=== PATIENT | female | born 1990 | race Caucasian/White ===

== ENCOUNTER 2018-07-02 11:31 | Emergency (ER) | payer BC, SELFPAY ==
[2018-07-02 11:33] VITALS: BP 150/99; PULSE 116; RESP 18; TEMP 36.6; O2SAT 98; BMI 44.7
--- NOTE | 2018-07-02 11:37 | EKG12_ITS ---
Test Reason : CP Blood Pressure : / mmHG Vent. Rate : 112 BPM Atrial Rate : 112 BPM P-R Int : 144 ms QRS Dur : 092 ms QT Int : 326 ms P-R-T Axes : 057 063 043 degrees QTc Int : 444 ms Sinus tachycardia Otherwise normal ECG Confirmed by JACKSON WEISS, ELEAZAR ([id number]), desk editor SHANIA SCHAEFER ([id number] on 07/04/2018 2:37:48 PM Referred By: SHARLENE Confirmed By:ELEAZAR PAZ MD
--- NOTE | 2018-07-02 11:37 | RAD_ITS ---
STUDY: X-RAY CHEST REASON FOR EXAM: Female, 27 years old. Chest pain and abdominal pain. TECHNIQUE: PA and lateral views of the chest. COMPARISON: None. FINDINGS: The lungs are clear and expanded. Scattered calcified granulomas. There is no demonstrated pleural abnormality. Normal size heart. Normal mediastinum and keith. Normal visualized pulmonary arteries. Normal visualized aortic arch and descending thoracic aorta. Normal visualized thoracic spine. Normal visualized ribs, clavicles, and shoulders. There is no demonstrated abnormality of the visualized soft tissue structures of the upper abdomen. RAD/Chest PA and Lateral IMPRESSION: Normal x-ray examination of the chest. Electronically Signed: Alexey Enriquez MD at 12:13 EST Tel [phone], Service support ,
--- NOTE | 2018-07-02 13:02 | ED.RN ---
NO OLD EKG
--- NOTE | 2018-07-02 13:10 | US_ITS ---
STUDY: ABDOMINAL ULTRASOUND - RIGHT UPPER QUADRANT REASON FOR VISIT: Female, 27 years old. Abdominal pain. The patient has a history of [place]. TECHNIQUE: Ultrasound evaluation of the right upper quadrant was performed with real-time and static willingham-scale imaging. TECHNICAL QUALITY: Adequate. COMPARISON: Comparison is made with prior CT scan of the abdomen dated February 08, 2017. FINDINGS: Liver: The liver measures 13.9 cm. There is increased echogenicity consistent with fatty infiltration. The bile ducts are within normal limits. There is hepatic color flow. The direction of portal flow is hepatopetal. There is a 2.7 cm x 2.7 cm x 2.2 cm hypoechoic to isoechoic nodule in the left lobe of the liver. A similar appearing nodules also seen in the right lobe measuring 3.2 cm x 3 cm x 3.[address] scan of the abdomen and pelvis, these were thought to be hemangiomas. Gallbladder: Normal distended gallbladder. The gallbladder wall measures 2.0 mm. There is a negative sonographic Mendoza's sign. There is no pericholecystic fluid. There are no gallstones. Common Bile Duct (C.B.D.): The common bile duct was not visualized due to bowel gas. Pancreas: There is nonvisualization of the pancreas due to overlying bowel gas. Right Kidney: Normal size of the right kidney. The right kidney measures 13.9 cm x 5.2 cm x 4.8 cm. Normal renal cortex. The right cortex measures 1.7 cm. There is no demonstrated renal mass or cyst. There is no right hydronephrosis. US/Gallbladder IMPRESSION: Fatty infiltration of the liver. 2. Hypoechoic/isoechoic nodules in the right and left lobes of the liver as described. On prior CT scan examination, these were thought to be hemangiomas. Electronically Signed: Alexey Enriquez MD at 15:57 EST Tel [phone], Service support ,
[2018-07-02 13:15] VITALS: O2SAT 98
[2018-07-02] MEDS: Ondansetron 4 MG/2 ML Vial IV (13:19)
[2018-07-02 13:22] LABS: Absolute Lymphocyte Count 2.17 X10^3/ul (0.83-4.51); Absolute Neutrophil Count 5.9 X10^3/uL (2.0-7.7); Basophil# 0.03 X10^3/uL; Basophil% 0.3 % (0-1); Eosinophil# 0.29 X10^3/uL; Eosinophils% 3.2 % (0-5); Hematocrit 38.6 % (37-47); Hemoglobin 12.6 g/dl (12.0-15.0); Lymphocyte # 2.17 X10^3/ul (4.0); Lymphocyte % 23.7 % (19-41); Mean Corp Hgb Conc 32.6 g/gl (32-36); Mean Corpuscular Hgb 27.5 pg (27.0-32.0); Mean Corpuscular Volume 84.3 fL (81-99); Mean Platelet Vol. 11.4 fl (6.2-12.0); Monocyte# 0.64 X10^3/uL; Neutrophil # 5.93 X10^3/uL (2.7-7.7); Neutrophil % 64.9 % (47-70); Platelet Count 285 K/mm3 (150-450); RBC Distribution Width CV 13.9 % (11.6-14.6); RBC Distribution Width SD 43.1 fl (35.1-43.9); Red Blood Count 4.58 M/mm3 (4.2-5.4); White Blood Count 9.1 K/mm3 (4.4-11.0)
[2018-07-02 13:23] LABS: Differential Indicated SCAN CRITERIA MET; POSITIVE COUNT NO; POSITIVE DIFFERENTIAL NO; POSITIVE MORPHOLOGY YES
[2018-07-02 13:43] LABS: AST(SGOT) 26 U/L (15-37); Alanine Aminotransfer ALT/SGPT 30 U/L (13-56); Albumin, Serum 3.4 g/dL (3.2-5.0); Alkaline Phosphatase 60 U/L (45-117); Anion Gap 10 (5-15); BUN 7 mg/dL (7-18); Bilirubin, Direct 0.06 mg/dL (0.00-0.30); Chloride 105 mmol/L (98-107); Creatinine, Serum 0.64 mg/dL (0.55-1.02); EST Glomerular Filtration Rate 121 mL/min (>60); Est Glom Filt Rate - Afr Amer 146 mL/min (>60); Estimated Creatinine Clearance 116.04 ml/min; Globulin 3.9 g/dL (2.2-4.2); Glucose 127 mg/dL (74-106); Lipase 92 U/L (73-393); Potassium 3.9 mmol/L (3.5-5.1); Protein, Total 7.3 g/dL (6.4-8.2); Sodium Level 140 mmol/L (136-145)
--- NOTE | 2018-07-02 16:07 | ED.VISSUMM ---
- ER Visit Summary Date of Service: 07/02/18 Chief Complaint: Stomach and chest pain History of Present Illness: The patient is a 27 F with stomach and chest pain. Symptoms have been going on for days. She feels a burning pain in her epigastric region. It is radiating to her left axillary region. Worse with food. Associated with nausea and vomiting. Denies fever or skin changes. Denies urinary changes. Denies shortness of breath. Denies any history of lung disease, heart disease, PE. Denies leg swelling. Physical Examination: Afebrile and vital signs unremarkable except for heart rate of 116. The patient appears uncomfortable but not toxic or in distress. Skin appears normal without pallor or jaundice. Mucous membranes are moist. Heart regular. Lungs clear. Abdomen soft and nontender. Test Results: EKG showed sinus rhythm at a rate of 112. Labs all unremarkable including CBC, CMP, and lipase. Chest x-ray unremarkable. Ultrasound showed a fatty liver with suspected hemangiomas. Emergency Department Course and Treatment: Patient had symptoms concerning for GI disease. She does have some chest pain and I suspect this may be referred pain. She is low risk for heart disease, PE, or dissection. No urinary symptoms. Her workup was reassuring. She will be referred for outpatient follow-up. Prescribed Pepcid. Return for any new or worsening issues. Treatment Plan: As above Disposition: Discharge Impression: 1. Epigastric pain This note was generated with [employer] dictation software. It may contain incorrect words, spelling, and punctuation that were not noted in review of the chart prior to signing ED Disposition - Plan for ED Patient: Chief Complaint: Abd Pain Referrals: Angie Pena MD [Primary Care Provider] -
--- NOTE | 2018-07-02 16:10 | ED.DEP ---
ED Disposition - Plan for ED Patient: Chief Complaint: Abd Pain Instructions: ED Epigastric Pain [facility] Prescriptions: Famotidine [Pepcid] 20 mg PO BID #28 tab Referrals: Angie Pena MD [Primary Care Provider] -
[2018-07-02 16:25] VITALS: BP 149/79; PULSE 92; RESP 18; O2SAT 100
--- NOTE | 2018-07-02 16:26 | ED.RN ---
THIS NURSE REVIEWED D/C INSTRUCTIONS WITH PT. PT VERBALIZED UNDERSTANDING OF INSTRUCTIONS. IV D/C. IV CATHETER INTACT. PT TOLERATED WELL. PT DENIES FURTHER NEEDS OR QUESTIONS AT THIS TIME
== END 2018-07-02 16:26 | disposition home or self-care (01) ==
LOC: ED 13:19
PROVIDERS: Emergency Provider Emergency Medicine; Family Provider Internal Medicine; PCP Internal Medicine
DX: R10.13 Epigastric pain (principal); R11.2 Nausea with vomiting, unspecified; K75.81 Nonalcoholic steatohepatitis (NASH); E11.9 Type 2 diabetes mellitus without complications; I10 Essential (primary) hypertension; J45.909 Unspecified asthma, uncomplicated; Z79.84 Long term (current) use of oral hypoglycemic drugs; Z79.899 Other long term (current) drug therapy
CPT/HCPCS: 71046; 76705; 80048; 80076; 83690; 84484; 85025; 93005; 96374; 99285; A4216; J2405

== ENCOUNTER 2018-12-29 10:37 | Emergency (ER) | payer MEDICAID, SELFPAY ==
[2018-12-29 10:39] VITALS: BP 147/77; PULSE 106; RESP 18; TEMP 36.1; O2SAT 99; BMI 45.5
--- NOTE | 2018-12-29 11:19 | ED.VIS.GEN ---
History of Present Illness Chief Complaint: Weakness Informant: Patient Onset: Days Narrative: Patient presents with reports of generalized weakness and fatigue today. She has been experiencing these symptoms over the last 2 weeks. Last week, she was on vacation when she began to feel short of breath and diaphoretic and then had a syncopal event. She did feel the syncopal event coming on and it did not fall or hit her head. She states that it was very high on this vacation. Over the past week, she has been home. 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 She had another syncopal event yesterday and again felt it coming on and assisted herself to the ground. She has been experiencing muscle cramps. She denies any chest pain. She has never had this before. She has been drinking a significant amount of fluids including Pedialyte and Gatorade. She does have a history of diabetes mellitus. She does take oral contraceptive with estrogen. Past Medical History - Allergies and Home Meds Allergies/Adverse Reactions: Allergies No Known Allergies Allergy (Verified 12/29/18 10:38) Primary Care Physician: Angie Pena MD [Primary Care Provider] - Surgical History: no surgical history Smoking Status: Never smoker - Family History Maternal Family History: Reports: No pertinent history Paternal Family History: Reports: No pertinent history Review of Systems General: Reports: Malaise Eyes: Denies: Visual changes - bilaterally, Diplopia ENT: Denies: Rhinorrhea, Sore throat Cardiovascular: Denies: Chest pain, Palpitations Respiratory: Denies: Dyspnea, Cough, Dyspnea on exertion Gastrointestinal: Denies: Abdominal pain, Nausea, Vomiting, Diarrhea, Melena, Hematochezia Genitourinary: Denies: Dysuria, Hematuria, Frequency Musculoskeletal: Reports: - - Muscle cramps Skin: Denies: Rash, Wounds Neurological: Reports: Weakness Physical Exam Vital Signs/Narrative: Vital Signs Temp Pulse Resp BP Pulse Ox 12/29/18 10:39 97.0 F L 106 H 18 147/77 H 99 General: Well nourished, Well developed, No Acute Distress Head: Normocephalic, Atraumatic Eyes: Perrl, EOMI ENT: Moist mucous membranes, No rhinorrhea Neck: Supple, Nontender Cardiovascular: Tachycardia Respiratory: No distress, CTA bilaterally, Chest nontender Abdomen: Soft, Nontender, Nondistended, Normal bowel sounds Back: Nontender, Normal Inspection Extremities: Nontender, No edema Skin: Normal color, No rash Neurological: Alert, Oriented x3, Cranial nerves II-XII grossly intact, Normal Strength, Normal Sensation Psychological: Normal affect, Normal Mood Diagnostic/Tx/Re-eval - Medical Decision Making Patient presents to the ED with 2 episodes of syncope in the last 2 weeks. Upon arrival, she appears well and nontoxic. She was mildly tachycardic upon arrival. She is in no acute distress. Given patient does take oral contraceptives and was tachycardic she is not PERC negative. D-dimer was negative. CBC and BMP unremarkable. Urinalysis and urine unremarkable. Patient was given a liter of IV fluids and reports improvement of symptoms. EKG shows normal sinus rhythm with a ventricular rate of 79 bpm. AZ interval 160. QRS 94. QT 390. No STEMI. At this time, I think it is safe for patient be discharged home. She will follow-up with her PCP if symptoms persist or worsen. Educated on signs/symptoms to return to the ED. Provided discharge instructions. Patient agreeable to plan. Disposition: Home stable Impression: Vasovagal syncope. Dehydration. ED Disposition - Plan for ED Patient: Disposition: Home or Assisted Living Diagnosis: Vasovagal syncope, Dehydration Instructions: SYNCOPE, Vasovagal, Dehydration Referrals: Angie Pena MD [Primary Care Provider] -
[2018-12-29 11:33] LABS: Absolute Lymphocyte Count 1.94 X10^3/ul (0.83-4.51); Absolute Neutrophil Count 5.4 X10^3/uL (2.0-7.7); Basophil# 0.03 X10^3/uL; Basophil% 0.4 % (0-1); Eosinophil# 0.24 X10^3/uL; Eosinophils% 2.9 % (0-5); Hematocrit 37.7 % (37-47); Hemoglobin 12.4 g/dl (12.0-15.0); Lymphocyte # 1.94 X10^3/ul (4.0); Lymphocyte % 23.5 % (19-41); Mean Corp Hgb Conc 32.9 g/gl (32-36); Mean Corpuscular Hgb 27.1 pg (27.0-32.0); Mean Corpuscular Volume 82.3 fL (81-99); Monocyte# 0.54 X10^3/uL; Monocyte% 6.5 % (0-10); Neutrophil # 5.44 X10^3/uL (2.7-7.7); Neutrophil % 65.7 % (47-70); POSITIVE COUNT NO; POSITIVE DIFFERENTIAL NO; POSITIVE MORPHOLOGY NO; Platelet Count 278 K/mm3 (150-450); RBC Distribution Width CV 14.2 % (11.6-14.6); RBC Distribution Width SD 41.3 fl (35.1-43.9); Red Blood Count 4.58 M/mm3 (4.2-5.4); White Blood Count 8.3 K/mm3 (4.4-11.0)
[2018-12-29 11:40] LABS: Anion Gap 8 (5-15); BUN 8 mg/dL (7-18); BUN/Creat Ratio 10.6 RATIO (10-20); Calcium,Total 8.7 mg/dL (8.5-10.1); Chloride 106 mmol/L (98-107); Creatinine, Serum 0.75 mg/dL (0.55-1.02); EST Glomerular Filtration Rate 99 mL/min (>60); Est Glom Filt Rate - Afr Amer 120 mL/min (>60); Estimated Creatinine Clearance 94.03 ml/min; Glucose 168 mg/dL (74-106); Potassium 3.8 mmol/L (3.5-5.1); Sodium Level 136 mmol/L (136-145)
[2018-12-29 11:44] LABS: D-Dimer Quantitative (DVT/PE) 0.32 FEU/ug/m (0.27-0.49)
[2018-12-29] MEDS: 0.9% Normal Saline 1,000 ML 999 ML IV (11:50)
[2018-12-29 12:17] LABS: Mucous, Urine 0 SEEN /hpf (<or=2+); Red Blood Cells-Urine 0 SEEN /hpf (0-5); Squamous Epithelial Cells - UA 0 SEEN /hpf (5-10)
--- NOTE | 2018-12-29 12:28 | EKG12_ITS ---
Test Reason : WEAKNESS Blood Pressure : / mmHG Vent. Rate : 079 BPM Atrial Rate : 079 BPM P-R Int : 160 ms QRS Dur : 094 ms QT Int : 390 ms P-R-T Axes : 050 052 042 degrees QTc Int : 447 ms Normal sinus rhythm with sinus arrhythmia Normal ECG Confirmed by ISATU WEISS, NATALIE ([id number]), fan mail editor ZAMZAM CALDERON ([id number]) on 01/01/2019 1:54:06 PM Referred By: KAT Confirmed By:NATALIE LUNSFORD MD
[2018-12-29 13:02] LABS: Color, Urine Yellow (Yellow); Glucose, Dipstick Normal (Normal); Ketone-Dipstick 5 mg/dl (Negative); Leukocyte Esterase-Dipstick 25 /ul (Negative); Nitrite-Dipstick Negative (Negative); Occult Blood-Urine 50 /ul (Negative); Protein-Dipstick 15 mg/dl (Negative); Urine Bilirubin Dipstick Negative (Negative); Urine Clarity Clear (Clear); Urine Urobilinogen Normal (Normal)
[2018-12-29 13:04] LABS: Internal QC Validated? YES +Cl - CLEAR BKGD; Pregnancy, Urine Negative Negative
[2018-12-29 13:08] LABS: Bacteria 1+ /hpf (None Seen); Transitional Epithelial - Ur 5-10 SEEN /hpf (0-5); White Blood Cells 0-5 SEEN /hpf (0-5)
--- NOTE | 2018-12-29 13:21 | ED.DCSUM_ITS ---
- ER Visit Summary Date of Service: 12/29/18 Chief Complaint: [Dizziness and syncope] History of Present Illness: The patient is a 28 F [presents to the emergency department with 2 episodes of syncope in the last 2 weeks. Patient states that she was on vacation in [place] couple weeks ago and she was on about where it was quite hot. Patient remembers feeling very nauseated and thought she was going throw up and had a short syncopal episode. 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 She denies any chest pain or palpitations. Patient states that she has a history of a mild tachycardia which she was told she should have it looked at because her heart rate is always in the 90s to low 100s. 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 She denies any chest pain. She denies any history of blood clots in her legs or lungs.] She has had somewhat decreased urine output. Physical Examination: [HEENT-PERRLA, EOMI. Cranial nerves II through XII grossly intact. TMs clear. Mucous membranes moist. No adenopathy. Cardiovascular-regular rate and rhythm without murmur or ectopy Lungs-clear to auscultation, chest wall stable without crepitus or subcu emphysema Abdomen-normoactive bowel sounds, soft, nontender, no rebound or rigidity, no peritoneal signs. Extremities-intact ?4, normal range of motion, normal pulses, atraumatic] Test Results: [CBC with differential was unremarkable. Chemistries unremarkable. Urinalysis was normal. hCG was negative. EKG showed sinus rhythm with no acute segment changes.] Lab was normal. Emergency Department Course and Treatment: [Was given a liter normal same fluid bolus.] Treatment Plan: [Patient instructed to push fluids and follow-up with primary care physician in 3 to 5 days.] Disposition: [Discharged home stable condition.] Impression: [Syncope-vasovagal Dehydration] This note was generated with [employer] software. It may contain incorrect words, spelling, and punctuation that were not noted in review of the chart prior to signing ED Disposition - Plan for ED Patient: Referrals: Angie Pena MD [Primary Care Provider] -
[2018-12-29 13:32] VITALS: BP 147/87; PULSE 85; RESP 15; O2SAT 98
== END 2018-12-29 13:32 | disposition home or self-care (01) ==
PROVIDERS: Emergency Provider Physician Assistant; Family Provider Internal Medicine; PCP Internal Medicine
DX: R55 Syncope and collapse (principal); E86.0 Dehydration; E11.9 Type 2 diabetes mellitus without complications; Z79.3 Long term (current) use of hormonal contraceptives; Z79.84 Long term (current) use of oral hypoglycemic drugs
CPT/HCPCS: 80048; 81001; 81025; 85025; 85379; 93005; 96360; 99282; J7030

== ENCOUNTER 2020-04-12 16:40 | Emergency (ER) | payer MEDICAID, SELFPAY ==
[2020-04-12 16:41] VITALS: BP 157/108; PULSE 121; RESP 24; TEMP 36.3; O2SAT 100; BMI 45.1
--- NOTE | 2020-04-12 17:07 | EKG12_ITS ---
Test Reason : ANXIETY Blood Pressure : / mmHG Vent. Rate : 109 BPM Atrial Rate : 109 BPM P-R Int : 162 ms QRS Dur : 092 ms QT Int : 352 ms P-R-T Axes : 021 039 008 degrees QTc Int : 474 ms Sinus tachycardia Otherwise normal ECG Confirmed by SUNITA WEISS, MARIA DEL CARMEN ([id number]), editor newspaper CLARISSA DE OLIVEIRA ([id number]) on 04/23/2020 9:34:58 A M Referred By: ADRIANA Confirmed By:СЕРГЕЙ DORSEY MD
--- NOTE | 2020-04-12 17:07 | CT_ITS ---
HISTORY: PLEURITIC CP, BACK PAIN, TACHCARDIA, HX DIAB, HTN, DIAB ADDITIONAL HISTORY: None provided. EXAMINATION/TECHNIQUE: CTA Chest WO/W Contrast Injection PULMONARY EMBOLISM PROTOCOL: 2D and 3D images to include MIP and/or volume rendered images CONTRAST: IV 100mL [id number] Number of images including paperwork: [id number] A radiation dose optimization technique was used for this scan. COMPARISON: CT abdomen and pelvis 02/08/2017 FINDINGS: PULMONARY ARTERIES: No pulmonary arterial filling defects. AORTA AND GREAT VESSELS: No dissection. HEART/PERICARDIUM: Unremarkable. MEDIASTINUM: Unremarkable. ADENOPATHY: No pathologic appearing adenopathy. THYROID: Unremarkable visualized portions. LUNG PARENCHYMA: No consolidation or mass. 2-3 mm nodules in the lower lobes unchanged and consistent with benign nodules for which no follow-up is warranted. PLEURAL SPACES: Unremarkable. UPPER ABDOMEN: Decreased hepatic density compatible steatosis. OSSEOUS AND SOFT TISSUE STRUCTURES: No acute skeletal findings. CT/CTA Chest W/WO Contrast IMPRESSION: No pulmonary embolus detected. Individualized dose optimization techniques were used for this CT. at 1836 Reported and signed by: Rachelle Jimenez MD Electronically Signed: Rachelle Jimenez MD at 18:36 EDT Tel , Service support ,
--- NOTE | 2020-04-12 17:10 | ED.VIS.GEN ---
History of Present Illness Chief Complaint: Anxiety Narrative: This patient is a 29-year-old female who presents with chest pain. This began abruptly less than an hour ago while driving. She complains of a substernal sharp pleuritic chest pain as well as cramping pain in her back and down her arms. No fevers. No cough. No vomiting or diarrhea. No history of prior similar symptoms. She does admit to feeling anxious. She denies history of prior similar symptoms or panic attacks. She does note that her boyfriend broke up with her about an hour before symptoms began. She is not on exogenous estrogen. She denies recent travel or surgery. No history of DVT or pulmonary embolism. No extremity pain or edema. Past Medical History - Allergies and Home Meds Allergies/Adverse Reactions: Allergies No Known Allergies Allergy (Verified 12/29/18 10:38) Primary Care Physician: Angie Pena MD [Primary Care Provider] - Past Medical History: - - Bipolar, diabetes, hypertension Surgical History: no surgical history Smoking Status: Never smoker - Family History Maternal Family History: Reports: No pertinent history Paternal Family History: Reports: No pertinent history Review of Systems All systems negative except as indicated General: Denies: Fever Eyes: Denies: Visual changes - bilaterally ENT: Denies: Bilateral ear pain Cardiovascular: Reports: Chest pain Respiratory: Reports: Dyspnea. Denies: Cough Gastrointestinal: Denies: Abdominal pain, Nausea, Vomiting, Diarrhea Musculoskeletal: Reports: Extremity Pain - Bilateral arm pain no lower extremity pain. Denies: Myalgias, Arthralgias, Swelling Skin: Denies: Rash Neurological: Denies: Headache Psych: Reports: Anxiety, Suicidal thoughts - Patient reports prior suicidal thoughts she does not actively feel suicidal she has no suicidal thoughts at this time she does not feel she is a risk to herself. Hematologic: Denies: Easy bruising Allergy: Denies: Uticaria Physical Exam Vital Signs/Narrative: Vital Signs Temp Pulse Resp BP Pulse Ox 04/12/20 16:41 97.3 F L 121 H 24 H 157/108 H 100 Inital Vital Signs reviewed: Yes General: Well nourished Head: Normocephalic Eyes: EOMI ENT: Moist mucous membranes Neck: Supple Cardiovascular: Regular rhythm, Tachycardia Respiratory: - - Tachypnea, good air exchange, no rales rhonchi or wheezes Abdomen: Soft, Nontender, Nondistended Extremities: Nontender, No edema, - - Easily palpable and symmetric radial pulses Skin: Normal color Neurological: Alert Psychological: Normal affect Diagnostic/Tx/Re-eval Impressions Chest CTA 04/12/20 17:07 IMPRESSION: No pulmonary embolus detected. Individualized dose optimization techniques were used for this CT. at 1836 Reported and signed by: Rachelle Jimenez MD Electronically Signed: Rachelle Jimenez MD at 18:36 EDT Tel , Service support , 04/12/20 17:07 CTA Chest W/WO Contrast [CT] Stat Laboratory Results 04/12/20 04/12/20 04/12/20 17:25 17:25 17:25 WBC 9.9 RBC 4.63 Hgb 12.7 Hct 39.4 MCV 85.1 MCH 27.4 MCHC 32.2 RDW Std Deviation 44.2 H RDW Coeff of Ranjeet 14.4 Plt Count 299 MPV 12.3 H Immature Gran % (Auto) 1.300 H Neut % (Auto) 70.1 H Lymph % (Auto) 20.7 [place] % (Auto) 5.1 Eos % (Auto) 2.3 Baso % (Auto) 0.5 Absolute Neuts (auto) 6.9 Absolute Lymphs (auto) 2.05 Nucleated RBC % 0 PT 13.2 INR 1.1 Sodium 137 Potassium 3.7 Chloride 105 Carbon Dioxide 24.0 Anion Gap 8 BUN 6 L Creatinine 0.76 Estim Creat Clear Calc 91.98 Est GFR (MDRD) Af Amer 118 Est GFR (MDRD) Non-Af 97 BUN/Creatinine Ratio 7.9 L Glucose 170 H Calcium 9.1 Troponin I < 0.015 - Medical Decision Making EKG shows sinus tachycardia at a rate of 109 no acute ischemic changes. Serum laboratory studies are unremarkable with a negative troponin. CTA of the chest shows no pulmonary embolism or aortic dissection. At this time she does not appear to have any acute life-threatening pathology. This could very well be related to anxiety. Patient advised on supportive care. She was advised to follow-up as an outpatient. She understands to return for new or worsening symptoms. Patient was discharged. ED Disposition - Plan for ED Patient: Disposition: Home or Assisted Living Diagnosis: Chest pain Instructions: ED Chest Pain NonCardiac Referrals: Angie Pena MD [Primary Care Provider] -
[2020-04-12 17:15] VITALS: BP 142/94; PULSE 106; RESP 23; O2SAT 96
[2020-04-12 17:45] LABS: Absolute Lymphocyte Count 2.05 X10^3/uL (0.83-4.51); Absolute Neutrophil Count 6.9 X10^3/uL (2.0-7.7); Basophil# 0.05 X10^3/uL; Basophil% 0.5 % (0-1); Eosinophil# 0.23 X10^3/uL; Eosinophils% 2.3 % (0-5); Hematocrit 39.4 % (37-47); Hemoglobin 12.7 g/dL (12.0-15.0); Lymphocyte # 2.05 X10^3/ul (4.0); Lymphocyte % 20.7 % (19-41); Mean Corp Hgb Conc 32.2 g/dL (32-36); Mean Corpuscular Hgb 27.4 pg (27.0-32.0); Mean Corpuscular Volume 85.1 fL (81-99); Mean Platelet Vol. 12.3 fl (6.2-12.0); Monocyte% 5.1 % (0-10); NRBC Flagged by Analyzer 0 % (0-5); Neutrophil # 6.92 X10^3/uL (2.7-7.7); Neutrophil % 70.1 % (47-70); Platelet Count 299 K/mm3 (150-450); RBC Distribution Width CV 14.4 % (11.6-14.6); RBC Distribution Width SD 44.2 fl (35.1-43.9); Red Blood Count 4.63 M/mm3 (4.2-5.4); White Blood Count 9.9 K/mm3 (4.4-11.0)
[2020-04-12 17:48] LABS: International Normalized Ratio 1.1; Prothrombin Time (Protime)PT. 13.2 SECONDS (11.7-14.9)
[2020-04-12 17:54] LABS: Anion Gap 8 (5-15); BUN 6 mg/dL (7-18); BUN/Creat Ratio 7.9 RATIO (10-20); Calcium,Total 9.1 mg/dL (8.5-10.1); Chloride 105 mmol/L (98-107); Creatinine, Serum 0.76 mg/dL (0.55-1.02); EST Glomerular Filtration Rate 97 mL/min (>60); Est Glom Filt Rate - Afr Amer 118 mL/min (>60); Estimated Creatinine Clearance 91.98 ml/min; Glucose 170 mg/dL (74-106); Potassium 3.7 mmol/L (3.5-5.1); Sodium Level 137 mmol/L (136-145)
[2020-04-12 18:27] VITALS: BP 148/94; PULSE 104; RESP 20; O2SAT 98
[2020-04-12 18:55] VITALS: BP 147/91; PULSE 103; RESP 20; O2SAT 99
== END 2020-04-12 19:00 | disposition home or self-care (01) ==
PROVIDERS: Emergency Provider Emergency Medicine; PCP Internal Medicine
DX: R07.81 Pleurodynia (principal); R06.00 Dyspnea, unspecified; M79.602 Pain in left arm; M79.601 Pain in right arm; E11.9 Type 2 diabetes mellitus without complications; I10 Essential (primary) hypertension; F31.9 Bipolar disorder, unspecified; F41.9 Anxiety disorder, unspecified; Z79.84 Long term (current) use of oral hypoglycemic drugs; Z79.899 Other long term (current) drug therapy
CPT/HCPCS: 71275; 80048; 84484; 85025; 85610; 93005; 99284; 99285; Q9967

== ENCOUNTER → 2020-06-10 | Outpatient (CLI) | payer MEDICAID, SELFPAY ==
[2020-06-10 09:31] VITALS: BMI 46.6
[2020-06-10 16:19] LABS: Chlamydia Trachomatis by PCR Negative (Negative); Neisserai gonorrhoeae by PCR Negative (Negative); Probe Check PASS; Sample Adequacy Control PASS; Specimen Processing Control PASS
== END | disposition home or self-care (01) ==
LOC: LABSPEC 12:06
PROVIDERS: PCP Internal Medicine; Referring Provider Nurse Practitioner Women's Health; Visit Provider Nurse Practitioner Women's Health
DX: Z11.3 Encounter for screening for infections with a predominantly sexual mode of transmission (principal)
CPT/HCPCS: 87491; 87591

== ENCOUNTER → 2020-06-14 08:17 | Outpatient (CLI) | payer MEDICAID, SELFPAY ==
[2020-06-10 09:31] VITALS: BMI 46.6
[2020-06-14 08:56] LABS: Estradiol 35.6 pg/mL; Follicle Stimulating Hormone 5.2 mIU/mL
[2020-06-22 09:25] LABS: Anti-Mullerian Hormone,Serum 4.92 ng/mL (.)
== END ==
PROVIDERS: PCP Internal Medicine; Visit Provider Nurse Practitioner Women's Health
DX: E28.2 Polycystic ovarian syndrome (principal)
CPT/HCPCS: 36415; 82670; 83001; 83516

== ENCOUNTER → 2020-07-02 09:27 | Outpatient (CLI) | payer MEDICAID, SELFPAY ==
[2020-07-01 10:34] VITALS: BMI 46.5
[2020-07-02 10:45] LABS: Progesterone Level 4.01 ng/mL (See Comment)
== END ==
PROVIDERS: PCP Internal Medicine; Referring Provider Nurse Practitioner Women's Health; Visit Provider Nurse Practitioner Women's Health
DX: E28.2 Polycystic ovarian syndrome (principal)
CPT/HCPCS: 36415; 84144

== ENCOUNTER 2020-09-11 15:23 | Outpatient (RCR) | payer MEDICAID, SELFPAY ==
[2020-07-01 10:34] VITALS: BMI 46.5
[2020-09-11] MEDS: COVID-19 VACC, MRNA(PFIZER)/PF 30 MCG/0.3 ML SYRINGE IM (09:02)
[2020-10-02] MEDS: COVID-19 VACC, MRNA(PFIZER)/PF 30 MCG/0.3 ML SYRINGE IM (08:50)
== END 2020-09-11 23:59 ==
LOC: IMMUN 15:23
PROVIDERS: PCP Internal Medicine; Visit Provider Family Medicine
DX: Z23 Encounter for immunization (principal)
CPT/HCPCS: 0001A; 0002A; 91300

== ENCOUNTER 2020-12-18 14:45 | Emergency (ER) | payer MEDICAID, SELFPAY ==
[2020-07-01 10:34] VITALS: BMI 46.5
[2020-12-18 14:46] VITALS: BP 151/88; PULSE 119; RESP 16; TEMP 36.3; O2SAT 96; BMI 44.6
--- NOTE | 2020-12-18 14:57 | EKG12_ITS ---
Test Reason : DIZZIESS Blood Pressure : / mmHG Vent. Rate : 108 BPM Atrial Rate : 108 BPM P-R Int : 156 ms QRS Dur : 090 ms QT Int : 348 ms P-R-T Axes : 029 072 038 degrees QTc Int : 466 ms Sinus tachycardia Poor R wave progression Confirmed by JACKSON WEISS, ELEAZAR ([id number]), make up editor CLARISSA DE OLIVEIRA ([id number]) on 12/22/2020 8:34:51 AM Referred By: JULIANA Confirmed By:ELEAZAR PAZ MD
--- NOTE | 2020-12-18 14:58 | EDS_ITS ---
HPI History of Present Illness Chief Complaint: Dizziness Detail of Chief Complaint: Dizziness and near syncope that started about an hour ago Informant: patient Narrative Narrative: Patient states that she gave plasma approximately noon today. Patient states that the IV infiltrated in her left arm and it somewhat painful. She initially felt okay but while driving home began feeling clammy and sweaty and felt like she might pass out. She did not actually pass out however. She denies recent illness. She denies any shortness of breath. Initially she had some mild chest discomfort which she was not really concerned with. She is c urrently not having chest pain but still feels somewhat clammy. Patient's last menstrual period was 3 weeks ago and states that she has not had intercourse in many months. Prior similar symptoms: No PFSH PFSH Medical History (Updated 12/18/20 @ 17:[address] Ya Hanley DO) Bipolar disorder History of PCOS HTN (hypertension) Type 2 diabetes mellitus Home Medications lisinopril 10 mg PO DAILY 03/19/17 [History Last Taken 04/12/20] metformin 500 mg PO BID 03/19/17 [History Last Taken 04/12/20] spironolactone 50 mg PO DAILY 07/02/18 [History Last Taken 04/12/20] pantoprazole 20 mg PO DAILY 12/29/18 [History Last Taken 04/12/20] aripiprazole 30 mg tablet 30 mg PO DAILY 06/10/20 [History Last Taken Unknown] Allergy/AdvReac Type Severity Reaction Status Date / Time No Known Allergies Allergy Verified 07/01/20 10:34 Family History Mother CVA (cerebral vascular accident) Father Diabetes Hypertension Surgical History History of breast biopsy History of liver biopsy History of lumpectomy Social History (Updated 07/01/20 @ 10:53 by Alejandra Haq NP, [employer] DEV[employer]) household members: other details: parents number of children: 0 current occupational status: employed current occupation: [employer] history of recent travel: No sexually active: Yes Smoking Status: Never smoker alcohol intake: current alcohol intake frequency: a few times a month substance use type: does not use what type of physical activity do you participate in: aerobics frequency: 1-2 times per week seatbelt use: always do you feel safe at home: Yes additional social history: Boyfriend - Elias JACKSON RENETTA ED Constitutional Constitutional ED: Reports systems reviewed and no addt'l complaints, except as documented; Denies body ache(s), change in weight or chills Eyes Eyes: Denies acute decrease in peripheral vision, change in vision, double vision or loss of vision ENT ENT ED: Reports none; Denies ear pain, lip swelling, loss taste/smell, neck pain, otalgia or sore throat Cardiovascular Cardiovascular: Reports none; Denies abdominal pain, chest pain with activity, leg edema, lightheadedness, palpitations, rapid heart rate or syncope Respiratory/Chest Respiratory/Chest: Reports none; Denies change in mental status, dry cough, dyspnea, hemoptysis, shortness of breath at rest or shortness of breath with exertion Gastrointestinal Gastrointestinal: Reports none; Denies abdominal pain, change in stool bianca cter, diarrhea, hematemesis, hematochezia, melena, rectal bleeding or vomiting Genitourinary Genitourinary ED: Reports none; Denies abdominal discomfort, anuria, dysuria, genital pain or polyuria Musculoskeletal Musculoskeletal: Reports none; Denies arthralgias, back pain, difficulty walking, extremity pain, muscle weakness or myalgias Integumentary Reports none; Denies abscess or rash Neurologic Neurologic: Reports none; Denies abnormal gait, confusion, focal weakness, frequent falls, headache(s), loss of vision, numbness, paresthesias, radicular pain, vertigo or weakness Psychiatric Psychiatric: Reports systems reviewed and no addt'l complaints, except as documented and none; Denies behavioral changes, confusion, difficulty con centrating, hallucinations, suicidal ideation, tactile hallucinations or visual hallucinations Endocrine Endocrinology: Denies none, cold intolerance, excessive sweating, fatigue or heat intolerance Hematologic/Lymphatic Hematologic/Lymphatic: Reports none; Denies anemia, easy bleeding or easy bruising Allergic/Immunologic Allergic/Immunologic ED: Denies as per HPI, none, lip swelling, mouth swelling, throat swelling, tongue swelling or hives EXAM Physical Exam Const Vital Signs: 12/18/20 14:46 12/18/20 15:41 Temperature 97.4 F L Temperature Source Temporal Pulse Rate 119 H Pulse Rate [Lying] 105 H Pulse Rate [Sitting] 111 H Pulse Rate [Standing] 120 H Respiratory Rate 16 Blood Pressure 151/88 H Blood Pressure [Lying] 122/75 H Blood Pressure [Sitting] 122/96 H Blood Pressure [Standing] 141/103 H Blood Pressure Mean 109 Blood Pressure Mean [Lying] 90 Blood Pressure Mean [Sitting] 104 Blood Pressure Mean [Standing] 115 Pulse Ox 96 Oxygen Delivery Method Room Air Positive well nourished and well developed General Appearance ED: well developed and NAD HEENT Reports TM's clear and moist mucous membranes normocephalic and atraumatic; Negative for trauma or tenderness Tympanic Membrane ED: Yes TM's clear Eyes PERRL and EOMs intact bilaterally General Eye ED: Negative for pale conjunctiva or scleral icterus Neck no lymphadenopathy, supple and no JVD General: Negative for tenderness Chest Wall inspection of chest normal and palpation of chest normal Chest: Negative for tenderness Resp normal respiratory effort and clear to auscultation bilaterally Effort and Inspection: Negative for respiratory distress or pain with movement Auscultation: Negative for rhonchi, wheezes or diminished lung sounds Cardio regular rate, regular rhythm, S1 normal heart sound, S2 normal heart sound and no murmurs Peripheral Pulses: pulses 2+ throughout GI normal to inspection, nondistended, normoactive bowel sounds, soft to palpation, non-tender, non-distended and no masses Back/Spine no CVA tenderness and no thoracic nor lumbar tenderness Extremity normal to inspection General Extremety ED: Negative for edema General Extremity: Negative for edema Neuro oriented x3, CN's II-XII intact bilaterally, no sensory deficits noted and gait normal Sensorium / Orientation: awake, alert, oriented to person, oriented to place and oriented to time Motor Exam: strength 5/5 throughout and strength abnormal Psych mental status grossly normal Skin no rashes or lesions noted and no wounds MDM MDM MDM Narrative Medical decision making narrative: Patient's work-up unremarkable in the emergency department. Etiology of near syncope unclear why Speck may be related to her blood draw and plasma donation. Patient advised to push fluids and rest. She is to return if chest pain, shortness of breath, syncope, or conditions worsen anyway. Lab Data Attestation: I reviewed the patient's lab results. Labs: Laboratory Results - last 24 hr 12/18/20 12/18/20 12/18/20 15:30 15:30 15:30 WBC 11.8 H RBC 4.89 Hgb 13.4 Hct 42.1 MCV 86.1 MCH 27.4 MCHC 31.8 L RDW Std Deviation 44.2 H RDW Coeff of Ranjeet 14.0 Plt Count 305 MPV 11.6 Immature Gran % (Auto) 2.500 H Neut % (Auto) 69.7 Lymph % (Auto) 19.9 [place] % (Auto) 4.3 Eos % (Auto) 3.0 Baso % (Auto) 0.6 Absolute Neuts (auto) 8.2 H Absolute Lymphs (auto) 2.34 Nucleated RBC % 0 Sodium 136 Potassium 4.2 Chloride 101 Carbon Dioxide 26.0 Anion Gap 9 BUN 8 Creatinine 0.76 Estim Creat Clear Calc 95.17 Est GFR (MDRD) Af Amer 117 Est GFR (MDRD) Non-Af 96 BUN/Creatinine Ratio 10.5 Glucose 227 H Calcium 8.7 Serum , Qual NEGATIVE Urine Color Urine Clarity Urine pH Ur Specific [place] Urine Protein Urine Glucose (UA) Urine Ketones Urine Occult Blood Urine Nitrite Urine Bilirubin Urine Urobilinogen Ur Leukocyte Esterase Urine RBC Urine WBC Ur Squamous Epith Cells Urine Bacteria Urine Mucus 12/18/20 16:32 WBC RBC Hgb Hct MCV MCH MCHC RDW Std Deviation RDW Coeff of Ranjeet Plt Count MPV Immature Gran % (Auto) Neut % (Auto) Lymph % (Auto) [place] % (Auto) Eos % (Auto) Baso % (Auto) Absolute Neuts (auto) Absolute Lymphs (auto) Nucleated RBC % Sodium Potassium Chloride Carbon Dioxide Anion Gap BUN Creatinine Estim Creat Clear Calc Est GFR (MDRD) Af Amer Est GFR (MDRD) Non-Af BUN/Creatinine Ratio Glucose Calcium Serum , Qual Urine Color Yellow Urine Clarity Clear Urine pH 6.0 Ur Specific [place] 1.020 Urine Protein Negative Urine Glucose (UA) 100 H Urine Ketones 5 H Urine Occult Blood Negative Urine Nitrite Negative Urine Bilirubin Negative Urine Urobilinogen Normal Ur Leukocyte Esterase Negative Urine RBC 0 SEEN Urine WBC 0 SEEN Ur Squamous Epith Cells 0-5 SEEN Urine Bacteria 0 SEEN Urine Mucus 0 SEEN EKG Initial EKG: Interpretation: Sinus Rhythm Comments: Sinus rhythm with a ventricular rate of 108 bpm with no acute ST segment changes. Discharge Plan Triage Chief Complaint: Dizziness ED Provider: Ya Hanley Dx/Rx/DC Orders Clinical Impression: Near syncope Instructions: ED Dizziness, Uncertain Cause Prescriptions: No Action metformin 500 MG tablet 500 mg PO BID RF: 0 lisinopril 2.5 MG tablet 10 mg PO DAILY RF: 0 spironolactone 25 MG tablet 50 mg PO DAILY RF: 0 pantoprazole 20 MG tablet 20 mg PO DAILY RF: 0 aripiprazole 30 mg tablet 30 mg PO DAILY RF: 0 Primary Care Provider: Angie Pena Referrals: Angie Pena MD [Primary Care Provider] - 3-5 Days Disposition Disposition: Home, Self Care
[2020-12-18 15:40] LABS: Absolute Lymphocyte Count 2.34 X10^3/uL (0.83-4.51); Absolute Neutrophil Count 8.2 X10^3/uL (2.0-7.7); Basophil# 0.07 X10^3/uL; Basophil% 0.6 % (0-1); Eosinophil# 0.35 X10^3/uL; Hematocrit 42.1 % (37-47); Hemoglobin 13.4 g/dL (12.0-15.0); Lymphocyte # 2.34 X10^3/ul (0.83-4.51); Lymphocyte % 19.9 % (19-41); Mean Corp Hgb Conc 31.8 g/dL (32-36); Mean Corpuscular Hgb 27.4 pg (27.0-32.0); Mean Corpuscular Volume 86.1 fL (81-99); Mean Platelet Vol. 11.6 fl (6.2-12.0); Monocyte# 0.51 X10^3/uL; Monocyte% 4.3 % (0-10); NRBC Flagged by Analyzer 0 % (0-5); Neutrophil % 69.7 % (47-70); Platelet Count 305 K/mm3 (150-450); RBC Distribution Width SD 44.2 fl (35.1-43.9); Red Blood Count 4.89 M/mm3 (4.2-5.4); White Blood Count 11.8 K/mm3 (4.4-11.0)
[2020-12-18 15:41] VITALS: BP 122/75; BP 122/96; BP 141/103; PULSE 105; PULSE 111; PULSE 120
[2020-12-18 15:55] LABS: Anion Gap 9 (5-15); BUN 8 mg/dL (7-18); BUN/Creat Ratio 10.5 RATIO (10-20); Calcium,Total 8.7 mg/dL (8.5-10.1); Chloride 101 mmol/L (98-107); Creatinine, Serum 0.76 mg/dL (0.55-1.02); EST Glomerular Filtration Rate 96 mL/min (>60); Est Glom Filt Rate - Afr Amer 117 mL/min (>60); Estimated Creatinine Clearance 95.17 ml/min; Glucose 227 mg/dL (74-106); Potassium 4.2 mmol/L (3.5-5.1); Sodium Level 136 mmol/L (136-145)
[2020-12-18 16:11] LABS: Internal QC Validated? YES +Cl - CLEAR BKGD; Pregnancy, Serum, hCG Quali. NEGATIVE Negative
[2020-12-18 16:49] LABS: Bacteria 0 SEEN /hpf (None Seen); Mucous, Urine 0 SEEN /hpf (<or=2+); Red Blood Cells-Urine 0 SEEN /hpf (0-5); White Blood Cells 0 SEEN /hpf (0-5)
[2020-12-18 16:58] LABS: Color, Urine Yellow (Yellow); Glucose, Dipstick 100 mg/dl (Normal); Ketone-Dipstick 5 mg/dl (Negative); Leukocyte Esterase-Dipstick Negative /ul (Negative); Nitrite-Dipstick Negative (Negative); Occult Blood-Urine Negative /ul (Negative); Protein-Dipstick Negative (Negative); Urine Bilirubin Dipstick Negative (Negative); Urine Clarity Clear (Clear); Urine Urobilinogen Normal (Normal)
[2020-12-18 17:09] LABS: Squamous Epithelial Cells - UA 0-5 SEEN /hpf (5-10)
[2020-12-18 18:03] VITALS: BP 129/88
== END 2020-12-18 18:04 | disposition home or self-care (01) ==
PROVIDERS: Emergency Provider Emergency Medicine; PCP Internal Medicine
DX: R55 Syncope and collapse (principal); M79.602 Pain in left arm; E11.9 Type 2 diabetes mellitus without complications; I10 Essential (primary) hypertension; E28.2 Polycystic ovarian syndrome; F31.9 Bipolar disorder, unspecified; Z79.84 Long term (current) use of oral hypoglycemic drugs; Z79.899 Other long term (current) drug therapy
CPT/HCPCS: 80048; 81001; 84703; 85025; 93005; 96360; 99285; J7040; A4216

== ENCOUNTER 2021-07-19 11:24 | Outpatient (CLI) | payer MEDICAID, SELFPAY ==
[2021-07-19 11:51] LABS: Amphetamine Urine VISTA NEGATIVE (<1000 ng/mL); Barbiturate Urine VISTA NEGATIVE (< 200 ng/mL); Benzodiazepine Urine VISTA NEGATIVE (< 200 ng/mL); Cocaine Urine VISTA NEGATIVE (< 300 ng/mL); Ecstacy Urine VISTA NEGATIVE (< 500 ng/mL); Methadone Urine VISTA NEGATIVE (< 300 ng/mL); PCP Urine VISTA NEGATIVE (< 25 ng/mL); Protein, Urine (Random) 15.1 mg/dL (<11.9); Protein:Creat Ratio 89 mg/g CRE (0-200); THC Urine VISTA NEGATIVE (< 50 ng/mL); Vista UDS pH Range 5
[2021-07-20 21:07] LABS: Chlamydia By Nucleic Acid AMP Negative (Negative)
[2021-07-20 21:15] LABS: Gonococcus By Nucleic Acid AMP Negative (Negative)
[2021-07-21 17:16] LABS: HPV Reflexed? NOT INDICATED
== END 2021-07-19 23:59 | disposition short-term general hospital (02) ==
LOC: LABSPEC 11:25
PROVIDERS: PCP Internal Medicine; Visit Provider Obstetrics & Gynecology
DX: O16.9 Unspecified maternal hypertension, unspecified trimester (principal); Z3A.00 Weeks of gestation of pregnancy not specified; Z12.4 Encounter for screening for malignant neoplasm of cervix
CPT/HCPCS: 80307; 82570; 84156; 87086; 87088; 87491; 87591; 88175; G0145

== ENCOUNTER 2021-07-21 08:31 | Outpatient (CLI) | payer MEDICAID, SELFPAY ==
--- NOTE | 2021-07-21 08:34 | EKG12_ITS ---
Test Reason : DIABETES HYPERTENSIO Blood Pressure : / mmHG Vent. Rate : 101 BPM Atrial Rate : 101 BPM P-R Int : 140 ms QRS Dur : 094 ms QT Int : 354 ms P-R-T Axes : 054 063 058 degrees QTc Int : 459 ms Sinus tachycardia Otherwise normal ECG Confirmed by ISATU WEISS, NATALIE ([id number]), graphic editor CLARISSA DE OLIVEIRA ([id number]) on 07/22/2021 9:21:05 AM Referred By: Radha Rizo Confirmed By:NATALIE LUNSFORD MD
== END 2021-07-21 23:59 | disposition short-term general hospital (02) ==
LOC: PSN 08:32
PROVIDERS: PCP Internal Medicine; Referring Provider Obstetrics & Gynecology; Visit Provider Obstetrics & Gynecology
DX: E11.9 Type 2 diabetes mellitus without complications (principal)
CPT/HCPCS: 93005

== ENCOUNTER 2021-08-06 06:34 | Outpatient (CLI) | payer MEDICAID, SELFPAY ==
[2021-08-06 07:37] LABS: Absolute Neutrophil Count 6.9 X10^3/uL (2.0-7.7); Basophil# 0.05 X10^3/uL; Basophil% 0.5 % (0-1); Eosinophil# 0.34 X10^3/uL; Eosinophils% 3.4 % (0-5); Hematocrit 35.5 % (37-47); Hemoglobin 12.1 g/dL (12.0-15.0); Mean Corp Hgb Conc 34.1 g/dL (32-36); Mean Corpuscular Hgb 28.8 pg (27.0-32.0); Mean Corpuscular Volume 84.5 fL (81-99); Mean Platelet Vol. 12.1 fl (6.2-12.0); Monocyte# 0.47 X10^3/uL; Monocyte% 4.7 % (0-10); NRBC Flagged by Analyzer 0 % (0-5); Neutrophil # 6.91 X10^3/uL (2.7-7.7); Neutrophil % 69.2 % (47-70); Platelet Count 275 K/mm3 (150-450); RBC Distribution Width CV 13.2 % (11.6-14.6); RBC Distribution Width SD 40.9 fl (35.1-43.9)
[2021-08-06 07:40] LABS: NATERA MAILED SPECIMEN
[2021-08-06 08:13] LABS: ALB/GLOB Ratio 0.7 RATIO (0.9-2.4); AST(SGOT) 20 U/L (15-37); Alanine Aminotransfer ALT/SGPT 23 U/L (13-56); Albumin, Serum 2.9 g/dL (3.2-5.0); Alkaline Phosphatase 58 U/L (45-117); Anion Gap 8 (5-15); BUN 5 mg/dL (7-18); BUN/Creat Ratio 8.8 RATIO (10-20); Calcium,Total 8.6 mg/dL (8.5-10.1); Chloride 105 mmol/L (98-107); Creatinine, Serum 0.57 mg/dL (0.55-1.02); EST Glomerular Filtration Rate 134 mL/min (>60); Est Glom Filt Rate - Afr Amer 162 mL/min (>60); Globulin 4.2 g/dL (2.2-4.2); Glucose 121 mg/dL (74-106); Potassium 3.6 mmol/L (3.5-5.1); Protein, Total 7.1 g/dL (6.4-8.2); Sodium Level 137 mmol/L (136-145); Thyroid Stim Hormone (TSH) 1.31 uIU/mL (0.358-3.74)
[2021-08-06 09:08] LABS: HIV - WCH Non-Reactive (Nonreactive); Hepatitis B Surface Antigen Non-Reactive (Nonreactive); Hepatitis C Antibody Non-Reactive (Nonreactive); Rubella IgG Reactive (Nonreactive); Syphilis Antibodies Non-reactive
== END 2021-08-06 23:59 | disposition home or self-care (01) ==
LOC: LAB 06:36
PROVIDERS: PCP Internal Medicine; Referring Provider Obstetrics & Gynecology; Visit Provider Obstetrics & Gynecology
DX: O24.919 Unspecified diabetes mellitus in pregnancy, unspecified trimester (principal)
CPT/HCPCS: 80053; 84443; 85025; 86703; 86762; 86780; 86803; 86850; 86900; 86901; 87340

== ENCOUNTER 2021-08-11 17:54 | Emergency (ER) | payer MEDICAID, SELFPAY ==
[2021-08-11 17:55] VITALS: BP 163/96; PULSE 120; RESP 18; TEMP 36.2; O2SAT 98; BMI 47.9
--- NOTE | 2021-08-11 19:57 | EKG12_ITS ---
Test Reason : HOGH BLOOD PRESSURE Blood Pressure : / mmHG Vent. Rate : 112 BPM Atrial Rate : 112 BPM P-R Int : 150 ms QRS Dur : 092 ms QT Int : 336 ms P-R-T Axes : 059 068 049 degrees QTc Int : 458 ms Sinus tachycardia Otherwise normal ECG Confirmed by SUNITA WEISS, MARIA DEL CARMEN ([id number]), editor newspaper CLARISSA DE OLIVEIRA ([id number]) on 08/12/2021 10:24:28 A M Referred By: FÁTIMA Confirmed By:СЕРГЕЙ DORSEY MD
[2021-08-11 20:16] LABS: Absolute Neutrophil Count 6.5 X10^3/uL (2.0-7.7); Basophil# 0.05 X10^3/uL; Basophil% 0.5 % (0-1); Hematocrit 34.9 % (37-47); Hemoglobin 11.9 g/dL (12.0-15.0); Lymphocyte % 24.9 % (19-41); Mean Corp Hgb Conc 34.1 g/dL (32-36); Mean Corpuscular Hgb 28.7 pg (27.0-32.0); Mean Corpuscular Volume 84.3 fL (81-99); Mean Platelet Vol. 12.1 fl (6.2-12.0); Monocyte# 0.52 X10^3/uL; Monocyte% 5.2 % (0-10); NRBC Flagged by Analyzer 0 % (0-5); Neutrophil # 6.53 X10^3/uL (2.7-7.7); Neutrophil % 65.1 % (47-70); Platelet Count 288 K/mm3 (150-450); RBC Distribution Width CV 13.2 % (11.6-14.6); RBC Distribution Width SD 40.7 fl (35.1-43.9); Red Blood Count 4.14 M/mm3 (4.2-5.4)
[2021-08-11 20:29] LABS: ALB/GLOB Ratio 0.8 RATIO (0.9-2.4); AST(SGOT) 19 U/L (15-37); Alanine Aminotransfer ALT/SGPT 22 U/L (13-56); Albumin, Serum 3.1 g/dL (3.2-5.0); Alkaline Phosphatase 67 U/L (45-117); Anion Gap 8 (5-15); BUN 9 mg/dL (7-18); BUN/Creat Ratio 14.3 RATIO (10-20); Calcium,Total 8.6 mg/dL (8.5-10.1); Chloride 106 mmol/L (98-107); Creatinine, Serum 0.63 mg/dL (0.55-1.02); EST Glomerular Filtration Rate 119 mL/min (>60); Est Glom Filt Rate - Afr Amer 144 mL/min (>60); Estimated Creatinine Clearance 109.98 ml/min; Glucose 140 mg/dL (74-106); Potassium 3.8 mmol/L (3.5-5.1); Protein, Total 7.1 g/dL (6.4-8.2); Sodium Level 137 mmol/L (136-145); Troponin-I HS 15 pg/mL (3.0-54.0)
[2021-08-11 21:15] VITALS: RESP 17
[2021-08-11 21:19] LABS: Mucous, Urine 0 SEEN /hpf (<or=2+); Red Blood Cells-Urine 0 SEEN /hpf (0-5)
[2021-08-11 21:26] LABS: Color, Urine Yellow (Yellow); Glucose, Dipstick Normal (Normal); Ketone-Dipstick 15 mg/dl (Negative); Leukocyte Esterase-Dipstick 100 /ul (Negative); Nitrite-Dipstick Negative (Negative); Occult Blood-Urine Negative /ul (Negative); Protein-Dipstick 15 mg/dl (Negative); Specific Gravity, Urine 1.025 (1.002-1.030); Urine Bilirubin Dipstick Negative (Negative); Urine Clarity Clear (Clear); Urine Urobilinogen 1 mg/dl (Normal)
[2021-08-11 21:31] LABS: Calcium Oxalate Crystals Ur 1+ /hpf (<or=2+)
[2021-08-11 21:32] LABS: Bacteria 1+ /hpf (None Seen); Squamous Epithelial Cells - UA 0-5 SEEN /hpf (5-10); White Blood Cells 0-5 SEEN /hpf (0-5)
[2021-08-11] MEDS: NIFEdipine 30 MG Tablet PO (22:10)
[2021-08-11 22:14] VITALS: BP 156/76; PULSE 74; RESP 16; O2SAT 99
--- NOTE | 2021-08-11 23:21 | EX.ED.VIS.HA ---
HPI History of Present Illness Chief Complaint: Headache Narrative Narrative: 22-year-old female 11 weeks 5 days into presenting with some lightheadedness, mild nausea. She notes that her blood pressure has been in the systolic range of 160 at home. She states that before she was it would normally be around 130. She takes labetalol 100 mg p.o. daily for this. She said no changes in her medications. She notes that yesterday her blood pressure was normal. She saw endocrinology and has been trying to watch her carbs overnight as well. Patient does have a history of poorly controlled diabetes. Patient is not having chest pain or shortness of breath. She denies abdominal pain. She not had a fever or chills. She denies vaginal discharge or urinary complaints. She has not had any vaginal bleeding. [facility] Medical History Bipolar disorder Depression Desmoid tumor Fatty liver disease, nonalcoholic History of chlamydia infection History of HPV infection History of PCOS HTN (hypertension) Hypertension Near syncope PCOS (polycystic ovarian syndrome) in diabetes Type 2 diabetes mellitus Home Medications metformin 500 mg PO BID 03/19/17 [History Last Taken 04/12/20] pantoprazole 20 mg PO DAILY 12/29/18 [History Last Taken 04/12/20] aripiprazole 30 mg tablet 30 mg PO DAILY 06/10/20 [History Last Taken Unknown] carbamazepine 100 mg tablet,extended release,12 hr 100 mg PO DAILY 06/22/21 [History Last Taken Unknown] multivitamin no.47-iron fum 27 mg-folate no.1 1 mg-dha 300 mg capsule 1 cap PO DAILY 06/22/21 [History Last Taken Unknown] True Metrix Glucose Test Strip #200 ea NS 08/10/21 [Rx Last Taken Unknown] aripiprazole 20 mg tablet 20 mg PO DAILY tab 08/10/21 [History Last Taken Unknown] blood-glucose meter #1 ea 08/10/21 [Rx Last Taken Unknown] labetalol 100 mg tablet 100 ea PO DAILY 08/10/21 [History Last Taken Unknown] lamotrigine 100 mg tablet 25 mg PO DAILY tab 08/10/21 [History Last Taken Unknown] lancets #120 ea 08/11/21 [Rx Last Taken Unknown] lancets 30 gauge #200 ea 08/11/21 [Rx Last Taken Unknown] nifedipine [Procardia XL] 30 mg PO DAILY #30 tab 08/11/21 [Rx Last Taken Unknown] Allergy/AdvReac Type Severity Reaction Status Date / Time No Known Allergies Allergy Verified 08/11/21 17:54 Family History Mother CVA (cerebral vascular accident) Father Diabetes Hypertension Surgical History History of breast biopsy History of liver biopsy History of lumpectomy Social History household members: other details: parents number of children: 0 current occupational status: employed 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 pets and animals: Yes history of recent travel: No sexually active: Yes Smoking Status: Never smoker second hand exposure: No alcohol intake: current alcohol intake frequency: a few times a month substance use type: does not use what type of physical activity do you participate in: aerobics frequency: 1-2 times per week seatbelt use: always do you feel safe at home: Yes additional social history: 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[place]) ROS ROS ED Constitutional Constitutional ED: Denies chills or fever(s) Eyes Eyes: Denies diplopia ENT ENT ED: Denies rhinorrhea or sore throat Cardiovascular Cardiovascular: Denies chest pain or palpitations Respiratory/Chest Respiratory/Chest: Denies cough or dyspnea Gastrointestinal Gastrointestinal: Reports nausea; Denies abdominal pain Genitourinary Genitourinary ED: Denies dysuria or hematuria Musculoskeletal Musculoskeletal: Denies arthralgias or myalgias Integumentary Denies abscess or rash Neurologic Neurologic: Reports headache(s); Denies paresthesias or weakness EXAM Physical Exam Const Vital Signs: 08/11/21 17:55 08/11/21 21:15 08/11/21 22:14 Temperature 97.2 F L Temperature Source Temporal Pulse Rate 120 H 74 Respiratory Rate 18 17 16 Blood Pressure 163/96 H 156/76 H Blood Pressure Mean 118 102 Pulse Ox 98 99 Oxygen Delivery Method Room Air Room Air Positive well nourished General Appearance ED: NAD; Negative for pallor HEENT Reports normocephalic and moist mucous membranes atraumatic Eyes PERRL and EOMs intact bilaterally Resp normal respiratory effort and clear to auscultation bilaterally Cardio regular rate and regular rhythm GI non-tender and non-distended Palpation: soft Extremity normal to inspection Neuro oriented x3, CN's II-XII intact bilaterally and no sensory deficits noted Sensorium / Orientation: awake and alert Motor Exam: strength 5/5 throughout Psych mental status grossly normal Skin General Skin Exam: Negative for jaundice or pallor Rashes: no rashes MDM MDM MDM Narrative Medical decision making narrative: Patient presenting feeling a little bit lightheaded and her blood pressure has been elevated today only. She is not having chest pain or shortness of breath. She denies any abdominal pain. She has no or GI complaints other than nausea. Given her lightheadedness I did obtain an EKG which appears to be a sinus tachycardia 112 bpm without sign of ischemic change or dysrhythmia. CBC shows no leukocytosis and her hemoglobin hematocrit are stable. Platelets are normal. Renal function and electrolytes are also normal. Patient's blood sugar noted to be 140 without anion gap. High-sensitivity troponin is 15. Urinalysis negative for infection. Patient is reevaluated multiple times and her blood pressure does seem to be staying in the high 150s systolically and in the mid 90s diastolically. Since her blood work is ultimately normal I did speak with Dr. Cancino and she recommended starting Procardia XL 30 mg p.o. daily on top of her labetalol. She states that she would be available to see her in office either tomorrow or the next day to recheck her blood pressures. Patient was given a dose of Procardia here in the ER this evening. We did talk about the possibility of doing CT of the brain and chest x-ray however the patient and I after a long discussion and through shared decision making determined that she does not need the radiation exposure. She did not have any focal neurologic deficits and she is not have any chest pain or shortness of breath. Patient was given a prescription for the Procardia and will take this daily. She is to keep a blood pressure diary. Impression: 1. Hypertension 2. Headache Lab Data Attestation: I reviewed the patient's lab results. Labs: Laboratory Results - last 24 hr 08/11/21 08/11/21 08/11/21 19:01 19:01 20:10 WBC 10.0 RBC 4.14 L Hgb 11.9 L Hct 34.9 L MCV 84.3 MCH 28.7 MCHC 34.1 RDW Std Deviation 40.7 RDW Coeff of Ranjeet 13.2 Plt Count 288 MPV 12.1 H Immature Gran % (Auto) 1.300 H Neut % (Auto) 65.1 Lymph % (Auto) 24.9 [place] % (Auto) 5.2 Eos % (Auto) 3.0 Baso % (Auto) 0.5 Absolute Neuts (auto) 6.5 Absolute Lymphs (auto) 2.50 Nucleated RBC % 0 Sodium 137 Potassium 3.8 Chloride 106 Carbon Dioxide 23.0 Anion Gap 8 BUN 9 Creatinine 0.63 Estim Creat Clear Calc 109.98 Est GFR (MDRD) Af Amer 144 Est GFR (MDRD) Non-Af 119 BUN/Creatinine Ratio 14.3 Glucose 140 H Calcium 8.6 Total Bilirubin 0.20 AST 19 ALT 22 Alkaline Phosphatase 67 Troponin I High Sens 15 Total Protein 7.1 Albumin 3.1 L Globulin 4.0 Albumin/Globulin Ratio 0.8 L Urine Color Yellow Urine Clarity Clear Urine pH 6.0 Ur Specific [place] 1.025 Urine Protein 15 H Urine Glucose (UA) Normal Urine Ketones 15 H Urine Occult Blood Negative Urine Nitrite Negative Urine Bilirubin Negative Urine Urobilinogen 1 H Ur Leukocyte Esterase 100 H Urine RBC 0 SEEN Urine WBC 0-5 SEEN Ur Squamous Epith Cells 0-5 SEEN Calcium Oxalate Crystal 1+ Urine Bacteria 1+ Urine Mucus 0 SEEN Discharge Plan Triage Chief Complaint: Headache ED Provider: Toni Ash Dx/Rx/DC Orders Instructions: ED Hypertension, Established Prescriptions: New nifedipine [Procardia XL] 30 mg tablet extended release 24hr 30 mg PO DAILY Qty: 30 RF: 0 No Action PNV-DHA 27 mg iron-1 mg -300 mg capsule 1 cap PO DAILY RF: 0 carbamazepine [Tegretol XR] 100 mg tablet extended release 12 hr 100 mg PO DAILY RF: 0 aripiprazole 20 mg tablet 20 mg PO DAILY RF: 0 labetalol 100 mg tablet 100 ea PO DAILY RF: 0 lamotrigine 100 mg tablet 25 mg PO DAILY RF: 0 (DME) blood-glucose meter [True Metrix Glucose Meter] Misc See Rx Instructions .ROUTE .MEDSUPPLY Qty: 1 RF: 0 (DME) True Metrix Glucose Test Strip Strip See Rx Instructions .ROUTE .MEDSUPPLY Qty: 200 RF: 6 metformin 500 MG tablet 500 mg PO BID RF: 0 pantoprazole 20 MG tablet 20 mg PO DAILY RF: 0 aripiprazole 30 mg tablet 30 mg PO DAILY RF: 0 (DME) lancets [Accu-Chek Softclix Lancets] Misc See Rx Instructions .ROUTE .MEDSUPPLY Qty: 120 RF: 6 (DME) lancets 30 gauge misc See Rx Instructions .ROUTE .MEDSUPPLY Qty: 200 RF: 3 Primary Care Provider: Angie Pena Referrals: Angie Pena MD [Primary Care Provider] - Radha Rizo MD [STAFF PHYSICIAN] - As soon as possible Disposition Disposition: Home, Self Care Discharge Date/Time: 08/11/21 22:37
== END 2021-08-11 22:37 | disposition home or self-care (01) ==
PROVIDERS: Emergency Provider Student in an Organized Health Care Education/Training Program; PCP Internal Medicine; Visit Provider Student in an Organized Health Care Education/Training Program
DX: O10.011 Pre-existing essential hypertension complicating pregnancy, first trimester (principal); E11.65 Type 2 diabetes mellitus with hyperglycemia; Z79.4 Long term (current) use of insulin; R51.9 Headache, unspecified; O24.111 Pre-existing type 2 diabetes mellitus, in pregnancy, first trimester; R11.0 Nausea; R42 Dizziness and giddiness; Z3A.11 11 weeks gestation of pregnancy
CPT/HCPCS: 80053; 81001; 84484; 85025; 93005; 99284; A4216

== ENCOUNTER 2021-09-09 13:25 | Outpatient (CLI) | payer MEDICAID, SELFPAY ==
[2021-09-09 14:02] LABS: ROM Internal Control Test YES-OK TO RESULT pt. (Internal QC); ROM Patient Test Negative (Negative)
== END 2021-09-09 23:59 | disposition home or self-care (01) ==
LOC: LABSPEC 13:27
PROVIDERS: PCP Internal Medicine; Visit Provider Obstetrics & Gynecology
DX: O26.899 Other specified pregnancy related conditions, unspecified trimester (principal); N89.8 Other specified noninflammatory disorders of vagina
CPT/HCPCS: 84112; 87070; 87205

== ENCOUNTER 2021-09-23 13:00 | Outpatient (RCR) | payer MEDICAID, SELFPAY | END 2021-09-23 23:59 | disposition home or self-care (01) | LOC: DC 13:00 | PROVIDERS: PCP Internal Medicine; Referring Provider Internal Medicine Endocrinology, Diabetes & Metabolism; Visit Provider Internal Medicine Endocrinology, Diabetes & Metabolism | DX: O24.111 Pre-existing type 2 diabetes mellitus, in pregnancy, first trimester (principal); Z3A.00 Weeks of gestation of pregnancy not specified | CPT/HCPCS: 97802; G0108 ==

== ENCOUNTER 2021-10-28 16:10 | Outpatient (CLI) | payer MEDICAID, SELFPAY ==
[2021-10-28 16:48] VITALS: BMI 43.3
--- NOTE | 2021-10-28 16:48 | OB.TRI.PN ---
Progress Notes Date of Service: 10/28/21 Progress Note: fht present 150s fu as scheduled decreased movement
--- NOTE | 2021-10-28 16:49 | NURSING ---
Patient came in reporting that she has not felt movement for 3 days. Unable to obtain heart tones with doppler or on monitor. Dr. Rizo came to unit to do bedside ultrasound and confirmed heart tones and movement. Patient educated on signs and symptoms to report to provider and when to come back to unit. Patient verbalized understanding and discharged home per doctor order.
== END 2021-10-28 16:45 | disposition home or self-care (01) ==
LOC: WPOUT 16:16 → WP 16:17
PROVIDERS: PCP Internal Medicine; Referring Provider Obstetrics & Gynecology; Visit Provider Obstetrics & Gynecology
DX: O36.8190 Decreased fetal movements, unspecified trimester, not applicable or unspecified (principal); Z3A.00 Weeks of gestation of pregnancy not specified
CPT/HCPCS: 76815; 99218; G0378

== ENCOUNTER → 2021-11-17 | Outpatient (CLI) | payer MEDICAID, SELFPAY ==
[2021-11-17 17:39] LABS: ALB/GLOB Ratio 0.7 RATIO (0.9-2.4); AST(SGOT) 7 U/L (15-37); Alanine Aminotransfer ALT/SGPT 15 U/L (13-56); Albumin, Serum 2.8 g/dL (3.2-5.0); Alkaline Phosphatase 77 U/L (45-117); Anion Gap 8 (5-15); BUN 6 mg/dL (7-18); BUN/Creat Ratio 10.3 RATIO (10-20); Calcium,Total 8.6 mg/dL (8.5-10.1); Chloride 106 mmol/L (98-107); Creatinine, Serum 0.58 mg/dL (0.55-1.02); EST Glomerular Filtration Rate 131 mL/min (>60); Est Glom Filt Rate - Afr Amer 158 mL/min (>60); Glucose 131 mg/dL (74-106); Potassium 3.7 mmol/L (3.5-5.1); Protein, Total 6.8 g/dL (6.4-8.2); Sodium Level 137 mmol/L (136-145)
== END | disposition home or self-care (01) ==
PROVIDERS: PCP Internal Medicine; Referring Provider Obstetrics & Gynecology; Visit Provider Obstetrics & Gynecology
DX: L29.9 Pruritus, unspecified (principal)
CPT/HCPCS: 36415; 80053

== ENCOUNTER 2021-11-25 10:43 | Emergency (ER) | payer MEDICAID, SELFPAY ==
[2021-11-25 10:43] VITALS: BP 137/84; PULSE 115; RESP 16; TEMP 36.4; O2SAT 97; BMI 43.2
--- NOTE | 2021-11-25 11:06 | EDS_ITS ---
HPI History of Present Illness Chief Complaint: General Illness Informant: patient Narrative Narrative: 26 weeks 6-day gestation sent in here by her OB for evaluation reported worsening dyspnea today. She reports dry cough since Monday continued yesterday mild chest tightness. No fevers headaches. States has myalgias. No vomiting or diarrhea. No loss of taste or smell. COVID and influenza vaccinated. She reports to urgent care yesterday diagnosed with COVID negative for influenza. Exercise-induced asthma history. Positive heart movement on night yesterday urine frequency to the . Reports sore throat. [facility] Medical History Bipolar disorder Depression Desmoid tumor Diabetes in Fatty liver disease, nonalcoholic History of chlamydia infection History of HPV infection History of PCOS HTN (hypertension) Hypertension Lab test positive for detection of COVID-19 virus Near syncope PCOS (polycystic ovarian syndrome) Type 2 diabetes mellitus Home Medications metformin 500 mg PO BID 03/19/17 [History Last Taken 04/12/20] pantoprazole 20 mg PO DAILY 12/29/18 [History Last Taken 04/12/20] multivitamin no.47-iron fum 27 mg-folate no.1 1 mg-dha 300 mg capsule 1 cap PO DAILY 06/22/21 [History Last Taken Unknown] True Metrix Glucose Test Strip #200 [facility] 08/10/21 [Rx Last Taken Unknown] aripiprazole 20 mg tablet 20 mg PO DAILY tab 08/10/21 [History Last Taken Unknown] blood-glucose meter #1 ea 08/10/21 [Rx Last Taken Unknown] lamotrigine 100 mg tablet 25 mg PO DAILY tab 08/10/21 [History Last Taken Unknown] lancets #120 ea 08/11/21 [Rx Last Taken Unknown] lancets 30 gauge #200 ea 08/11/21 [Rx Last Taken Unknown] insulin NPH isoph U-100 human 100 unit/mL (3 mL) subcutaneous pen 30 unit SUBCUT QHS #15 ml 08/17/21 [Rx Last Taken Unknown] pen needle, diabetic 32 gauge x #100 ea 08/17/21 [Rx Last Taken Unknown] nifedipine 30 mg tablet,extended release 24 hr 30 mg PO DAILY #30 tab 09/08/21 [Rx Last Taken Unknown] albuterol sulfate 90 mcg/actuation aerosol inhaler gm INHALATION 10/19/21 [History Last Taken Unknown] aspirin 81 mg tablet,delayed release 81 mg PO DAILY 10/19/21 [History Last Taken Unknown] loratadine 10 mg tablet ea PO 10/19/21 [History Last Taken Unknown] hydroxyzine pamoate 50 mg capsule 50 mg PO QHS #60 cap 11/17/21 [Rx Last Taken Unknown] Allergy/AdvReac Type Severity Reaction Status Date / Time No Known Allergies Allergy Verified 11/25/21 10:46 Family History Mother CVA (cerebral vascular accident) Father Diabetes Hypertension Surgical History History of breast biopsy History of liver biopsy History of lumpectomy Social History household members: other details: parents number of children: 0 current occupational status: employed current occupation: [employer] pets and animals: Yes history of recent travel: No sexually active: Yes Smoking Status: Never smoker second hand exposure: No alcohol intake: current alcohol intake frequency: a few times a month substance use type: does not use what type of physical activity do you participate in: aerobics frequency: 1-2 times per week seatbelt use: always do you feel safe at home: Yes additional social history: 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[place]) ROS ROS ED Constitutional Constitutional ED: Denies chills, fever(s) or sweats Eyes Eyes: Denies change in vision ENT ENT ED: Reports sore throat; Denies dysphagia Cardiovascular Cardiovascular: Denies chest pain, leg edema, palpitations or racing heartbeat Respiratory/Chest Respiratory/Chest: Reports cough and dyspnea; Denies dyspnea on exertion Gastrointestinal Gastrointestinal: Denies abdominal pain, diarrhea, nausea or vomiting Genitourinary Genitourinary ED: Reports urinary frequency; Denies dysuria or hematuria Musculoskeletal Musculoskeletal: Denies back pain, extremity pain or neck pain Integumentary Denies rash or wounds Neurologic Neurologic: Denies headache(s), paresthesias or weakness EXAM Physical Exam Const Vital Signs: 11/25/21 10:43 11/25/21 12:05 11/25/21 13:03 Temperature 97.5 F L Temperature Source Temporal Pulse Rate 115 H 111 H Respiratory Rate 16 16 Respiratory Effort Short of Breath Respiratory Pattern Normal Blood Pressure 137/84 H Blood Pressure Mean 101 Pulse Ox 97 99 Oxygen Delivery Method Room Air Positive well nourished and well developed General Appearance ED: well developed and NAD HEENT Reports moist mucous membranes HEENT Narrative: No posterior pharyngeal erythema. normocephalic and atraumatic Eyes PERRL, EOMs intact bilaterally and conjunctivae normal General Eye ED: Yes normal appearance of both eyes Neck no lymphadenopathy and supple General: Negative for tenderness Chest Wall Chest: Negative for tenderness Resp normal respiratory effort, normal air movement and clear to auscultation bilaterally Effort and Inspection: symmetric chest movement; Negative for respiratory distress Cardio regular rhythm and no murmurs Peripheral Pulses: pulses 2+ throughout GI normal to inspection, nondistended, normoactive bowel sounds and non-tender Palpation: Negative for guarding or rebound tenderness present Back/Spine no CVA tenderness and no thoracic nor lumbar tenderness Extremity normal to inspection General Extremety ED: Negative for edema or tenderness General Extremity: Negative for edema Neuro oriented x3 and no sensory deficits noted Sensorium / Orientation: awake and alert Skin no rashes or lesions noted and no wounds MDM MDM MDM Narrative Medical decision making narrative: Patient outpatient positive COVID test her pulse ox 97% on arrival. She is in no respiratory distress. heart tones 164. She has no vaginal symptoms. Discussed oral fluids to maintain hydration. Discussed monitoring for other symptoms, primary symptoms is worsening dyspnea. 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 Otherwise she will follow-up with her physicians as an outpatient. All questions were answered. Patient is being discharged under pandemic conditions under declared global, national and state disaster activation, with limited medical resources. Patient and community understands this. Results discussed in layman's terms to the patient satisfaction. All questions answered in layman's terms. Patient understands importance of follow-up care as directed. Patient has been instructed to return to the ED immediately if new symptoms, problems, or questions occur. We mutually agree with the plan of disposition. The patient understand that they may call or return with any questions or concerns at any time. Discharge Plan Triage Chief Complaint: General Illness ED Provider: Jt Joshua Dx/Rx/DC Orders Clinical Impression: COVID-19 virus infection, Second trimester Instructions: Coronavirus Disease 2019 (COVID-19): Overview, Coronavirus Disease 2019 COVID-19 and Childbirth Prescriptions: No Action PNV-DHA 27 mg iron-1 mg -300 mg capsule 1 cap PO DAILY RF: 0 aripiprazole 20 mg tablet 20 mg PO DAILY RF: 0 lamotrigine 100 mg tablet 25 mg PO DAILY RF: 0 (DME) blood-glucose meter [True Metrix Glucose Meter] Misc See Rx Instructions .ROUTE .MEDSUPPLY Qty: 1 RF: 0 (DME) True Metrix Glucose Test Strip Strip See Rx Instructions .ROUTE .MEDSUPPLY Qty: 200 RF: 6 aspirin [Adult Low Dose Aspirin] 81 mg tablet,delayed release (DR/EC) 81 mg PO DAILY RF: 0 loratadine 10 mg tablet PO RF: 0 albuterol sulfate 90 mcg/actuation HFA aerosol inhaler inhalation RF: 0 hydroxyzine pamoate [Vistaril] 50 mg capsule 50 mg PO QHS Qty: 60 RF: 5 metformin 500 MG tablet 500 mg PO BID RF: 0 pantoprazole 20 MG tablet 20 mg PO DAILY RF: 0 (DME) lancets [Accu-Chek Softclix Lancets] Misc See Rx Instructions .ROUTE .MEDSUPPLY Qty: 120 RF: 6 (DME) lancets 30 gauge misc See Rx Instructions .ROUTE .MEDSUPPLY Qty: 200 RF: 3 Humulin N NPH Insulin KwikPen 100 unit/mL (3 mL) insulin pen 30 unit subcut QHS Qty: 15 RF: 6 (DME) pen needle, diabetic [BD Ultra-Fine Effie Pen Needle] 32 gauge x 5/32 needle See Rx Instructions .ROUTE .MEDSUPPLY Qty: 100 RF: 6 nifedipine [Procardia XL] 30 mg tablet extended release 24hr 30 mg PO DAILY Qty: 30 RF: 6 Primary Care Provider: Angie Pena Referrals: Angie Pena MD [Primary Care Provider] - Alexandra Rivas DO [STAFF PHYSICIAN] - 3-5 Days Activity Restrictions/Additional Instructions: 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 Otherwise follow-up as an outpatient. Disposition Disposition: Home, Self Care Discharge Date/Time: 11/25/21 13:08
[2021-11-25 13:03] VITALS: PULSE 111; RESP 16; O2SAT 99
== END 2021-11-25 13:08 | disposition home or self-care (01) ==
PROVIDERS: Emergency Provider Emergency Medicine; PCP Internal Medicine; Visit Provider Emergency Medicine
DX: O98.512 Other viral diseases complicating pregnancy, second trimester (principal); U07.1 COVID-19; O99.52 Diseases of the respiratory system complicating childbirth; J45.990 Exercise induced bronchospasm; O24.112 Pre-existing type 2 diabetes mellitus, in pregnancy, second trimester; Z79.84 Long term (current) use of oral hypoglycemic drugs; Z3A.00 Weeks of gestation of pregnancy not specified
CPT/HCPCS: 99282

== ENCOUNTER → 2021-12-07 | Outpatient (CLI) | payer MEDICAID, SELFPAY ==
[2021-12-07 09:33] LABS: Absolute Lymphocyte Count 1.85 X10^3/uL (0.83-4.51); Absolute Neutrophil Count 7.4 X10^3/uL (2.0-7.7); Basophil# 0.04 X10^3/uL; Basophil% 0.4 % (0-1); Hematocrit 31.4 % (37-47); Hemoglobin 9.9 g/dL (12.0-15.0); Lymphocyte # 1.85 X10^3/ul (0.83-4.51); Lymphocyte % 18.2 % (19-41); Mean Corp Hgb Conc 31.5 g/dL (32-36); Mean Corpuscular Hgb 25.7 pg (27.0-32.0); Mean Corpuscular Volume 81.6 fL (81-99); Mean Platelet Vol. 11.5 fl (6.2-12.0); Monocyte# 0.48 X10^3/uL; Monocyte% 4.7 % (0-10); NRBC Flagged by Analyzer 0 % (0-5); Neutrophil # 7.43 X10^3/uL (2.7-7.7); Neutrophil % 72.9 % (47-70); Platelet Count 283 K/mm3 (150-450); RBC Distribution Width SD 41.2 fl (35.1-43.9); Red Blood Count 3.85 M/mm3 (4.2-5.4); White Blood Count 10.2 K/mm3 (4.4-11.0)
== END | disposition home or self-care (01) ==
LOC: LAB 08:53
PROVIDERS: PCP Internal Medicine; Visit Provider Nurse Practitioner Women's Health
DX: Z34.90 Encounter for supervision of normal pregnancy, unspecified, unspecified trimester (principal); Z3A.25 25 weeks gestation of pregnancy
CPT/HCPCS: 36415; 85025

== ENCOUNTER 2021-12-31 17:32 | Outpatient (CLI) | payer MEDICAID, SELFPAY ==
[2021-12-31 17:32] VITALS: BP 162/92; PULSE 104; RESP 18; TEMP 37.1; O2SAT 100; BMI 43.7
--- NOTE | 2021-12-31 19:33 | EX.ED.UPPERE ---
HPI History of Present Illness Chief Complaint: Upper Extremity Injury Narrative Narrative: 31-year-old female at 32 weeks gestation presents from [facility] for ultrasound of her left upper extremity. She relates history that 2 weeks ago she had Tdap in her left arm and began having left shoulder pain. Over the last week, she gets paresthesias on occasion when she wakes up that spreads from her forearm to her fingers. At times she thinks that her fingers are getting good circulation. She denies any color change. She has pain when she tries to make a fist. She denies any chest pain or shortness of breath. No overt swelling of her left hand. She presents at the suggestion of the [facility] for ultrasound of the left upper extremity. [facility] Medical History Bipolar disorder Depression Desmoid tumor Fatty liver disease, nonalcoholic History of chlamydia infection History of HPV infection History of PCOS HTN (hypertension) Hypertension Lab test positive for detection of COVID-19 virus Near syncope PCOS (polycystic ovarian syndrome) Type 2 diabetes mellitus Home Medications pantoprazole 20 mg tablet,delayed release 20 mg PO DAILY 12/29/18 [History Last Taken 04/12/20] multivitamin no.47-iron fum 27 mg-folate no.1 1 mg-dha 300 mg capsule (PNV-DHA) 1 cap PO DAILY 06/22/21 [History Last Taken Unknown] True Metrix Glucose Test Strip (blood sugar diagnostic) #200 ea 08/10/21 [Rx Last Taken Unknown] blood-glucose meter (True Metrix Glucose Meter) #1 ea 08/10/21 [Rx Last Taken Unknown] lamotrigine 100 mg tablet 200 mg PO DAILY 08/10/21 [History Last Taken Unknown] lancets (Accu-Chek Softclix Lancets) #120 ea 08/11/21 [Rx Last Taken Unknown] lancets 30 gauge #200 ea 08/11/21 [Rx Last Taken Unknown] insulin NPH isoph U-100 human 100 unit/mL (3 mL) subcutaneous pen (Humulin N NPH U-100 Insulin KwikPen) 30 unit (0.3 mL) subcut QHS #15 mL 08/17/21 [Rx Last Taken Unknown] pen needle, diabetic 32 gauge x 5/32 (BD Ultra-Fine Effie Pen Needle) #100 ea 08/17/21 [Rx Last Taken Unknown] nifedipine 30 mg tablet,extended release 24 hr (Procardia XL) 30 mg PO DAILY #30 tabs 09/08/21 [Rx Last Taken Unknown] albuterol sulfate 90 mcg/actuation aerosol inhaler 2 puff inhalation Q4H PRN PRN SOB 10/19/21 [History Last Taken Unknown] aspirin 81 mg tablet,delayed release (Adult Low Dose Aspirin) 81 mg PO DAILY 10/19/21 [History Last Taken Unknown] metformin 500 mg tablet 500 mg PO TIDWMEAL #90 tabs 11/28/21 [Rx Last Taken Unknown] ferrous sulfate 325 mg (65 mg iron) tablet 325 mg PO DAILY 12/16/21 [History Last Taken Unknown] Allergy/AdvReac Type Severity Reaction Status Date / Time No Known Allergies Allergy Verified 12/31/21 17:35 Family History Mother CVA (cerebral vascular accident) Father Diabetes Hypertension Surgical History History of breast biopsy History of liver biopsy History of lumpectomy Social History household members: other details: parents number of children: 0 current occupational status: employed current occupation: [employer] pets and animals: Yes history of recent travel: No sexually active: Yes Smoking Status: Never smoker second hand exposure: No alcohol intake: current alcohol intake frequency: a few times a month substance use type: does not use what type of physical activity do you participate in: aerobics frequency: 1-2 times per week seatbelt use: always do you feel safe at home: Yes additional social history: 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 HEENT: No sore throat. No neck pain. No loss of vision. No rhinorrhea. Cardiovascular: No chest pain. No palpitations. No pedal edema. Respiratory: No cough, no shortness of breath. Abdominal: No abdominal pain. No nausea. No vomiting. Genitourinary: No dysuria. No hematuria. 32 weeks gestation. No vaginal bleeding or discharge. Musculoskeletal: No myalgias. Left arm pain and paresthesias and hand. Neurologic: No headaches. No dizziness. No lightheadedness. Skin: No rash. No change in color. Psychiatric: No depression. No anxiety. EXAM Physical Exam Narrative Exam Narrative: Afebrile. Vital signs noted. HEENT: Normocephalic. Atraumatic. PERRL, EOMI. Neck soft and supple. No point tenderness or step off. Cardiovascular: Regular rate and rhythm. No murmurs, rubs, or gallops appreciated. Respiratory: No tachypnea. Lungs clear to auscultation bilaterally. Gastrointestinal: Abdomen soft, nontender, with normoactive bowel sounds. No rebound or guarding. Neurological: Awake. Alert. Nonfocal, nonlateralizing. Skin: No rash. Normal color. No pallor. Musculoskeletal: No pedal edema. Full range of motion extremities. Full range of motion of wrist. No overt swelling of left hand. Palpable radial pulse. Flexion and extension mechanisms of wrist, elbow, intact. Const Vital Signs: 12/31/21 17:32 Temperature 98.7 F Temperature Source Temporal Pulse Rate 104 H Respiratory Rate 18 Blood Pressure 162/92 H Blood Pressure Mean 115 Pulse Ox 100 Oxygen Delivery Method Room Air MDM MDM MDM Narrative Medical decision making narrative: Upper extremity ultrasounds are unavailable in the emergency department at this time. I have ordered an outpatient left upper extremity venous duplex for her. She was told that she will be contacted tomorrow by ultrasound as to when she should come for her evaluation/study. I feel she be discharged safely home with follow-up. Return instructions to the emergency department were reviewed. Disposition is discharged home in stable condition. Discharge Plan Triage Chief Complaint: Upper Extremity Injury ED Provider: Anthony Ramesh Dx/Rx/DC Orders Clinical Impression: Arm pain, left, Paresthesia and pain of left extremity, Instructions: ED Pain, Acute, Uncertain Cause Prescriptions: No Action PNV-DHA 27 mg iron-1 mg -300 mg capsule 1 cap PO DAILY lamotrigine 100 mg tablet 200 mg PO DAILY Label Comments: take 1 tablet by mouth once daily (DME) blood-glucose meter [True Metrix Glucose Meter] [facility] See Rx Instructions .ROUTE .MEDSUPPLY Qty: 1 0RF Rx Instructions: As directed (DME) True Metrix Glucose Test Strip Strip See Rx Instructions .ROUTE .MEDSUPPLY Qty: 200 6RF Rx Instructions: 6 times daily aspirin [Adult Low Dose Aspirin] 81 mg tablet,delayed release (DR/EC) 81 mg PO DAILY albuterol sulfate 90 mcg/actuation HFA aerosol inhaler 2 puff inhalation Q4H PRN PRN (Reason: SOB) Label Comments: inhale 2 puffs by mouth and INTO THE LUNGS every 4 to 6 hours ferrous sulfate 325 mg (65 mg iron) tablet 325 mg PO DAILY pantoprazole 20 MG tablet 20 mg PO DAILY (DME) lancets [Accu-Chek Softclix Lancets] Misc See Rx Instructions .ROUTE .MEDSUPPLY Qty: 120 6RF Rx Instructions: 4x/day (DME) lancets 30 gauge misc See Rx Instructions .ROUTE .MEDSUPPLY Qty: 200 3RF Rx Instructions: TEST BLOOD SUGAR QID Humulin N NPH Insulin KwikPen 100 unit/mL (3 mL) insulin pen 30 unit subcut QHS Qty: 15 6RF (DME) pen needle, diabetic [BD Ultra-Fine Effie Pen Needle] 32 gauge x 5/32 needle See Rx Instructions .ROUTE .MEDSUPPLY Qty: 100 6RF Rx Instructions: twice daily nifedipine [Procardia XL] 30 mg tablet extended release 24hr 30 mg PO DAILY Qty: 30 6RF metformin 500 mg tablet 500 mg PO TIDWMEAL Qty: 90 4RF Other Ambulatory Orders: Venous Duplex US, Unilateral (Routine) Facility: [facility] - Location: [facility] Ordered By: Anthony Ramesh Primary Care Provider: Angie Pena Referrals: Angie Pena MD [Primary Care Provider] - 1 Day Disposition Disposition: Home, Self Care
--- NOTE | 2022-01-01 12:48 | VDUE_ITS ---
Reason For Study: Pain Left Proximal Left jugular vein is spontaneous, widely patent, phasic, with no intraluminal echogenicity noted. Left subclavian vein is spontaneous, widely patent, phasic, with no intraluminal echogenicity noted. Left Arm Left axillary vein is spontaneous, patent, phasic, competent, compressible and demonstrates augmentation. Left brachial vein is compressible. Left cephalic vein is compressible. Left basilic vein is compressible. Left Lower Arm Left radial vein is compressible. Left ulnar vein is compressible. Patient Safety Preliminary sent to OBGYN: Sallie. Patient seen in ED 12/31/2021, scanned as next day exam. VL/Venous Duplex US, Unilateral Interpretation Summary No evidence for acute deep venous thrombosis[left] upper extremity with patent and compressible cephalic and basilic veins. Ordering Physician: Anthony Ramesh Referring Physician: Angie Pena Performed By: Lucinda Samuels RVT ?
== END 2022-01-01 | disposition home or self-care (01) ==
LOC: ED 19:32 → US 01-01 12:40
PROVIDERS: Emergency Provider Emergency Medicine; PCP Internal Medicine; Referring Provider Emergency Medicine; Visit Provider Emergency Medicine
DX: O99.891 Other specified diseases and conditions complicating pregnancy (principal); M79.602 Pain in left arm; R20.2 Paresthesia of skin; Z3A.32 32 weeks gestation of pregnancy
CPT/HCPCS: 93971; 99282

== ENCOUNTER 2022-01-02 14:20 | Outpatient (CLI) | payer MEDICAID, SELFPAY ==
[2022-01-02] VITALS (27 sets, daily range): BP systolic 135–146; BP diastolic 72–86; PULSE 104–190; TEMP 37.3; O2SAT 78–100; BMI 43.8
[2022-01-02 15:00] LABS: Hematocrit 31.2 % (37-47); Hemoglobin 9.9 g/dL (12.0-15.0); Mean Corp Hgb Conc 31.7 g/dL (32-36); Mean Corpuscular Hgb 25.4 pg (27.0-32.0); Mean Platelet Vol. 11.8 fl (6.2-12.0); Platelet Count 306 K/mm3 (150-450); RBC Distribution Width CV 14.6 % (11.6-14.6); RBC Distribution Width SD 42.3 fl (35.1-43.9); White Blood Count 10.4 K/mm3 (4.4-11.0)
[2022-01-02 15:12] LABS: AST(SGOT) 9 U/L (15-37); Alanine Aminotransfer ALT/SGPT 14 U/L (13-56); Creatinine, Serum 0.62 mg/dL (0.55-1.02); EST Glomerular Filtration Rate 121 mL/min (>60); Est Glom Filt Rate - Afr Amer 146 mL/min (>60); Estimated Creatinine Clearance 115.61 ml/min; Uric Acid 4.9 mg/dL (2.6-6.0)
[2022-01-02 15:12] LABS: Protein, Urine (Random) 9.8 mg/dL (<11.9); Protein:Creat Ratio 164 mg/g CRE (0-200)
--- NOTE | 2022-01-02 15:22 | EKG12_ITS ---
Test Reason : palpitations Blood Pressure : / mmHG Vent. Rate : 099 BPM Atrial Rate : 099 BPM P-R Int : 158 ms QRS Dur : 090 ms QT Int : 358 ms P-R-T Axes : 052 044 035 degrees QTc Int : 459 ms Normal sinus rhythm Normal ECG When compared with ECG of 11-AUG-2021 20:10, No significant change was found Confirmed by ISATU WEISS, NATALIE ([id number]), editor map CLARISSA DE OLIVEIRA ([id number]) on 01/04/2022 9:05:47 AM Referred By: Radha Rizo Confirmed By:NATALIE LUNSFORD MD
[2022-01-02] MEDS: Betamethasone/Betamethasone 30 MG/5 ML Vial 12 MG IM (15:34)
--- NOTE | 2022-01-03 13:21 | OB.TRI.PN_ITS ---
Progress Notes Progress Note: Patient presents for triage evaluation secondary to elevated blood pressures at home FHT: 140 Moderate variability reactive no decelerations category I tracing [place]: no regular Contractions Assessment and plan: elevated bps 140s over 80s, negative preeclampsia testing, bmz given, increase procardia to 60 dialy Reactive NST, reassuring maternal and status patient discharged to home to follow-up as scheduled and tomorrow for another BMZ dose. See problem list details for additional plan information. Laboratory Studies: Laboratory Tests 01/02/22 01/02/22 01/02/22 Range/Units 14:45 14:40 14:40 WBC 10.4 (4.4-11.0) K/mm3 RBC 3.90 L (4.2-5.4) M/mm3 Hgb 9.9 L (12.0-15.0) g/dL Hct 31.2 L (37-47) % MCV 80.0 L (81-99) fL MCH 25.4 L (27.0-32.0) pg MCHC 31.7 L (32-36) g/dL RDW Std Deviation 42.3 (35.1-43.9) fl RDW Coeff of Ranjeet 14.6 (11.6-14.6) % Plt Count 306 (150-450) K/mm3 MPV 11.8 (6.2-12.0) fl Creatinine 0.62 (0.55-1.02) mg/dL Estim Creat Clear Calc 115.61 ml/min Est GFR (MDRD) Af Amer 146 (>60) mL/min Est GFR (MDRD) Non-Af 121 (>60) mL/min Uric Acid 4.9 (2.6-6.0) mg/dL AST 9 L (15-37) U/L ALT 14 (13-56) U/L U Random Total Protein 9.8 (<11.9) mg/dL Urine Creatinine 59.80 (NO RANGE EST.) mg/dL Protein/Creatinin Ratio 164 (0-200) mg/g CRE Charges/Coding Procedures Urinary/Genital [id number]: 37177-44 non-stress test Interp
== END 2022-01-02 16:45 | disposition home or self-care (01) ==
LOC: WPOUT 14:24 → WP 14:25
PROVIDERS: PCP Internal Medicine; Referring Provider Obstetrics & Gynecology; Visit Provider Obstetrics & Gynecology
DX: O26.899 Other specified pregnancy related conditions, unspecified trimester (principal); Z79.4 Long term (current) use of insulin; R03.0 Elevated blood-pressure reading, without diagnosis of hypertension; Z79.82 Long term (current) use of aspirin; Z79.899 Other long term (current) drug therapy; Z3A.00 Weeks of gestation of pregnancy not specified
CPT/HCPCS: 82565; 82570; 84156; 84450; 84460; 84550; 85027; 93005; J0702

== ENCOUNTER 2022-01-03 15:25 | Outpatient (CLI) | payer MEDICAID, SELFPAY ==
[2022-01-03] MEDS: Betamethasone/Betamethasone 30 MG/5 ML Vial 12 MG IM (15:52)
--- NOTE | 2022-01-03 16:46 | OB.TRI.PN ---
Progress Notes Progress Note: Patient presents for triage evaluation secondary to elevated bp FHT: 140 Moderate variability reactive no decelerations category I tracing [place]: no rgular Contractions Assessment and plan: elevated bp Reactive NST, reassuring maternal and status patient discharged to home to follow-up as scheduled. See problem list details for additional plan information. Charges/Coding Procedures Urinary/Genital [id number]: 10021-39 non-stress test Interp
== END 2022-01-03 15:55 | disposition home or self-care (01) ==
LOC: WPOUT 15:29 → WP 15:30
PROVIDERS: PCP Internal Medicine; Visit Provider Obstetrics & Gynecology
DX: O26.899 Other specified pregnancy related conditions, unspecified trimester (principal); R03.0 Elevated blood-pressure reading, without diagnosis of hypertension; Z3A.00 Weeks of gestation of pregnancy not specified
CPT/HCPCS: 96372; 99218; G0378; J0702

== ENCOUNTER 2022-01-04 22:05 | Outpatient (CLI) | payer MEDICAID, SELFPAY ==
[2022-01-04 22:41] VITALS: BP 142/84; PULSE 109; TEMP 36.9
[2022-01-04 22:45] VITALS: BMI 44.1
--- NOTE | 2022-01-05 09:09 | OB.TRI.PN_ITS ---
Progress Notes Progress Note: Patient presents for triage evaluation secondary to decrased movement FHT: 130-140 Moderate variability reactive no decelerations category I tracing [place]: no regular Contractions Assessment and plan: decresaed movement Reactive NST, reassuring maternal and status patient discharged to home to follow-up []. See problem list details for additional plan information. Charges/Coding Procedures Urinary/Genital [id number]: [id number] non-stress test Interp Assessment & Plan (1) Decreased movements in third trimester: PLAN: nst reactive reassuring dc home
== END 2022-01-04 23:05 | disposition home or self-care (01) ==
LOC: WPOUT 22:09 → WP 22:10
PROVIDERS: PCP Internal Medicine; Visit Provider Obstetrics & Gynecology
DX: O36.8130 Decreased fetal movements, third trimester, not applicable or unspecified (principal); Z3A.00 Weeks of gestation of pregnancy not specified
CPT/HCPCS: 59025; 59050; 99218; G0378

== ENCOUNTER → 2022-01-13 | Outpatient (CLI) | payer MEDICAID, SELFPAY ==
[2022-01-13 13:14] LABS: ROM Internal Control Test YES-OK TO RESULT pt. (Internal QC); ROM Patient Test Negative (Negative)
== END | disposition home or self-care (01) ==
LOC: LABSPEC 01-14 09:33
PROVIDERS: PCP Internal Medicine; Visit Provider Obstetrics & Gynecology
DX: N89.8 Other specified noninflammatory disorders of vagina (principal)
CPT/HCPCS: 84112

== ENCOUNTER → 2022-01-21 | Outpatient (CLI) | payer MEDICAID, SELFPAY ==
--- NOTE | 2022-01-21 13:51 | ECHOD_ITS ---
Reason For Study: HTN Procedure This was a 2D Doppler, Color Flow transthoracic echocardiogram. The study was technically difficult. Definity deferred due to . Exam performed in department. Left Ventricle Normal LV size. Left ventricular systolic function is normal. The estimated ejection fraction is 55 %. Normal diastology for age. No regional wall motion abnormalities noted. Right Ventricle Normal RV size. Normal systolic function. Atria Normal left atrium. Normal right atrium. Mitral Valve Normal mitral valve. Tricuspid Valve Normal tricuspid valve. Aortic Valve The aortic valve is not well visualized. Pulmonic Valve The pulmonic valve is not well visualized. Great Vessels Normal aortic root. The pulmonary artery is normal size. Normal inferior vena cava. Pericardium/Pleural No pericardial effusion. MMode/2D Measurements & Calculations LVIDd: 5.4 cm IVSd: 1.1 cm Ao root diam: 2.6 cm LVIDs: 2.7 cm LVPWd: 1.2 cm RVDd: 3.2 cm FS: 50.6 % LAV(MOD-bp): 68.0 ml LVAd ap4: 35.0 cm2 SV(MOD-sp4): 68.4 ml LAV(MOD-bp) Indexed: 31.3 ml/m2 LVLd ap4: 7.8 cm LAV(MOD-sp2): 64.4 ml EDV(MOD-sp4): 125.9 ml LAV(MOD-sp4): 69.1 ml EDV(sp4-el): 132.5 ml LVAs ap4: 21.2 cm2 LVLs ap4: 6.7 cm ESV(MOD-sp4): 57.5 ml ESV(sp4-el): 57.0 ml EF(MOD-sp4): 54.3 % EF(sp4-el): 57.0 % SV(sp4-el): 75.5 ml LA A4 area: 21.4 cm2 LA dimension(2D): 4.1 cm RA A4 area: 16.1 cm2 Doppler Measurements & Calculations MV E max estuardo: 108.4 cm/sec Lat Peak E' Estuardo: 14.6 cm/sec Med Peak E' Estuardo: 7.3 cm/sec MV A max estuardo: 75.2 cm/sec E/E' lat: 7.4 E/E' med: 14.8 MV E/A: 1.4 Ao V2 max: 121.6 cm/sec LV V1 max: 99.5 cm/sec PA V2 max: 113.1 cm/sec Ao max P.9 mmHg LV V1 max P.0 mmHg PA V2 mean: 78.2 cm/sec Ao V2 mean: 88.2 cm/sec LV V1 mean P.2 mmHg Ao mean P.5 mmHg LV V1 mean: 70.2 cm/sec Ao V2 VTI: 24.8 cm LV V1 VTI: 20.2 cm ECHO/Echo Complete Interpretation Summary Normal LV size. Left ventricular systolic function is normal. The estimated ejection fraction is 55 %. Normal diastology for age. Ordering Physician: Hany Collins Referring Physician: Hany Collins Performed By: Vanda Howard RCS
== END | disposition home or self-care (01) ==
LOC: CVS 13:48
PROVIDERS: PCP Internal Medicine; Referring Provider Internal Medicine Cardiovascular Disease; Visit Provider Internal Medicine Cardiovascular Disease
DX: I10 Essential (primary) hypertension (principal)
CPT/HCPCS: 93306

== ENCOUNTER 2022-01-27 10:45 | Outpatient (CLI) | payer MEDICAID, SELFPAY ==
[2022-01-27 10:51] VITALS: BMI 45.5
--- NOTE | 2022-01-27 10:51 | US_ITS ---
EXAM: US BIOPHYSICAL PROFILE WITHOUT NON-STRESS TESTING CLINICAL INDICATION: Nonreactive NST TECHNIQUE: Real-time ultrasound of the maternal pelvis for biophysical profile evaluation with image documentation. This report was created using [employer] report generation technology. COMPARISON: None. FINDINGS: BREATHING MOVEMENTS: Present. Score 2/2. GROSS BODY MOVEMENTS: Present. Score 2/2. TONE: Present. Score 2/2. AMNIOTIC FLUID INDEX: KALIN is 17.5 cm. FETUS: Single live fetus in breech presentation. HEART RATE: cardiac rate is 125 bpm. PLACENTA: Posterior placenta. US/Biophysical Prof W/O Non Stres IMPRESSION: Normal biophysical profile. Single live fetus in breech presentation. Electronically Signed: Ricky Aburto MD at 12:35 EDT ,
[2022-01-27 10:56] VITALS: TEMP 36.7
[2022-01-27 11:02] VITALS: BP 139/70; PULSE 93; TEMP 36.7
--- NOTE | 2022-01-29 09:44 | OB.TRI.HP_ITS ---
HPI - General HPI Narrative TASHIA BAPTISTE, is a 31 F who presents to L&D @ 35 weeks for bpp due to non- reactive nst in office today Maternal Data Information ALEN Calculator Estimated Delivery Date Method Current WG Current Estimate 02/25/22 LMP (Certain) 36w 1d PFSH PFS Medical History Bipolar disorder Depression Desmoid tumor Essential hypertension Exercise induced bronchospasm Fatty liver disease, nonalcoholic Gout History of chlamydia infection History of HPV infection History of PCOS Near syncope PCOS (polycystic ovarian syndrome) Type 2 diabetes mellitus Home Medications pantoprazole 20 mg tablet,delayed release 20 mg PO DAILY heartburn 12/29/18 [History Last Taken 01/04/22 19:00] multivitamin no.47-iron fum 27 mg-folate no.1 1 mg-dha 300 mg capsule (PNV-DHA) 1 cap PO DAILY 06/22/21 [History Last Taken 01/04/22 08:00] True Metrix Glucose Test Strip (blood sugar diagnostic) #200 ea 08/10/21 [Rx Last Taken Unknown] blood-glucose meter (True Metrix Glucose Meter) #1 ea 08/10/21 [Rx Last Taken Unknown] lamotrigine 100 mg tablet 200 mg PO DAILY bipolar 08/10/21 [History Last Taken 01/04/22 19:00] lancets (Accu-Chek Softclix Lancets) #120 ea 08/11/21 [Rx Last Taken Unknown] lancets 30 gauge #200 ea 08/11/21 [Rx Last Taken Unknown] pen needle, diabetic 32 gauge x 5/32 (BD Ultra-Fine Effei Pen Needle) #100 ea 08/17/21 [Rx Last Taken Unknown] albuterol sulfate 90 mcg/actuation aerosol inhaler 2 puff inhalation Q4H PRN PRN SOB 10/19/21 [History Last Taken Unknown] aspirin 81 mg tablet,delayed release (Adult Low Dose Aspirin) 81 mg PO DAILY prevent pre-e 10/19/21 [History Last Taken 01/04/22 19:00] ferrous sulfate 325 mg (65 mg iron) tablet 325 mg PO DAILY supplement 12/16/21 [History Last Taken 01/04/22 19:00] metformin 500 mg tablet 500 mg PO TIDWMEAL type 2 diabetes 01/02/22 [History Last Taken 01/04/22 19:00] labetalol 200 mg tablet 200 mg PO BID #60 tabs 01/11/22 [Rx Last Taken Unknown] nifedipine 60 mg tablet,extended release 24 hr (Procardia XL) 60 mg PO DAILY 30 days #30 tabs 01/11/22 [Rx Last Taken Unknown] Humulin N NPH Insulin KwikPen 40 unit OTHER BREAKFAST diabetes type 2 01/25/22 [History Last Taken Unknown] insulin NPH isoph U-100 human 100 unit/mL (3 mL) subcutaneous pen (Humulin N NPH U-100 Insulin KwikPen) 12 unit subcut QHS diabetes type 2 01/25/22 [History Last Taken Unknown] insulin lispro-aabc 100 unit/mL subcutaneous pen (Lyumjev KwikPen U-100 Insulin) 6 unit subcut TID 01/27/22 [History Last Taken Unknown] Allergy/AdvReac Type Severity Reaction Status Date / Time No Known Allergies Allergy Verified 01/27/22 09:47 Family History Mother CVA (cerebral vascular accident) Father Diabetes Hypertension Surgical History History of breast biopsy History of liver biopsy History of lumpectomy Social History household members: other details: parents number of children: 0 current occupational status: employed current occupation: [employer] pets and animals: Yes history of recent travel: No sexually active: Yes Smoking Status: Never smoker second hand exposure: No alcohol intake: current alcohol intake frequency: a few times a month substance use type: does not use what type of physical activity do you participate in: aerobics frequency: 1-2 times per week seatbelt use: always do you feel safe at home: Yes additional social history: Jose 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[place]) History 1 Elective abortions Hx Para Spontaneous abortions Hx # Term Pregnancies Ectopic pregnancies Hx # Pregnancies Multiple births # of living children Visit Details Expected Delivery Route/Plan Labor Preferences- CB/BF classes: [] labor support person: [] labor intervention preferences: [] pain management options preferred: [] cut cord/dad catch: [] : [] PP control planned: [] discussed possible routes of delivery and associated risks: [] special requests: [] Plans Covid status: vaccinated Flu vaccine: declined Tdap vaccine: given Rhogam: na LARC form signed: declined movement and labor precautions reviewed. Problem list reviewed and updated with the most current plan of care details and appropriate orders placed. Relevant counseling for the gestational age provided. Continue routine care and follow up unless otherwise noted in visit notes/problem list details OB Flowsheet Initial Weight: 266 lb Date -?-?-?-?-?-?-?-?-?-?-?-?- EGA Weight BP Urine Prot -?-?-?--?-?-?-?-?-?-?-?-?- Glucose FHR FuHt Pres Dilation -?-?-?-?-?-?-?-?-?--?-?-?- Effaced St Visit Note 08/12/21 -?-?-?-?-?-?-?-?-?-?-?-?- 11w 6d 266 lb (+0 oz) 132/72 -?-?-?-?-?-?-?-?-?-?-?-?- 160 -?-?-?-?-?-?-?-?-?-?-?-?- SM- procardia on ce daily. discussed blood sugars. 08/25/21 -?-?-?-?-?-?-?-?-?-?-?-?- 13w 5d 258 lb 4 oz (-7 lb 12 oz) 130/80 -?-?-?-?-?-?-?-?-?-?-?-?- 155 -?-?-?-?-?-?-?-?-?-?-?-?- JV- pt now on in sulin per dr. Lee, has buttock abscess and on augmentin. Encouraged epsom salt baths. 09/09/21 -?-?-?-?-?-?-?-?-?-?-?-?- 15w 6d 253 lb 6 oz (-12 lb 10 oz) 128/68 Negative -?-?-?-?-?-?-?-?-?-?-?-?- Negative 150 -?-?-?-?-?-?-?-?-?-?-?-?- JV- pt being see n urgently for leaking fluid. on exam there is physiologic discharge only. culture collected. bedside ultrasound shows adequate fluid and movement. pt reassured. 09/23/21 -?-?-?-?-?-?-?-?-?-?-?-?- 17w 6d 251 lb 4 oz (-14 lb 12 oz) 130/70 Negative -?-?-?-?-?-?-?-?-?-?-?-?- Negative 145 -?-?-?-?-?-?-?-?-?-?-?-?- JV- no lof, vagi nal bleeding, or cramping. no complaints today anatomy scan for tomorrow 10/21/21 -?-?-?-?-?-?-?-?-?-?-?-?- 21w 6d 248 lb 8 oz (-17 lb 8 oz) 116/60 Negative -?-?-?-?-?-?-?-?-?-?-?-?- Negative 150 -?-?-?-?-?-?-?-?-?-?-?-?- MH-No VB, LOF. G ood FM. Has VSD:echo scheduled. Glucose reading wnl. 11/17/21 -?-?-?-?-?-?-?-?-?-?-?-?- 25w 5d 252 lb (-14 lb) 128/60 Negative -?-?-?-?-?-?-?-?-?-?-?-?- Negative 154 -?-?-?-?-?-?-?-?-?-?-?-?- JV- no lof, vagi nal bleeding, or dec fm. planning for nsts twice weekly at 28 weeks. last echo showed tiny vsd only seen on 2 views. 12/07/21 -?-?-?-?-?-?-?-?-?-?-?-?- 28w 4d 254 lb (-12 lb) 132/64 Negative -?-?-?-?-?-?-?-?-?-?-?-?- Negative 140 -?-?-?-?-?-?-?-?-?-?-?-?- SM- no vb lof de c fm no regular ctx, still improving BS control 12/16/21 -?-?-?-?-?-?-?-?-?-?-?-?- 29w 6d 256 lb (-10 lb) 127/81 Negative -?-?-?-?-?-?-?-?-?-?-?-?- Negative 140 31 -?-?-?-?-?-?-?-?-?-?-?-?- SM- no vn lof go od fm no regular ctx 12/28/21 -?-?-?-?-?-?-?-?-?-?-?-?- 31w 4d 256 lb (-10 lb) 137/86 Negative -?-?-?-?-?-?-?-?-?-?-?-?- Negative -?-?-?-?-?-?-?-?-?-?-?-?- MH-NST only reac tive 12/31/21 -?-?-?-?-?-?-?-?-?-?-?-?- 32w 0d 127/79 Trace -?-?-?-?-?-?-?-?-?-?-?-?- Negative 140 -?-?-?-?-?-?-?-?-?-?-?-?- SM- NST done 01/04/22 -?-?-?-?-?-?-?-?-?-?-?-?- 32w 4d 254 lb (-12 lb) 122/75 -?-?-?-?-?-?-?-?-?-?-?-?- 140 -?-?-?-?-?-?-?-?-?-?-?-?- SM- nst done and no vb lof good fm no regular ctx co intermittent palpitaitons and elevated hr 01/06/22 -?-?-?-?-?-?--?-?-?-?-?-?- 32w 6d 254 lb 6 oz (-11 lb 10 oz) 128/82 Negative -?-?-?-?-?-?-?-?-?-?-?-?- Negative 140 -?-?-?-?-?-?-?-?-?-?-?-?- MH-NST only reac tive. Saw cardiology earlier today. 01/11/22 -?-?-?-?-?-?-?-?-?-?-?-?- 33w 4d 256 lb (-10 lb) 127/85 Negative -?-?-?-?-?-?-?-?-?-?-?-?- Negative 140 -?-?-?-?-?-?-?-?-?-?-?-?- JV- nst reactive . pt thinks leaking fluid. JV- nst reactive. pt thinks leaking fluid. On exam there is no pooling and cx is closed. no signs of ROM. pt states that heart is still racing. she shows me her smart watch recordings of heart rate in the 140's. She also has bp's 140's-150's/90's. plan to increase labetalol to 200 bid and new order of prcardia sent to pharmacy for refill. has echo on 01/21/22 01/13/22 -?-?-?-?-?-?-?-?-?-?-?-?- 33w 6d 255 lb 6 oz (-10 lb 10 oz) 134/82 Negative -?-?-?-?-?-?-?-?-?-?-?-?- Negative 140 -?-?-?-?-?-?-?-?-?-?-?-?- SM- nst reactive , still increasing insulin. 01/18/22 -?-?-?-?-?-?-?-?-?-?-?-?- 34w 4d 256 lb (-10 lb) 122/82 -?-?-?-?-?-?-?-?-?-?-?-?- 140 -?-?--?-?-?-?-?-?-?-?-?-?- SM- no vb lof go od fm no regular ctx BS still not well controlled continuing to go up on insulin, will plan IOL at 37 weeks 01/20/22 -?-?-?-?-?-?-?-?-?-?-?-?- 34w 6d 257 lb 8 oz (-8 lb 8 oz) 138/80 138/80 Negative -?-?-?-?-?-?-?-?-?-?-?-?- Negative 150 -?-?-?-?-?-?-?-?-?-?-?-?- MH-NST only reac tive 01/25/22 -?-?-?-?-?-?-?-?-?-?-?-?- 35w 4d 138/78 Negative -?-?-?-?-?-?-?-?-?-?-?-?- Negative 150 Breech -?-?-?-?-?-?-?-?-?-?-?-?- JV- nst reactive . glucose levels are improved with 24 R and 12 NPH 70's-80's fasting and 90's-120 pp but has occasaional 170 or 160 postprandial. Will need to get full report of glucose levels before setting up for delivery at 37 weeks. 01/27/22 -?-?-?-?-?-?-?-?-?-?-?-?- 35w 6d 265 lb 6 oz (-10 oz) 130/80 Negative -?-?-?-?-?-?-?-?-?-?-?-?- Negative 143 -?-?-?-?-?-?-?-?-?-?-?-?- JV_ nst non-reac tive. sending to l&D for bpp ROS Constitutional Constitutional: Reports systems reviewed and no addt'l complaints, except as documented Gastrointestinal Gastrointestinal: Denies bloating, constipation, cramping, diarrhea, nausea or vomiting Genitourinary Genitourinary: Reports other Details: Denies vaginal odor, vaginal bleeding, or vaginal discharge ; Denies difficulty urinating or flank pain Physical Exam HEENT normocephalic Resp normal respiratory effort and normal air movement no CVA tenderness Extremity normal to inspection General Extremity: edema bilateral (trace ) NST FHR Rate Baby A Baseline: 130 Variability:: Moderate Accelerations:: 15 x 15 Decelerations:: None NST Reactive:: Yes FHR Category:: Category I Assessment & Plan (1) NST (non-stress test) nonreactive: PLAN: bpp reactive, return to office in 4 days. (2) Breech presentation: COMMENT: if still breech on 02/09, plan for noon section (3) Anemia: COMMENT: CBC in 4 weeks (4) Near syncope: (5) Lightheadedness: (6) Essential hypertension: COMMENT: procardia increased to 60 XL. previously on Lisinopril; nl baseline CMP and PC/R at NOB, recommend baby ASA (7) Paresthesia and pain of left extremity: (8) Arm pain, left: (9) Palpitations: COMMENT: cardio consult (10) COVID-19 virus infection: COMMENT: covid pneumonia, on albuterol. improving. (11) Type 2 diabetes mellitus: (12) Obesity affecting : QUALIFIERS: Trimester: first trimester Qualified Code(s): O99.211 - Obesity complicating , first trimester (13) Asthma: COMMENT: well managed- more exercised induced (14) : QUALIFIERS: Weeks of gestation: 35 weeks Qualified Code(s): Z3A.35 - 35 weeks gestation of COMMENT: NIPT low risk, carrier neg. reviewed anatomy us (15) Supervision of high risk , antepartum: COMMENT: PRR ALEN: 02/25/22, girl, Fianc?: Laith (lives in [place]) (16) Modified White class B pregestational diabetes mellitus: COMMENT: plan IOL 37 weeks due to difficult control, twice wkly NST and growth US Q4W at 32w. currently on insulin BID, sees Dr. Lee- last HgbA1C was 7.3 drawn 06/14/21 at [facility]. saw optho. ekg done. baseline labs. NL Growth US 12/23 (17) ventricular septal defect affecting antepartum care of mother: QUALIFIERS: Fetus number: single or unspecified fetus Qualified Code(s): O35.8XX0 - Maternal care for other (suspected) abnormality and damage, not applicable or unspecified COMMENT: echo 11/02/21 (18) Bipolar disorder: COMMENT: lamictal. kel [facility] Charges/Coding Multi Select Codes Visit Charges Office Visit/Consults: 48048 OV L3 Est Urinary/Genital Urinary/Genital CPT Codes: 13181-10 non-stress test Interp
== END 2022-01-27 12:55 | disposition home or self-care (01) ==
LOC: WPOUT 10:49 → WP 10:49
PROVIDERS: PCP Internal Medicine; Referring Provider Obstetrics & Gynecology; Visit Provider Obstetrics & Gynecology
DX: O76 Abnormality in fetal heart rate and rhythm complicating labor and delivery (principal); F31.9 Bipolar disorder, unspecified; E11.9 Type 2 diabetes mellitus without complications; Z79.4 Long term (current) use of insulin; U07.1 COVID-19; J12.82 Pneumonia due to coronavirus disease 2019; I10 Essential (primary) hypertension; O10.913 Unspecified pre-existing hypertension complicating pregnancy, third trimester; O35.8XX0 Maternal care for other (suspected) fetal abnormality and damage, not applicable or unspecified; O32.1XX0 Maternal care for breech presentation, not applicable or unspecified; O99.213 Obesity complicating pregnancy, third trimester; O98.513 Other viral diseases complicating pregnancy, third trimester; O24.113 Pre-existing type 2 diabetes mellitus, in pregnancy, third trimester; O99.343 Other mental disorders complicating pregnancy, third trimester; O99.513 Diseases of the respiratory system complicating pregnancy, third trimester; J45.909 Unspecified asthma, uncomplicated; Z3A.35 35 weeks gestation of pregnancy; Z79.82 Long term (current) use of aspirin
CPT/HCPCS: 59025; 59050; 76819; 99218; G0378

== ENCOUNTER → 2022-01-28 | Outpatient (CLI) | payer MEDICAID, SELFPAY ==
[2022-01-28 14:41] LABS: Absolute Lymphocyte Count 2.08 X10^3/uL (0.83-4.51); Absolute Neutrophil Count 6.8 X10^3/uL (2.0-7.7); Basophil# 0.03 X10^3/uL; Basophil% 0.3 % (0-1); Eosinophil# 0.22 X10^3/uL; Eosinophils% 2.3 % (0-5); Hematocrit 30.9 % (37-47); Lymphocyte # 2.08 X10^3/ul (0.83-4.51); Lymphocyte % 21.4 % (19-41); Mean Corp Hgb Conc 32.4 g/dL (32-36); Mean Corpuscular Hgb 26.2 pg (27.0-32.0); Mean Corpuscular Volume 80.9 fL (81-99); Mean Platelet Vol. 11.8 fl (6.2-12.0); Monocyte# 0.52 X10^3/uL; Monocyte% 5.4 % (0-10); NRBC Flagged by Analyzer 0 % (0-5); Neutrophil # 6.77 X10^3/uL (2.7-7.7); Neutrophil % 69.7 % (47-70); Platelet Count 303 K/mm3 (150-450); RBC Distribution Width CV 16.7 % (11.6-14.6); Red Blood Count 3.82 M/mm3 (4.2-5.4); White Blood Count 9.7 K/mm3 (4.4-11.0)
== END | disposition home or self-care (01) ==
LOC: LAB 13:36
PROVIDERS: PCP Internal Medicine; Visit Provider Nurse Practitioner Women's Health
DX: O99.019 Anemia complicating pregnancy, unspecified trimester (principal)
CPT/HCPCS: 36415; 85025

== ENCOUNTER 2022-02-04 09:50 | Inpatient (IN) | payer MEDICAID, SELFPAY ==
[2022-02-04] VITALS (14 sets, daily range): BP systolic 130–154; BP diastolic 71–86; PULSE 65–99; RESP 14–19; TEMP 36.1–37.2; O2SAT 95–100; BMI 46.7
[2022-02-04] MEDS: Acetaminophen 500 MG Tablet 1000 MG PO ×3 (10:14→23:33)
[2022-02-04] MEDS: Lactated Ringers 1,000 ML 999 ML IV (10:33)
[2022-02-04] MEDS: Dextrose 5%-Lactated Ringers 1,000 ML 999 ML IV (10:58)
[2022-02-04 10:59] LABS: Absolute Lymphocyte Count 1.92 X10^3/uL (0.83-4.51); Absolute Neutrophil Count 7.4 X10^3/uL (2.0-7.7); Basophil# 0.05 X10^3/uL; Basophil% 0.5 % (0-1); Eosinophil# 0.17 X10^3/uL; Eosinophils% 1.7 % (0-5); Hemoglobin 10.2 g/dL (12.0-15.0); Lymphocyte # 1.92 X10^3/ul (0.83-4.51); Lymphocyte % 18.8 % (19-41); Mean Corp Hgb Conc 31.9 g/dL (32-36); Mean Corpuscular Hgb 25.8 pg (27.0-32.0); Mean Platelet Vol. 11.9 fl (6.2-12.0); Monocyte# 0.56 X10^3/uL; Monocyte% 5.5 % (0-10); NRBC Flagged by Analyzer 0 % (0-5); Neutrophil % 72.2 % (47-70); Platelet Count 294 K/mm3 (150-450); RBC Distribution Width CV 16.6 % (11.6-14.6); RBC Distribution Width SD 48.5 fl (35.1-43.9); Red Blood Count 3.95 M/mm3 (4.2-5.4); White Blood Count 10.2 K/mm3 (4.4-11.0)
[2022-02-04 11:55] LABS: Bedside Glucose 67 mg/dL (74-106)
[2022-02-04 11:55] LABS: Bedside Glucose 62 mg/dL (74-106)
[2022-02-04 11:55] LABS: Bedside Glucose 104 mg/dL (74-106)
[2022-02-04 11:55] LABS: Bedside Glucose 79 mg/dL (74-106)
[2022-02-04] MEDS: Lactated Ringers 1,000 ML 150 ML IV (12:14)
[2022-02-04 13:35] LABS: Bedside Glucose 78 mg/dL (74-106)
[2022-02-04] MEDS: Sodium Citrate/Citric Acid 30 ML UDC PO (14:30)
[2022-02-04] MEDS: Cefazolin 2 GM in 0.9% Normal Saline 100 ML IV (14:45)
--- NOTE | 2022-02-04 16:06 | HP.PCM.OB_ITS ---
HPI - General General Date of Admission: 02/04/22 HPI Narrative TASHIA BAPTISTE, is a 31 F who presents for LTCS for breech presentation and poorly controlled diabetes, cHTN. she has been on metformin since the first trimester for class B diabetes and has continued to add and incresae insulin and medications to control and has struggled with adequate blood sugar control. bp control has also only been with increases in procardia and adding labetalol. Maternal Data Information ALEN Calculator Estimated Delivery Date Method Current WG Current Estimate 02/25/22 LMP (Certain) 37w 0d PFSH [facility] Medical History Bipolar disorder Depression Desmoid tumor Essential hypertension Exercise induced bronchospasm Fatty liver disease, nonalcoholic Gout History of chlamydia infection History of HPV infection History of PCOS Near syncope PCOS (polycystic ovarian syndrome) Type 2 diabetes mellitus Home Medications pantoprazole 20 mg tablet,delayed release 20 mg PO DAILY heartburn 12/29/18 [History Last Taken 02/03/22 20:00 20 mg] multivitamin no.47-iron fum 27 mg-folate no.1 1 mg-dha 300 mg capsule (PNV-DHA) 1 cap PO DAILY 06/22/21 [History Last Taken 02/03/22 20:00 1 cap] True Metrix Glucose Test Strip (blood sugar diagnostic) #200 ea 08/10/21 [Rx Last Taken Unknown] blood-glucose meter (True Metrix Glucose Meter) #1 ea 08/10/21 [Rx Last Taken Unknown] lamotrigine 100 mg tablet 200 mg PO DAILY bipolar 08/10/21 [History Last Taken 02/03/22 20:00 200 mg] lancets (Accu-Chek Softclix Lancets) #120 ea 08/11/21 [Rx Last Taken Unknown] lancets 30 gauge #200 ea 08/11/21 [Rx Last Taken Unknown] pen needle, diabetic 32 gauge x 5/32 (BD Ultra-Fine Effie Pen Needle) #100 ea 08/17/21 [Rx Last Taken Unknown] albuterol sulfate 90 mcg/actuation aerosol inhaler 2 puff inhalation Q4H PRN PRN SOB 10/19/21 [History Last Taken Unknown] aspirin 81 mg tablet,delayed release (Adult Low Dose Aspirin) 81 mg PO DAILY prevent pre-e 10/19/21 [History Last Taken 02/03/22 20:00 81 mg] ferrous sulfate 325 mg (65 mg iron) tablet 325 mg PO DAILY supplement 12/16/21 [History Last Taken 02/03/22 20:00 325 mg] metformin 500 mg tablet 500 mg PO TIDWMEAL type 2 diabetes 01/02/22 [History Last Taken 02/03/22 20:00 500 mg] Humulin N NPH Insulin KwikPen 40 unit OTHER BREAKFAST diabetes type 2 01/25/22 [History Last Taken 02/03/22 08:00 40 units] insulin NPH isoph U-100 human 100 unit/mL (3 mL) subcutaneous pen (Humulin N NPH U-100 Insulin KwikPen) 12 unit subcut QHS diabetes type 2 01/25/22 [History Last Taken 02/03/22 20:00 12 units] insulin lispro-aabc 100 unit/mL subcutaneous pen (Lyumjev KwikPen U-100 Insulin) 6 unit subcut TID DM 01/27/22 [History Last Taken 02/03/22 20:00 6 units] labetalol 200 mg tablet 200 mg PO BID HTN 02/04/22 [History Last Taken 02/03/22 20:00 200 mg] nifedipine 60 mg tablet,extended release 24 hr (Procardia XL) 60 mg PO DAILY HTn 02/04/22 [History Last Taken 02/03/22 20:00 60 mg] Allergy/AdvReac Type Severity Reaction Status Date / Time No Known Allergies Allergy Verified 02/04/22 10:28 Family History Mother CVA (cerebral vascular accident) Father Diabetes Hypertension Surgical History History of breast biopsy History of liver biopsy History of lumpectomy Social History household members: other details: parents number of children: 0 current occupational status: employed current occupation: [employer] pets and animals: Yes history of recent travel: No sexually active: Yes Smoking Status: Never smoker second hand exposure: No alcohol intake: current alcohol intake frequency: a few times a month substance use type: does not use what type of physical activity do you participate in: aerobics frequency: 1-2 times per week seatbelt use: always do you feel safe at home: Yes additional social history: 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[place]) History 1 Elective abortions Hx Para 0 Spontaneous abortions Hx # Term Pregnancies Ectopic pregnancies Hx # Pregnancies Multiple births # of living children Visit Details Expected Delivery Route/Plan Labor Preferences- CB/BF classes: [] labor support person: [] labor intervention preferences: [] pain management options preferred: [] cut cord/dad catch: [] : [] PP control planned: [] discussed possible routes of delivery and associated risks: [] special requests: [] Plans Covid status: vaccinated Flu vaccine: declined Tdap vaccine: given Rhogam: na LARC form signed: declined movement and labor precautions reviewed. Problem list reviewed and updated with the most current plan of care details and appropriate orders placed. Relevant counseling for the gestational age provided. Continue routine care and follow up unless otherwise noted in visit notes/problem list details OB Flowsheet Initial Weight: 266 lb Date -?-?-?-?-?-?-?-?-?-?-?-?- EGA Weight BP Urine Prot -?-?-?-?-?-?-?-?-?-?-?-?- Glucose FHR FuHt Pres Dilation -?-?-?-?-?-?-?-?-?-?-?-?- Effaced St Visit Note 08/12/21 -?-?-?-?-?-?-?-?-?-?-?-?- 11w 6d 266 lb (+0 oz) 132/72 -?-?-?-?-?-?-?-?-?-?-?-?- 160 -?-?-?-?-?-?-?-?-?-?-?-?- SM- procardia on ce daily. discussed blood sugars. 08/25/21 -?-?-?-?-?-?-?-?-?-?-?-?- 13w 5d 258 lb 4 oz (-7 lb 12 oz) 130/80 -?-?-?-?-?-?-?-?-?-?-?-?- 155 -?-?-?-?-?-?-?-?-?-?-?-?- JV- pt now on in sulin per dr. Lee, has buttock abscess and on augmentin. Encouraged epsom salt baths. 09/09/21 -?-?-?-?-?-?-?-?-?-?-?-?- 15w 6d 253 lb 6 oz (-12 lb 10 oz) 128/68 Negative -?-?-?-?-?-?-?-?-?-?-?-?- Negative 150 -?-?-?-?-?-?-?-?-?-?-?-?- JV- pt being see n urgently for leaking fluid. on exam there is physiologic discharge only. culture collected. bedside ultrasound shows adequate fluid and movement. pt reassured. 09/23/21 -?-?-?-?-?-?-?-?-?-?-?-?- 17w 6d 251 lb 4 oz (-14 lb 12 oz) 130/70 Negative -?-?-?-?-?-?-?-?-?-?-?-?- Negative 145 -?-?-?-?-?-?-?-?-?-?-?-?- JV- no lof, vagi nal bleeding, or cramping. no complaints today anatomy scan for tomorrow 10/21/21 -?-?-?-?-?-?-?-?-?-?-?-?- 21w 6d 248 lb 8 oz (-17 lb 8 oz) 116/60 Negative -?-?-?-?-?-?-?-?-?-?-?-?- Negative 150 -?-?-?-?-?-?-?-?-?-?--?-?- MH-No VB, LOF. G ood FM. Has VSD:echo scheduled. Glucose reading wnl. 11/17/21 -?-?-?-?-?-?-?-?-?-?-?-?- 25w 5d 252 lb (-14 lb) 128/60 Negative -?-?-?-?-?-?-?-?-?-?-?-?- Negative 154 -?-?-?-?-?-?-?-?-?-?-?-?- JV- no lof, vagi nal bleeding, or dec fm. planning for nsts twice weekly at 28 weeks. last echo showed tiny vsd only seen on 2 views. 12/07/21 -?-?-?-?-?-?-?-?-?-?-?-?- 28w 4d 254 lb (-12 lb) 132/64 Negative -?-?-?-?-?-?-?-?-?-?-?-?- Negative 140 -?-?-?-?-?-?-?-?-?-?-?-?- SM- no vb lof de c fm no regular ctx, still improving BS control 12/16/21 -?-?-?-?-?-?-?-?-?-?-?-?- 29w 6d 256 lb (-10 lb) 127/81 Negative -?-?-?-?-?-?-?-?-?-?-?-?- Negative 140 31 -?-?-?-?-?-?-?-?-?--?-?-?- SM- no vn lof go od fm no regular ctx 12/28/21 -?-?-?-?-?-?-?-?-?-?-?-?- 31w 4d 256 lb (-10 lb) 137/86 Negative -?-?-?-?-?-?-?-?-?-?-?-?- Negative -?-?-?-?-?-?-?-?-?-?-?-?- -NST only reac tive 12/31/21 -?-?-?-?-?-?-?-?-?-?-?-?- 32w 0d 127/79 Trace -?-?-?-?-?-?-?-?-?-?-?-?- Negative 140 -?-?-?-?-?-?-?-?-?-?-?-?- SM- NST done 01/04/22 -?-?-?-?-?-?-?-?-?-?-?-?- 32w 4d 254 lb (-12 lb) 122/75 -?-?-?-?-?-?-?-?-?-?-?-?- 140 -?-?-?-?-?-?-?-?-?-?-?-?- SM- nst done and no vb lof good fm no regular ctx co intermittent palpitaitons and elevated hr 01/06/22 -?-?-?-?-?-?-?-?-?-?-?-?- 32w 6d 254 lb 6 oz (-11 lb 10 oz) 128/82 Negative -?-?-?-?-?-?-?-?--?-?-?-?- Negative 140 -?-?-?-?-?-?-?-?-?-?-?-?- MH-NST only reac tive. Saw cardiology earlier today. 01/11/22 -?-?-?-?-?-?-?-?-?-?-?-?- 33w 4d 256 lb (-10 lb) 127/85 Negative -?-?-?-?-?-?-?-?-?-?-?-?- Negative 140 -?-?-?-?-?-?-?-?-?-?-?-?- JV- nst reactive . pt thinks leaking fluid. JV- nst reactive. pt thinks leaking fluid. On exam there is no pooling and cx is closed. no signs of ROM. pt states that heart is still racing. she shows me her smart watch recordings of heart rate in the 140's. She also has bp's 140's- 150's/90's. plan to increase labetalol to 200 bid and new order of prcardia sent to pharmacy for refill. has echo on 01/21/22 01/13/22 -?-?-?-?-?-?-?-?-?-?-?-?- 33w 6d 255 lb 6 oz (-10 lb 10 oz) 134/82 Negative -?-?-?-?-?-?-?-?-?-?-?-?- Negative 140 -?-?-?-?-?-?-?-?-?-?-?-?- SM- nst reactive , still increasing insulin. 01/18/22 -?-?-?-?-?-?-?-?-?-?-?-?- 34w 4d 256 lb (-10 lb) 122/82 -?-?-?-?-?-?-?-?-?-?-?-?- 140 -?-?-?-?-?-?-?-?-?-?-?-?- SM- no vb lof go od fm no regular ctx BS still not well controlled continuing to go up on insulin, will plan IOL at 37 weeks 01/20/22 -?-?-?-?-?-?-?-?-?-?-?-?- 34w 6d 257 lb 8 oz (-8 lb 8 oz) 138/80 138/80 Negative -?-?-?-?-?-?-?-?-?-?-?-?- Negative 150 -?-?-?-?-?-?-?-?-?-?-?-?- MH-NST only reac tive 01/25/22 -?-?-?-?-?-?-?-?-?-?-?-?- 35w 4d 138/78 Negative -?-?-?-?-?-?-?-?-?-?-?-?- Negative 150 Breech -?-?-?-?-?-?-?-?-?-?-?-?- JV- nst reactive . glucose levels are improved with 24 R and 12 NPH 70's-80's fasting and 90's-120 pp but has occasaional 170 or 160 postprandial. Will need to get full report of glucose levels before setting up for delivery at 37 weeks. 01/27/22 -?-?-?-?-?-?-?-?-?-?-?-?- 35w 6d 265 lb 6 oz (-10 oz) 130/80 Negative -?-?-?-?-?-?-?-?-?-?-?-?- Negative 143 -?-?-?-?-?-?-?-?-?-?-?-?- JV_ nst non-reac tive. sending to l&D for bpp 02/03/22 -?-?-?-?-?-?-?-?-?-?-?-?- 36w 6d 271 lb 4 oz (+5 lb 4 oz) 128/70 -?-?-?-?-?-?-?-?-?-?-?-?- 150 -?-?-?-?-?-?-?-?-?-?-?-?- MH-NST only reac tive. C section planned for tomorrow 02/04/22 -?-?-?-?-?-?-?-?-?-?-?-?- 37w 0d 272 lb 0.807 oz (+6 lb 0.807 oz) 147/84 142/76 145/85 152/80 150/76 148/71 144/83 144/74 154/73 140/75 148/83 -?-?-?-?-?-?-?-?-?-?-?-?- -?-?-?-?-?-?-?-?-?-?-?-?- NST FHR Rate Baby A Baseline: 130 Variability:: Moderate Accelerations:: 15 x 15 Decelerations:: None NST Reactive:: Yes FHR Category:: Category I Uterine Activity:: irregular ROS Constitutional Constitutional: Reports systems reviewed and no addt'l complaints, except as documented Eyes Eyes: Denies change in vision ENT HEENT: Reports systems reviewed and no addt'l complaints, except as documented; Denies headache(s) Cardiovascular Cardiovascular: Reports systems reviewed and no addt'l complaints, except as documented; Denies chest pain or dyspnea Respiratory/Chest Respiratory/Chest: Reports systems reviewed and no addt'l complaints, except as documented Gastrointestinal Gastrointestinal: Reports systems reviewed and no addt'l complaints, except as documented; Denies abdominal pain Genitourinary Genitourinary: Reports systems reviewed and no addt'l complaints, except as documented, contractions Details: present (irregular) and movement Details: present; Denies dysuria or genital lesions Musculoskeletal Musculoskeletal: Reports systems reviewed and no addt'l complaints, except as documented Neurologic Neurologic: Reports systems reviewed and no addt'l complaints, except as documented Endocrine Endocrinology: Reports systems reviewed and no addt'l complaints, except as documented Vital Signs Vital Signs Vital Signs: 02/04/22 11:33 Temperature 97.2 F L Temperature Source Temporal Pulse Rate 77 Respiratory Rate 18 Blood Pressure 147/84 H Blood Pressure Mean 105 Blood Pressure Source Monitor Blood Pressure Position Semi-Fowlers Blood Pressure Location Left Arm Pulse Ox 99 Oxygen Delivery Method Room Air Weight Weight: 272 lb 0.807 oz Body Mass Index (BMI) 46.7 Physical Exam Const alert, oriented x3, no apparent distress and healthy appearing HEENT normocephalic and moist oral mucous membranes Head and Scalp: atraumatic Neck full ROM, no lymphadenopathy, supple and thyroid normal General: trachea midline Lymph Lymphatic: no lymphadenopathy noted Chest inspection of chest normal Resp normal respiratory effort Cardio regular rate GI normal to inspection, nondistended, normoactive bowel sounds, soft to palpation and non-tender Inspection: gravid external exam normal Manual OB Exam: estimated gestational size appropriate, presentation cephalic, dilated, effaced and station Extremity normal to inspection General Extremity: Negative for edema Skin no rashes or lesions noted Neuro no focal motor deficits and deep tendon reflexes 2+ bilaterally Motor Exam: strength 5/5 throughout and clonus absent Psych mental status grossly normal Labs Labs Labs: Blood Type O POSITIVE Antibody Screen NEGATIVE Hct 32.0 % (37-47) L Hgb 10.2 g/dL (12.0-15.0) L Pap Smear Negative Syphilis Total Ab Non-reactive Rubella IgG Antibody Reactive (Nonreactive) Hep Bs Antigen Non-Reactive (Nonreactive) Chlamydia DNA ([facility]) Negative (Negative) Neisseria gonorrhoeae DNA ([facility]) Negative (Negative) HIV 1&2 Antibody Non-Reactive (Nonreactive) Miscellaneous Test Assessment & Plan (1) Essential hypertension: COMMENT: procardia increased to 60 XL. labetalol held. (2) Type 2 diabetes mellitus: (3) Bipolar disorder: COMMENT: lamictal. [facility] (4) Anemia: COMMENT: CBC in 4 weeks, 8/5 table hgb (5) Asthma: COMMENT: well managed- more exercised induced (6) Breech presentation: COMMENT: 02/04 csection @ 12 with SM (7) COVID-19 virus infection: COMMENT: covid pneumonia, on albuterol. improving. (8) ventricular septal defect affecting antepartum care of mother: QUALIFIERS: Fetus number: single or unspecified fetus Qualified Code(s): O35.8XX0 - Maternal care for other (suspected) abnormality and damage, not applicable or unspecified COMMENT: echo 11/02/21 (9) Modified White class B pregestational diabetes mellitus: COMMENT: plan IOL 37 weeks due to difficult control, twice wkly NST and growth US Q4W at 32w. currently on insulin BID, sees Dr. Lee- last HgbA1C was 7.3 drawn 06/14/21 at [facility]. saw optho. ekg done. baseline labs. NL Growth US 12/23 (10) Palpitations: COMMENT: cardio consult (11) PCOS (polycystic ovarian syndrome): (12) : QUALIFIERS: Weeks of gestation: 36 weeks Qualified Code(s): Z3A.36 - 36 weeks gestation of COMMENT: NIPT low risk, carrier neg. reviewed anatomy us (13) Supervision of high risk , antepartum: COMMENT: PRR ALEN: 02/25/22, girl, Fianc?: Laith (lives in [place]) PLAN: Plan admit for LTCS for breech After discussing the patient's diagnosis and treatment plan options, patient wishes to proceed with surgical management. I have discussed with the patient the risks, benefits, and alternatives of the procedure which include but are not limited to risks of anesthesia, bleeding, infection, possible damage to bowel, bladder, or surrounding vasculature which could lead to additional surgery to evaluate any complications. Patient agrees to procedure and wishes to proceed. ACOG/uptodate references given for additional information regarding procedure.
--- NOTE | 2022-02-04 16:07 | OP.PCM_ITS ---
Assessment & Plan (1) Breech presentation: COMMENT: 02/04 csection @ 12 with SM (2) Anemia: COMMENT: CBC in 4 weeks, 01/28 table hgb (3) Essential hypertension: COMMENT: procardia increased to 60 XL. labetalol held. (4) Palpitations: COMMENT: cardio consult (5) COVID-19 virus infection: COMMENT: covid pneumonia, on albuterol. improving. (6) Asthma: COMMENT: well managed- more exercised induced (7) Obesity affecting : QUALIFIERS: Trimester: first trimester Qualified Code(s): O99.211 - Obesity complicating , first trimester (8) History of abnormal cervical Pap smear: COMMENT: colp negative. Has had normal paps since (9) : QUALIFIERS: Weeks of gestation: 36 weeks Qualified Code(s): Z3A.36 - 36 weeks gestation of COMMENT: NIPT low risk, carrier neg. reviewed anatomy us (10) Supervision of high risk , antepartum: COMMENT: PRR ALEN: 02/25/22, girl, Fianc?: Laith (lives in [place]) (11) Modified White class B pregestational diabetes mellitus: COMMENT: plan IOL 37 weeks due to difficult control, twice wkly NST and growth US Q4W at 32w. currently on insulin BID, sees Dr. Lee- last HgbA1C was 7.3 drawn 06/14/21 at [facility]. saw [facility]adwick. ekg done. baseline labs. NL Growth US 12/23 (12) ventricular septal defect affecting antepartum care of mother: QUALIFIERS: Fetus number: single or unspecified fetus Qualified Code(s): O35.8XX0 - Maternal care for other (suspected) abnormality and damage, not applicable or unspecified COMMENT: echo 11/02/21 (13) Bipolar disorder: COMMENT: lamictal. [facility] (14) delivery delivered: COMMENT: 37 cs sec poorly controlled diabetes and chtn girl Lena SM Maternal Data Information ALEN Calculator Estimated Delivery Date Method Current WG Current Estimate 02/25/22 LMP (Certain) 37w 0d Final ALEN Source: LMP Details Operative Information Date of Procedure: 02/04/22 Pre-Operative Diagnosis: breech Post-Operative Diagnosis: same Indications for : Breech Classification: Scheduled Procedure Type: low transverse winter intern #1: Margareth Alvarado Type of Anesthesia: Spinal Special Medications: none Antibiotic Given: Ancef 2 grams IV x1 Drain: Mcneal to straight drain Estimated Blood Loss: 800 Fluids Replaced: crystalloid Findings Description of Procedure: Spinal anesthesia was placed without difficulty. Mcneal catheter was placed. The patient was placed in the dorsal supine position with leftward tilt. Patient was prepped and draped in the normal sterile fashion. Pfannenstiel skin incision was made with the scalpel and carried through to the underlying layer of fascia with the scalpel. Fascia was nicked in the midline and the incision extended laterally. The rectus bellies were dissected off superiorly and inferiorly with out complication both sharply and bluntly. The peritoneum was entered digitally. The incision was stretched and a low transverse uterine incision was made with the scalpel. The buttox was delivered atraumatically and the right and left legs were swept anteriorly and delivered, followed by the body and the arms which were swept anteriorly and delivered. Gentle traction was placed on the mentum to flex the head which was delivered without complication. The cord was clamped and cut and the infant was handed off to awaiting nurse. The placenta was delivered spontaneously immediately following and was noted to be intact and have a three-vessel cord. The uterus was exteriorized cleared of all clots and debris, and the incision was closed in a double layer closure using #1 Monocryl. The ovaries and fallopian tubes were noted to be within normal limits. The uterus was returned to the maternal abdomen and gutters were cleared of all clots and debris. The peritoneum was closed with 3-0 Monocryl in a running fashion. Gloves were changed prior to fascial closure. Fascia was closed with 0 PDS in a running fashion. Subcutaneous tissue was copiously irrigated and the skin was closed with 3-0 Monocryl in a subcuticular fashion. Mepilex dressing was applied without complication. Patient was taken to recovery in stable condition. It was discussed with the patient that based on the clinical information obtained during this encounter, combined with her history, at this time I would recommend cesareans for future deliveries if further pregnancies are desired due to body habitus. Presentation: Positive for Footling Breech Amniotic Membrane Rupture Type: Artificial Amniotic Fluid Description: Clear Placenta Disposition: [facility] Cord Vessel Description: 3 Vessels Cord Entanglement: Around neck x 1, tight A Gender: Female Delayed Cord Clamping: Yes Complications Risks of Surgery Discussed w/Patient: Bleeding, Infection, Need for Future C- Sections and Injury to surrounding structure(s) including bowel and bladder Vaginal Delivery Complication Complications: None Admit VTE Documentation VTE Present on Admission: No VTE Mechan Device Prophylaxis: SCD's Procedures Urinary/Genital [id number]: [id number] delivery+PP Care([facility])
[2022-02-04] MEDS: Oxytocin 30 units/NS 500 ml 30 UNITS/500 ML IV.SOLN 167 UNITS IV (16:20)
[2022-02-04] MEDS: Ketorolac 30 MG/ML Syringe IV ×2 (16:32→22:34)
[2022-02-04 17:30] LABS: Bedside Glucose 66 mg/dL (74-106)
[2022-02-04] MEDS: HYDROmorphone 1 MG/ML Syringe IV (17:42)
[2022-02-04] MEDS: Lactated Ringers 1,000 ML 100 ML IV (19:58)
--- NOTE | 2022-02-04 21:42 | PCM.DC ---
Discharge Instructions Diet Discharge Diet: No restrictions Activity Discharge Activity: Return to Normal Activity, May Drive (when pain free and off narcotic pain meds), May Shower and May Take a Tub Bath (in 4 weeks) May resume sexual activity in: 6 weeks Weight Bearing Status: Full weight bearing Lifting Restrictions: under 30 lbs for 6 weeks Dressing / Incision Call your doctor if your incision/area has: Continuous Slow Oozing, Sudden Increased Bleeding, Increased Pain/ Swelling, Increased Redness, Foul Smelling Discharge and - Call your doctor if you observe: Fever of 101 or Higher, Using more than 1 pad per hour, Shortness of breath, Chest pain and Uncontrolled pain Suture Line Care: Avoid Pulling/Pushing and Avoid Pinching/Bending Change Dressing in: 1 week (leave open to air after removed) Remove Dressing in: 1 week (if present) Cleanse incision/area with: Soap & Water and Keep Dressing Clean & Dry Follow Up Care Please Follow Up With: Radha Rizo MD When: Call to make an appointment with your doctor for a postop visit in 2 and 6 weeks. Test Results: Test results from this visit will be discussed in further detail at your follow-up appointment, if applicable. Discharge Plan Admission Admit Date/Time: 02/04/22 09:50 Attending Provider: Radha Rizo Primary Care Provider: Angie Pena Discharge Orders/Prescriptions Prescriptions: New oxycodone-acetaminophen [Percocet] 5-325 mg tablet 1 tab PO Q6H PRN (Reason: pain) 7 Days Qty: 20 0RF naproxen [naproxen] 500 mg tablet 500 mg PO BID PRN PRN (Reason: Pain) Qty: 30 1RF Continued PNV-DHA 27 mg iron-1 mg -300 mg capsule 1 cap PO DAILY lamotrigine 100 mg tablet 200 mg PO DAILY Label Comments: take 1 tablet by mouth once daily (DME) blood-glucose meter [True Metrix Glucose Meter] [facility] [place] See Rx Instructions .ROUTE .MEDSUPPLY Qty: 1 0RF Rx Instructions: As directed (DME) True Metrix Glucose Test Strip Strip See Rx Instructions .ROUTE .MEDSUPPLY Qty: 200 6RF Rx Instructions: 6 times daily albuterol sulfate 90 mcg/actuation HFA aerosol inhaler 2 puff inhalation Q4H PRN PRN (Reason: SOB) Label Comments: inhale 2 puffs by mouth and INTO THE LUNGS every 4 to 6 hours ferrous sulfate 325 mg (65 mg iron) tablet 325 mg PO DAILY pantoprazole 20 MG tablet 20 mg PO DAILY metformin 500 mg tablet 500 mg PO TIDWMEAL Humulin N NPH Insulin KwikPen 40 unit OTHER BREAKFAST nifedipine [Procardia XL] 60 mg tablet extended release 24hr 60 mg PO DAILY (DME) lancets [Accu-Chek Softclix Lancets] Misc See Rx Instructions .ROUTE .MEDSUPPLY Qty: 120 6RF Rx Instructions: 4x/day (DME) lancets 30 gauge misc See Rx Instructions .ROUTE .MEDSUPPLY Qty: 200 3RF Rx Instructions: TEST BLOOD SUGAR QID (DME) pen needle, diabetic [BD Ultra-Fine Effie Pen Needle] 32 gauge x 5/32 needle See Rx Instructions .ROUTE .MEDSUPPLY Qty: 100 6RF Rx Instructions: twice daily Discontinued aspirin [Adult Low Dose Aspirin] 81 mg tablet,delayed release (DR/EC) 81 mg PO DAILY Lyumjev KwikPen U-100 Insulin 100 unit/mL insulin pen 6 unit subcut TID Humulin N NPH Insulin KwikPen 100 unit/mL (3 mL) insulin pen 12 unit subcut QHS labetalol 200 mg tablet 200 mg PO BID Referrals / Follow Up: Angie Pena MD [Primary Care Provider] - Disposition Disposition (needs filled in before D/C Order can be placed): Home, Self Care
[2022-02-04] MEDS: oxyCODONE 5 MG Tablet PO (22:51)
[2022-02-04 23:06] LABS: Bedside Glucose 188 mg/dL (74-106)
[2022-02-04] MEDS: NIFEdipine 60 MG Tablet PO (23:32)
[2022-02-04] MEDS: lamoTRIgine 100 MG Tablet 200 MG PO (23:32)
[2022-02-04] MEDS: Insulin Lispro 100 UNIT/ML INSULN.PEN SC (23:33)
[2022-02-04] MEDS: metFORMIN HCl 1,000 MG Tablet 1000 MG PO (23:35)
[2022-02-05 00:26] VITALS: BP 126/83; PULSE 85; RESP 14; TEMP 36; O2SAT 97
[2022-02-05] MEDS: Enoxaparin 40 MG/0.4 ML Syringe SC ×2 (03:26→16:26)
[2022-02-05] MEDS: oxyCODONE 5 MG Tablet PO ×4 (03:30→23:59)
[2022-02-05 03:35] VITALS: BP 118/73; PULSE 82; RESP 16; TEMP 36.2; O2SAT 99
[2022-02-05] MEDS: Ketorolac 30 MG/ML Syringe IV ×2 (04:50→10:46)
[2022-02-05] MEDS: Acetaminophen 500 MG Tablet 1000 MG PO ×4 (05:19→23:35)
[2022-02-05 05:38] LABS: Hematocrit 27.8 % (37-47); Hemoglobin 8.7 g/dL (12.0-15.0); Mean Corp Hgb Conc 31.3 g/dL (32-36); Mean Corpuscular Hgb 25.5 pg (27.0-32.0); Mean Corpuscular Volume 81.5 fL (81-99); Mean Platelet Vol. 11.7 fl (6.2-12.0); Platelet Count 224 K/mm3 (150-450); RBC Distribution Width CV 16.7 % (11.6-14.6); RBC Distribution Width SD 49.2 fl (35.1-43.9); Red Blood Count 3.41 M/mm3 (4.2-5.4); White Blood Count 9.5 K/mm3 (4.4-11.0)
[2022-02-05 06:25] LABS: Bedside Glucose 77 mg/dL (74-106)
--- NOTE | 2022-02-05 06:40 | PCM.PN.OB ---
Subjective Subjective Patient doing well without complaints. Tolerating PO. Ambulating and voiding without difficulty. feeding well. Denies chest pain, shortness of breath, calf pain/swelling, fevers, chills, lightheadedness. Objective Data Objective Data Vital Signs: Vital Signs Temp Pulse Resp BP Pulse Ox O2 Del Method 97.1 F L 82 16 118/73 99 Room Air 02/05/22 03:35 02/05/22 03:35 02/05/22 03:35 02/05/22 03:35 02/05/22 03:35 02/05/22 03:35 Oxygen Delivery Method Room Air Weight: 272 lb 0.807 oz Body Mass Index (BMI) 46.7 Intake & Output: Intake and Output for Last 24 Hours 02/03/22 02/04/22 02/05/22 23:59 23:59 23:59 Intake Total 2678.65 / 2678.65 Output Total 370 / 370 300 / 300 Balance 2308.65 / 2308.65 -300 / -300 Lab / Micro Data Result Diagrams: 02/05/22 05:29 Labs: Laboratory Results - last 24 hr 02/04/22 10:10: POC Glucose 62 L 02/04/22 10:30: POC Glucose 67 L 02/04/22 10:33: WBC 10.2, RBC 3.95 L, Hgb 10.2 L, Hct 32.0 L, MCV 81.0, MCH 25.8 L, MCHC 31.9 L, RDW Std Deviation 48.5 H, RDW Coeff of Ranjeet 16.6 H, Plt Count 294, MPV 11.9, Immature Gran % (Auto) 1.300 H, Neut % (Auto) 72.2 H, Lymph % (Auto) 18.8 L, [place] % (Auto) 5.5, Eos % (Auto) 1.7, Baso % (Auto) 0.5, Absolute Neuts (auto) 7.4, Absolute Lymphs (auto) 1.92, Nucleated RBC % 0 02/04/22 10:33: Blood Type O POSITIVE, Antibody Screen NEGATIVE 02/04/22 11:13: POC Glucose 79 02/04/22 11:29: POC Glucose 104 02/04/22 13:15: POC Glucose 78 02/04/22 17:00: POC Glucose 66 L 02/04/22 22:28: POC Glucose 188 H 02/05/22 05:22: POC Glucose 77 02/05/22 05:29: WBC 9.5, RBC 3.41 L, Hgb 8.7 L, Hct 27.8 L, MCV 81.5, MCH 25.5 L, MCHC 31.3 L, RDW Std Deviation 49.2 H, RDW Coeff of Ranjeet 16.7 H, Plt Count 224, MPV 11.7 Micro: Microbiology 02/04/22 10:30 Nasal Secretion SARS-CoV-2 Antigen (Rapid) - Final ROS Constitutional Constitutional: Reports systems reviewed and no addt'l complaints, except as documented Cardiovascular Cardiovascular: Reports systems reviewed and no addt'l complaints, except as documented Respiratory/Chest Respiratory/Chest: Reports systems reviewed and no addt'l complaints, except as documented Gastrointestinal Gastrointestinal: Reports systems reviewed and no addt'l complaints, except as documented Physical Exam Const alert, oriented x3 and no apparent distress HEENT Head and Scalp: atraumatic Resp normal respiratory effort GI soft to palpation and non-tender Inspection: incision intact, healing well and drainage (none) Bimanual Exam - Vag & Uterus: uterus non-tender Uterus Palpation: uterus fundus firm (below Umbilicus) Assessment & Plan (1) delivery delivered: COMMENT: 37 cs sec poorly controlled diabetes and chtn girl Lnea SM (2) Essential hypertension: COMMENT: procardia increased to 60 XL. labetalol held. (3) Type 2 diabetes mellitus: COMMENT: metformin (4) Bipolar disorder: COMMENT: elenaictal. kel [facility] PLAN: Plan s/p LTCS PPD # 1 1. routine post care 2. breast feeding- support given 3. rh positive 4. rubella immune
[2022-02-05 08:54] VITALS: BP 123/79; PULSE 97; RESP 20; TEMP 36.8; O2SAT 97
[2022-02-05] MEDS: metFORMIN HCl 500 MG Tablet PO (10:42)
[2022-02-05] MEDS: Senna/Docusate Sodium 1 Tablet PO (10:43)
[2022-02-05] MEDS: 0.9% Saline Lock 10 ML Syringe IV (10:45)
--- NOTE | 2022-02-05 14:30 | CASEMGMT ---
Social Work Assessment Referral Date: 02/05/2022 Reason for Referral: Hx of Bipolar SW spoke with RN. RN reports MOB is Clueless. Pt had to be taught how to burp the baby and how to put the bottle nipple on bottle. RN states MOB's bf is from [facility] and they met online via a game. RN states she thinks MOB is tech smart but socially awkward. RN states that she thinks with continued education, MOB will be good. RN states MOB's parents have been to [facility] and are supportive. RN states MOB is mentally stable and rates her pain as a 10. RN states that she thinks MOB does better visually and again states with education, pt will be fine. RN states MOB will look at baby and say so cute. RN states baby is currently under Bili Lights. SW met with MOB to complete assessment. FOB present in room during conversation and MOB gave permission for FOB to be in room during conversation. MOB: Lori Tequilakaiden G/P: 1/0 PNC: [place] Control: MOB states not having sex for a long time and states condoms. Baby: Girl : 02/04/2020 Apgars: 7/9 Weight: 3230 G [employer]: [employer] Children in [place] MOB states she plans on bottle feeding MOB's other children: MOB reports this baby is first baby. Housing: MOB reports no concerns with housing. MOB reports to have appropriate housing. MOB states that they have tried to get her corey's visa for the [place] but states he has not received it yet. MOB states that she is considering getting Passports and moving to [facility] so the baby can have both parents. Transportation: MOB reports to have access to transportation and states no concerns. Supplies: MOB reports to have all needed supplies for . Supports/Childcare Helpers: MOB states that her corey Solorzano will be good support. MOB states that her mom will also be good support and states that she lives with her mom currently. Education Level: MOB reports to have graduated high school and states she had no learning difficulties. MOB reports to have attended some college for nursing. Employment: MOB reports to not be currently working. MOB reports no financial concerns. MOB states she lost her job due to COVID. Agency Involvement: WIC: MOB reports to to be on WIC. SNAP: MOB reports to be getting back on SNAP. [facility]: SW spoke with MOB about [facility]. MOB states they keep calling me. SW asked MOB if she is interested in a referral to [facility] and pt states she is not interested in a referral at this time. Early Head Start through [facility]: SW spoke with pt about Early Head Start through [facility] and provided information about their services. MOB states that she will need to think about it. JFS: MOB's insurance is [facility] Community Plan Counseling: MOB reports that she has been seeing a psychiatrist due to her Bipolar Disorder. MOB reports that she is seeing her psychiatrist every 3-6 months. MOB states that her psychiatrist is Cathy Mukherjee through [facility]. MOB reports to have an appointment scheduled with Cathy Mukherjee. FOB: Laith Time Together: 2 years Involved at : Yes, Laith is currently in room during conversation. MOB states that FOB has been visiting her every two months since they got together. Employment: FOB reports to be working Other Children: FOB reports that this baby is his first baby. FOB Mental Health: FOB reports no MH history, no Substance use, and both FOB and MOB report no Domestic Violence concerns. Maternal Mental Health History: MOB reports history of Bipolar. MOB state that she was taking Abilify but stopped second trimester and states that she now takes Lamictal. MOB states that her medications are working ok and she takes them as prescribed. MOB reports no current suicidal/homicidal thoughts or plans. AOD History: MOB reports no AOD history and no AOD use during . SW provided education on Shaken Baby, Post Depression and Safe Sleeping. SW provided packet of resources to pt. Pt states understanding. SW unable to see how MOB interacting with as is under the bile lights. However, when would cry or fuss, MOB and FOB were attentive to and looking at . As noted above, RN states that with continued education MOB will be appropriate with . 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
[2022-02-05] MEDS: Naproxen 500 MG Tablet PO (16:24)
[2022-02-05] MEDS: Ferrous Sulfate 325 MG Tablet PO (16:25)
[2022-02-05 16:31] VITALS: BP 131/83; PULSE 94; RESP 20; TEMP 36.5; O2SAT 100
[2022-02-05 19:31] LABS: Bedside Glucose 97 mg/dL (74-106)
[2022-02-05 20:50] VITALS: BP 127/73; PULSE 88; RESP 18; TEMP 36.3; O2SAT 100
[2022-02-05] MEDS: lamoTRIgine 100 MG Tablet 200 MG PO (22:04)
[2022-02-05 22:05] VITALS: BP 132/73
[2022-02-05] MEDS: NIFEdipine 60 MG Tablet PO (22:06)
[2022-02-05] MEDS: metFORMIN HCl 1,000 MG Tablet 1000 MG PO (22:09)
[2022-02-05 22:36] LABS: Bedside Glucose 103 mg/dL (74-106)
[2022-02-06] MEDS: Naproxen 500 MG Tablet PO ×3 (01:10→17:08)
[2022-02-06 01:18] VITALS: BP 111/73; PULSE 100; RESP 18; TEMP 37; O2SAT 97
[2022-02-06] MEDS: Enoxaparin 40 MG/0.4 ML Syringe SC ×2 (03:59→16:43)
[2022-02-06] MEDS: Acetaminophen 500 MG Tablet 1000 MG PO ×4 (05:57→23:25)
[2022-02-06 06:56] LABS: Bedside Glucose 83 mg/dL (74-106)
--- NOTE | 2022-02-06 07:44 | PN.OBGYN_ITS ---
Subjective Subjective Patient doing well without complaints. Tolerating PO. Ambulating and voiding without difficulty. feeding well. Denies chest pain, shortness of breath, calf pain/swelling, fevers, chills, lightheadedness. Objective Data Objective Data Vital Signs: Vital Signs Temp Pulse Resp BP Pulse Ox O2 Del Method 98.6 F 100 18 111/73 97 Room Air 02/06/22 01:18 02/06/22 01:18 02/06/22 01:18 02/06/22 01:18 02/06/22 01:18 02/06/22 01:18 Oxygen Delivery Method Room Air Weight: 272 lb 0.807 oz Body Mass Index (BMI) 46.7 Intake & Output: Intake and Output for Last 24 Hours 02/04/22 02/05/22 02/06/22 23:59 23:59 23:59 Intake Total 2678.65 / 2678.65 1000 / 1000 Output Total 370 / 370 750 / 750 Balance 2308.65 / 2308.65 250 / 250 Lab / Micro Data Result Diagrams: 02/05/22 05:29 Labs: Laboratory Results - last 24 hr 02/05/22 19:06: POC Glucose 97 02/05/22 22:04: POC Glucose 103 02/06/22 06:25: POC Glucose 83 Micro: Microbiology 02/04/22 10:30 Nasal Secretion SARS-CoV-2 Antigen (Rapid) - Final ROS Constitutional Constitutional: Reports systems reviewed and no addt'l complaints, except as documented Cardiovascular Cardiovascular: Reports systems reviewed and no addt'l complaints, except as documented Respiratory/Chest Respiratory/Chest: Reports systems reviewed and no addt'l complaints, except as documented Gastrointestinal Gastrointestinal: Reports systems reviewed and no addt'l complaints, except as documented Physical Exam Const alert, oriented x3 and no apparent distress HEENT Head and Scalp: atraumatic Resp normal respiratory effort GI soft to palpation and non-tender Inspection: incision intact, healing well and drainage (none) Bimanual Exam - Vag & Uterus: uterus non-tender Uterus Palpation: uterus fundus firm (below Umbilicus) Assessment & Plan (1) delivery delivered: COMMENT: 37 cs sec poorly controlled diabetes and chtn girl Lena SM (2) Essential hypertension: COMMENT: procardia increased to 60 XL. labetalol held. (3) Type 2 diabetes mellitus: COMMENT: metformin (4) Bipolar disorder: COMMENT: lamictal. [facility] PLAN: Plan s/p LTCS PPD # 2 1. routine post care 2. breast feeding- support given 3. rh positive 4. rubella immune
[2022-02-06] MEDS: metFORMIN HCl 500 MG Tablet PO (09:13)
[2022-02-06 10:29] VITALS: BP 139/82; PULSE 93; RESP 18; TEMP 36.6; O2SAT 98
[2022-02-06] MEDS: Senna/Docusate Sodium 1 Tablet PO (11:00)
[2022-02-06 14:32] VITALS: BP 128/79; PULSE 99; RESP 16; TEMP 36.3; O2SAT 100
[2022-02-06] MEDS: Ferrous Sulfate 325 MG Tablet PO (14:49)
[2022-02-06] MEDS: oxyCODONE 5 MG Tablet PO ×2 (14:50→23:38)
[2022-02-06 19:10] LABS: Bedside Glucose 82 mg/dL (74-106)
[2022-02-06 20:05] VITALS: BP 127/80; PULSE 90; RESP 16; TEMP 36.6; O2SAT 98
[2022-02-06] MEDS: NIFEdipine 60 MG Tablet PO (23:25)
[2022-02-06] MEDS: lamoTRIgine 100 MG Tablet 200 MG PO (23:25)
[2022-02-06] MEDS: metFORMIN HCl 1,000 MG Tablet 1000 MG PO (23:26)
[2022-02-06 23:50] LABS: Bedside Glucose 98 mg/dL (74-106)
[2022-02-07] MEDS: Naproxen 500 MG Tablet PO ×2 (02:15→09:53)
[2022-02-07 02:16] VITALS: BP 138/83; PULSE 100; RESP 16; TEMP 36.6; O2SAT 98
[2022-02-07] MEDS: Enoxaparin 40 MG/0.4 ML Syringe SC (04:34)
[2022-02-07] MEDS: Acetaminophen 500 MG Tablet 1000 MG PO ×2 (05:53→11:05)
[2022-02-07 08:55] VITALS: BP 139/82; PULSE 115; RESP 18; TEMP 36.7; O2SAT 98
[2022-02-07 09:20] LABS: Bedside Glucose 83 mg/dL (74-106)
[2022-02-07] MEDS: metFORMIN HCl 500 MG Tablet PO (09:53)
[2022-02-07] MEDS: Senna/Docusate Sodium 1 Tablet PO (09:53)
[2022-02-07 09:55] VITALS: BP 134/82; PULSE 93
--- NOTE | 2022-02-07 10:56 | PCM.PN.OB ---
Subjective Subjective Patient doing well without complaints. Tolerating PO. Ambulating and voiding without difficulty. feeding well. Denies chest pain, shortness of breath, calf pain/swelling, fevers, chills, lightheadedness. Objective Data Objective Data Vital Signs: Vital Signs Temp Pulse Resp BP Pulse Ox O2 Del Method 98.1 F 93 18 134/82 H 98 Room Air 02/07/22 08:55 02/07/22 09:55 02/07/22 08:55 02/07/22 09:55 02/07/22 08:55 02/07/22 08:55 Oxygen Delivery Method Room Air Weight: 272 lb 0.807 oz Body Mass Index (BMI) 46.7 Intake & Output: Intake and Output for Last 24 Hours 02/05/22 02/06/22 02/07/22 23:59 23:59 23:59 Intake Total 1000 / 1000 Output Total 750 / 750 Balance 250 / 250 Lab / Micro Data Result Diagrams: 02/05/22 05:29 Labs: Laboratory Results - last 24 hr 02/06/22 18:41: POC Glucose 82 02/06/22 23:24: POC Glucose 98 02/07/22 08:45: POC Glucose 83 Micro: Microbiology 02/04/22 10:30 Nasal Secretion SARS-CoV-2 Antigen (Rapid) - Final ROS Constitutional Constitutional: Reports systems reviewed and no addt'l complaints, except as documented Cardiovascular Cardiovascular: Reports systems reviewed and no addt'l complaints, except as documented Respiratory/Chest Respiratory/Chest: Reports systems reviewed and no addt'l complaints, except as documented Gastrointestinal Gastrointestinal: Reports systems reviewed and no addt'l complaints, except as documented Physical Exam Const alert, oriented x3 and no apparent distress HEENT Head and Scalp: atraumatic Resp normal respiratory effort GI soft to palpation and non-tender Inspection: incision intact, healing well and drainage (none) Bimanual Exam - Vag & Uterus: uterus non-tender Uterus Palpation: uterus fundus firm (below Umbilicus) Assessment & Plan (1) delivery delivered: COMMENT: 37 cs sec poorly controlled diabetes and chtn girl Lena SM (2) Essential hypertension: COMMENT: procardia increased to 60 XL. labetalol held. (3) Type 2 diabetes mellitus: COMMENT: metformin (4) Bipolar disorder: COMMENT: lamictal. [facility] PLAN: Plan s/p LTCS PPD # 3 1. routine post care 2. breast feeding- support given 3. rh positive 4. rubella immune
--- NOTE | 2022-02-07 10:57 | PCM.DC.SUM ---
Providers Date of Admission: 02/04/22 Primary Care Physician: Dr. Angie Pena MD Reason For Visit: PRIMARY C SECTION Diagnosis Discharge Diagnosis (1) delivery delivered: Status: Acute Code(s): O82 - Encounter for delivery without indication (2) Essential hypertension: Status: Chronic Code(s): I10 - Essential (primary) hypertension (3) Type 2 diabetes mellitus: Status: Acute Code(s): E11.9 - Type 2 diabetes mellitus without complications (4) Bipolar disorder: Status: Acute Code(s): F31.9 - Bipolar disorder, unspecified Plan s/p LTCS PPD # 3 1. routine post care 2. breast feeding- support given 3. rh positive 4. rubella immune Medications at Discharge Home Medications pantoprazole 20 mg tablet,delayed release 20 mg PO DAILY heartburn 12/29/18 multivitamin no.47-iron fum 27 mg-folate no.1 1 mg-dha 300 mg capsule (PNV-DHA) 1 cap PO DAILY 06/22/21 True Metrix Glucose Test Strip (blood sugar diagnostic) #200 ea 08/10/21 blood-glucose meter (True Metrix Glucose Meter) #1 ea 08/10/21 lamotrigine 100 mg tablet 200 mg PO DAILY bipolar 08/10/21 lancets (Accu-Chek Softclix Lancets) #120 ea 08/11/21 lancets 30 gauge #200 ea 08/11/21 pen needle, diabetic 32 gauge x 5/32 (BD Ultra-Fine Effie Pen Needle) #100 ea 08/17/21 albuterol sulfate 90 mcg/actuation aerosol inhaler 2 puff inhalation Q4H PRN PRN SOB 10/19/21 ferrous sulfate 325 mg (65 mg iron) tablet 325 mg PO DAILY supplement 12/16/21 metformin 500 mg tablet 500 mg PO TIDWMEAL type 2 diabetes 01/02/22 Humulin N NPH Insulin KwikPen 40 unit OTHER BREAKFAST diabetes type 2 01/25/22 nifedipine 60 mg tablet,extended release 24 hr (Procardia XL) 60 mg PO DAILY HTn 02/04/22 naproxen 500 mg tablet 500 mg PO BID PRN PRN Pain #30 tabs 02/06/22 oxycodone-acetaminophen 5 mg-325 mg tablet (Percocet) 1 tab PO Q6H PRN pain 7 days #20 tabs 08/14/22 Hospital Course Summary of Care Provided Hospital Course: patient presented for LTCS for breech and uncontrolled diabetes and cHTN. Postoperatively patient had return of bowel and bladder function and was ambulating well, tolerating adequate p.o., and was stable for discharge to home on postop day #3. Discharge medications naproxen and Percocet. Follow-up in office in 2 weeks for incision check in 6 weeks for visit. Routine post section diet and activity instructions. Weight / BMI Weight Weight: 272 lb 0.807 oz Body Mass Index (BMI) 46.7 ABG / Lab / Microbiology Data Result Diagrams: 02/05/22 05:29 Laboratory: Laboratory Results - last 24 hr 02/06/22 18:41: POC Glucose 82 02/06/22 23:24: POC Glucose 98 02/07/22 08:45: POC Glucose 83 Microbiology: Microbiology 02/04/22 10:30 Nasal Secretion SARS-CoV-2 Antigen (Rapid) - Final D/C Instructions Discharge Diet: No restrictions Discharge Activity: May Not Drive (for 2 weeks or while taking narcotic pain medications.), May Shower and May Take a Tub Bath (in 7 days) May shower in (days): 0 May resume sexual activity in: 6 weeks Weight Bearing Status: Full weight bearing Call your doctor if your incision/area has: Continuous Slow Oozing, Sudden Increased Bleeding, Increased Pain/ Swelling, Increased Redness, Foul Smelling Discharge and - Call your doctor if you observe: Fever of 101 or Higher, Using more than 1 pad per hour, Shortness of breath, Chest pain and Uncontrolled pain Suture Line Care: Avoid Pulling/Pushing and Avoid Pinching/Bending Cleanse incision/area with: Soap & Water and Keep Dressing Clean & Dry Please Follow Up With: Radha Rizo MD When: Call to make an appointment with your doctor for a postop visit in 2 and 6 weeks. Meaningful Use Info Meaningful Use Diagnoses (Choose all that apply): None applicable Discharge Plan Admission Admit Date/Time: 02/04/22 09:50 Attending Provider: Radha Rizo Primary Care Provider: Angie Pena Instructions Patient Instructions: After a Discharge Orders/Prescriptions Prescriptions: New oxycodone-acetaminophen [Percocet] 5-325 mg tablet 1 tab PO Q6H PRN (Reason: pain) 7 Days Qty: 20 0RF naproxen [naproxen] 500 mg tablet 500 mg PO BID PRN PRN (Reason: Pain) Qty: 30 1RF Continued PNV-DHA 27 mg iron-1 mg -300 mg capsule 1 cap PO DAILY lamotrigine 100 mg tablet 200 mg PO DAILY Label Comments: take 1 tablet by mouth once daily (DME) blood-glucose meter [True Metrix Glucose Meter] Misc See Rx Instructions .ROUTE .MEDSUPPLY Qty: 1 0RF Rx Instructions: As directed (DME) True Metrix Glucose Test Strip Strip See Rx Instructions .ROUTE .MEDSUPPLY Qty: 200 6RF Rx Instructions: 6 times daily albuterol sulfate 90 mcg/actuation HFA aerosol inhaler 2 puff inhalation Q4H PRN PRN (Reason: SOB) Label Comments: inhale 2 puffs by mouth and INTO THE LUNGS every 4 to 6 hours ferrous sulfate 325 mg (65 mg iron) tablet 325 mg PO DAILY pantoprazole 20 MG tablet 20 mg PO DAILY metformin 500 mg tablet 500 mg PO TIDWMEAL Humulin N NPH Insulin KwikPen 40 unit OTHER BREAKFAST nifedipine [Procardia XL] 60 mg tablet extended release 24hr 60 mg PO DAILY (DME) lancets [Accu-Chek Softclix Lancets] Misc See Rx Instructions .ROUTE .MEDSUPPLY Qty: 120 6RF Rx Instructions: 4x/day (DME) lancets 30 gauge misc See Rx Instructions .ROUTE .MEDSUPPLY Qty: 200 3RF Rx Instructions: TEST BLOOD SUGAR QID (DME) pen needle, diabetic [BD Ultra-Fine Effie Pen Needle] 32 gauge x 5/32 needle See Rx Instructions .ROUTE .MEDSUPPLY Qty: 100 6RF Rx Instructions: twice daily Discontinued aspirin [Adult Low Dose Aspirin] 81 mg tablet,delayed release (DR/EC) 81 mg PO DAILY Lyumjev KwikPen U-100 Insulin 100 unit/mL insulin pen 6 unit subcut TID Humulin N NPH Insulin KwikPen 100 unit/mL (3 mL) insulin pen 12 unit subcut QHS labetalol 200 mg tablet 200 mg PO BID Referrals / Follow Up: Angie Pena MD [Primary Care Provider] - Disposition Disposition (needs filled in before D/C Order can be placed): Home, Self Care
[2022-02-07] MEDS: Ferrous Sulfate 325 MG Tablet PO (11:05)
--- NOTE | 2022-02-07 11:28 | CM.ED ---
MANNY reviewed the handoff and patient was seen by rn social services Lucinda Cornell on Monday as handoff was given to this insurance writer. MANNY called Charlie Fernandes RN and advised that patient was seen on Monday and clear for discharge unless any additional concern were noted. No additional concerns voiced. Louisa WORKMAN
== END 2022-02-07 12:35 | disposition home or self-care (01) | DRG 540 ==
PROVIDERS: Admitting Provider Obstetrics & Gynecology; PCP Internal Medicine; Visit Provider Obstetrics & Gynecology
PROC: 10D00Z1 Extraction of Products of Conception, Low, Open Approach (ICD-10-PCS; CPT 59514; principal; 2022-02-04 11:45)
DX: O32.1XX0 Maternal care for breech presentation, not applicable or unspecified (principal); O24.12 Pre-existing type 2 diabetes mellitus, in childbirth; O10.02 Pre-existing essential hypertension complicating childbirth; E11.9 Type 2 diabetes mellitus without complications; F31.9 Bipolar disorder, unspecified; D64.9 Anemia, unspecified; Z79.4 Long term (current) use of insulin; J45.909 Unspecified asthma, uncomplicated; O99.344 Other mental disorders complicating childbirth; Z37.0 Single live birth; Z79.82 Long term (current) use of aspirin; O99.52 Diseases of the respiratory system complicating childbirth; O99.02 Anemia complicating childbirth; Z3A.37 37 weeks gestation of pregnancy; Z86.16 Personal history of COVID-19
CPT/HCPCS: 59025; 59050; 76815; 82962; 85025; 85027; 86850; 86900; 86901; 87426; 99218; J7120; A4216; G0378; J2405

== ENCOUNTER 2022-02-13 06:23 | Emergency (ER) | payer MEDICAID, SELFPAY ==
[2022-02-13 06:24] VITALS: BP 161/86; PULSE 107; RESP 20; TEMP 36.9; O2SAT 100; BMI 44.9
--- NOTE | 2022-02-13 06:33 | EDS_ITS ---
HPI History of Present Illness Chief Complaint: Edema Informant: patient Onset/Context/Timing Onset: Days (several) Context: Gradual Onset Timing: Continuous Quality: swelling, redness, pain Location: both legs Current Severity: Severe Maximum Severity: Severe Worsened by: at night after being on feet all day Relieved by: in AM after resting/lying down Narrative Narrative: Patient presents with multiple complaints. She just had a about 1 week ago because of a breech presentation, she is a poorly controlled diabetic who has had swelling for the last several weeks during her , it became worse during the time of the and now still worse. She states in the last several days she has developed redness that is painful like a sunburn in both legs, started on the left than the right. More proximally in the lower extremities and the thighs and her lower abdominal wall, she has been having itchy redness, not painful, however further down below her pannus where her C- section incision is, she has had pain at the lateral aspects on both sides. No fevers although she has felt some chills. She denies any cough, shortness of breath, nausea, vomiting, diarrhea, urinary problems. [facility] Medical History Bipolar disorder Depression Desmoid tumor Essential hypertension Exercise induced bronchospasm Fatty liver disease, nonalcoholic Gout History of chlamydia infection History of HPV infection History of PCOS Near syncope PCOS (polycystic ovarian syndrome) Type 2 diabetes mellitus Home Medications pantoprazole 20 mg tablet,delayed release 20 mg PO DAILY heartburn 12/29/18 [History Last Taken 02/03/22 20:00 20 mg] True Metrix Glucose Test Strip (blood sugar diagnostic) #200 ea 08/10/21 [Rx Last Taken Unknown] blood-glucose meter (True Metrix Glucose Meter) #1 ea 08/10/21 [Rx Last Taken Unknown] lamotrigine 100 mg tablet 200 mg PO DAILY bipolar 08/10/21 [History Last Taken 02/03/22 20:00 200 mg] lancets (Accu-Chek Softclix Lancets) #120 ea 08/11/21 [Rx Last Taken Unknown] lancets 30 gauge #200 ea 08/11/21 [Rx Last Taken Unknown] pen needle, diabetic 32 gauge x 5/32 (BD Ultra-Fine Effie Pen Needle) #100 ea 08/17/21 [Rx Last Taken Unknown] albuterol sulfate 90 mcg/actuation aerosol inhaler 2 puff inhalation Q4H PRN PRN SOB 10/19/21 [History Last Taken Unknown] ferrous sulfate 325 mg (65 mg iron) tablet 325 mg PO DAILY supplement 12/16/21 [History Last Taken 02/03/22 20:00 325 mg] metformin 500 mg tablet 500 mg PO TIDWMEAL type 2 diabetes 01/02/22 [History Last Taken 02/03/22 20:00 500 mg] nifedipine 60 mg tablet,extended release 24 hr (Procardia XL) 60 mg PO DAILY HTn 02/04/22 [History Last Taken 02/03/22 20:00 60 mg] naproxen 500 mg tablet 500 mg PO BID PRN PRN Pain #30 tabs 02/06/22 [Rx Last Taken Unknown] oxycodone-acetaminophen 5 mg-325 mg tablet (Percocet) 1 tab PO Q6H PRN pain 7 days #20 tabs 02/06/22 [Rx Last Taken Unknown] cephalexin 500 mg capsule 500 mg PO .qid 7 days #28 CAPSULES 02/13/22 [Rx Last Taken Unknown] labetalol 100 mg tablet 100 mg PO BID #60 tabs 02/13/22 [Rx Last Taken Unknown] pantoprazole 20 mg tablet,delayed release 20 mg PO DAILY 02/13/22 [History Last Taken Unknown] Allergy/AdvReac Type Severity Reaction Status Date / Time No Known Allergies Allergy Verified 02/04/22 10:28 Family History Mother CVA (cerebral vascular accident) Father Diabetes Hypertension Surgical History History of breast biopsy History of liver biopsy History of lumpectomy Social History household members: other details: parents number of children: 0 current occupational status: employed current occupation: [employer] pets and animals: Yes history of recent travel: No sexually active: Yes Smoking Status: Never smoker second hand exposure: No alcohol intake: current alcohol intake frequency: a few times a month substance use type: does not use what type of physical activity do you participate in: aerobics frequency: 1-2 times per week seatbelt use: always do you feel safe at home: Yes additional social history: 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[place]) ROS ROS ED Constitutional Constitutional ED: Denies chills or fever(s) Eyes Eyes: Denies blurry vision, change in vision or diplopia ENT ENT ED: Denies rhinorrhea or sore throat Cardiovascular Cardiovascular: Reports leg edema; Denies chest pain or palpitations Respiratory/Chest Respiratory/Chest: Denies cough or dyspnea Gastrointestinal Gastrointestinal: Reports as per HPI and abdominal pain; Denies diarrhea, nausea or vomiting Genitourinary Genitourinary ED: Denies dysuria or hematuria Musculoskeletal Musculoskeletal: Denies back pain or neck pain Integumentary Reports as per HPI and rash; Denies abscess Neurologic Neurologic: Denies headache(s), paresthesias or weakness Psychiatric Psychiatric: Denies anxiety or suicidal thoughts EXAM Physical Exam Const Vital Signs: 02/13/22 06:24 02/13/22 06:34 02/13/22 07:52 Temperature 98.4 F Temperature Source Temporal Pulse Rate 107 H Respiratory Rate 20 H Respiratory Effort Normal Non-Labored Respiratory Pattern Normal Blood Pressure 161/86 H 143/87 H Blood Pressure Mean 111 105 Pulse Ox 100 Oxygen Delivery Method Room Air Positive well nourished, well developed and obese General Appearance ED: well developed and NAD Nutritional Appearance: obese HEENT Reports moist mucous membranes normocephalic and atraumatic Eyes PERRL and EOMs intact bilaterally Neck full ROM and supple Resp normal respiratory effort and clear to auscultation bilaterally Cardio regular rate, regular rhythm and no murmurs GI non-tender and non-distended GI Narrative: Nontender blanching erythema lower half of the abdominal wall. No urticaria or other lesions. incision underside of pannus is intact, clean, dry, without any erythema or tenderness or dehiscence. Looks like it is healing well. Auscultation: normoactive bowel sounds Palpation: soft Back/Spine no CVA tenderness General Back: other FROM Extremity Extremity Narrative: Erythema both lower legs. Lateral proximal thighs nontender. Similar appearance feet and lower legs, but extremely tender to superficial palpation. It is more medial than lateral and appear symmetric. General Extremety ED: Yes edema and tenderness; Negative for pulses abnormal General Extremity: edema bilateral lower extremity Details: moderate; Negative for pulses abnormal Neuro oriented x3, CN's II-XII intact bilaterally and no sensory deficits noted Sensorium / Orientation: awake and alert Motor Exam: strength 5/5 throughout Skin no wounds Skin Narrative: Tender erythema of both lower legs see above. No abscesses. No palpable cords. No lymphangitis. MDM MDM MDM Narrative Medical decision making narrative: With this patient's edema and her blood pressure elevated at 161/86, I am concerned about preeclampsia. Obtain appropriate labs for that, however they are all normal including her urine which shows no protein. She does however have indicators for infection in her urine. That is sent for culture, and on recheck of her blood pressure it is 143/87. Clinically she is doing fine. 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 Erysipelas in the differential, but still less likely given the symmetry, as is DVT. Discussed with OB Dr. Palomo. She agrees with putting the patient on cephalexin for the urine which may also help the legs if this is infectious, and request we prescribe labetalol 100mg BID for the patient's blood pressure and follow-up closely after the weekend in the office. Lab Data Attestation: I reviewed the patient's lab results. Labs: Laboratory Results - last 24 hr 02/13/22 02/13/22 02/13/22 06:46 06:46 06:46 WBC 7.9 RBC 3.94 L Hgb 10.0 L Hct 32.2 L MCV 81.7 MCH 25.4 L MCHC 31.1 L RDW Std Deviation 49.1 H RDW Coeff of Ranjeet 16.5 H Plt Count 374 MPV 10.8 Immature Gran % (Auto) 1.900 H Neut % (Auto) 56.8 Lymph % (Auto) 27.1 [place] % (Auto) 7.9 Eos % (Auto) 5.7 H Baso % (Auto) 0.6 Absolute Neuts (auto) 4.5 Absolute Lymphs (auto) 2.15 Nucleated RBC % 0 Sodium 139 Potassium 3.6 Chloride 108 H Carbon Dioxide 24.0 Anion Gap 7 BUN 8 Creatinine 0.74 Estim Creat Clear Calc 96.86 Est GFR (MDRD) Af Amer 119 Est GFR (MDRD) Non-Af 98 BUN/Creatinine Ratio 10.8 Glucose 94 Calcium 8.5 Total Bilirubin 0.30 AST 13 L ALT 16 Alkaline Phosphatase 88 Lactate Dehydrogenase 169 Total Protein 7.0 Albumin 3.0 L Globulin 4.0 Albumin/Globulin Ratio 0.8 L Urine Color Yellow Urine Clarity Sl. Cloudy Urine pH 6.5 Ur Specific [place] 1.010 Urine Protein Negative Urine Glucose (UA) Normal Urine Ketones Negative Urine Occult Blood 50 H Urine Nitrite Negative Urine Bilirubin Negative Urine Urobilinogen Normal Ur Leukocyte Esterase 500 H Urine RBC 0-5 SEEN Urine WBC 10-25 SEEN Ur Squamous Epith Cells 0-5 SEEN Ur Transition Epith Cell 0-5 SEEN Ur Renal Epithelial Cell 0-5 SEEN Urine Bacteria RARE Urine Mucus 0 SEEN Discharge Plan Triage Chief Complaint: Edema ED Provider: Ke Moore Dx/Rx/DC Orders Clinical Impression: hypertension, Bilateral lower extremity pain, Edema of both lower legs, UTI (urinary tract infection) Instructions: ED Peripheral Edema, Bilateral, ED Hypertension New Begin Treatment Prescriptions: New labetalol 100 mg tablet 100 mg PO BID Qty: 60 0RF cephalexin 500 mg capsule 500 mg PO .qid 7 Days Qty: 28 0RF No Action lamotrigine 100 mg tablet 200 mg PO DAILY Label Comments: take 1 tablet by mouth once daily (DME) blood-glucose meter [True Metrix Glucose Meter] [facility] [place] [facility] See Rx Instructions .ROUTE .MEDSUPPLY Qty: 1 0RF Rx Instructions: As directed (DME) True Metrix Glucose Test Strip Strip See Rx Instructions .ROUTE .MEDSUPPLY Qty: 200 6RF Rx Instructions: 6 times daily albuterol sulfate 90 mcg/actuation HFA aerosol inhaler 2 puff inhalation Q4H PRN PRN (Reason: SOB) Label Comments: inhale 2 puffs by mouth and INTO THE LUNGS every 4 to 6 hours ferrous sulfate 325 mg (65 mg iron) tablet 325 mg PO DAILY pantoprazole 20 MG tablet 20 mg PO DAILY metformin 500 mg tablet 500 mg PO TIDWMEAL nifedipine [Procardia XL] 60 mg tablet extended release 24hr 60 mg PO DAILY oxycodone-acetaminophen [Percocet] 5-325 mg tablet 1 tab PO Q6H PRN (Reason: pain) 7 Days Qty: 20 0RF naproxen [naproxen] 500 mg tablet 500 mg PO BID PRN PRN (Reason: Pain) Qty: 30 1RF pantoprazole 20 mg tablet,delayed release (DR/EC) 20 mg PO DAILY Label Comments: take 1 tablet by mouth once daily (DME) lancets [Accu-Chek Softclix Lancets] Misc See Rx Instructions .ROUTE .MEDSUPPLY Qty: 120 6RF Rx Instructions: 4x/day (DME) lancets 30 gauge misc See Rx Instructions .ROUTE .MEDSUPPLY Qty: 200 3RF Rx Instructions: TEST BLOOD SUGAR QID (DME) pen needle, diabetic [BD Ultra-Fine Effie Pen Needle] 32 gauge x needle See Rx Instructions .ROUTE .MEDSUPPLY Qty: 100 6RF Rx Instructions: twice daily Primary Care Provider: Angie Pena Referrals: Angie Pena MD [Primary Care Provider] - Radha Rizo MD [Med Staff - Active Staff] - 3-5 Days (or Dr. Palomo) Disposition Disposition: Home, Self Care
[2022-02-13 06:51] LABS: Mucous, Urine 0 SEEN /hpf (<or=2+)
[2022-02-13 06:56] LABS: Color, Urine Yellow (Yellow); Glucose, Dipstick Normal (Normal); Ketone-Dipstick Negative (Negative); Leukocyte Esterase-Dipstick 500 /ul (Negative); Nitrite-Dipstick Negative (Negative); Occult Blood-Urine 50 /ul (Negative); Protein-Dipstick Negative (Negative); Urine Bilirubin Dipstick Negative (Negative); Urine Clarity Sl. Cloudy (Clear); Urine Urobilinogen Normal (Normal); Urine pH 6.5 (5.0 - 8.0)
[2022-02-13 06:57] LABS: Absolute Lymphocyte Count 2.15 X10^3/uL (0.83-4.51); Absolute Neutrophil Count 4.5 X10^3/uL (2.0-7.7); Basophil# 0.05 X10^3/uL; Basophil% 0.6 % (0-1); Eosinophil# 0.45 X10^3/uL; Eosinophils% 5.7 % (0-5); Hematocrit 32.2 % (37-47); Lymphocyte # 2.15 X10^3/ul (0.83-4.51); Lymphocyte % 27.1 % (19-41); Mean Corp Hgb Conc 31.1 g/dL (32-36); Mean Corpuscular Hgb 25.4 pg (27.0-32.0); Mean Corpuscular Volume 81.7 fL (81-99); Mean Platelet Vol. 10.8 fl (6.2-12.0); Monocyte# 0.63 X10^3/uL; Monocyte% 7.9 % (0-10); NRBC Flagged by Analyzer 0 % (0-5); Neutrophil # 4.51 X10^3/uL (2.7-7.7); Neutrophil % 56.8 % (47-70); Platelet Count 374 K/mm3 (150-450); RBC Distribution Width CV 16.5 % (11.6-14.6); RBC Distribution Width SD 49.1 fl (35.1-43.9); Red Blood Count 3.94 M/mm3 (4.2-5.4); White Blood Count 7.9 K/mm3 (4.4-11.0)
[2022-02-13] MEDS: DiphenhydrAMINE 50 MG/ML Syringe 25 MG IV (07:04)
[2022-02-13 07:08] LABS: ALB/GLOB Ratio 0.8 RATIO (0.9-2.4); AST(SGOT) 13 U/L (15-37); Alanine Aminotransfer ALT/SGPT 16 U/L (13-56); Alkaline Phosphatase 88 U/L (45-117); Anion Gap 7 (5-15); BUN 8 mg/dL (7-18); BUN/Creat Ratio 10.8 RATIO (10-20); Calcium,Total 8.5 mg/dL (8.5-10.1); Chloride 108 mmol/L (98-107); Creatinine, Serum 0.74 mg/dL (0.55-1.02); EST Glomerular Filtration Rate 98 mL/min (>60); Est Glom Filt Rate - Afr Amer 119 mL/min (>60); Estimated Creatinine Clearance 96.86 ml/min; Glucose 94 mg/dL (74-106); LDH 169 U/L (84-246); Potassium 3.6 mmol/L (3.5-5.1); Sodium Level 139 mmol/L (136-145)
[2022-02-13 07:19] LABS: Bacteria RARE /hpf (None Seen); Red Blood Cells-Urine 0-5 SEEN /hpf (0-5); Renal Epithelial Cells 0-5 SEEN /hpf (0-5); Squamous Epithelial Cells - UA 0-5 SEEN /hpf (5-10); Transitional Epithelial - Ur 0-5 SEEN /hpf (0-5); White Blood Cells 10-25 SEEN /hpf (0-5)
[2022-02-13 07:52] VITALS: BP 143/87
[2022-02-13 08:32] VITALS: RESP 16
== END 2022-02-13 08:45 | disposition home or self-care (01) ==
PROVIDERS: Emergency Provider Emergency Medicine; PCP Internal Medicine; Visit Provider Emergency Medicine
DX: O10.93 Unspecified pre-existing hypertension complicating the puerperium (principal); O86.20 Urinary tract infection following delivery, unspecified; O24.13 Pre-existing type 2 diabetes mellitus, in the puerperium; R60.0 Localized edema; O99.893 Other specified diseases and conditions complicating puerperium; M79.604 Pain in right leg; M79.605 Pain in left leg; O99.345 Other mental disorders complicating the puerperium; F31.9 Bipolar disorder, unspecified; Z79.84 Long term (current) use of oral hypoglycemic drugs; Z79.1 Long term (current) use of non-steroidal anti-inflammatories (NSAID); Z79.899 Other long term (current) drug therapy
CPT/HCPCS: 80053; 81001; 83615; 85025; 87086; 87088; 96374; 99283; A4216

== ENCOUNTER → 2022-02-17 | Outpatient (CLI) | payer MEDICAID, SELFPAY ==
[2022-02-17 12:31] LABS: Absolute Lymphocyte Count 1.92 X10^3/uL (0.83-4.51); Absolute Neutrophil Count 4.1 X10^3/uL (2.0-7.7); Basophil# 0.06 X10^3/uL; Basophil% 0.9 % (0-1); Eosinophil# 0.36 X10^3/uL; Eosinophils% 5.2 % (0-5); Hematocrit 30.8 % (37-47); Hemoglobin 9.5 g/dL (12.0-15.0); Lymphocyte # 1.92 X10^3/ul (0.83-4.51); Lymphocyte % 27.7 % (19-41); Mean Corp Hgb Conc 30.8 g/dL (32-36); Mean Corpuscular Hgb 25.5 pg (27.0-32.0); Mean Corpuscular Volume 82.6 fL (81-99); Mean Platelet Vol. 11.2 fl (6.2-12.0); Monocyte# 0.39 X10^3/uL; Monocyte% 5.6 % (0-10); NRBC Flagged by Analyzer 0 % (0-5); Neutrophil # 4.11 X10^3/uL (2.7-7.7); Neutrophil % 59.3 % (47-70); Platelet Count 374 K/mm3 (150-450); RBC Distribution Width CV 16.7 % (11.6-14.6); RBC Distribution Width SD 49.9 fl (35.1-43.9); Red Blood Count 3.73 M/mm3 (4.2-5.4); White Blood Count 6.9 K/mm3 (4.4-11.0)
[2022-02-17 13:08] LABS: ALB/GLOB Ratio 0.8 RATIO (0.9-2.4); AST(SGOT) 11 U/L (15-37); Alanine Aminotransfer ALT/SGPT 15 U/L (13-56); Albumin, Serum 3.1 g/dL (3.2-5.0); Alkaline Phosphatase 86 U/L (45-117); Anion Gap 9 (5-15); BUN 7 mg/dL (7-18); Calcium,Total 8.8 mg/dL (8.5-10.1); Chloride 107 mmol/L (98-107); Creatinine, Serum 0.78 mg/dL (0.55-1.02); EST Glomerular Filtration Rate 93 mL/min (>60); Est Glom Filt Rate - Afr Amer 112 mL/min (>60); Globulin 3.7 g/dL (2.2-4.2); Glucose 106 mg/dL (74-106); Protein, Total 6.8 g/dL (6.4-8.2); Sodium Level 141 mmol/L (136-145)
[2022-02-17 13:09] LABS: Protein:Creat Ratio 246 mg/g CRE (0-200)
== END | disposition home or self-care (01) ==
LOC: LAB 11:33
PROVIDERS: PCP Internal Medicine; Referring Provider Nurse Practitioner Women's Health; Visit Provider Nurse Practitioner Women's Health
DX: O16.5 Unspecified maternal hypertension, complicating the puerperium (principal)
CPT/HCPCS: 36415; 80053; 82570; 84156; 85025

== ENCOUNTER → 2022-02-21 | Outpatient (CLI) | payer MEDICAID, SELFPAY ==
[2022-02-21 17:04] LABS: Absolute Lymphocyte Count 2.51 X10^3/uL (0.83-4.51); Basophil# 0.07 X10^3/uL; Basophil% 0.9 % (0-1); Eosinophil# 0.49 X10^3/uL; Eosinophils% 6.4 % (0-5); Hematocrit 31.5 % (37-47); Hemoglobin 9.8 g/dL (12.0-15.0); Lymphocyte # 2.51 X10^3/ul (0.83-4.51); Lymphocyte % 32.9 % (19-41); Mean Corp Hgb Conc 31.1 g/dL (32-36); Mean Corpuscular Hgb 25.2 pg (27.0-32.0); Mean Platelet Vol. 11.5 fl (6.2-12.0); Monocyte# 0.53 X10^3/uL; NRBC Flagged by Analyzer 0 % (0-5); Neutrophil # 3.95 X10^3/uL (2.7-7.7); Neutrophil % 51.9 % (47-70); Platelet Count 436 K/mm3 (150-450); RBC Distribution Width CV 16.4 % (11.6-14.6); RBC Distribution Width SD 48.4 fl (35.1-43.9); Red Blood Count 3.89 M/mm3 (4.2-5.4); White Blood Count 7.6 K/mm3 (4.4-11.0)
[2022-02-21 17:53] LABS: ALB/GLOB Ratio 0.8 RATIO (0.9-2.4); AST(SGOT) 10 U/L (15-37); Alanine Aminotransfer ALT/SGPT 17 U/L (13-56); Albumin, Serum 3.1 g/dL (3.2-5.0); Alkaline Phosphatase 81 U/L (45-117); Anion Gap 6 (5-15); BUN 7 mg/dL (7-18); BUN/Creat Ratio 8.8 RATIO (10-20); Calcium,Total 8.4 mg/dL (8.5-10.1); Chloride 105 mmol/L (98-107); EST Glomerular Filtration Rate 91 mL/min (>60); Est Glom Filt Rate - Afr Amer 110 mL/min (>60); Glucose 81 mg/dL (74-106); Potassium 3.9 mmol/L (3.5-5.1); Protein, Total 7.1 g/dL (6.4-8.2); Sodium Level 140 mmol/L (136-145)
== END | disposition home or self-care (01) ==
LOC: LAB 15:59
PROVIDERS: PCP Internal Medicine; Referring Provider Obstetrics & Gynecology; Visit Provider Obstetrics & Gynecology
DX: I10 Essential (primary) hypertension (principal)
CPT/HCPCS: 36415; 80053; 85025

== ENCOUNTER 2022-02-25 17:12 | Emergency (ER) | payer MEDICAID, SELFPAY ==
[2022-02-25 17:17] VITALS: BP 139/80; PULSE 81; RESP 16; TEMP 36.6; O2SAT 98; BMI 42.4
--- NOTE | 2022-02-25 17:20 | ED.RN ---
PT TALKED TO DR. ACOSAT OFFICE STATING SHE WANTS HER SEEN IN THE ER.
[2022-02-25 17:54] LABS: Hematocrit 34.4 % (37-47); Hemoglobin 10.7 g/dL (12.0-15.0); Mean Corp Hgb Conc 31.1 g/dL (32-36); Mean Corpuscular Hgb 25.3 pg (27.0-32.0); Mean Corpuscular Volume 81.3 fL (81-99); Mean Platelet Vol. 10.6 fl (6.2-12.0); Platelet Count 467 K/mm3 (150-450); RBC Distribution Width CV 15.9 % (11.6-14.6); RBC Distribution Width SD 47.7 fl (35.1-43.9); Red Blood Count 4.23 M/mm3 (4.2-5.4); White Blood Count 8.1 K/mm3 (4.4-11.0)
[2022-02-25 18:17] LABS: AST(SGOT) 11 U/L (15-37); Alanine Aminotransfer ALT/SGPT 18 U/L (13-56); Albumin, Serum 3.5 g/dL (3.2-5.0); Alkaline Phosphatase 83 U/L (45-117); Anion Gap 9 (5-15); BUN 9 mg/dL (7-18); BUN/Creat Ratio 10.4 RATIO (10-20); Bilirubin, Direct < 0.05 mg/dL (0.00-0.30); Chloride 107 mmol/L (98-107); Creatinine, Serum 0.87 mg/dL (0.55-1.02); EST Glomerular Filtration Rate 82 mL/min (>60); Est Glom Filt Rate - Afr Amer 99 mL/min (>60); Estimated Creatinine Clearance 82.39 ml/min; Globulin 3.9 g/dL (2.2-4.2); Glucose 131 mg/dL (74-106); Potassium 3.8 mmol/L (3.5-5.1); Protein, Total 7.4 g/dL (6.4-8.2); Sodium Level 141 mmol/L (136-145)
[2022-02-25 18:21] LABS: Prothrombin Time (Protime)PT. 12.6 SECONDS (11.7-14.9)
--- NOTE | 2022-02-25 19:18 | CT_ITS ---
STUDY: CT BRAIN WITHOUT CONTRAST REASON FOR EXAM: Female, 31 years old. headache, HTN TECHNIQUE: Transaxial CT imaging of the brain was performed without administration of intravenous contrast material. Individualized dose optimization techniques were used for this CT. COMPARISON: None FINDINGS: Normal calvarium. Normal soft tissues. Normal size ventricles and extra-axial spaces for the patient''s age. Normal white matter tracts of the cerebral hemispheres. Normal basal ganglia and thalami. Normal brainstem. Normal cerebellum. There is no intracranial hemorrhage. There are no findings of an acute ischemic infarction. Normal visualized paranasal sinuses. ASPECTS 10 CT/Brain/Head without Contrast IMPRESSION: There are no acute intracranial findings. Electronically Signed: Carson Subramanian MD at 19:59 EDT ,
--- NOTE | 2022-02-25 19:21 | EDS_ITS ---
HPI History of Present Illness Chief Complaint: Hypertension Informant: patient Narrative Narrative: Patient presents secondary to hypertension. She had a baby 3 weeks ago. She is currently on nifedipine and labetalol. She states her [facility] sent her in due to continued headaches and some leg swelling. [facility] Medical History Bipolar disorder Depression Desmoid tumor Essential hypertension Exercise induced bronchospasm Fatty liver disease, nonalcoholic Gout History of chlamydia infection History of HPV infection History of PCOS Near syncope PCOS (polycystic ovarian syndrome) Type 2 diabetes mellitus Home Medications pantoprazole 20 mg tablet,delayed release (Protonix) 20 mg PO DAILY heartburn 12/29/18 [History Last Taken 02/03/22 20:00 20 mg] lamotrigine 100 mg tablet (Lamictal) 200 mg PO DAILY bipolar 08/10/21 [History Last Taken 02/03/22 20:00 200 mg] albuterol sulfate 90 mcg/actuation aerosol inhaler 2 puff inhalation Q4H PRN PRN SOB 10/19/21 [History Last Taken Unknown] ferrous sulfate 325 mg (65 mg iron) tablet 325 mg PO DAILY supplement 12/16/21 [History Last Taken 02/03/22 20:00 325 mg] metformin 500 mg tablet 500 mg PO TIDWMEAL type 2 diabetes 01/02/22 [History Last Taken 02/03/22 20:00 500 mg] nifedipine 60 mg tablet,extended release 24 hr (Procardia XL) 60 mg PO DAILY HTn 02/04/22 [History Last Taken 02/03/22 20:00 60 mg] cephalexin 500 mg capsule 500 mg PO .qid 7 days #28 CAPSULES 02/13/22 [Rx Last Taken Unknown] diphenhydramine HCl 25 mg tablet (Benadryl Allergy) 25 mg PO TID PRN Itching 02/17/22 [History Last Taken Unknown] labetalol 200 mg tablet 200 mg PO TID #90 tabs 02/17/22 [Rx Last Taken Unknown] miscellaneous medical supply #2 ea 02/17/22 [Rx Last Taken Unknown] naproxen 500 mg tablet (Naprosyn) 500 mg PO BID PRN PRN Pain 02/25/22 [History Last Taken Unknown] Allergy/AdvReac Type Severity Reaction Status Date / Time No Known Allergies Allergy Verified 02/17/22 10:58 Family History Mother CVA (cerebral vascular accident) Father Diabetes Hypertension Surgical History History of breast biopsy History of liver biopsy History of lumpectomy Social History household members: other details: parents number of children: 0 current occupational status: employed current occupation: [employer] pets and animals: Yes history of recent travel: No sexually active: Yes Smoking Status: Never smoker second hand exposure: No alcohol intake: current alcohol intake frequency: a few times a month substance use type: does not use what type of physical activity do you participate in: aerobics frequency: 1-2 times per week seatbelt use: always do you feel safe at home: Yes additional social history: 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[facility]) ROS ROS ED Constitutional Constitutional ED: Denies chills or fever(s) Eyes Eyes: Denies change in vision or discharge from eye(s) ENT ENT ED: Denies discharge from eye(s), rhinorrhea or sore throat Cardiovascular Cardiovascular: Denies chest pain or palpitations Respiratory/Chest Respiratory/Chest: Denies cough or dyspnea Gastrointestinal Gastrointestinal: Denies abdominal pain, diarrhea, nausea or vomiting Genitourinary Genitourinary ED: Denies difficulty urinating or dysuria Musculoskeletal Musculoskeletal: Denies back pain or extremity pain Integumentary Reports other Details: Edema ; Denies Abrasions or rash Neurologic Neurologic: Reports headache(s); Denies weakness Psychiatric Psychiatric: Denies anxiety or depression Endocrine Endocrinology: Denies polydipsia or polyuria Allergic/Immunologic Allergic/Immunologic ED: Denies lip swelling or urticaria EXAM Physical Exam Const Vital Signs: 02/25/22 17:17 02/25/22 19:27 02/25/22 19:31 Temperature 97.8 F Temperature Source Temporal Pulse Rate 81 93 Respiratory Rate 16 18 Respiratory Effort Normal Non-Labored Respiratory Pattern Normal Blood Pressure 139/80 H 156/86 H Blood Pressure Mean 99 109 Pulse Ox 98 100 Oxygen Delivery Method Room Air Room Air 02/25/22 20:01 02/25/22 21:09 Temperature Temperature Source Pulse Rate 89 89 Respiratory Rate 18 18 Respiratory Effort Respiratory Pattern Blood Pressure 138/83 H 151/89 H Blood Pressure Mean 101 109 Pulse Ox 100 100 Oxygen Delivery Method Room Air Room Air Positive well nourished and well developed General Appearance ED: well developed HEENT Reports normocephalic and head/scalp atraumatic Eyes PERRL and EOMs intact bilaterally Neck supple Chest Wall inspection of chest normal and palpation of chest normal Resp normal respiratory effort and clear to auscultation bilaterally Cardio regular rate and regular rhythm GI normal to inspection, nondistended, normoactive bowel sounds Palpation: soft Back/Spine no CVA tenderness Extremity Extremity Narrative: 1-2+ bilateral lower extremity edema. Neuro oriented x3 and no sensory deficits noted Sensorium / Orientation: alert Motor Exam: strength 5/5 throughout Psych mental status grossly normal Skin no rashes or lesions noted MDM MDM MDM Narrative Medical decision making narrative: Blood pressure is fine on my exam is 156/86. 10 mg of IV labetalol ordered. Lab work obtained along with head CT. Urinalysis ordered. Lab Data Attestation: I reviewed the patient's lab results. Labs: Laboratory Results - last 24 hr 02/25/22 02/25/22 02/25/22 17:45 17:45 17:45 WBC 8.1 RBC 4.23 Hgb 10.7 L Hct 34.4 L MCV 81.3 MCH 25.3 L MCHC 31.1 L RDW Std Deviation 47.7 H RDW Coeff of Ranjeet 15.9 H Plt Count 467 H MPV 10.6 PT 12.6 INR 1.0 Sodium 141 Potassium 3.8 Chloride 107 Carbon Dioxide 25.0 Anion Gap 9 BUN 9 Creatinine 0.87 Estim Creat Clear Calc 82.39 Est GFR (MDRD) Af Amer 99 Est GFR (MDRD) Non-Af 82 BUN/Creatinine Ratio 10.4 Glucose 131 H Calcium 9.0 Total Bilirubin 0.20 Direct Bilirubin < 0.05 AST 11 L ALT 18 Alkaline Phosphatase 83 Total Protein 7.4 Albumin 3.5 Globulin 3.9 TSH Urine Color Urine Clarity Urine pH Ur Specific [place] Urine Protein Urine Glucose (UA) Urine Ketones Urine Occult Blood Urine Nitrite Urine Bilirubin Urine Urobilinogen Ur Leukocyte Esterase Urine RBC Urine WBC Ur Squamous Epith Cells Urine Bacteria Urine Mucus 02/25/22 02/25/22 19:30 20:00 WBC RBC Hgb Hct MCV MCH MCHC RDW Std Deviation RDW Coeff of Ranjeet Plt Count MPV PT INR Sodium Potassium Chloride Carbon Dioxide Anion Gap BUN Creatinine Estim Creat Clear Calc Est GFR (MDRD) Af Amer Est GFR (MDRD) Non-Af BUN/Creatinine Ratio Glucose Calcium Total Bilirubin Direct Bilirubin AST ALT Alkaline Phosphatase Total Protein Albumin Globulin TSH 1.45 Urine Color Yellow Urine Clarity Clear Urine pH 6.0 Ur Specific [place] 1.025 Urine Protein 15 H Urine Glucose (UA) Normal Urine Ketones 5 H Urine Occult Blood 150 H Urine Nitrite Negative Urine Bilirubin Negative Urine Urobilinogen Normal Ur Leukocyte Esterase 100 H Urine RBC 0-5 SEEN Urine WBC 5-10 SEEN Ur Squamous Epith Cells 0-5 SEEN Urine Bacteria 0 SEEN Urine Mucus 0 SEEN Radiography Diagnostic Testing: Clinical Impression(s) from Imaging Studies Brain CT 02/25/22 19:18 IMPRESSION: There are no acute intracranial findings. Electronically Signed: Carson Subramanian MD at 19:59 EDT Reading Location ID and State: [facility] / [place] , Service support , Treatment and Re-Evaluation Narrative: On repeat evaluation patient resting comfortably. Lab work is unremarkable. Urinalysis has only [address] is normal. In speaking with the patient it appears that she is taking her labetalol all at once in the evening rather than the 3 times daily dosing as it is written. We discussed appropriate dosing and taking this medication 3 times a day to even out her blood pressures. She is to keep track and follow-up with [facility]. I did update Dr. Palomo as well. Discharge Plan Triage Chief Complaint: Hypertension ED Provider: Alexandra Cano Dx/Rx/DC Orders Clinical Impression: Hypertension Instructions: ED Hypertension, Established Prescriptions: No Action lamotrigine [Lamictal] 100 mg tablet 200 mg PO DAILY Label Comments: take 1 tablet by mouth once daily albuterol sulfate 90 mcg/actuation HFA aerosol inhaler 2 puff inhalation Q4H PRN PRN (Reason: SOB) Label Comments: inhale 2 puffs by mouth and INTO THE LUNGS every 4 to 6 hours ferrous sulfate 325 mg (65 mg iron) tablet 325 mg PO DAILY diphenhydramine HCl [Benadryl Allergy] 25 mg tablet 25 mg PO TID PRN (Reason: Itching) labetalol 200 mg tablet 200 mg PO TID Qty: 90 2RF (DME) miscellaneous medical supply Misc See Rx Instructions .Route Qty: 2 0RF Rx Instructions: As directed pantoprazole [Protonix] 20 MG tablet 20 mg PO DAILY metformin 500 mg tablet 500 mg PO TIDWMEAL nifedipine [Procardia XL] 60 mg tablet extended release 24hr 60 mg PO DAILY cephalexin 500 mg capsule 500 mg PO .qid 7 Days Qty: 28 0RF naproxen [Naprosyn] 500 mg tablet 500 mg PO BID PRN PRN (Reason: Pain) Primary Care Provider: Angie Pena Referrals: Angie Pena MD [Primary Care Provider] - Alexandra Rivas DO [Med Staff - Active Staff] - 1 Week Activity Restrictions/Additional Instructions: As discussed, please take your labetalol 3 times daily as directed. Keep a journal of your blood pressures and follow-up with your [facility] doctor within the next week. Disposition Disposition: Home, Self Care
[2022-02-25] MEDS: Labetalol (Prefilled) 20 MG/4 ML 10 MG IV (19:23)
[2022-02-25 19:27] VITALS: BP 156/86; PULSE 93; RESP 18; O2SAT 100
[2022-02-25 20:01] VITALS: BP 138/83; PULSE 89; RESP 18; O2SAT 100
[2022-02-25 20:08] LABS: Bacteria 0 SEEN /hpf (None Seen); Mucous, Urine 0 SEEN /hpf (<or=2+)
[2022-02-25 20:12] LABS: Thyroid Stim Hormone (TSH) 1.45 uIU/mL (0.358-3.74)
[2022-02-25 20:18] LABS: Color, Urine Yellow (Yellow); Glucose, Dipstick Normal (Normal); Ketone-Dipstick 5 mg/dl (Negative); Leukocyte Esterase-Dipstick 100 /ul (Negative); Nitrite-Dipstick Negative (Negative); Occult Blood-Urine 150 /ul (Negative); Protein-Dipstick 15 mg/dl (Negative); Specific Gravity, Urine 1.025 (1.002-1.030); Urine Bilirubin Dipstick Negative (Negative); Urine Clarity Clear (Clear); Urine Urobilinogen Normal (Normal)
[2022-02-25 20:50] LABS: Red Blood Cells-Urine 0-5 SEEN /hpf (0-5); Squamous Epithelial Cells - UA 0-5 SEEN /hpf (5-10); White Blood Cells 5-10 SEEN /hpf (0-5)
[2022-02-25 21:09] VITALS: BP 151/89; PULSE 89; RESP 18; O2SAT 100
[2022-02-25 21:18] VITALS: BP 151/86; PULSE 89; RESP 18; O2SAT 97
== END 2022-02-25 21:18 | disposition home or self-care (01) ==
PROVIDERS: Emergency Medicine; Emergency Provider Emergency Medicine; PCP Internal Medicine; Visit Provider Emergency Medicine
DX: O16.5 Unspecified maternal hypertension, complicating the puerperium (principal); F31.9 Bipolar disorder, unspecified; E11.9 Type 2 diabetes mellitus without complications
CPT/HCPCS: 99281; 70450; 80048; 80076; 81001; 84443; 85027; 85610; 96374; 99282; A4216

== ENCOUNTER → 2022-03-18 | Outpatient (CLI) | payer MEDICAID, SELFPAY | END | disposition home or self-care (01) | LOC: LABSPEC 17:03 | PROVIDERS: PCP Internal Medicine; Referring Provider Obstetrics & Gynecology; Visit Provider Obstetrics & Gynecology | DX: Z12.4 Encounter for screening for malignant neoplasm of cervix (principal) ==

== ENCOUNTER → 2022-04-05 | Outpatient (CLI) | payer MEDICAID, SELFPAY ==
[2022-04-05 11:03] LABS: Absolute Lymphocyte Count 2.49 X10^3/uL (0.83-4.51); Absolute Neutrophil Count 4.3 X10^3/uL (2.0-7.7); Basophil# 0.06 X10^3/uL; Basophil% 0.8 % (0-1); Eosinophil# 0.49 X10^3/uL; Eosinophils% 6.1 % (0-5); Hematocrit 39.9 % (37-47); Hemoglobin 12.2 g/dL (12.0-15.0); Lymphocyte # 2.49 X10^3/ul (0.83-4.51); Lymphocyte % 31.1 % (19-41); Mean Corp Hgb Conc 30.6 g/dL (32-36); Mean Corpuscular Hgb 24.8 pg (27.0-32.0); Mean Corpuscular Volume 81.1 fL (81-99); Mean Platelet Vol. 11.3 fl (6.2-12.0); Monocyte# 0.53 X10^3/uL; Monocyte% 6.6 % (0-10); NRBC Flagged by Analyzer 0 % (0-5); Neutrophil # 4.34 X10^3/uL (2.7-7.7); Neutrophil % 54.3 % (47-70); Platelet Count 371 K/mm3 (150-450); RBC Distribution Width CV 15.5 % (11.6-14.6); RBC Distribution Width SD 46.2 fl (35.1-43.9); Red Blood Count 4.92 M/mm3 (4.2-5.4)
== END | disposition home or self-care (01) ==
LOC: LAB 09:51
PROVIDERS: PCP Internal Medicine; Visit Provider Nurse Practitioner Gerontology
DX: R53.83 Other fatigue (principal)
CPT/HCPCS: 36415; 85025

== ENCOUNTER → 2023-08-04 | Outpatient (CLI) | payer MEDICAID, SELFPAY ==
--- NOTE | 2023-08-04 12:47 | US_ITS ---
STUDY: SECOND AND THIRD TRIMESTER OBSTETRICAL ULTRASOUND REASON FOR EXAM: Female, 32 years old anatomy LMP: March 14, 2023. TECHNIQUE: Transabdominal and Transvaginal TECHNICAL QUALITY: Limited. Examination limited due to obesity. PRIOR ULTRASOUND: None. FINDINGS: There is a single intrauterine fetus. The fetus is in a breech presentation. There is demonstrated cardiac activity with a heart rate of 155 bpm. There is a normal amniotic fluid volume. The largest amniotic fluid pocket measures 5.8 cm x 3.6 cm. The amniotic fluid index (KALIN) is within normal limits cm. The placenta is anterior in location and is not low lying. There are Grade 0 placental changes. The cervix measures 5.8 cm in length. The adnexal regions are not visualized. BIOMETRY: BPD: 4.75 cm: 20 weeks, 2 days HC: 17.91 cm: 20 weeks, 2 days AC: 15.2 cm: 20 weeks, 3 days FL: 3.24 cm: 20 weeks, 1 days CI: 79.1% FL/BPD: 62.3% FL/HC: FL/AC: 21.3% HC/AC: 1.18 age by current US: 20 weeks, 1 days. ALEN by current US: December 21, 2023. Estimated weight: 345 grams, +/- 52 grams, 38 %. Age by LMP: 20 weeks, 3 days. ALEN by LMP: December 19, 2023. ANATOMY: Gender: Cranium: Normal lateral ventricles. Normal choroid plexus. Normal cerebellum. Normal cisterna magna. Normal face, nose and lips. Chest: Normal 4-chamber heart. Abdomen/Pelvis: Normal diaphragm. Normal stomach. Normal abdominal wall. Normal cord insertion. Normal 3 vessel cord. Normal kidneys. Normal bladder. Spine: The cervical spine is non-visualized. The thoracic spine is non-visualized. The lumbar spine is non-visualized. Normal sacrum. Extremities: Normal bilateral upper extremities. Normal bilateral lower extremities. US/OB Anatomy w/ Transvaginal IMPRESSION: Single live uterine gestation with a mean gestational age of 20 weeks and 1 day. Limited assessment of the spine due to the patient''s body habitus and position. Electronically Signed: Alexey Enriquez MD at 11:16 EST ,
== END | disposition home or self-care (01) ==
PROVIDERS: PCP Nurse Practitioner; Referring Provider Obstetrics & Gynecology; Visit Provider Obstetrics & Gynecology
DX: Z34.90 Encounter for supervision of normal pregnancy, unspecified, unspecified trimester (principal); Z3A.00 Weeks of gestation of pregnancy not specified
CPT/HCPCS: 76805; 76817

== ENCOUNTER → 2023-08-17 | Outpatient (CLI) | payer MEDICAID, SELFPAY ==
[2023-08-17 17:26] LABS: Protein, Urine (Random) 26.1 mg/dL (<11.9); Protein:Creat Ratio 101 mg/g CRE (0-200)
--- OUTSIDE RECORDS SUMMARY | 2023-08-17 19:20 | XMS RPT_ITS | CCD ---
Author Name Unknown Address [id number] [place] [address] Organization [facility] Care Team Providers Care Lead Sales Consultant Name Role Phone Angie Costello MD Primary Care Provider [phone] ANGIE COSTELLO Primary Care Unavailable MOIRA LOZANO Attending UnavailAngie Jimenez MD Primary Care Provider [phone] ANGIE COSTELLO Primary Care Unavailable CLAUDINE CEDEÑO Attending Unavailable ANGIE COSTELLO Primary Care Unavailable ANGIE COSTELLO Referring Unavailable ANGIE COSTELLO Primary Care Unavailable Medications Current Medications Medication Drug Class(es) Dates Sig (Normalized) Sig (Original) amoxicillin 875 mg / clavulanate 125 mg oral tablet (1 source) Penicillin-class Antibacterial Start: 08-16-2023 End: 08-23-2023 take 1 tablet by mouth twice daily amoxicillin-clavu lanate potassium (AUGMENTIN) 875-125 mg per tablet Indications: LRTI (lower respiratory tract infection) Take 1 tablet by mouth two times a day for 7 days. 14 tablet 0 08/16/2023 08/23/2023 Active Completed/Discontinued Medications Medication Drug Class(es) Dates Sig (Normalized) Sig (Original) [id number] 200 actuat albuterol 0.09 mg/actuat metered dose inhaler (20 sources) beta2-Adrenergic Agonist Start: 12-21-2021 take 2 puff(s) by inhalation every four hours as needed for wheezing albuterol HFA (VENTOLIN HFA) 90 mcg/actuation inhaler Indications: Exercise-induced asthma Inhale 2 Puffs as instructed every 4 hours as needed for wheezing/shortnes s of breath. 1 Inhaler 0 12/21/2021 Active Problems Active Problems Problem Classification Problem Date Documented Da te Episodic/Chronic Anal and rectal conditions (2 sources) Perirectal abscess; Translations: [Rectal abscess] Episodic Anxiety disorders (20 sources) Mixed anxiety and depressive disorder; Translations: [Anxiety disorder, unspecified] Onset: 5 10-09-2014 Chronic Asthma (20 sources) Exercise-induced asthma; Translations: [Exercise induced bronchospasm] Onset: 2 03-23-2020 Chronic Cardiac dysrhythmias (1 source) Tachycardia; Translations: [Tachycardia, unspecified] Episodic Complications of surgical procedures or medical care (1 source) Complication of procedure; Translations: [Complication of surgical and medical care, unspecified, subsequent encounter] Episodic Diabetes mellitus without complication (20 sources) Type 2 diabetes mellitus without complication; Translations: [Type 2 diabetes mellitus without complications] Onset: 7 02-09-2017 Chronic Esophageal disorders (20 sources) Gastroesophageal reflux disease; Translations: [Gastro-esophageal reflux disease without esophagitis] Onset: 9 06-20-2019 Chronic Essential hypertension (20 sources) Benign essential hypertension; Translations: [Essential (primary) hypertension] Onset: 5 06-14-2019 Chronic Fever of unknown origin (1 source) Fever; Translations: [Fever, unspecified] Episodic Fluid and electrolyte disorders (1 source) Hypokalemia; Translations: [Hypokalemia] Onset: 3 Episodic Genitourinary symptoms and ill-defined conditions (1 source) Increased frequency of urination; Translations: [Frequency of micturition] Episodic Gout and other crystal arthropathies (20 sources) Gout; Translations: [Gout, unspecified] Onset: 5 10-09-2014 Chronic Headache; including migraine (1 source) Headache; Translations: [Headache, unspecified headache type] 08-07-2023 Episodic Headache; including migraine (1 source) Headache; including migraine; Translations: [Acute nonintractable headache, unspecified headache type] Onset: 3 Mood disorders (20 sources) Bipolar disorder in remission; Translations: [Bipolar disorder, currently in remission, most recent episode unspecified] Onset: 1 06-14-2021 Chronic Nausea and vomiting (2 sources) Diarrhea and vomiting; Translations: [Vomiting, unspecified] Onset: 3 Episodic Nonmalignant breast conditions (20 sources) Fibroadenosis of right breast; Translations: [Fibroadenosis of right breast] Onset: 1 05-31-2021 Chronic Nonspecific chest pain (1 source) Chest pain; Translations: [Chest pain, unspecified] Episodic Nutritional deficiencies (1 source) Iron deficiency; Translations: [Iron deficiency] Episodic Other and unspecified benign neoplasm (1 source) Benign neoplasm of right female breast; Translations: [Benign neoplasm of right breast] Episodic Other connective tissue disease (1 source) Pain of left upper arm; Translations: [Pain in left upper arm] Episodic Other connective tissue disease (2 sources) Swelling of lower limb; Translations: [Other specified soft tissue disorders] Episodic Other connective tissue disease (1 source) Tendinitis of hand; Translations: [Other enthesopathies, not elsewhere classified] Episodic Other endocrine disorders (20 sources) Polycystic ovary syndrome; Translations: [Polycystic ovarian syndrome] Onset: 5 07-24-2014 Chronic Other female genital disorders (20 sources) Abnormal uterine bleeding; Translations: [Abnormal uterine and vaginal bleeding, unspecified] Onset: 5 07-24-2014 Chronic Other gastrointestinal disorders (1 source) Diarrhea, unspecified; Translations: [Vomiting and diarrhea] Onset: 3 Episodic Other liver diseases (20 sources) Steatosis of liver; Translations: [Fatty (change of) liver, not elsewhere classified] 12-11-2014 Chronic Other lower respiratory disease (1 source) Lower respiratory tract infection; Translations: [Unspecified acute lower respiratory infection] 08-16-2023 Episodic Other nutritional; endocrine; and metabolic disorders (20 sources) Body mass index 40+ - severely obese; Translations: [Morbid (severe) obesity due to excess calories] Onset: 7 02-08-2017 Chronic Other nutritional; endocrine; and metabolic disorders (1 source) Hypomagnesemia; Translations: [Hypomagnesemia] Onset: 3 Chronic Other and delivery including normal (1 source) Third trimester ; Translations: [Encounter for supervision of normal , unspecified, third trimester] Episodic Other screening for suspected conditions (not mental disorders or infectious disease) (20 sources) Imaging result abnormal; Translations: [Abnormal findings on diagnostic imaging of other specified body structures] Onset: 1 05-31-2021 Chronic Otitis media and related conditions (1 source) Dysfunction of left eustachian tube; Translations: [Other specified disorders of Eustachian tube, left ear] Episodic Pulmonary heart disease (1 source) Idiopathic pulmonary arterial hypertension ; Translations: [Primary pulmonary hypertension] Chronic Residual codes; unclassified (1 source) Treatment not available; Translations: [Procedure and treatment not carried out for other reasons] Episodic Residual codes; unclassified (2 sources) Edema of foot; Translations: [Localized edema] Episodic Residual codes; unclassified (1 source) Gestation period, 22 weeks; Translations: [22 weeks gestation of ] 08-16-2023 Episodic Skin and subcutaneous tissue infections (2 sources) Furuncle; Translations: [Furuncle, unspecified] Episodic Viral infection (1 source) Viral disease; Translations: [Viral infection, unspecified] Episodic Past or Other Problems Problem Classification Problem Date Documented Da te Episodic/Chronic Neoplasms of unspecified nature or uncertain behavior (20 sources) Aggressive fibromatosis of breast; Translations: [Neoplasm of uncertain behavior of unspecified breast] Onset: 06-11-2019 06-11-2019 Episodic Nonmalignant breast conditions (20 sources) Discharge from nipple; Translations: [Nipple discharge] Onset: 06-17-2019 06-17-2019 Episodic Other and unspecified benign neoplasm (20 sources) Fibroadenoma of right breast; Translations: [Benign neoplasm of right breast] Onset: 06-17-2019 06-17-2019 Episodic Other screening for suspected conditions (not mental disorders or infectious disease) (20 sources) Mammography abnormal; Translations: [Other abnormal and inconclusive findings on diagnostic imaging of breast] Onset: 06-14-2021 06-14-2021 Episodic Superficial injury; contusion (9 sources) Abrasion, right foot, initial encounter; Translations: [Abrasion or friction burn of foot and toe(s), without mention of infection] Onset: 07-11-2022 07-11-2022 Episodic Results Test Name Value Interpretation Reference Range Facil ity Vital Signs Date Time Vital Sign Value Performing Clinician Ramírez patel 08-16-2023 08:41-0500 Body height 162.6 cm Hiral Mendoza PA-C Work Phone: [facility] 08-16-2023 08:41-0500 Body temperature 97.3 [degF] Hiral Denbow PA-C Work Phone: [facility] 08-16-2023 08:41-0500 Body weight 117.48 kg Hiral Denbow PA-C Work Phone: [facility] 08-16-2023 08:41-0500 Diastolic blood pressure 62 mm[Hg] Hiral Denbow PA-C Work Phone: [facility] 08-16-2023 08:41-0500 Heart rate 93 /min Hiral Denbow PA-C Work Phone: [facility] 08-16-2023 08:41-0500 Respiratory rate 16 /min Hiral Denbow PA-C Work Phone: [facility] 08-16-2023 08:41-0500 SaO2% (BldA) [Mass fraction] 98 % Hiral Denbow PA-C Work Phone: [facility] 08-16-2023 08:41-0500 Systolic blood pressure 130 mm[Hg] Hiral Denbow PA-C Work Phone: [facility] 08-25-2022 09:47-0500 Body temperature 97.3 [degF] Claudine Older VICE PRESIDENT OF CUSTOMER SERVICE.PATCH WASHER Work Phone: [facility] 08-25-2022 09:47-0500 Body weight 119.75 kg Claudine Older VICE PRESIDENT OF CUSTOMER SERVICE.PATCH WASHER Work Phone: [facility] 08-25-2022 09:47-0500 Diastolic blood pressure 84 mm[Hg] Claudine Older VICE PRESIDENT OF CUSTOMER SERVICE.PATCH WASHER Work Phone: [facility] 08-25-2022 09:47-0500 Heart rate 96 /min Claudine Older VICE PRESIDENT OF CUSTOMER SERVICE.PATCH WASHER Work Phone: [facility] 08-25-2022 09:47-0500 Respiratory rate 16 /min Claudine Older VICE PRESIDENT OF CUSTOMER SERVICE.PATCH WASHER Work Phone: [facility] 08-25-2022 09:47-0500 SaO2% (BldA) [Mass fraction] 97 % Claudine Cedeño VICE PRESIDENT OF CUSTOMER SERVICE.PATCH WASHER Work Phone: [facility] 08-25-2022 09:47-0500 Systolic blood pressure 132 mm[Hg] Claudine Cedeño VICE PRESIDENT OF CUSTOMER SERVICE.PATCH WASHER Work Phone: [facility] 08-01-2022 15:05-0500 Body temperature 102.2 [degF] Krislyn Aberegg PA Work Phone: [facility] 08-01-2022 15:05-0500 Body weight 120.66 kg Krislyn Aberegg PA Work Phone: [facility] 08-01-2022 15:05-0500 Diastolic blood pressure 68 mm[Hg] Krislyn Aberegg PA Work Phone: [facility] 08-01-2022 15:05-0500 Heart rate 160 /min Krislyn Aberegg PA Work Phone: [facility] 08-01-2022 15:05-0500 Respiratory rate 21 /min Krislyn Aberegg PA Work Phone: [facility] 08-01-2022 15:05-0500 SaO2% (BldA) [Mass fraction] 98 % Krislyn Aberegg PA Work Phone: [facility] 08-01-2022 15:05-0500 Systolic blood pressure 120 mm[Hg] Krislyn Aberegg PA Work Phone: [facility] 07-27-2022 17:23-0500 Diastolic blood pressure 70 mm[Hg] Angie Costello MD Work Phone: [facility] 07-27-2022 17:23-0500 Systolic blood pressure 136 mm[Hg] Angie Costello MD Work Phone: [facility] 07-27-2022 16:42-0500 Body height 162.6 cm Angie Costello MD Work Phone: [facility] 07-27-2022 16:42-0500 Body temperature 98.49 [degF] Angie Costello MD Work Phone: [facility] 07-27-2022 16:42-0500 Body weight 121.11 kg Angie Costello MD Work Phone: [facility] 07-27-2022 16:42-0500 Heart rate 94 /min Angie Costello MD Work Phone: [facility] 07-27-2022 16:42-0500 Respiratory rate 14 /min Angie Costello MD Work Phone: [facility] 07-27-2022 16:42-0500 SaO2% (BldA) [Mass fraction] 97 % Angie Costello MD Work Phone: [facility] 07-25-2022 09:28-0500 Body temperature 98.2 [degF] Percy Jesus VICE PRESIDENT OF CUSTOMER SERVICE.PATCH WASHER Work Phone: [facility] 07-25-2022 09:28-0500 Body weight 120.66 kg Percy Jesus VICE PRESIDENT OF CUSTOMER SERVICE.PATCH WASHER Work Phone: [facility] 07-25-2022 09:28-0500 Diastolic blood pressure 68 mm[Hg] Percy Jesus VICE PRESIDENT OF CUSTOMER SERVICE.PATCH WASHER Work Phone: [facility] 07-25-2022 09:28-0500 Heart rate 112 /min Percy Jesus VICE PRESIDENT OF CUSTOMER SERVICE.PATCH WASHER Work Phone: [facility] 07-25-2022 09:28-0500 Respiratory rate 16 /min Percy Jesus VICE PRESIDENT OF CUSTOMER SERVICE.PATCH WASHER Work Phone: [facility] 07-25-2022 09:28-0500 SaO2% (BldA) [Mass fraction] 98 % Percy Jesus VICE PRESIDENT OF CUSTOMER SERVICE.PATCH WASHER Work Phone: [facility] 07-25-2022 09:28-0500 Systolic blood pressure 120 mm[Hg] Percy Jesus VICE PRESIDENT OF CUSTOMER SERVICE.PATCH WASHER Work Phone: [facility] 07-08-2022 15:26-0500 Body height 162.6 cm Angie Costello MD Work Phone: [facility] 07-08-2022 15:26-0500 Body temperature 97.9 [degF] Angie Costello MD Work Phone: [facility] 07-08-2022 15:26-0500 Body weight 118.39 kg Angie Costello MD Work Phone: [facility] 07-08-2022 15:26-0500 Diastolic blood pressure 70 mm[Hg] Angie Costello MD Work Phone: [facility] 07-08-2022 15:26-0500 Heart rate 93 /min Angie Costello MD Work Phone: [facility] 07-08-2022 15:26-0500 Respiratory rate 14 /min Angie Costello MD Work Phone: [facility] 07-08-2022 15:26-0500 SaO2% (BldA) [Mass fraction] 100 % Angie Costello MD Work Phone: [facility] 07-08-2022 15:26-0500 Systolic blood pressure 134 mm[Hg] Angie Costello MD Work Phone: [facility] 02-26-2022 10:24-0400 Body height 162.6 cm Angie Costello MD Work Phone: [facility] 02-26-2022 10:24-0400 Body temperature 97.7 [degF] Angie Costello MD Work Phone: [facility] 02-26-2022 10:24-0400 Body weight 113.4 kg Angie Costello MD Work Phone: [facility] 02-26-2022 10:24-0400 Diastolic blood pressure 62 mm[Hg] Angie Costello MD Work Phone: [facility] 02-26-2022 10:24-0400 Heart rate 96 /min Angie Costello MD Work Phone: [facility] 02-26-2022 10:24-0400 Respiratory rate 14 /min Angie Costello MD Work Phone: [facility] 02-26-2022 10:24-0400 SaO2% (BldA) [Mass fraction] 98 % Angie Costello MD Work Phone: [facility] 02-26-2022 10:24-0400 Systolic blood pressure 128 mm[Hg] Angie Costello MD Work Phone: [facility] 12-21-2021 09:11-0400 Body height 162.6 cm Angie Costello MD Work Phone: [facility] 12-21-2021 09:11-0400 Body temperature 97.2 [degF] Angie Costello MD Work Phone: [facility] 12-21-2021 09:11-0400 Body weight 116.12 kg Angie Costello MD Work Phone: [facility] 12-21-2021 09:11-0400 Diastolic blood pressure 60 mm[Hg] Angie Costello MD Work Phone: [facility] 12-21-2021 09:11-0400 Heart rate 102 /min Angie Costello MD Work Phone: [facility] 12-21-2021 09:11-0400 Respiratory rate 16 /min Angie Costello MD Work Phone: [facility] 12-21-2021 09:11-0400 SaO2% (BldA) [Mass fraction] 99 % Angie Costello MD Work Phone: [facility] 12-21-2021 09:11-0400 Systolic blood pressure 124 mm[Hg] Angie Costello MD Work Phone: [facility] 11-24-2021 15:58-0400 Body temperature 99.1 [degF] Todd Loredo APRN.PATCH WASHER Work Phone: [facility] 11-24-2021 15:58-0400 Body weight 115.03 kg Todd Loredo APRN.CNP Work Phone: [facility] 11-24-2021 15:58-0400 Diastolic blood pressure 72 mm[Hg] Todd Loredo APRN.PATCH WASHER Work Phone: [facility] 11-24-2021 15:58-0400 Heart rate 112 /min Todd Recinosregina VICE PRESIDENT OF CUSTOMER SERVICE.PATCH WASHER Work Phone: [facility] 11-24-2021 15:58-0400 Respiratory rate 18 /min Todd Recinosregina VICE PRESIDENT OF CUSTOMER SERVICE.PATCH WASHER Work Phone: [facility] 11-24-2021 15:58-0400 SaO2% (BldA) [Mass fraction] 98 % Toddeffie Recinosregina VICE PRESIDENT OF CUSTOMER SERVICE.PATCH WASHER Work Phone: [facility] 11-24-2021 15:58-0400 Systolic blood pressure 132 mm[Hg] Toddeffie Recinosregina VICE PRESIDENT OF CUSTOMER SERVICE.PATCH WASHER Work Phone: [facility] 10-07-2021 14:08-0400 Body temperature 98.4 [degF] Abby Ramires APRN.PATCH WASHER Work Phone: [facility] 10-07-2021 14:08-0400 Body weight 113.22 kg Abby Ramires APRN.PATCH WASHER Work Phone: [facility] 10-07-2021 14:08-0400 Diastolic blood pressure 72 mm[Hg] Abby Ramires APRN.PATCH WASHER Work Phone: [facility] 10-07-2021 14:08-0400 Heart rate 88 /min Abby Ramires APRN.PATCH WASHER Work Phone: [facility] 10-07-2021 14:08-0400 Respiratory rate 18 /min Abby Ramires APRN.PATCH WASHER Work Phone: [facility] 10-07-2021 14:08-0400 SaO2% (BldA) [Mass fraction] 99 % Abby Ramires APRN.PATCH WASHER Work Phone: [facility] 10-07-2021 14:08-0400 Systolic blood pressure 110 mm[Hg] Abby Ramires VICE PRESIDENT OF CUSTOMER SERVICE.PATCH WASHER Work Phone: [facility] 09-16-2021 09:52-0400 Body height 162.6 cm Rivera Boykin MD Work Phone: [facility] 09-16-2021 09:52-0400 Body temperature 97.3 [degF] Rivera Boykin MD Work Phone: [facility] 09-16-2021 09:52-0400 Body weight 115.67 kg Rivera Boykin MD Work Phone: [facility] 09-16-2021 09:52-0400 Diastolic blood pressure 64 mm[Hg] Rivera Boykin MD Work Phone: [facility] 09-16-2021 09:52-0400 Heart rate 129 /min Rivera Boykin MD Work Phone: [facility] 09-16-2021 09:52-0400 SaO2% (BldA) [Mass fraction] 99 % Rivera Boykin MD Work Phone: [facility] 09-16-2021 09:52-0400 Systolic blood pressure 134 mm[Hg] Rivera Boykin MD Work Phone: [facility] 09-09-2021 14:40-0400 Body height 162.6 cm Rivera Boykin MD Work Phone: [facility] 09-09-2021 14:40-0400 Body temperature 98.71 [degF] Rivera Boykin MD Work Phone: [facility] 09-09-2021 14:40-0400 Body weight 114.4 kg Rivera Boykin MD Work Phone: [facility] 09-09-2021 14:40-0400 Diastolic blood pressure 72 mm[Hg] Rivera Boykin MD Work Phone: [facility] 09-09-2021 14:40-0400 Heart rate 106 /min Rivera Boykin MD Work Phone: [facility] 09-09-2021 14:40-0400 SaO2% (BldA) [Mass fraction] 93 % Rivera Boykin MD Work Phone: [facility] 09-09-2021 14:40-0400 Systolic blood pressure 122 mm[Hg] Rivera Boykin MD Work Phone: [facility] Encounters Encounter Date Encounter Type Care Provider Facility Start: 08-16-2023 End: 08-16-2023 Patient encounter procedure Hiral Mendoza PA-C Work Phone: [facility] Procedures Date Procedure Procedure Detail Performing Clinician Start: 08-01-2022 INFLUENZA A&B MOLECU LAR (POC) Amena ELIZONDO Work Phone: Start: 03-17-2022 Ct thorax w/contrast material Angie Costello MD Work Phone: Start: 02-26-2022 Hemoglobin A1c/Hemoglobin.total in Blood Angie Costello MD Work Phone: Start: 10-07-2021 Urnls dip stick/tabl et rgnt auto w/o microscopy Moira Anderson VICE PRESIDENT OF CUSTOMER SERVICE.PATCH WASHER Work Phone: H/O: section S/P sectio n Angie Costello MD Work Phone: Plan of Treatment Date Care Activity Detail Author Start: 12-17-2031 Urine microalbumin profile DTa P,Tdap,Td Vaccine (9 - Td or Tdap) [facility] Start: 03-23-2030 Urine microalbumin profile DTA P,TDAP,TD (8 - Td or Tdap) [facility] Start: 07-19-2026 Screening for malign ant neoplasm of cervix Pap Testing [facility] Start: 08-16-2024 Annual PCP Team Pouncing Machine Operator hugh Disease Visit Annual PCP Team Chronic Disease Visit [facility] Start: 07-19-2024 PAP TESTING PAP TESTING [facility] Start: 08-26-2023 ANNUAL PCP TEAM PASTRY ARTIST HUGH DISEASE VISIT ANNUAL PCP TEAM CHRONIC DISEASE VISIT [facility] Start: 08-23-2023 Hepatitis B screening URINE AL BUMIN:CREATININE RATIO [facility] Start: 08-23-2023 Hepatitis B surface antibody level LDL CHOLESTEROL [facility] Start: 08-01-2023 BP CONTROLLED (<130/80) BP CONTROLLE D (<130/80) [facility] Start: 07-27-2023 ANNUAL PCP TEAM PASTRY ARTIST HUGH DISEASE VISIT ANNUAL PCP TEAM CHRONIC DISEASE VISIT [facility] Start: 07-25-2023 BP CONTROLLED (<130/80) BP CONTROLLE D (<130/80) [facility] Start: 07-08-2023 3 comp foot exam completed DIABETIC FOOT EXAM [facility] Start: 07-08-2023 ANNUAL PCP TEAM PASTRY ARTIST HUGH DISEASE VISIT ANNUAL PCP TEAM CHRONIC DISEASE VISIT [facility] Start: 07-08-2023 COVID-19 VACCINE (4 - Booster for Pfizer series) COVID-19 VACCINE (4 - Booster for Pfizer series) [facility] Immunizations Immunization Date Immunization Notes Care Provider Fa cility 04-03-2021 COVID-19 vaccine, ag e 12+ yr (PFIZER-BIONTECH - PURPLE TOP) Rivera Boykin MD Work Phone: [facility] 03-29-2021 influenza, injectabl e, quadrivalent, contains preservative Rivera Boykin MD Work Phone: [facility] Work Phone: 03-29-2021 influenza virus vaccine, unspecified formulation Todd Loredo VICE PRESIDENT OF CUSTOMER SERVICE.PATCH WASHER Work Phone: [facility] 03-23-2020 tetanus toxoid, reduced diphtheria toxoid, and acellular pertussis vaccine, adsorbed Rivera Boykin MD Work Phone: [facility] 12-03-2010 human papilloma viru s vaccine, quadrivalent Rivera Boykin MD Work Phone: [facility] Work Phone: 11-30-2009 human papilloma viru s vaccine, quadrivalent Rivera Boykin MD Work Phone: [facility] Work Phone: 02-13-2006 Meningococcal, MCV4, unspecified conjugate formulation(groups A, C, Y and W-135) Rivera Boykin MD Work Phone: [facility] Work Phone: 02-13-2006 tetanus toxoid, reduced diphtheria toxoid, and acellular pertussis vaccine, adsorbed Rivera Boykin MD Work Phone: [facility] Work Phone: 05-17-1999 measles, mumps and rubella virus vaccine Rivera Boykin MD Work Phone: [facility] Work Phone: 01-13-1998 diphtheria, tetanus toxoids and pertussis vaccine Rivera Boykin MD Work Phone: [facility] Work Phone: 01-13-1998 trivalent poliovirus vaccine, live, oral Rivera Boykin MD Work Phone: [facility] Work Phone: 10-10-1994 diphtheria, tetanus toxoids and pertussis vaccine Rivera Boykin MD Work Phone: [facility] Work Phone: 10-10-1994 trivalent poliovirus vaccine, live, oral Rivera Boykin MD Work Phone: [facility] Work Phone: 03-04-1994 haemophilus influenz ae type b vaccine, HbOC conjugate Rivera Boykin MD Work Phone: [facility] Work Phone: 03-04-1994 measles, mumps and rubella virus vaccine Rivera Boykin MD Work Phone: [facility] Work Phone: 10-14-1993 hepatitis B vaccine, pediatric or pediatric/adolescent dosage Rivera Boykin MD Work Phone: [facility] Work Phone: 08-09-1993 diphtheria, tetanus toxoids and pertussis vaccine Rivera Boykin MD Work Phone: [facility] Work Phone: 08-09-1993 haemophilus influenz ae type b vaccine, HbOC conjugate Rivera Boykin MD Work Phone: [facility] Work Phone: 04-15-1993 diphtheria, tetanus toxoids and pertussis vaccine Rivera Boykin MD Work Phone: [facility] Work Phone: 04-15-1993 haemophilus influenz ae type b vaccine, HbOC conjugate Rivera Boykin MD Work Phone: [facility] Work Phone: 04-15-1993 hepatitis B vaccine, pediatric or pediatric/adolescent dosage Rivera Boykin MD Work Phone: [facility] [facility] Work Phone: 04-15-1993 trivalent poliovirus vaccine, live, oral Rivera Boykin MD Work Phone: [facility] Work Phone: 02-11-1993 diphtheria, tetanus toxoids and pertussis vaccine Rivera Boykin MD Work Phone: [facility] Work Phone: 02-11-1993 haemophilus influenz ae type b vaccine, HbOC conjugate Rivera Boykin MD Work Phone: [facility] Work Phone: 02-11-1993 hepatitis B vaccine, pediatric or pediatric/adolescent dosage Rivera Boykin MD Work Phone: [facility] Work Phone: 02-11-1993 trivalent poliovirus vaccine, live, oral Rivera Boykin MD Work Phone: [facility] Work Phone: Payers Date Payer Category Payer Medicaid [id number] 2022 Medicaid [id number] 2018 Medicaid UHC MEDICAID UHC COMMUNITY [employer]AN MEDICAID [id number] 2018-Present [phone] [address] [place] [address] Medicaid [id number] 2018 Medicaid [id number] Social History Date Type Detail Facility Start: 12-16-2014 End: 02-26-2022 Tobacco smoking status NHIS Never smoked tobacco [facility] Start: 12-16-2014 End: 02-26-2022 Tobacco use and exposure Smokeless tobacco non-user James kelly [facility] Start: 09-12-2021 End: 08-16-2023 Alcohol intake Current drinker of alcohol (finding) [facility] Start: 01-15-2014 History SDOH Alcohol Comment Occasionally [facility] Start: 1990 Sex Assigned At Not on file [facility] Start: 09-06-2021 End: 02-26-2022 Exposure to SARS-CoV-2 (event) Not sure [facility] Start: 03-06-2022 End: 03-16-2022 Exposure to SARS-CoV-2 (event) Unable to assess [facility] Start: 08-01-2022 End: 08-16-2023 History of Social function [facility] Start: 08-01-2022 End: 08-16-2023 Tobacco use panel [facility] Adult Depression Screening Assessment 1 [facility] Start: 03-28-2023 [facility] Clinical Notes 02-13-2006 to 08-16-2023 Patient InstructionsHiral Mendoza PA-C - 08/16/2023 8:51 AM Aury Quiros LPN E - 08/16/2023 8:40 AM Todd Sanon APRN.PATCH WASHER - 08/07/2023 7:09 PM ESTPatient Instructions Note Date & Type Note Facility 08-16-2023 Instructions Hiral Mendoza PA-C - 08/16/2023 9:12 AM EST COLDS DURING Most patients will happen to get a cold sometime during their . Patients are often quite miserable with their symptoms and want to take medications to feel better. Most colds are caused by viruses and will not get better with antibiotics. Unnecessary antibiotics can be dangerous and cause side effects. We do not prescribe antibiotics for uncomplicated colds. We do treat the symptoms to help you feel better. It is very important to: Get plenty of rest Fluids are very important to help loosen up congestion (stuffy nose and dry cough), so try to drink at least eight large (8oz.) glasses of liquid everyday. You can take extra Vitamin C several times a day Gargle with warm salt water if you have a sore throat Safe Medications Many over the counter cold medications are safe to use during , but some should be avoided. You should only take the medications that we suggest, and follow all directions on the medication package. All of these medications can be taken separately or together: Tylenol (or its generic acetaminophen) can be used to treat body aches, fever, headache, sore throat and other painful discomforts Robitussin DM (or its generic) can be taken for a cough. Plain Sudafed (or its generic) can be taken for a stuffy or runny nose, but may keep you awake Plain Benadryl (or it generic) can be taken for a stuffy or runny nose as well, but may make you sleepy You should call the office immediately if: Your temperature goes over 100.5 degrees If you have difficulty breathing If your phlegm or nasal secretions are green in color If your cold does not get better within a week If you have questions or concerns, feel free to call us anytime. If the office is closed, please feel free to call L&D at [phone] ext [phone]. documented in this encounter [facility] 08-16-2023 History of Present illness Narrative sinusCC: Patient presents with: Follow Up: meds and c/o cough HPI Doug uEgene is a 32 year old female who presents today with daughter, Lena, for for medication review, and also c/o lingering cough and chest congestion. LV was with Claudine Cedeño CNP on 08/25/2022. Patient was recently triaged in the on 08/07/2023, and referred to ED fore headache w/ visual changes. Pt states that she never Patient is currently 22 weeks . Just returned the 28 of July because patient resides in [place] for the most part, but her visa (her is [place]). Will be seeing [facility] tomorrow for initial consult regarding . [facility] for evaluation of flu-was flu A positive last week. Was not tx'ed with anything. Has been taking Robitussin which is helping minimally. REVIEW OF SYSTEMS See HPI All other systems negative. PAST MEDICAL HISTORY Diagnosis Date Anxiety Bipolar II disorder (HCC) 03/25/2019 Chronic post-traumatic stress disorder (PTSD) 03/25/2019 [facility] Depression Diabetes (HCC) Fatty liver Gout Hypertension Menarche age 13 NEGATIVE HISTORY OF 03/12/10 Normal color vision PCOS (polycystic ovarian syndrome) Varicella without mention of complication age 7 years per family PAST SURGICAL HISTORY Procedure Laterality Date SECTION HX 2021 LIVER BIOPSY 11/2014 PARTIAL MASTECTOMY Right 06/24/2019 Desmoid Fibromatosis US BREAST NEEDLE CORE BIOPSY RT Right 05/2019 ALLERGIES Patient has no known allergies. MEDICATIONS flash glucose scanning reader (FREESTYLE SANJUANA 2 READER) ferrous sulfate 325 mg (65 mg iron) tablet Take 1 tablet by mouth once daily. folic acid 1 mg tablet Take 1 tablet by mouth once daily. insulin glargine (BASAGLAR KWIKPEN U-100 INSULIN) 100 unit/mL (3 mL) Inject subcutaneously daily at bedtime. NIFEdipine ER (PROCARDIA XL) 90 mg 24 hr tablet Take 1 tablet by mouth once daily. labetalol (TRANDATE) 200 mg tablet Take 1 tablet by mouth three times daily. pantoprazole DR (PROTONIX) 20 mg tablet Take 1 tablet by mouth once daily. lamoTRIgine (LAMICTAL) 200 mg tablet Take 200 mg by mouth once daily. metFORMIN ER (GLUCOPHAGE XR) 500 mg 24 hr tablet Take 1 tablet by mouth twice daily. Take 1 pill in the morning, and 2 at night. ARIPiprazole (ABILIFY) 30 mg tablet Take 30 mg by mouth once daily. albuterol HFA (VENTOLIN HFA) 90 mcg/actuation inhaler Inhale 2 Puffs as instructed every 4 hours as needed for wheezing/shortness of breath. FAMILY HISTORY Problem Relation Age of Onset Stroke Mother Blood Disease Mother other (Factor V Leiden mutaton) Mother PONV Mother Hypertension Father Diabetes Father Allergies Father other (MS) Brother Cervical Cancer Paternal Aunt Breast Cancer Paternal Aunt Maternal side of family Cancer Maternal Grandmother Brain, lung Colon Cancer Maternal Grandfather other (Eye Disease) Maternal Grandfather Heart Paternal Grandmother 71 x2 Hypertension Paternal Grandfather Diabetes Paternal Grandfather Breast Cancer Maternal great-grandmother Anesthesia Problems No Family History Social History Tobacco Use Smoking status: Never Smokeless tobacco: Never Vaping Use Vaping Use: Never used Substance Use Topics Alcohol use: Yes Comment: Occasionally Drug use: No PHYSICAL EXAM BP 130/62 (BP Site: Right Arm, BP Position: Sitting, BP Cuff Size: Large Adult) Pulse 93 Temp 36.3 C (97.3 F) Resp 16 Ht 162.6 cm (5' 4 ) Wt 117.5 kg (259 lb) LMP 07/30/2022 (Exact Date) SpO2 98% BMI 44.46 kg/m General Appearance: well appearing, in no acute distress, alert, obese body habitus Skin: Skin color, texture, turgor normal for age; Eyes: conjunctiva pink and moist, no icterus, sclera white, non-injected Nose/sinus: Nares normal. Septum midline. Mucosa normal. No drainage. Oropharynx: soft palate, uvula, and tonsils normal Lymph nodes: No cervical lymphadenopathy Lungs: Mild expiratory wheeze noted. No rhonchi, rales. Heart: RRR without murmur, gallop, or rubs. No ectopy ASSESSMENT/PLAN: 1. LRTI (lower respiratory tract infection) - ICD9: 519.8, ICD10: J22 (primary diagnosis) Diagnosis with flu a last week. Symptoms greater than 2 weeks at this point in time, seems to be getting worse and moving into patient's chest. Will refrain from XR at this time d/t patient being ; And go ahead and empirically treat with Augmentin. Discussed medication indications, proper use, and potential adverse effects. All questions and concerns addressed to patient satisfaction. Safety rx printed for abx in the case sinus component persists or progresses despite treatment as outlined above. - AMOXICILLIN 875 MG-POTASSIUM CLAVULANATE 125 MG TABLET 2. 22 weeks gestation of - ICD9: V22.2, ICD10: Z3A.22 Follow-up with OB through [facility] tomorrow, to review medications more in depth and decide what is appropriate and was not. F/u PRN/INB (as patient may return to [place]) Prescription instructions reviewed with patient as applicable. Potential red flag symptoms discussed with the patient. Reviewed appropriate action plan to take if red flag symptoms occur. Patient agreeable to treatment plan. Hiral Mendoza PA-C documented in this encounter [facility] 08-16-2023 Nurse Note Patient takes insulin in a pen ordered in [place]: Novorapid documented in this encounter [facility] 08-07-2023 Note HNO ID: [id number] Author: TODD LOREDO APRN.CNP Service: ? Author Type: Nurse Practitioner Type: Progress Notes Filed: 08/07/2023 19:10 Note Text: Nontoxic-appearing female presents urgent care accompanied by significant other. Chief complaint headache visual changes. Patient states headaches been present for the last few days. Has had blurry vision. Rates pain 8 out of 10. Currently 20 weeks . Tylenol is not helping with headache management. With patient's rating symptoms unable to obtain as pain management through outpatient therapy I recommended patient be seen ED for further evaluation care. Will be seen at [facility] where her HEALTH TECHNICAL WRITER is affiliated with. Patient verbalized understand agrees plan of care. Todd Loredo APRN.CNP [facility] 08-07-2023 History of Present illness Narrative Nontoxic-appearing female presents urgent care accompanied by significant other. Chief complaint headache visual changes. Patient states headaches been present for the last few days. Has had blurry vision. Rates pain 8 out of 10. Currently 20 weeks . Tylenol is not helping with headache management. With patient's rating symptoms unable to obtain as pain management through outpatient therapy I recommended patient be seen ED for further evaluation care. Will be seen at [facility] where her HEALTH TECHNICAL WRITER is affiliated with. Patient verbalized understand agrees plan of care. Todd Loredo APRN.ARNALDO documented in this encounter [facility] 08-25-2022 Note HNO ID: [id number] Author: Claudine Cedeño APRN.ARNALDO Service: ? Author Type: Nurse Practitioner Type: Progress Notes Filed: 08/25/2022 1:23 PM Note Text: CC Patient presents with: Recheck: BP follow up HPI Doug Eugene is a 31 year old female who presents to the office for blood pressure. Her visit today is for re-evaluation. Patient was last seen for this approximately 1 month ago. Is moving to [facility] in a few days for unknown length time possibly forever. Medication changes: Yes started on triamterene Side effects: No Home BP's: Yes 140/70s Denies: headache, chest pain, palpitations, dyspnea, and peripheral edema. Last 4 Encounter BP Readings: Date: BP: 08/25/2022 132/84 08/01/2022 143/78 08/01/2022 120/68 07/27/2022 136/70 Last 3 Encounter Wt Readings: Date: Wt: 08/25/2022 119.7 kg (264 lb) 08/01/2022 120.7 kg (266 lb) 08/01/2022 120.7 kg (266 lb) A few months ago started taking the labetolol once daily. [facility] felt her BP was controlled so told to continue with daily a few months ago. Sees [facility] for hypertension that intensified with last year. Considering trying for another child this year. Restarted her triamterene once daily about a month ago but has not seen any changes. Needs refill on pantoprazole prior to moving. Reports current control of her symptoms without heartburn, difficulty swallowing, nausea, or abdominal pain. REVIEW OF SYSTEMS General: no fevers, no chills, no night sweats, no recurrent infections, no change in appetite, no change in energy, and no significant changes in weight Respiratory: no cough, no wheezing, no shortness of breath, no hemoptysis Cardiovascular: no chest pain, no chest pressure, no palpitations, and no swelling GI: No nausea, vomiting, or diarrhea Neurologic: No headache, weakness, numbness, tingling, dizziness, syncope. PAST MEDICAL HISTORY Diagnosis Date Anxiety Bipolar II disorder (HCC) 03/25/2019 Chronic post-traumatic stress disorder (PTSD) 03/25/2019 [facility] Depression Diabetes (HCC) Fatty liver Gout Hypertension Menarche age 13 NEGATIVE HISTORY OF 03/12/10 Normal color vision PCOS (polycystic ovarian syndrome) Varicella without mention of complication age 7 years per family PAST SURGICAL HISTORY Procedure Laterality Date SECTION HX 2021 LIVER BIOPSY 11/2014 PARTIAL MASTECTOMY Right 06/24/2019 Desmoid Fibromatosis US BREAST NEEDLE CORE BIOPSY RT Right 05/2019 ALLERGIES Patient has no known allergies. MEDICATIONS magnesium oxide (MAG-OX) 400 mg (241.3 mg magnesium) tablet Take 1 tablet by mouth once daily. ondansetron orally disintegrating (ZOFRAN ODT) 4 mg disintegrating tablet Take 1 tablet by mouth every 6 hours as needed. potassium chloride ER (K-DUR, KLOR-CON) 20 mEq tablet Take 1 tablet by mouth once daily. triamterene (DYRENIUM) 50 mg capsule Take 1 capsule by mouth twice daily. fluticasone (FLONASE) 50 mcg/actuation nasal spray Use 2 Sprays in each nostril once daily. Rinse mouth after use. pantoprazole DR (PROTONIX) 20 mg tablet Take 1 tablet by mouth once daily. metFORMIN ER (GLUCOPHAGE XR) 500 mg 24 hr tablet Take 1 tablet by mouth twice daily. Take 1 pill in the morning, and 2 at night. labetalol (TRANDATE) 200 mg tablet Take 1 tablet by mouth three times daily. ARIPiprazole (ABILIFY) 30 mg tablet Take 30 mg by mouth once daily. NIFEdipine ER (PROCARDIA XL) 60 mg 24 hr tablet Take 1 tablet by mouth once daily. metFORMIN ER (GLUCOPHAGE XR) 500 mg 24 hr tablet Take 1 tablet by mouth three times daily. Take 1 pill in the morning, and 2 at night. ferrous sulfate 325 mg (65 mg iron) tablet Take 1 tablet by mouth twice daily with meals. albuterol HFA (VENTOLIN HFA) 90 mcg/actuation inhaler Inhale 2 Puffs as instructed every 4 hours as needed for wheezing/shortness of breath. lamoTRIgine (LAMICTAL) 200 mg tablet Take 200 mg by mouth once daily. pantoprazole DR (PROTONIX) 20 mg tablet Take 1 tablet by mouth once daily. NIFEdipine ER (PROCARDIA XL) 30 mg 24 hr tablet Take 30 mg by mouth once daily. FAMILY HISTORY Problem Relation Age of Onset Stroke Mother Blood Disease Mother other (Factor V Leiden mutaton) Mother PONV Mother Hypertension Father Diabetes Father Allergies Father other (MS) Brother Cervical Cancer Paternal Aunt Breast Cancer Paternal Aunt Maternal side of family Cancer Maternal Grandmother Brain, lung Colon Cancer Maternal Grandfather other (Eye Disease) Maternal Grandfather Heart Paternal Grandmother 71 x2 Hypertension Paternal Grandfather Diabetes Paternal Grandfather Breast Cancer Maternal great-grandmother Anesthesia Problems No Family History Social History Tobacco Use Smoking status: Never Smokeless tobacco: Never Vaping Use Vaping Use: Never used Substance Use Topics Alcohol use: Yes Comment: Occasionally Drug use: No P (more content not included)... [facility] 08-25-2022 History of Present illness Narrative CC Patient presents with: Recheck: BP follow up HPI Doug Eugene is a 31 year old female who presents to the office for blood pressure. Her visit today is for re-evaluation. Patient was last seen for this approximately 1 month ago. Is moving to [facility] in a few days for unknown length time possibly forever. Medication changes: Yes started on triamterene\ Side effects: No Home BP's: Yes 140/70s Denies: headache, chest pain, palpitations, dyspnea, and peripheral edema. Last 4 Encounter BP Readings: Date: BP: 08/25/2022 132/84 08/01/2022 143/78 08/01/2022 120/68 07/27/2022 136/70 Last 3 Encounter Wt Readings: Date: Wt: 08/25/2022 119.7 kg (264 lb) 08/01/2022 120.7 kg (266 lb) 08/01/2022 120.7 kg (266 lb) A few months ago started taking the labetolol once daily. [facility] felt her BP was controlled so told to continue with daily a few months ago. Sees [facility] for hypertension that intensified with last year. Considering trying for another child this year. Restarted her triamterene once daily about a month ago but has not seen any changes. Needs refill on pantoprazole prior to moving. Reports current control of her symptoms without heartburn, difficulty swallowing, nausea, or abdominal pain. REVIEW OF SYSTEMS General: no fevers, no chills, no night sweats, no recurrent infections, no change in appetite, no change in energy, and no significant changes in weight Respiratory: no cough, no wheezing, no shortness of breath, no hemoptysis Cardiovascular: no chest pain, no chest pressure, no palpitations, and no swelling GI: No nausea, vomiting, or diarrhea Neurologic: No headache, weakness, numbness, tingling, dizziness, syncope. PAST MEDICAL HISTORY Diagnosis Date Anxiety Bipolar II disorder (HCC) 03/25/2019 Chronic post-traumatic stress disorder (PTSD) 03/25/2019 [facility] Depression Diabetes (HCC) Fatty liver Gout Hypertension Menarche age 13 NEGATIVE HISTORY OF 03/12/10 Normal color vision PCOS (polycystic ovarian syndrome) Varicella without mention of complication age 7 years per family PAST SURGICAL HISTORY Procedure Laterality Date SECTION HX 2021 LIVER BIOPSY 11/2014 PARTIAL MASTECTOMY Right 06/24/2019 Desmoid Fibromatosis US BREAST NEEDLE CORE BIOPSY RT Right 05/2019 ALLERGIES Patient has no known allergies. MEDICATIONS magnesium oxide (MAG-OX) 400 mg (241.3 mg magnesium) tablet Take 1 tablet by mouth once daily. ondansetron orally disintegrating (ZOFRAN ODT) 4 mg disintegrating tablet Take 1 tablet by mouth every 6 hours as needed. potassium chloride ER (K-DUR, KLOR-CON) 20 mEq tablet Take 1 tablet by mouth once daily. triamterene (DYRENIUM) 50 mg capsule Take 1 capsule by mouth twice daily. fluticasone (FLONASE) 50 mcg/actuation nasal spray Use 2 Sprays in each nostril once daily. Rinse mouth after use. pantoprazole DR (PROTONIX) 20 mg tablet Take 1 tablet by mouth once daily. metFORMIN ER (GLUCOPHAGE XR) 500 mg 24 hr tablet Take 1 tablet by mouth twice daily. Take 1 pill in the morning, and 2 at night. labetalol (TRANDATE) 200 mg tablet Take 1 tablet by mouth three times daily. ARIPiprazole (ABILIFY) 30 mg tablet Take 30 mg by mouth once daily. NIFEdipine ER (PROCARDIA XL) 60 mg 24 hr tablet Take 1 tablet by mouth once daily. metFORMIN ER (GLUCOPHAGE XR) 500 mg 24 hr tablet Take 1 tablet by mouth three times daily. Take 1 pill in the morning, and 2 at night. ferrous sulfate 325 mg (65 mg iron) tablet Take 1 tablet by mouth twice daily with meals. albuterol HFA (VENTOLIN HFA) 90 mcg/actuation inhaler Inhale 2 Puffs as instructed every 4 hours as needed for wheezing/shortness of breath. lamoTRIgine (LAMICTAL) 200 mg tablet Take 200 mg by mouth once daily. pantoprazole DR (PROTONIX) 20 mg tablet Take 1 tablet by mouth once daily. NIFEdipine ER (PROCARDIA XL) 30 mg 24 hr tablet Take 30 mg by mouth once daily. FAMILY HISTORY Problem Relation Age of Onset Stroke Mother Blood Disease Mother other (Factor V Leiden mutaton) Mother PONV Mother Hypertension Father Diabetes Father Allergies Father other (MS) Brother Cervical Cancer Paternal Aunt Breast Cancer Paternal Aunt Maternal side of family Cancer Maternal Grandmother Brain, lung Colon Cancer Maternal Grandfather other (Eye Disease) Maternal Grandfather Heart Paternal Grandmother 71 x2 Hypertension Paternal Grandfather Diabetes Paternal Grandfather Breast Cancer Maternal great-grandmother Anesthesia Problems No Family History Social History Tobacco Use Smoking status: Never Smokeless tobacco: Never Vaping Use Vaping Use: Never used Substance Use Topics Alcohol use: Yes Comment: Occasionally Drug use: No PHYSICAL EXAM BP 132/84 Pulse 96 Temp 36.3 C (97.3 F) (Temporal) Resp 16 Wt 119.7 kg (264 lb) LMP 07/30/2022 (Exact Date) SpO2 97% BMI 45.32 kg/m General Appearance: well appearing, in no acute distress, alert Skin: Skin color, texture, turgor normal for age; Eyes: conjunctiva pink and moist, no icterus, sclera white, non-injected Neck: Thyroid normal size and symmetric without palpable nodules, No adenopathy Lymph nodes: No cervical lymphadenopathy, No supraclavicular lymphadenopathy, No axillary lymphadenopathy., and No inguinal lymphadenopathy. Lungs: Lungs clear to auscultation. No wheezing, rhonchi, rales. Heart: RRR without murmur, gallop, or rubs. No ectopy DATA REVIEWED: Most recent labs ASSESSMENT/PLAN: 1. Essential hypertension, benign - ICD9: 401.1, ICD10: I10 (primary diagnosis) - fair control - Continue current medication(s) except with plans to get , stop triamterene and restart labetolol for 3 times a day as previously taking. Start with twice a day and if tolerating after 1 week increase to 3 times a day - need to establish with PCP in [place] or [place] follow up in office in 2-4 weeks - Recommended regular aerobic exercise. - Recommend home blood pressure monitoring, to bring results in on next visit - Goal of BP <130/80 2. Gastroesophageal reflux disease without esophagitis - ICD9: 530.81, ICD10: K21.9 - Discussed lifestyle modifications including losing weight, limiting caffeine, no meals three hours before sleep, and head of bed elevation - PANTOPRAZOLE 20 MG TABLET,DELAYED RELEASE Prescription instructions reviewed with patient as applicable. Potential red flag symptoms discussed with the patient. Reviewed appropriate action plan to take if red flag symptoms occur. Patient agreeable to treatment plan Claudine Cedeño APRN.CNP documented in this encounter [facility] 08-01-2022 History of Present illness Narrative This note was created using [employer]. Subjective Doug Eugene is a 31 year old female. HPI 31-year-old female with type II DM presents for vomiting and diarrhea since yesterday. Patient states she started having vomiting and diarrhea yesterday. She has had a fever since yesterday. She has not been able to even keep down water since last night. She states she tried to drink water just prior to coming in, but vomited immediately afterwards. She denies any sick contacts. She has a temp of 102.2 F. She is not having any abdominal pain. States she has not been checking her sugar at home and has not been able to keep down her diabetic medications today. No cough or URI symptoms. PAST MEDICAL HISTORY Diagnosis Date Anxiety Bipolar II disorder (HCC) 03/25/2019 Chronic post-traumatic stress disorder (PTSD) 03/25/2019 [facility] Depression Diabetes (HCC) Fatty liver Gout Hypertension Menarche age 13 NEGATIVE HISTORY OF 03/12/10 Normal color vision PCOS (polycystic ovarian syndrome) Varicella without mention of complication age 7 years per family PAST SURGICAL HISTORY Procedure Laterality Date SECTION HX 2021 LIVER BIOPSY 11/2014 PARTIAL MASTECTOMY Right 06/24/2019 Desmoid Fibromatosis US BREAST NEEDLE CORE BIOPSY RT Right 05/2019 ALLERGIES Patient has no known allergies. MEDICATIONS triamterene (DYRENIUM) 50 mg capsule Take 1 capsule by mouth twice daily. fluticasone (FLONASE) 50 mcg/actuation nasal spray Use 2 Sprays in each nostril once daily. Rinse mouth after use. pantoprazole DR (PROTONIX) 20 mg tablet Take 1 tablet by mouth once daily. metFORMIN ER (GLUCOPHAGE XR) 500 mg 24 hr tablet Take 1 tablet by mouth twice daily. Take 1 pill in the morning, and 2 at night. labetalol (TRANDATE) 200 mg tablet Take 1 tablet by mouth three times daily. ARIPiprazole (ABILIFY) 30 mg tablet Take 30 mg by mouth once daily. NIFEdipine ER (PROCARDIA XL) 60 mg 24 hr tablet Take 1 tablet by mouth once daily. metFORMIN ER (GLUCOPHAGE XR) 500 mg 24 hr tablet Take 1 tablet by mouth three times daily. Take 1 pill in the morning, and 2 at night. ferrous sulfate 325 mg (65 mg iron) tablet Take 1 tablet by mouth twice daily with meals. albuterol HFA (VENTOLIN HFA) 90 mcg/actuation inhaler Inhale 2 Puffs as instructed every 4 hours as needed for wheezing/shortness of breath. lamoTRIgine (LAMICTAL) 200 mg tablet Take 200 mg by mouth once daily. pantoprazole DR (PROTONIX) 20 mg tablet Take 1 tablet by mouth once daily. NIFEdipine ER (PROCARDIA XL) 30 mg 24 hr tablet Take 30 mg by mouth once daily. traMADol (ULTRAM) 50 mg tablet Take 1 tablet by mouth every 4 hours as needed for pain. (Patient not taking: Reported on 07/25/2022) hydroCHLOROthiazide (HYDRODIURIL, ESIDRIX) 12.5 mg capsule Take 1 capsule by mouth once daily. (Patient taking differently: Take 12.5 mg by mouth as needed.) aspirin 81 mg cap Take by mouth. (Patient not taking: Reported on 03/24/2022) vits62/FA/om3/dha/epa ( GUMMY ORAL) Take by mouth. (Patient not taking: Reported on 03/24/2022) HUMULIN N NPH INSULIN KWIKPEN 100 unit/mL (3 mL) injection pen 8 Units daily at bedtime. (Patient not taking: Reported on 03/24/2022) FAMILY HISTORY Problem Relation Age of Onset Stroke Mother Blood Disease Mother other (Factor V Leiden mutaton) Mother PONV Mother Hypertension Father Diabetes Father Allergies Father other (MS) Brother Cervical Cancer Paternal Aunt Breast Cancer Paternal Aunt Maternal side of family Cancer Maternal Grandmother Brain, lung Colon Cancer Maternal Grandfather other (Eye Disease) Maternal Grandfather Heart Paternal Grandmother 71 x2 Hypertension Paternal Grandfather Diabetes Paternal Grandfather Breast Cancer Maternal great-grandmother Anesthesia Problems No Family History Social History Tobacco Use Smoking status: Never Smokeless tobacco: Never Vaping Use Vaping Use: Never used Substance Use Topics Alcohol use: Yes Comment: Occasionally Drug use: No Review of Systems Constitutional: Positive for chills and fever. HENT: Negative for congestion, ear pain and sore throat. Respiratory: Negative for cough and shortness of breath. Cardiovascular: Negative for chest pain. Gastrointestinal: Positive for diarrhea, nausea and vomiting. Objective BP 120/68 Pulse (!) 160 Temp (!) 39 C (102.2 F) Resp 21 Wt 120.7 kg (266 lb) LMP 04/04/2022 SpO2 98% BMI 45.66 kg/m Physical Exam Vitals reviewed. Constitutional: General: She is not in acute distress. Appearance: Normal appearance. She is not toxic-appearing. HENT: Right Ear: Tympanic membrane and ear canal normal. Left Ear: Tympanic membrane and ear canal normal. Nose: Nose normal. Mouth/Throat: Mouth: Mucous membranes are dry. Pharynx: No oropharyngeal exudate or posterior oropharyngeal erythema. Eyes: Conjunctiva/sclera: Conjunctivae normal. Cardiovascular: Rate and Rhythm: Regular rhythm. Tachycardia present. Comments: HR 130 on my evaluation Pulmonary: Effort: Pulmonary effort is normal. Breath sounds: Normal breath sounds. Abdominal: General: Abdomen is flat. Palpations: Abdomen is soft. Tenderness: There is no abdominal tenderness. There is no guarding or rebound. Neurological: Mental Status: She is alert. Assessment and Plan ASSESSMENT/PLAN: 1. Vomiting and diarrhea - ICD9: 787.03, 787.91, ICD10: R11.10, R19.7 (primary diagnosis) 2. Fever, unspecified fever cause - ICD9: 780.60, ICD10: R50.9 - INFLUENZA A&B MOLECULAR (POC) - Rapid Flu negative 3. Type 2 diabetes mellitus without complication, without long-term current use of insulin (HCC) - ICD9: 250.00, ICD10: E11.9 Due to vomiting/diarrhea, inability to keep down fluids, tachycardia, with history of diabetes and unable to keep down medications, I recommended evaluation in the emergency department. Patient is tachycardic here in 160s documented by nursing, HR 130 after sitting, concern for dehydration. She is febrile. We did a rapid flu test- negative . Offered to do a glucose check, but patient declines as she will be going to the emergency room. She would likely benefit from lab testing and IV fluids. Offered ambulance, but patient prefers to drive herself. CARO Can documented in this encounter [facility] 07-27-2022 History of Present illness Narrative Reason for Visit Patient presents with: Same Day Appointment: h/a's, elevated Blood pressure,fatigue,weak, ear pain x 1 week after surgery Doug Eugene is a 31 year old female who presents here today for Above Complaints. Health Maintenance DILATED RETINAL EXAM URINE ALBUMIN:CREATININE RATIO LDL CHOLESTEROL HPI Patient had breast surgery-lumpectomy a week ago, the whole area is painful and tender. Since her surgery She has not been feeling well. She has a headache, fatigue, weird noise in her ear, heart palpitation episode. Her pulses are 115. Her bp medications were reduced recently. Thinks that her bp is likely causing some of these symptoms. Currently on labetalol at 200 once a day and procardia at 90. She has a ringing or purring in her ear. The headaches have not stopped for a while now. Patient has gained her weight and she is not sure how and why she gained the weight. Patient also has a headache, in the front. She has been checking her bp at home recently. No problem-specific Assessment & Plan notes found for this encounter. PAST MEDICAL HISTORY Diagnosis Date Anxiety Bipolar II disorder (HCC) 03/25/2019 Chronic post-traumatic stress disorder (PTSD) 03/25/2019 [facility] Depression Diabetes (HCC) Fatty liver Gout Hypertension Menarche age 13 NEGATIVE HISTORY OF 03/12/10 Normal color vision PCOS (polycystic ovarian syndrome) Varicella without mention of complication age 7 years per family PAST SURGICAL HISTORY Procedure Laterality Date SECTION HX 2021 LIVER BIOPSY 11/2014 PARTIAL MASTECTOMY Right 06/24/2019 Desmoid Fibromatosis US BREAST NEEDLE CORE BIOPSY RT Right 05/2019 FAMILY HISTORY Problem Relation Age of Onset Stroke Mother Blood Disease Mother other (Factor V Leiden mutaton) Mother PONV Mother Hypertension Father Diabetes Father Allergies Father other (MS) Brother Cervical Cancer Paternal Aunt Breast Cancer Paternal Aunt Maternal side of family Cancer Maternal Grandmother Brain, lung Colon Cancer Maternal Grandfather other (Eye Disease) Maternal Grandfather Heart Paternal Grandmother 71 x2 Hypertension Paternal Grandfather Diabetes Paternal Grandfather Breast Cancer Maternal great-grandmother Anesthesia Problems No Family History Social History Tobacco Use Smoking status: Never Smokeless tobacco: Never Vaping Use Vaping Use: Never used Substance Use Topics Alcohol use: Yes Comment: Occasionally Drug use: No Past medical history, appointments, medications, allergies reviewed. Pertinent Lab/Diagnostic Studies are reviewed and discussed today Current Outpatient Medications: fluticasone (FLONASE) 50 mcg/actuation nasal spray traMADol (ULTRAM) [address] (PROTONIX) 20 mg tablet metFORMIN ER (GLUCOPHAGE XR) 500 mg 24 hr tablet labetalol (TRANDATE) 200 mg tablet ARIPiprazole (ABILIFY) 30 mg tablet NIFEdipine ER (PROCARDIA XL) 60 mg 24 hr tablet hydroCHLOROthiazide (HYDRODIURIL, ESIDRIX) 12.5 mg capsule metFORMIN ER (GLUCOPHAGE XR) 500 mg 24 hr tablet ferrous sulfate 325 mg (65 mg iron) tablet albuterol HFA (VENTOLIN HFA) 90 mcg/actuation inhaler lamoTRIgine (LAMICTAL) [address] (PROTONIX) 20 mg tablet NIFEdipine ER (PROCARDIA XL) 30 mg 24 hr tablet aspirin 81 mg cap vits62/FA/om3/dha/epa ( GUMMY ORAL) HUMULIN N NPH INSULIN KWIKPEN 100 unit/mL (3 mL) injection pen Review of Systems CONSTITUTIONAL: No fevers, chills night sweats, unintended weight loss CARDIOVASCULAR: No chest pain, dyspnea, palpitations, orthopnea, PND, ankle edema. PULM: No dyspnea, unexplained cough. GI: No dysphagia/odynophagia, problematic reflux, constipation, diarrhea, changes in stool habits, hematochezia, melena. : No new urinary complaints, including dysuria, gross hematuria or pyuria. NEURO: No new balance problems, peripheral weakness/paresthesias or numbness of concern. Physical Exam BP 142/66 (BP Site: Left Arm, BP Position: Sitting, BP Cuff Size: Large Adult) Pulse 94 Temp 36.9 C (98.5 F) Resp 14 Ht 162.6 cm (5' 4 ) Wt 121.1 kg (267 lb) LMP 04/04/2022 SpO2 97% BMI 45.83 kg/m General appearance: Well appearing, alert, in no acute distress, well nourished. Skin: Skin color, texture, turgor normal, no suspicious rashes or lesions Head: Normocephalic, no masses, lesions, tenderness or abnormalities Eyes: Anicteric sclera. Pupils are equally round and reactive to light. Extraocular movements are intact. Lungs: Lungs clear to auscultation. No wheezing, rhonchi, rales Ears: R TM - clear with good landmarks, nl light reflex, L TM - clear with good landmarks, nl light reflex Heart: RRR without murmur, gallop, or rubs. Extremities: No deformities, edema, skin discoloration, clubbing or cyanosis. Good capillary refill. ASSESSMENT/PLAN: 1. Uncontrolled hypertension - ICD9: 401.9, ICD10: I10 I think most of her symptoms are from uncontrolled Hypertension jay the wooshing in her ears. I think a diuretic would be helpful for her She cannot tolerate hctx so I have given her triamtereme Angie Costello MD documented in this encounter [facility] 07-27-2022 Nurse Note Post op Last mammogram on: 03/31/21 right only Results: see report Is the patient active on MyChart Yes Electronically Signed By: Alexandra Flynn LPN In Department: [facility] REVIEW OF PATIENT HISTORY: OB History T0 L0 SAB0 IAB0 Ectopic0 Multiple0 Live Births0 Comment: Menarche: 13?; Age at 1st : n/a; Premenopausal FAMILY HISTORY Problem Relation Age of Onset Stroke Mother Blood Disease Mother other (Factor V Leiden mutaton) Mother PONV Mother Hypertension Father Diabetes Father Allergies Father other (MS) Brother Cervical Cancer Paternal Aunt Breast Cancer Paternal Aunt Maternal side of family Cancer Maternal Grandmother Brain, lung Colon Cancer Maternal Grandfather other (Eye Disease) Maternal Grandfather Heart Paternal Grandmother 71 x2 Hypertension Paternal Grandfather Diabetes Paternal Grandfather Breast Cancer Maternal great-grandmother Anesthesia Problems No Family History PAST MEDICAL HISTORY Diagnosis Date Anxiety Bipolar II disorder (HCC) 03/25/2019 Chronic post-traumatic stress disorder (PTSD) 03/25/2019 [facility] Depression Diabetes (HCC) Fatty liver Gout Hypertension Menarche age 13 NEGATIVE HISTORY OF 03/12/10 Normal color vision PCOS (polycystic ovarian syndrome) Varicella without mention of complication age 7 years per family PAST SURGICAL HISTORY Procedure Laterality Date SECTION HX 2021 LIVER BIOPSY 11/2014 PARTIAL MASTECTOMY Right 06/24/2019 Desmoid Fibromatosis US BREAST NEEDLE CORE BIOPSY RT Right 05/2019 Social History Tobacco Use Smoking status: Never Smokeless tobacco: Never Vaping Use Vaping Use: Never used Substance Use Topics Alcohol use: Yes Comment: Occasionally Drug use: No documented in this encounter [facility] 07-27-2022 History of Present illness Narrative REASON FOR TODAY'S VISIT: Patient presents with: Post Op HISTORY of PRESENT ILLNESS: Doug Eugene is a 31 year old female who is s/p a RIGHT breast roxy uncrater localized mass excision performe by Dr. Awad (Breast Surgeon) on 07/18/2022. She reports some swelling and shooting intermittent pains, but admits her five month old daughter has whacked her a couple of times very hard. Reports she is using pain NSAIDS and ice which is helping with the pain. Pain of the surgical site is reported as intermittent stabbing/ achy pain. Denies any redness, bruising or discharge from the incision. She denies any fever or chills. Pain of the surgical site is reported as intermittent stabbing/ achy pain. States she will be moving to [place] to join her with her in August 2022. FH: The patient has a family history of breast cancer in her maternal mother and paternal great aunt. She consulted with [facility] and underwent genetic testing in 07/2019. She was found negative for Factor V Leiden, a known hereditary clotting risk factor in her family. Additional testing of the APC gene sequencing and large rearrangement analysis was negative for a deleterious mutation. SURGICAL PATHOLOGY: FINAL DIAGNOSIS Right breast, oriented excision - Tubular adenoma, (please see comment). -Biopsy site changes and biopsy clip (x1) are identified. Diagnosis Comment The specimen has been entirely submitted for histologic examination. This case has been reviewed in consultation with Dr. Jiménez, of the [facility] breast pathology department, who concurs. BREAST EXAMINATION: The patient was examined in the upright position. RIGHT breast soft, with remnants of mild ecchymosis resolving noted. No dominant masses, nipple everted, no discharge, no skin changes. The simón-areolar incision is healing well. RIGHT axilla no palpable lymphadenopathy, no evidence of lymphedema, and good range of motion Regional Lymph Nodes: There is no concerning supraclavicular, infraclavicular or cervical lymphadenopathy. IMPRESSION: Doug uEgene is a 31 year old female who is s/p a a RIGHT breast roxy uncrater localized mass excision performe by Dr. Awad (Breast Surgeon) on 07/18/2022. Final pathology report was benign, tubular adenoma. She initially presented on 03/24/2023 with a RIGHT breast mass @ 12:00 retroareolar (bx FA 2019) size to be 1.3 cm, roxy in place s/p a Right breast wire localized lumpectomy performed on 06/25/2019. 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 PLAN: Pathology report reviewed by (Breast Surgeon) and with the patient. Instructions for pain and wound management reviewed including wearing good support bra, ice packs,use of OTC medication and advised to guard the area from any trauma. Advised to call if symptoms do not improve. Signs and symptoms of infection, and seroma development were reviewed with the patient. All questions were answered and she had no further concerns. Patient was may consult with a Medical Breast Specialist, but states she is moving to [facility] and will find a caregiver at that time. Ms. Eugene will follow-up with us on an as needed basis.. She is encouraged to follow-up with her primary care physician, Angie Costello MD. She has our names and numbers to stay in touch if she has any questions, concerns or problems in the interim. Isabelle Diamond PA-C cc: Angie Costello [address] [place] [address] documented in this encounter [facility] 07-25-2022 History of Present illness Narrative Subjective HPI HPI Doug Eugene is a 31 year old female who presents today for CC of intermittent headache and left ear ache. This started 2 days ago. Has tried nothing for relief. Symptoms are worsened by nothing. Risk factors denies uri symptoms. Having fast heart rate per apple watch/150 this AM. Reports intermittent chest heaviness for past few days, has had this on/off for months, seen/cleared in ER for this. Recent breast lumpectomy, denies complication. .Patient presents with: Ear Pain: left, headache x 2 days PAST MEDICAL HISTORY Diagnosis Date Anxiety Bipolar II disorder (HCC) 03/25/2019 Chronic post-traumatic stress disorder (PTSD) 03/25/2019 [facility] Depression Diabetes (HCC) Fatty liver Gout Hypertension Menarche age 13 NEGATIVE HISTORY OF 03/12/10 Normal color vision PCOS (polycystic ovarian syndrome) Varicella without mention of complication age 7 years per family PAST SURGICAL HISTORY Procedure Laterality Date SECTION HX 2021 LIVER BIOPSY 11/2014 PARTIAL MASTECTOMY Right 06/24/2019 Desmoid Fibromatosis US BREAST NEEDLE CORE BIOPSY RT Right 05/2019 ALLERGIES Patient has no known allergies. MEDICATIONS pantoprazole DR (PROTONIX) 20 mg tablet Take 1 tablet by mouth once daily. metFORMIN ER (GLUCOPHAGE XR) 500 mg 24 hr tablet Take 1 tablet by mouth twice daily. Take 1 pill in the morning, and 2 at night. labetalol (TRANDATE) 200 mg tablet Take 1 tablet by mouth three times daily. ARIPiprazole (ABILIFY) 30 mg tablet Take 30 mg by mouth once daily. NIFEdipine ER (PROCARDIA XL) 60 mg 24 hr tablet Take 1 tablet by mouth once daily. metFORMIN ER (GLUCOPHAGE XR) 500 mg 24 hr tablet Take 1 tablet by mouth three times daily. Take 1 pill in the morning, and 2 at night. albuterol HFA (VENTOLIN HFA) 90 mcg/actuation inhaler Inhale 2 Puffs as instructed every 4 hours as needed for wheezing/shortness of breath. lamoTRIgine (LAMICTAL) 200 mg tablet Take 200 mg by mouth once daily. pantoprazole DR (PROTONIX) 20 mg tablet Take 1 tablet by mouth once daily. NIFEdipine ER (PROCARDIA XL) 30 mg 24 hr tablet Take 30 mg by mouth once daily. fluticasone (FLONASE) 50 mcg/actuation nasal spray Use 2 Sprays in each nostril once daily. Rinse mouth after use. traMADol (ULTRAM) 50 mg tablet Take 1 tablet by mouth every 4 hours as needed for pain. (Patient not taking: Reported on 07/25/2022) hydroCHLOROthiazide (HYDRODIURIL, ESIDRIX) 12.5 mg capsule Take 1 capsule by mouth once daily. (Patient taking differently: Take 12.5 mg by mouth as needed.) ferrous sulfate 325 mg (65 mg iron) tablet Take 1 tablet by mouth twice daily with meals. aspirin 81 mg cap Take by mouth. (Patient not taking: Reported on 03/24/2022) vits62/FA/om3/dha/epa ( GUMMY ORAL) Take by mouth. (Patient not taking: Reported on 03/24/2022) HUMULIN N NPH INSULIN KWIKPEN 100 unit/mL (3 mL) injection pen 8 Units daily at bedtime. (Patient not taking: Reported on 03/24/2022) FAMILY HISTORY Problem Relation Age of Onset Stroke Mother Blood Disease Mother other (Factor V Leiden mutaton) Mother PONV Mother Hypertension Father Diabetes Father Allergies Father other (MS) Brother Cervical Cancer Paternal Aunt Breast Cancer Paternal Aunt Maternal side of family Cancer Maternal Grandmother Brain, lung Colon Cancer Maternal Grandfather other (Eye Disease) Maternal Grandfather Heart Paternal Grandmother 71 x2 Hypertension Paternal Grandfather Diabetes Paternal Grandfather Breast Cancer Maternal great-grandmother Anesthesia Problems No Family History Social History Tobacco Use Smoking status: Never Smokeless tobacco: Never Vaping Use Vaping Use: Never used Substance Use Topics Alcohol use: Yes Comment: Occasionally Drug use: No ROS Objective Blood pressure 120/68, pulse 112, temperature 36.8 C (98.2 F), resp. rate 16, weight 120.7 kg (266 lb), last menstrual period 04/04/2022, SpO2 98 %. Physical Exam Constitutional: General: She is not in acute distress. Appearance: She is not toxic-appearing or diaphoretic. HENT: Head: Normocephalic and atraumatic. Right Ear: Hearing, tympanic membrane, ear canal and external ear normal. Left Ear: Hearing, tympanic membrane, ear canal and external ear normal. Nose: Nose normal. Mouth/Throat: Pharynx: Uvula midline. No pharyngeal swelling, oropharyngeal exudate, posterior oropharyngeal erythema or uvula swelling. Eyes: General: Lids are normal. No scleral icterus. Right eye: No discharge. Left eye: No discharge. Conjunctiva/sclera: Conjunctivae normal. Pupils: Pupils are equal, round, and reactive to light. Neck: Trachea: Trachea normal. Cardiovascular: Rate and Rhythm: Regular rhythm. Tachycardia present. Heart sounds: Normal heart sounds. Pulmonary: Effort: Pulmonary effort is normal. Breath sounds: Normal breath sounds. Musculoskeletal: Cervical back: Normal range of motion and neck supple. Lymphadenopathy: Cervical: No cervical adenopathy. Right cervical: No superficial cervical adenopathy. Left cervical: No superficial cervical adenopathy. Skin: Findings: No rash. Neurological: Mental Status: She is alert and oriented to person, place, and time. ASSESSMENT/PLAN: 1. ETD (Eustachian tube dysfunction), left - ICD9: 381.81, ICD10: H69.82 (primary diagnosis) -use medication as prescribed -follow up if symptoms persist, worsen, change - FLUTICASONE PROPIONATE 50 MCG/ACTUATION NASAL SPRAY,SUSPENSION 2. Heart rate fast - ICD9: 785.0, ICD10: R00.0 No symptoms today Will refer to pcp for debra appointment -If you experience chest pain/shortness of breath go to ER Percy Lee APRN.ARNALDO documented in this encounter [facility] 07-08-2022 History of Present illness Narrative Reason for Visit Patient presents with: Same Day Appointment: right foot abrasion possible infection Doug Eugene is a 31 year old female who presents here today for Above Complaints.. Health Maintenance PNEUMOCOCCAL(1 - PCV) HEPATITIS C SCREENING DIABETIC FOOT EXAM BP CONTROLLED (<130/80) COVID-19 VACCINE(4 - Booster for Pfizer series) INFLUENZA(1) DILATED RETINAL EXAM HPI Just this past Monday07/02/21 while flying home, feet (primarily right foot) became uncontrollably itchy, resulting in her to scratch her foot. 2 cm abrasion noted to dorsal surface. Redness, slightly warm, mildly swollen. Foot is no longer itchy, however is sore. Denies fever or chills. Oozing yellow like pus the past 2 days. Denies using any creams or OTC treatments for wound. DIABETES MELLITUS: Last A1c stable 5.4. Denies checking sugars at home. Denies any recent low spells. Currently on metformin - tolerating well. Denies any side effects. Starting to watch her diet again - recently was on a trip. HTN: BP stable today at 134/70. Compliant with medications - tolerating. Denies any chest pain, palpitations, or edema. Careful with diet to avoid salt, trying to eat more fruits and vegetables. Denies exercise at this time. Episode last night of SOB. Occurred while trying to sleep. Lasted the whole night. Denies using rescue inhaler. Improved since last night. Denies SOB at this time. Mood: Stable with current meds - tolerating well. Planning on moving to [facility] in early august. No problem-specific Assessment & Plan notes found for this encounter. PAST MEDICAL HISTORY Diagnosis Date Anxiety Bipolar II disorder (HCC) 03/25/2019 Chronic post-traumatic stress disorder (PTSD) 03/25/2019 [facility] Depression Diabetes (HCC) Fatty liver Gout Hypertension Menarche age 13 NEGATIVE HISTORY OF 03/12/10 Normal color vision PCOS (polycystic ovarian syndrome) Varicella without mention of complication age 7 years per family PAST SURGICAL HISTORY Procedure Laterality Date LIVER BIOPSY 11/2014 PARTIAL MASTECTOMY Right 06/24/2019 Desmoid Fibromatosis US BREAST NEEDLE CORE BIOPSY RT Right 05/2019 FAMILY HISTORY Problem Relation Age of Onset Stroke Mother Blood Disease Mother other (Factor V Leiden mutaton) Mother Hypertension Father Diabetes Father Allergies Father other (MS) Brother Cancer Maternal Grandmother Brain, lung Colon Cancer Maternal Grandfather other (Eye Disease) Maternal Grandfather Heart Paternal Grandmother 71 x2 Hypertension Paternal Grandfather Diabetes Paternal Grandfather Cervical Cancer Paternal Aunt Breast Cancer Paternal Aunt Maternal side of family Breast Cancer Maternal great-grandmother Social History Tobacco Use Smoking status: Never Smokeless tobacco: Never Vaping Use Vaping Use: Never used Substance Use Topics Alcohol use: Yes Comment: Occasionally Drug use: No Past medical history, appointments, medications, allergies reviewed. Pertinent Lab/Diagnostic Studies are reviewed and discussed today Current Outpatient Medications: ARIPiprazole (ABILIFY) [address] (PROTONIX) 20 mg tablet metFORMIN ER (GLUCOPHAGE XR) 500 mg 24 hr tablet labetalol (TRANDATE) 200 mg tablet NIFEdipine ER (PROCARDIA XL) 60 mg 24 hr tablet hydroCHLOROthiazide (HYDRODIURIL, ESIDRIX) 12.5 mg capsule metFORMIN ER (GLUCOPHAGE XR) 500 mg 24 hr tablet ferrous sulfate 325 mg (65 mg iron) tablet albuterol HFA (VENTOLIN HFA) 90 mcg/actuation inhaler lamoTRIgine (LAMICTAL) [address] (PROTONIX) 20 mg tablet NIFEdipine ER (PROCARDIA XL) 30 mg 24 hr tablet aspirin 81 mg cap vits62/FA/om3/dha/epa ( GUMMY ORAL) HUMULIN N NPH INSULIN KWIKPEN 100 unit/mL (3 mL) injection pen Review of Systems CONSTITUTIONAL: No fevers, chills, night sweats, unintended weight loss CARDIOVASCULAR: No chest pain, orthopnea, PND. Intermittent dyspnea, palpitations. Positive ankle edema. PULM: Unexplained cough. Intermittent dyspnea. GI: No dysphagia/odynophagia, problematic reflux, changes in stool habits, hematochezia, melena. Hx of IBS - constipation and diarrhea. : No new urinary complaints, including dysuria, gross hematuria or pyuria. NEURO: No peripheral weakness/paresthesias or numbness of concern. New balance issues since recent - feels weak at times. Denies lightheadedness or vertigo like symptoms. Physical Exam BP 134/70 (BP Site: Left Arm, BP Position: Sitting, BP Cuff Size: Large Adult) Pulse 93 Temp 36.6 C (97.9 F) Resp 14 Ht 162.6 cm (5' 4 ) Wt 118.4 kg (261 lb) LMP 04/04/2022 SpO2 100% BMI 44.80 kg/m General appearance: Well appearing, alert, in no acute distress, well nourished. Skin: Skin color, texture, turgor normal, no suspicious rashes or lesions Head: Normocephalic, no masses, lesions, tenderness or abnormalities Eyes: Anicteric sclera. Pupils are equally round and reactive to light. Extraocular movements are intact. Lungs: Lungs clear to auscultation. No wheezing, rhonchi, rales Heart: RRR without murmur, gallop, or rubs. Extremities: No deformities, edema, skin discoloration, clubbing or cyanosis. Good capillary refill. Feet: Shoes and socks removed, normal distal pulses, sensitive to 10 gm monofilament, vibratory perception normal, calluses noted left, and 2 cm abrasion via dorsal surface of right foot. ASSESSMENT/PLAN: 1. Cellulitis of right lower extremity - ICD9: 682.6, ICD10: L03.115 (primary diagnosis) - Begin treatment with Trimethoprim-sulfamethozazole (Bactrim) 2 DS PO BID 2. Gastroesophageal reflux disease without esophagitis - ICD9: 530.81, ICD10: K21.9 - continue current medications - PANTOPRAZOLE 20 MG TABLET,DELAYED RELEASE 3. Controlled type 2 diabetes mellitus without complication, without long-term current use of insulin (HCC) - ICD9: 250.00, ICD10: E11.9 Controlled. - Continue current medications - METFORMIN ER 500 MG TABLET,EXTENDED RELEASE 24 HR Angie Costello MD documented in this encounter [facility] 03-24-2022 Nurse Note Follow up Did patient bring outside records to appt today? : No Last mammogram on: 03/31/21 right only Results: see report Is the patient active on [facility] Yes Electronically Signed By: Alexandra Flynn LPN In Department: [facility] REVIEW OF PATIENT HISTORY: OB History T0 L0 SAB0 IAB0 Ectopic0 Multiple0 Live Births0 Comment: Menarche: 13?; Age at 1st : n/a; Premenopausal FAMILY HISTORY Problem Relation Age of Onset Stroke Mother Blood Disease Mother other (Factor V Leiden mutaton) Mother Hypertension Father Diabetes Father Allergies Father other (MS) Brother Cancer Maternal Grandmother Brain, lung Colon Cancer Maternal Grandfather other (Eye Disease) Maternal Grandfather Heart Paternal Grandmother 71 x2 Hypertension Paternal Grandfather Diabetes Paternal Grandfather Cervical Cancer Paternal Aunt Breast Cancer Paternal Aunt Maternal side of family Breast Cancer Maternal great-grandmother PAST MEDICAL HISTORY Diagnosis Date Anxiety Bipolar II disorder (HCC) 03/25/2019 Chronic post-traumatic stress disorder (PTSD) 03/25/2019 [facility] Depression Diabetes (HCC) Fatty liver Gout Hypertension Menarche age 13 NEGATIVE HISTORY OF 03/12/10 Normal color vision PCOS (polycystic ovarian syndrome) Varicella without mention of complication age 7 years per family PAST SURGICAL HISTORY Procedure Laterality Date LIVER BIOPSY 11/2014 PARTIAL MASTECTOMY Right 06/24/2019 Desmoid Fibromatosis US BREAST NEEDLE CORE BIOPSY RT Right 05/2019 Social History Tobacco Use Smoking status: Never Smokeless tobacco: Never Vaping Use Vaping Use: Never used Substance Use Topics Alcohol use: Yes Comment: Occasionally Drug use: No documented in this encounter [facility] 03-24-2022 History of Present illness Narrative REASON FOR TODAY'S VISIT: Patient presents with: Established Patient: Follow up HISTORY of PRESENT ILLNESS: Doug Eugene is a 31 year old female who is s/p a RIGHT breast wire localized lumpectomy performed on 06/25/2019. 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 Presented with a RIGHT breast mass @ 12:00 retroareolar (bx FA 2018) was 0.8 mm not has increased in size to 1.4 cm. Surgery canceled due to unexpected . Had a roxy uncrater placed. HISTORY: Patient was last seen for follow up on a RIGHT breast mass on 10/14/2021. At that time, she had undergone repeat diagnostic imaging which showed the tender mass to be stable, measuring 1.3 cm. Patient indicated she wanted the mass removed, but was and planned on excision following her delivery of her baby. In the interim, she happy to report she delivered a beautiful baby girl in 01/2022. Reports the RIGHT breast mass appears to be slightly larger to her and causes intermittent tenderness.did not breastfeed. She remains interested in having the area removed and will be returning from [facility] in Jun 2022. She underwent diagnostic mammogram diagnostic imaging earlier today. Patient is here to discuss the findings and her surgical options. ROS: HEENT: Denies vision changes or headaches BREAST: Denies palpating any new breast masses, no breast pain, no skin changes, no nipple discharge ABD: Denies any abdominal pain or new changes in bowel habits MUSCULOSKELETAL: Denies any bone, joint or muscle pain IMAGING: LIMITED ULTRASOUND OF RIGHT BREAST: 03/24/2022 HISTORY: Mass Of Lower Inner Quadrant Of Right Breast. RESULT: Comparison is made to exam dated: 10/14/2021 ultrasound - [facility]. Color flow and real-time ultrasound of the right breast 12 o'clock region were performed on the areas of interest. There is 1.3 cm x 0.9 cm x 1 cm oval mass in the right breast at 12 o'clock in the retroareolar region. This oval mass is hypoechoic. This abnormality is not significantly changed and correlates with the previous biopsy. Color flow imaging demonstrates that there is no vascularity present. There is biopsy proven fibroadenoma in 2019, and there is an associated ROXY uncrater within the mass. Surgical excision was recommended due to interval increase in size but was postponed since patient got . IMPRESSION: SUSPICIOUS FINDING - BIOPSY SHOULD BE CONSIDERED The 1.3 cm x 0.9 cm x 1 cm oval mass in the right breast is consistent with a fibroadenoma and is suspicious of malignancy. A surgical consult is recommended. EXAMINATION: The patient was examined in the upright and supine position. RIGHT breast soft, palpable 1 cm mass retroareolar, nipple everted, no discharge, no skin changes RIGHT axilla no palpable axillary lymphadenopathy LEFT breast soft, no dominant masses, nipple everted, no discharge, no skin changes LEFT axilla no palpable axillary lymphadenopathy Regional Lymph Nodes: There is no concerning supraclavicular, infraclavicular or cervical lymphadenopathy. IMPRESSION: Doug Eugene is a 31 year old female who is s/p a Right breast wire localized lumpectomy performed on 06/25/2019. 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 Now with a RIGHT breast mass @ 12:00 retroareolar (bx FA 2019) size to be 1.3 cm, roxy in place PLAN: The risks of surgery were discussed with her including bleeding, hematoma, infection, skin necrosis, sensory paresthesias and upper extremity lymphedema, and possible need for additional surgery. She acknowledges these risks and agrees to proceed. Consent was signed for: RIGHT breast roxy uncrater localized mass excision A tentative surgical date for 07/18/22 was given at [facility] Patient back in town from [facility] 07/04/22 and can do pre-op then She has our names and numbers to stay in touch if she has any questions, concerns or problems in the interim. Rachelle Awad DO Breast Surgeon cc: Angie Costello [phone] [phone] documented in this encounter [facility] 03-17-2022 History of Present illness Narrative Radiology Service Progress Note DATE OF SERVICE: March 17, 2022 TIME: 1:35 PM PATIENT IDENTITY VERIFICATION COMPLETED USING TWO (2) STANDARD IDENTIFIERS: Name and Date of confirmed by patient verbally. FALL SCREENING: Has the patient had 2 falls in the last year or 1 fall with injury or currently using an Ambulatory Assistive Device (Walker, Cane, Wheelchair, Crutches, etc.)? No PATIENT GENDER DATA: Female. status: : No status: NO. PATIENT RELEVANT IMPLANT DATA REVIEWED: Yes ALLERGIES: Reviewed and unchanged CONTRAST ALLERGY: NO. EXAM: CT -CONTRAST INDUCED NEPHROPATHY RISK FACTORS: Not applicable CREATININE: Creatinine Date Value Ref Range Status 03/16/2022 0.71 0.58 - 0.96 mg/dL Final 06/14/2021 0.50 (L) 0.58 - 0.96 mg/dL Final 06/29/2020 0.54 (L) 0.58 - 0.96 mg/dL Final Estimated Glomerular Filtration Rate Date Value Ref Range Status 03/16/2022 118 >=60 mL/min/1.73m Final Comment: Estimated Glomerular Filtration Rate (eGFR) is calculated using the 2020 CKD-EPI creatinine equation. This equation utilizes serum creatinine, sex, and age as parameters. The creatinine assay has traceable calibration to isotope dilution-mass spectrometry. Refer to KDIGO guidelines for clinical interpretation. In patients with unstable renal function, e.g. those with acute kidney injury, the eGFR may not accurately reflect actual GFR. eGFR- Date Value Ref Range Status 06/14/2021 >60 Final P.O.C.T. RESULTS: POC done: Yes, See Lab Tab March 17, 2022 TREATMENT: N/A PERIPHERAL IV DATA: Ambulatory: A peripheral IV was started in the Left antecubital site with a Angio cath: 18 gauge. RADIOLOGY DEPARTMENT: CT; Exam(s) Completed: PE Study SIGNATURE: RT [place](R) PATIENT NAME: Doug Eugene DATE: March 17, 2022 TIME: 1:35 PM documented in this encounter [facility] 03-14-2022 Miscellaneous Notes The following approved medication requests have been transmitted electronically. Requested Prescriptions Signed Prescriptions Disp Refills pantoprazole DR (PROTONIX) 20 mg tablet 90 tablet 0 Sig: Take 1 tablet by mouth once daily. Authorizing Provider: CLAUDINE CEDEÑO metFORMIN ER (GLUCOPHAGE XR) 500 mg 24 hr tablet 270 tablet 0 Sig: Take 1 tablet by mouth twice daily. Take 1 pill in the morning, and 2 at night. Authorizing Provider: CLAUDINE CEDEÑO labetalol (TRANDATE) 200 mg tablet 270 tablet 0 Sig: Take 1 tablet by mouth three times daily. Authorizing Provider: CLAUDINE CEDEÑO NIFEdipine ER (PROCARDIA XL) 60 mg 24 hr tablet 90 tablet 0 Sig: Take 1 tablet by mouth once daily. Authorizing Provider: CLAUDINE CEDEÑO LPN Prescriptions have been sent as requested. Thank you Claudine Cedeño APRN.ARNALDO Patient calling she is going to [place] for 3 months, her flight leaves on 04/09. Patient is asking for 90 day rx for medications. She takes Labetalol 200 mg one tablet three times daily and Procardia XL 60 mg one tablet daily from her [employer] [facility]. Not listed on her medication list. Her Metformin she takes one pill in morning and 2 pills in the evening, Pantoprazole also, she uses [facility] for her pharmacy. Pending rx needs completed. Please advise documented in this encounter [facility] 03-01-2022 Miscellaneous Notes Patient notified and appt made for today at 12:30 in [place]. Patient verbalized understanding. Aury Brooks LPN Please call doug And tell her that her d dimer was very high so she needs to have her dvts done debra for b/l legs. Tests are ordered documented in this encounter [facility] 02-26-2022 History of Present illness Narrative Reason for Visit Patient presents with: F/U Diabetes 3 Month Doug Eugene is a 31 year old female who presents here today for Above Complaints.. Health Maintenance PNEUMOCOCCAL(1 - PCV) HEPATITIS C SCREENING DIABETIC FOOT EXAM INFLUENZA(1) HPI Patient has blood pressure related issues since her and then following it. Currently on labetolol 200, 3 times a day and procardia at 60 mgs. Patient does not feel side effects with these medication She has been seeing spots and swelling in her her legs. 3 weeks ago she has delivered a baby via c section and ever since she has been having swelling in the legs. And redness and swelling in the legs and feet and her thighs. She would need a dvt scan and then we can diurese her. Prior to having the baby she was sob but is not so now. During delivery she did not have any hypotensive episodes. Not nursing her baby right now,. No problem-specific Assessment & Plan notes found for this encounter. PAST MEDICAL HISTORY Diagnosis Date Anxiety Bipolar II disorder (HCC) 03/25/2019 Chronic post-traumatic stress disorder (PTSD) 03/25/2019 [facility] Depression Diabetes (HCC) Fatty liver Gout Hypertension Menarche age 13 NEGATIVE HISTORY OF 03/12/10 Normal color vision PCOS (polycystic ovarian syndrome) Varicella without mention of complication age 7 years per family PAST SURGICAL HISTORY Procedure Laterality Date LIVER BIOPSY 11/2014 PARTIAL MASTECTOMY Right 06/24/2019 Desmoid Fibromatosis US BREAST NEEDLE CORE BIOPSY RT Right 05/2019 FAMILY HISTORY Problem Relation Age of Onset Stroke Mother Blood Disease Mother other (Factor V Leiden mutaton) Mother Hypertension Father Diabetes Father Allergies Father other (MS) Brother Cancer Maternal Grandmother Brain, lung Colon Cancer Maternal Grandfather other (Eye Disease) Maternal Grandfather Heart Paternal Grandmother 71 x2 Hypertension Paternal Grandfather Diabetes Paternal Grandfather Cervical Cancer Paternal Aunt Breast Cancer Paternal Aunt Maternal side of family Breast Cancer Maternal great-grandmother Social History Tobacco Use Smoking status: Never Smokeless tobacco: Never Vaping Use Vaping Use: Never used Substance Use Topics Alcohol use: Yes Comment: Occasionally Drug use: No Past medical history, appointments, medications, allergies reviewed. Pertinent Lab/Diagnostic Studies are reviewed and discussed today Current Outpatient Medications: hydroCHLOROthiazide (HYDRODIURIL, ESIDRIX) 12.5 mg capsule metFORMIN ER (GLUCOPHAGE XR) 500 mg 24 hr tablet ferrous sulfate 325 mg (65 mg iron) tablet albuterol HFA (VENTOLIN HFA) 90 mcg/actuation inhaler lamoTRIgine (LAMICTAL) [address] (PROTONIX) 20 mg tablet NIFEdipine ER (PROCARDIA XL) 30 mg 24 hr tablet aspirin 81 mg cap vits62/FA/om3/dha/epa ( GUMMY ORAL) HUMULIN N NPH INSULIN KWIKPEN 100 unit/mL (3 mL) injection pen Review of Systems CONSTITUTIONAL: No fevers, chills night sweats, unintended weight loss CARDIOVASCULAR: No chest pain, dyspnea, palpitations, orthopnea, PND, ankle edema. PULM: No dyspnea, unexplained cough. GI: No dysphagia/odynophagia, problematic reflux, constipation, diarrhea, changes in stool habits, hematochezia, melena. : No new urinary complaints, including dysuria, gross hematuria or pyuria. NEURO: No new balance problems, peripheral weakness/paresthesias or numbness of concern. Physical Exam BP 128/62 (BP Site: Right Arm, BP Position: Sitting, BP Cuff Size: Large Adult) Pulse 96 Temp 36.5 C (97.7 F) Resp 14 Ht 162.6 cm (5' 4 ) Wt 113.4 kg (250 lb) LMP 05/21/2021 SpO2 98% BMI 42.91 kg/m General appearance: Well appearing, alert, in no acute distress, well nourished. Skin: Skin color, texture, turgor normal, no suspicious rashes or lesions Head: Normocephalic, no masses, lesions, tenderness or abnormalities Eyes: Anicteric sclera. Pupils are equally round and reactive to light. Extraocular movements are intact. Lungs: Lungs clear to auscultation. No wheezing, rhonchi, rales Heart: RRR without murmur, gallop, or rubs. Extremities: 2+ pitting edema in the legs, some redness all over the lb/l legs. There is pitting and non pitting edema ASSESSMENT/PLAN: 1. S/P section - ICD9: V45.89, ICD10: Z98.891 (primary diagnosis) If d dimer is negative she can start the water pill - D-DIMER 2. Leg swelling - ICD9: 729.81, ICD10: M79.89 - HYDROCHLOROTHIAZIDE 12.5 MG CAPSULE 3. Uncontrolled hypertension - ICD9: 401.9, ICD10: I10 4. Tendinitis of hand - ICD9: 727.05, ICD10: M77.8 - WRIST SPLINT Angie Costello MD documented in this encounter [facility] 12-31-2021 History of Present illness Narrative 31 year old female 32 weeks presents with left arm pain. Acute onset a few weeks ago. States that the pain and numbness is increasing. Endorses she feels her fingers are not getting circulation. States that she is unable to make a fist. She states that she received her Tdap shot a few weeks ago. Given her hypercoaguable state, and worsening RUE pain and decreased ROM Concerns for DVT, unable to obtain at time of presentation. ER Passport sent to [facility] documented in this encounter [facility] 12-31-2021 Miscellaneous Notes The following approved medication requests have been transmitted electronically. Signed Prescriptions Disp Refills metFORMIN ER (GLUCOPHAGE XR) 500 mg 24 hr tablet 270 tablet 3 Sig: Take 1 tablet by mouth three times daily. Take 1 pill in the morning, and 2 at night. JODY: No Authorizing Provider: ANGIE COSTELLO LPN At Pts last OV with Dr Costello per providers note: Patient is taking metformin 3 pills a day, one in the morning and couple at night. Updated the medication to reflect this on the medication list. Will need to override the max dose of 2 Metformin a day per provider. Patient has been identified by name and date of : Yes Patient phones for refill(s): Pending Prescriptions Disp Refills METFORMIN ER 500 MG TABLET,EXTENDED RELEASE 24 HR 270 tablet 3 Sig: Take 1 tablet by mouth three times daily. Take 1 pill in the morning, and 2 at night. JODY: No Date of last office visit in primary care: 12/21/21 Future visit: 03/23/22 Last 2 Encounter Wt Readings: Date: Wt: 12/21/2021 116.1 kg (256 lb) 11/30/2021 112.5 kg (248 lb) Previous labs/tests for medication: Diabetes: Hemoglobin A1C (%) Date Value 06/14/2021 7.3 06/29/2020 7.2 Please advise. Thank you. Irina Reece RN documented in this encounter [facility] 12-21-2021 History of Present illness Narrative Reason for Visit Patient presents with: Established Patient: 3 month follow up Doug Eugene is a 31 year old female who presents here today for Above Complaints.. Health Maintenance PNEUMOCOCCAL(1 - PCV) HEPATITIS C SCREENING DIABETIC FOOT EXAM BP CONTROLLED (<130/80) HBA1C HPI 30 weeks , had a recent scare, of possible VSD and DIABETES MELLITUS in the mother. Has a fam hx of holes in the heart. bp is well controlled today on procardia, taking it once a day. Diabetes Mellitus: Patient is taking metformin 3 pills a day, one in the morning and couple at night, checks sugars 2 hours after every meal and when she first wakes up, fasting sugars are usually in the 90 range and after food it is in the range of 100 but under 120. After she was sick with covid her sugars spiked She is also on insulin 10 units of NPH, 2 times a day. That is helping her keep her sugars under control. She was not nauseas till now, so is not able to eat much, she tries to eat Healthy foods, eating a lot of vegetables and fruits. She does eat some nuts, but not much. Bf is egg and wheat toast, cook islander craney. Lunch may miss sometimes, mainly she eats a snack or granola bar. Dinner is something that she cooks pretty well. She is on lamictal for her moods, stopped the abilify in the recent past. Patients asthma has been under control pretty good. Even with covid, she did use the albuterol inhaler Hba1c was recently 5.5 No problem-specific Assessment & Plan notes found for this encounter. PAST MEDICAL HISTORY Diagnosis Date Anxiety Bipolar II disorder (HCC) 03/25/2019 Chronic post-traumatic stress disorder (PTSD) 03/25/2019 [facility] Depression Diabetes (HCC) Fatty liver Gout Hypertension Menarche age 13 NEGATIVE HISTORY OF 03/12/10 Normal color vision PCOS (polycystic ovarian syndrome) Varicella without mention of complication age 7 years per family PAST SURGICAL HISTORY Procedure Laterality Date LIVER BIOPSY 11/2014 PARTIAL MASTECTOMY Right 06/24/2019 Desmoid Fibromatosis US BREAST NEEDLE CORE BIOPSY RT Right 05/2019 FAMILY HISTORY Problem Relation Age of Onset Stroke Mother Blood Disease Mother other (Factor V Leiden mutaton) Mother Hypertension Father Diabetes Father Allergies Father other (MS) Brother Cancer Maternal Grandmother Brain, lung Colon Cancer Maternal Grandfather other (Eye Disease) Maternal Grandfather Heart Paternal Grandmother 71 x2 Hypertension Paternal Grandfather Diabetes Paternal Grandfather Cervical Cancer Paternal Aunt Breast Cancer Paternal Aunt Maternal side of family Breast Cancer Maternal great-grandmother Social History Tobacco Use Smoking status: Never Smoker Smokeless tobacco: Never Used Vaping Use Vaping Use: Never used Substance Use Topics Alcohol use: Yes Comment: Occasionally Drug use: No Past medical history, appointments, medications, allergies reviewed. Pertinent Lab/Diagnostic Studies are reviewed and discussed today Current Outpatient Medications: lamoTRIgine (LAMICTAL) 200 mg tablet metFORMIN ER (GLUCOPHAGE XR) 500 mg [address] (PROTONIX) 20 mg tablet NIFEdipine ER (PROCARDIA XL) 30 mg 24 hr tablet aspirin 81 mg cap vits62/FA/om3/dha/epa ( GUMMY ORAL) HUMULIN N NPH INSULIN KWIKPEN 100 unit/mL (3 mL) injection pen Review of Systems CONSTITUTIONAL: No fevers, chills night sweats, unintended weight loss CARDIOVASCULAR: No chest pain, dyspnea, palpitations, orthopnea, PND, ankle edema. PULM: No dyspnea, unexplained cough. GI: No dysphagia/odynophagia, problematic reflux, constipation, diarrhea, changes in stool habits, hematochezia, melena. : No new urinary complaints, including dysuria, gross hematuria or pyuria. NEURO: No new balance problems, peripheral weakness/paresthesias or numbness of concern. Physical Exam BP 124/60 (BP Site: Left Arm, BP Position: Sitting, BP Cuff Size: Large Adult) Pulse 102 Temp 36.2 C (97.2 F) Resp 16 Ht 162.6 cm (5' 4 ) Wt 116.1 kg (256 lb) LMP 05/21/2021 SpO2 99% BMI 43.94 kg/m General appearance: Well appearing, alert, in no acute distress, well nourished. Skin: Skin color, texture, turgor normal, no suspicious rashes or lesions Head: Normocephalic, no masses, lesions, tenderness or abnormalities Eyes: Anicteric sclera. Pupils are equally round and reactive to light. Extraocular movements are intact. Lungs: Lungs clear to auscultation. No wheezing, rhonchi, rales Heart: RRR without murmur, gallop, or rubs. Extremities: No deformities, edema, skin discoloration, clubbing or cyanosis. Good capillary refill. ASSESSMENT/PLAN: 1. Diabetes mellitus, stable (HCC) - ICD9: 250.00, ICD10: E11.9 (primary diagnosis) Controlled. - Continue current medications 2. Third trimester - ICD9: V22.2, ICD10: Z34.93 3. Essential hypertension - ICD9: 401.9, ICD10: I10 - good control - Recommended regular aerobic exercise. - Recommend home blood pressure monitoring, to bring results in on next visit - Goal of BP <130/80 4. Exercise-induced asthma - ICD9: 493.81, ICD10: J45.990 Mild intermittent Asthma stable - Avoidance of triggers recommended - ALBUTEROL SULFATE HFA 90 MCG/ACTUATION AEROSOL INHALER 5. Type 2 diabetes mellitus without complication, without long-term current use of insulin (HCC) - ICD9: 250.00, ICD10: E11.9 Controlled. - Continue current medications 6. Anxiety and depression - ICD9: 300.00, 311, ICD10: F41.9, F32.A 7. Iron deficiency - ICD9: 280.9, ICD10: E61.1 - FERROUS SULFATE 325 MG (65 MG IRON) TABLET Angie Costello MD documented in this encounter [facility] 11-24-2021 History of Present illness Narrative Subjective HPI Nontoxic-appearing female presents urgent care chief complaint cough. Duration of symptoms 1 day. Associated symptoms cough. Patient states she is currently and has not tried any OTC medications. No known sick contacts. Denies any pain. Denies any fevers productive cough chest pain shortness of breath pleuritic pain hemoptysis nausea vomiting abdominal pain or change in bowel or bladder habits. Denies history of blood clots. No recent surgeries. Is not a smoker. .Patient presents with: Cough: cough x 1 day PAST MEDICAL HISTORY Diagnosis Date Anxiety Bipolar II disorder (HCC) 03/25/2019 Chronic post-traumatic stress disorder (PTSD) 03/25/2019 [facility] Depression Diabetes (HCC) Fatty liver Gout Hypertension Menarche age 13 NEGATIVE HISTORY OF 03/12/10 Normal color vision PCOS (polycystic ovarian syndrome) Varicella without mention of complication age 7 years per family PAST SURGICAL HISTORY Procedure Laterality Date LIVER BIOPSY 11/2014 PARTIAL MASTECTOMY Right 06/24/2019 Desmoid Fibromatosis US BREAST NEEDLE CORE BIOPSY RT Right 05/2019 ALLERGIES Patient has no known allergies. MEDICATIONS lamoTRIgine (LAMICTAL) 200 mg tablet Take 200 mg by mouth once daily. pantoprazole DR (PROTONIX) 20 mg tablet Take 1 tablet by mouth once daily. NIFEdipine ER (PROCARDIA XL) 30 mg 24 hr tablet Take 30 mg by mouth once daily. aspirin 81 mg cap Take by mouth. vits62/FA/om3/dha/epa ( GUMMY ORAL) Take by mouth. HUMULIN N NPH INSULIN KWIKPEN 100 unit/mL (3 mL) injection pen 8 Units daily at bedtime. metFORMIN ER (GLUCOPHAGE XR) 500 mg 24 hr tablet Take 2 tablets by mouth once daily. lamoTRIgine (LAMICTAL) 25 mg tablet Take 100 mg by mouth once daily. ARIPiprazole (ABILIFY) 5 mg tablet Take 20 mg by mouth once daily. FAMILY HISTORY Problem Relation Age of Onset Stroke Mother Blood Disease Mother other (Factor V Leiden mutaton) Mother Hypertension Father Diabetes Father Allergies Father other (MS) Brother Cancer Maternal Grandmother Brain, lung Colon Cancer Maternal Grandfather other (Eye Disease) Maternal Grandfather Heart Paternal Grandmother 71 x2 Hypertension Paternal Grandfather Diabetes Paternal Grandfather Cervical Cancer Paternal Aunt Breast Cancer Paternal Aunt Maternal side of family Breast Cancer Maternal great-grandmother Social History Tobacco Use Smoking status: Never Smoker Smokeless tobacco: Never Used Vaping Use Vaping Use: Never used Substance Use Topics Alcohol use: Yes Comment: Occasionally Drug use: No BP 132/72 Pulse 112 Temp 37.3 C (99.1 F) (Tympanic) Resp 18 Wt 115 kg (253 lb 9.6 oz) LMP 05/21/2021 SpO2 98% BMI 43.53 kg/m Hr 97 Review of Systems Constitutional: Negative for chills, fever and malaise/fatigue. HENT: Negative for congestion, ear discharge, ear pain, sinus pain and sore throat. Eyes: Negative for blurred vision, pain, discharge and redness. Respiratory: Positive for cough. Negative for hemoptysis, sputum production, shortness of breath, wheezing and stridor. Cardiovascular: Negative for chest pain. Gastrointestinal: Negative for abdominal pain, diarrhea, nausea and vomiting. Musculoskeletal: Negative for myalgias. Skin: Negative for itching and rash. Neurological: Negative for dizziness and headaches. Objective Physical Exam Constitutional: General: She is not in acute distress. Appearance: She is not diaphoretic. HENT: Head: Normocephalic. Nose: Nose normal. Mouth/Throat: Mouth: Mucous membranes are moist. Pharynx: Oropharynx is clear. No oropharyngeal exudate or posterior oropharyngeal erythema. Eyes: Conjunctiva/sclera: Conjunctivae normal. Pupils: Pupils are equal, round, and reactive to light. Cardiovascular: Rate and Rhythm: Normal rate and regular rhythm. Heart sounds: Normal heart sounds. Pulmonary: Effort: Pulmonary effort is normal. No tachypnea, accessory muscle usage or respiratory distress. Breath sounds: Normal breath sounds. No stridor. No wheezing or rhonchi. Abdominal: Palpations: Abdomen is soft. Tenderness: There is no abdominal tenderness. Musculoskeletal: Cervical back: Normal range of motion and neck supple. No rigidity or tenderness. Lymphadenopathy: Cervical: No cervical adenopathy. Skin: General: Skin is warm and dry. Neurological: Mental Status: She is alert and oriented to person, place, and time. ASSESSMENT/PLAN: 1. Viral illness - ICD9: 079.99, ICD10: B34.9 - COVID WITH FLUA+B, ROUTINE PERC and Wells score 0. We will test for COVID-19 due to recent increase in surrounding area. Will use OTC medications that has been approved by [employer]. Patient was educated on supportive therapies. Patient will follow up with primary care provider as needed. Patient was instructed to immediately proceed to emergency room for any new, worsening, or symptoms lasting longer than anticipated. The patient's clinical presentation is otherwise unremarkable at this time. Based on exam and clinical finding, the patient is stable for discharge. Plan of care was discussed with patient. Patient verbalizes understanding and agrees to plan of care. This note was generated using [employer] software. It may contain errors in wording, punctuation, or spelling. Todd Loredo APRN.[facility]NALDO documented in this encounter [facility] 11-02-2021 Note Doug Eugene is a new patient who's primary care provider is Angie Costello MD here for evaluation of heart. Chief Complaint Patient presents with ECHO History of Presenting Problem HPI Thank you for consulting us regarding Doug Eugene. She is referred to the cardiology clinic at [facility] for evaluation of the heart. I saw this patient in the echocardiogram clinic on 11/02/2021. Patient was referred to the echocardiographic clinic for a echocardiogram since there was a question/suspicion of VSD and maternal diabetes. Cardiac ROS Review of Systems See the full note Past Medical History No past medical history on file. No past surgical history on file. Medications: Outpatient Encounter Medications as of 11/02/2021 Medication Sig Dispense Refill METFORMIN HCL PO Take by mouth Insulin NPH Human, Isophane, (HUMULIN N PEN SC) Inject into the skin NIFEdipine (PROCARDIA PO) Take by mouth Vit-Fe Fumarate-FA ( VITAMIN PO) Take by mouth aspirin 81 MG chewable tablet Take by mouth Pantoprazole Sodium (PROTONIX PO) Take by mouth lamoTRIgine (LAMICTAL PO) Take by mouth No facility-administered encounter medications on file as of 11/02/2021. Allergies: No Known Allergies Family Medical History: Family History Problem Relation Age of Onset Congenital Heart Disease Mother possible PFO but not sure Congenital Heart Disease Brother VSD Social History: Social History Socioeconomic History Marital status: Single Spouse name: None Number of children: None Years of education: None Highest education level: None Tobacco Use Smoking status: Never Physical Exam: Vitals: 11/02/21 1304 BP: 132/72 Pulse: 94 Growth percentile SmartLinks can only be used for patients less than 20 years old. Weight - Scale: (!) 112.5 kg (pt reports) Facility age limit for growth percentiles is 20 years. Height: 162.6 cm (pt reports) Facility age limit for growth percentiles is 20 years. Physical Exam Patient is here for the echocardiogram. Physical exam was deferred. Studies: echocardiogram: Position; Breech. Segmental anatomy: There was levocardia with situs solitus of atria and viscera. Atrioventricular and ventriculoarterial concordance seen. Atria: Normal left and right atrial size. There was a large patent foramen ovale with kbbk-[id number] shunt. Tricuspid valve: There was normal tricuspid valve. There was normal Doppler across the tricuspid valve. Mitral valve: Normal mitral valve. There was normal Doppler across the mitral valve. Right ventricle: There was normal size and systolic function. Left ventricle: There was normal size and systolic function. Aortic valve: Normal aortic valve. There was normal Doppler across the aortic valve seen. Pulmonary valve: Normal pulmonary valve. There was normal Doppler across the pulmonary valve seen. Ventricular septum: A small mid to lower muscular ventricular septal defect could not be ruled out in this study. Main pulmonary artery: Normal main pulmonary artery. Pulmonary arteries: Good size branch pulmonary arteries. Pulmonary veins: There were at least 2/4 pulmonary veins seen entering into the left atrium. Systemic venous return: There was normal systemic venous return seen. Aortic arch: Aortic arch was not well seen, however normal 3-vessel view. Ductal arch: Patent Ductal arch. 3-vessel view: There was normal 3-vessel view. Ductus venosus: There was normal flow pattern seen in the ductus venosus. Umbilical artery and umbilical vein. There was normal pulse Doppler in umbilical artery and umbilical vein. Rhythm: There was sinus rhythm. There was no arrhythmia noted. M- mode could not be obtained. Impression and recommendations. 1)Technically difficult and extremely limited study due to limited acoustic windows, movements and maternal body habitus. 2) Aortic arch was not well seen, however normal 3-vessel view. A small mid to lower muscular ventricular septal defect could not be ruled out in this study. Otherwise normal echocardiogram. 3) I have discussed the limitations of echocardiographic examination, that is likely to miss small ventricular septal defects as well as mild semilunar valve stenosis. Patent foramen ovale and patent ductus arteriosus are normal findings in utero. Coarctation of aorta is difficult to diagnose pre natally in the presence of patent ductus arteriosus. 4) I have also discussed echocardiographic findings in detail including circulation, pathophysiology of Patent foramen ovale and patent ductus arteriosus, prognosis, medical and surgical treatments, follow up echocardiograms and follow ups. 5) I would like to see in cardiology clinic here at [facility] (more content not included)... [facility] 10-14-2021 History of Present illness Narrative REASON FOR TODAY'S VISIT: Patient presents with: Established Patient HISTORY of PRESENT ILLNESS: Doug Eugene is a 30 year old female with a RIGHT breast mass @ 12:00 retroareolar (bx FA 2019) increased in size to 1.4 cm was planning for surgical excision 06/21/21 but had a positive test morning of surgery so surgery cancelled. 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 Patient underwent short term repeat diagnostic imaging earlier today which shows the mass to be stable at 1.3 cm in size. She states the area is painful and she does eventually desire for it to be removed. She is currently 21 weeks (states her daughter Lena) and her fiance lives in [place] but plans to come in January 22 for her delivery and say 90 days. She is high risk due to gestational diabetes and HTN - so planning elective delivery at 39 weeks (end of January) States she does not plan to breastfeed and would like the mass excised prior to her fiance needing to return to [place] and while she is on [facility]. She returns for a clinical examination and to discuss the imaging findings. ROS: Complains of occasional retroareolar pain at the site of the mass. States she does not feel that it is getting any worse or bigger. IMAGING: LIMITED ULTRASOUND OF RIGHT BREAST: 10/14/2021 HISTORY: Mass Of Right Breast, Unspecified Quadrant. RESULT: Comparison is made to exams dated: 06/14/2021 localization - [facility], 03/31/2021 mammogram - [facility], 03/31/2021 ultrasound - [facility], and 05/22/2019 ultrasound biopsy - [facility]. Real-time ultrasound of the right breast 12 o'clock region was performed. Reeves scale images of the real-time examination were reviewed. There is 1.3 cm x 0.9 cm x 1 cm oval mass in the right breast at 12 o'clock in the retroareolar region. This oval mass is hypoechoic. This abnormality is not significantly changed and correlates with the previous biopsy. Color flow imaging demonstrates that there is no vascularity present. There is biopsy proven fibroadenoma in 2019, and there is an associated ROXY uncrater within the mass. Surgical excision was recommended due to interval increase in size, however postponed since patient got . IMPRESSION: PROBABLY BENIGN - SHORT TERM INTERVAL FOLLOW-UP RECOMMENDED The 1.3 cm x 0.9 cm x 1 cm oval mass in the right breast is consistent with a fibroadenoma and is probably benign. Continued clinical and imaging follow up is recommended. Patient currently and will not undergo surgical excision at this time. She is under the care of Dr. Awad. A follow-up ultrasound in 6 months is recommended to demonstrate stability. EXAMINATION: is associated breast volume changes Tthe patient was examined in the upright and supine position. RIGHT breast soft, 1 cm palpable mass retroareolar + tender to palpation but not painful, nipple everted, no discharge, no skin changes RIGHT axilla no palpable axillary lymphadenopathy LEFT breast soft, no dominant masses, nipple everted, no discharge, no skin changes LEFT axilla no palpable axillary lymphadenopathy Regional Lymph Nodes: There is no concerning supraclavicular, infraclavicular or cervical lymphadenopathy. IMPRESSION: Doug Eugene is a 30 year old female who is s/p a Right breast wire localized lumpectomy performed on 06/25/2019. 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 Now with a RIGHT breast mass @ 12:00 retroareolar (bx FA 2019) was 0.8 mm not has increased in size to 1.4 cm Surgery canceled due to unexpected . Patient is currently 21 weeks doing well. Ultrasound of mass shows the size to be 1.3 cm no change. PLAN: Discussed given her , we will follow this mass clinically at this point. She will return after delivery and breast-feeding for reevaluation and consideration for surgical excision at this time. The patient states she is not intending to breast-feed so what ever timeframe works best for her would be okay. She has our names and numbers to stay in touch if she has any questions, concerns or problems in the interim. Rachelle Awad DO Breast Surgeon documented in this encounter [facility] 10-14-2021 Nurse Note Follow up Did patient bring outside records to appt today? : No Last mammogram on: right breast ultrasound only 10/14/2021 Results: see report Is the patient active on [employer] Yes Electronically Signed By: Alexandra Flynn LPN In Department: [facility] REVIEW OF PATIENT HISTORY: OB History T0 L0 SAB0 IAB0 Ectopic0 Multiple0 Live Births0 Comment: Menarche: 13?; Age at 1st : n/a; Premenopausal FAMILY HISTORY Problem Relation Age of Onset Stroke Mother Blood Disease Mother other (Factor V Leiden mutaton) Mother Hypertension Father Diabetes Father Allergies Father other (MS) Brother Cancer Maternal Grandmother Brain, lung Colon Cancer Maternal Grandfather other (Eye Disease) Maternal Grandfather Heart Paternal Grandmother 71 x2 Hypertension Paternal Grandfather Diabetes Paternal Grandfather Cervical Cancer Paternal Aunt Breast Cancer Paternal Aunt Maternal side of family Breast Cancer Maternal great-grandmother PAST MEDICAL HISTORY Diagnosis Date Anxiety Bipolar II disorder (HCC) 03/25/2019 Chronic post-traumatic stress disorder (PTSD) 03/25/2019 [facility] Depression Diabetes (HCC) Fatty liver Gout Hypertension Menarche age 13 NEGATIVE HISTORY OF 03/12/10 Normal color vision PCOS (polycystic ovarian syndrome) Varicella without mention of complication age 7 years per family PAST SURGICAL HISTORY Procedure Laterality Date LIVER BIOPSY 11/2014 PARTIAL MASTECTOMY Right 06/24/2019 Desmoid Fibromatosis US BREAST NEEDLE CORE BIOPSY RT Right 05/2019 Social History Tobacco Use Smoking status: Never Smoker Smokeless tobacco: Never Used Vaping Use Vaping Use: Never used Substance Use Topics Alcohol use: Yes Comment: Occasionally Drug use: No documented in this encounter [facility] 10-07-2021 Instructions Abby Ramires APRN.[facility] - 10/07/2021 2:34 PM EDT BLADDER INFECTION OVERVIEW Bladder infections are one of the most common infections, causing symptoms of burning with urination and needing to urinate frequently. A bladder infection is a type of urinary tract infection (UTI). Bladder infections are more common is women than men. Most women have an uncomplicated bladder infection that is easily treated with a short course of antibiotics. In men, bladder infections may also affect the prostate gland, and a longer course of treatment may be needed. BLADDER INFECTION CAUSES The urinary tract includes the kidneys (which filter urine), ureters (the tube that carries urine from the kidneys to the bladder), the bladder (which stores urine), and urethra (the tube that carries urine out of the bladder). Bacteria do not normally live in these areas. However, bacteria normally live close to the urethra in women and men who are not circumcised. Bladder infections occur when bacteria travel up the urethra into the bladder. Factors that increase the risk of developing a bladder infection include: Vaginal sex Use of spermicides History of past bladder infections Diabetes In men, not being circumcised or having anal sex increase the risk of bladder infections. BLADDER INFECTION SYMPTOMS The typical symptoms of a bladder infection include: Pain or burning when urinating Frequent need to urinate Urgent need to urinate Blood in the urine Fever, back pain, nausea, or vomiting are not common symptoms of a bladder infection, but can occur in people with a kidney infection (pyelonephritis). If you have these symptoms, you should call your doctor or nurse immediately. Is it a bladder infection or something else? Burning with urination can also occur in people with vaginitis (eg, yeast infection) or urethritis (inflammation of the urethra). For this reason, it is important to call your healthcare provider before assuming you have a bladder infection. BLADDER INFECTION DIAGNOSIS Simple bladder infections are usually diagnosed based upon your symptoms alone. However, most patients, especially those who have bladder infection symptoms for the first time, should see a healthcare provider for urine testing. Urine culture A urine culture is a test that uses a sample of urine to try and grow bacteria in a laboratory. It usually requires about 48 hours to get results. However, a urine culture is not always required to diagnose a bladder infection. Urine culture is often recommended if: You have never had a bladder infection before You have symptoms that are not typical for bladder infection You have had resistant bladder infections before You have frequent bladder infections You do not begin to feel better within 24 to 48 hours after starting antibiotics You are BLADDER INFECTION TREATMENT Bladder infection In young, healthy adolescents and adults with a bladder infection, the usual treatment includes a three to seven day course of antibiotics. The typical drugs chosen are: trimethoprim-sulfamethoxazole (Bactrim ), nitrofurantoin (Macrobid ), ciprofloxacin (Cipro ) or levofloxacin (Levaquin ). In men, the infection may involve your prostate gland and treatment is usually given for at least 7 days. Your symptoms should begin to resolve within one day after starting treatment. It is important to take the full course of antibiotics to completely eliminate the infection. If your symptoms persist for more than two or three days after starting treatment, call your healthcare provider. If needed, you can take a prescription medication that numbs the bladder and urethra (phenazopyridine [Pyridium ]) to reduce the burning pain of some UTIs. A similar medication is available without a prescription (eg, Uristat). Both medications change the color of the urine (usually blue or orange) and can interfere with laboratory testing. You should not take these medications for more than 48 hours due to the risk of side effects. These medications do not treat the infection and must be taken along with an antibiotic. Some providers recommend drinking more fluids while treating bladder infections to help flush bacteria from the bladder. Others believe that drinking more fluids may dilute the antibiotic in the bladder and make the medication less effective. No studies have been performed to address this issue. There are also no good studies on the effectiveness of cranberry juice for treating a bladder infection; we do not recommend using cranberry juice to treat bladder infections. Follow-up care Follow-up testing is not needed in healthy, young men or women with a bladder infection if symptoms resolve. women are usually asked to have a repeat urine culture one to two weeks after treatment has ended to make sure the bacteria are no longer in the urine. RECURRENT BLADDER INFECTIONS Bladder infections versus other causes Some adults, especially women, develop bladder infections frequently. In this case, it is important to confirm that your symptoms (eg, pain or burning, frequency, and urgency) are caused by a bladder infection. Symptoms are usually similar from one infection to another. The best way to confirm an infection is to have a urine culture. If your urine culture is negative for infection, other causes of pain, burning, and frequency should be investigated. There is no reason to take antibiotics if your urine culture is negative. Need for further testing If you continue to develop bladder infections, you may require further testing. If you continue to notice blood in your urine after your bladder infection has cleared, you should have further testing. Preventing recurrent UTIs Women with recurrent urinary tract infections may be advised to take steps to prevent bladder infections, including one or more of the following: Changes in control Women who develop frequent bladder infections and use spermicides, particularly those who also use a diaphragm, may be encouraged to use an alternate method of control. Cranberry products Taking cranberry juice or cranberry tablets has been promoted as one way to help prevent frequent bladder infections. However, this has not been proven. Drinking more fluid and urinating after intercourse Although studies have not proven that drinking more fluids or urinating soon after intercourse can prevent infection, some healthcare providers recommend these measures since they are not harmful. Drinking more fluid may help to wash out bacteria that enter the bladder. Postmenopausal women Postmenopausal women who develop recurrent bladder infections may benefit from using vaginal estrogen. Vaginal estrogen is available in a flexible ring that is worn in the vagina for three months (eg, Estring ), a small tablet (Vagifem ), or a cream (eg, Premarin or Estrace ). Vaginal estrogen is discussed in more detail in a separate topic review. Antibiotics A preventive antibiotic treatment may be recommended if you repeatedly develop bladder infections and have not responded to other preventive measures. Antibiotics are highly effective in preventing recurrent bladder infections and can be taken in several different ways. Preventive antibiotic You can take a low dose of an antibiotic once per day or three times per week for six months to several years. Antibiotics following intercourse In women who develop urinary tract infections after sex, taking a single low dose antibiotic after intercourse can help to prevent bladder infections. Self-treatment A plan to begin antibiotics at the first sign of a bladder infection may be recommended in some situations. Before starting this regimen, it is important that you have had testing (urine cultures) to confirm that your symptoms are caused by a bladder infection; some people have symptoms of a bladder infection but do not actually have an infection. documented in this encounter [facility] 10-07-2021 History of Present illness Narrative CC: Patient presents with: Urinary Frequency: frequency and burning x 2 days Rash: rash on feet x 2 weeks HPI Doug Eugene is a 30 year old female who presents with complaint of possible UTI. These symptoms have been present for 2 days. Associated symptoms: burning and frequency Denies: backpain, fever, chills, sweats, abdominal pain and flank pain Treatments: nothing The ROS was otherwise negative. PMH, Medications, labs, allergies, and recent past visits with PCP were reviewed and updated as able. PHYSICAL EXAM: BP 110/72 Pulse 88 Temp 36.9 C (98.4 F) (Tympanic) Resp 18 Wt 113.2 kg (249 lb 9.6 oz) LMP 05/21/2021 SpO2 99% BMI 42.84 kg/m General: Well appearing and alert CV: Regular rate and rhythm without obvious murmur Lungs: clear to auscultation bilaterally Back: straight and symmetric Abdomen: soft, nontender, nondistended No visible rash on feet, scratched areas with scabs noted on bilateral top feet. Just stated it itches terribly at times. Lotion does not help. Did not try any other creams. At this time instructed to try over the counter spray. PAST MEDICAL HISTORY Diagnosis Date Anxiety Bipolar II disorder (HCC) 03/25/2019 Chronic post-traumatic stress disorder (PTSD) 03/25/2019 [facility] Depression Diabetes (HCC) Fatty liver Gout Hypertension Menarche age 13 NEGATIVE HISTORY OF 03/12/10 Normal color vision PCOS (polycystic ovarian syndrome) Varicella without mention of complication age 7 years per family PAST SURGICAL HISTORY Procedure Laterality Date LIVER BIOPSY 11/2014 PARTIAL MASTECTOMY Right 06/24/2019 Desmoid Fibromatosis US BREAST NEEDLE CORE BIOPSY RT Right 05/2019 ALLERGIES Patient has no known allergies. MEDICATIONS pantoprazole DR (PROTONIX) 20 mg tablet Take 1 tablet by mouth once daily. NIFEdipine ER (PROCARDIA XL) 30 mg 24 hr tablet Take 30 mg by mouth once daily. lamoTRIgine (LAMICTAL) 25 mg tablet Take 100 mg by mouth once daily. aspirin 81 mg cap Take by mouth. vits62/FA/om3/dha/epa ( GUMMY ORAL) Take by mouth. HUMULIN N NPH INSULIN KWIKPEN 100 unit/mL (3 mL) injection pen 8 Units daily at bedtime. cephALEXin (KEFLEX) 500 mg capsule Take 1 capsule by mouth twice daily for 7 days. metFORMIN ER (GLUCOPHAGE XR) 500 mg 24 hr tablet Take 2 tablets by mouth once daily. ARIPiprazole (ABILIFY) 5 mg tablet Take 20 mg by mouth once daily. FAMILY HISTORY Problem Relation Age of Onset Stroke Mother Blood Disease Mother other (Factor V Leiden mutaton) Mother Hypertension Father Diabetes Father Allergies Father other (MS) Brother Cancer Maternal Grandmother Brain, lung Colon Cancer Maternal Grandfather other (Eye Disease) Maternal Grandfather Heart Paternal Grandmother 71 x2 Hypertension Paternal Grandfather Diabetes Paternal Grandfather Cervical Cancer Paternal Aunt Breast Cancer Paternal Aunt Maternal side of family Breast Cancer Maternal great-grandmother Social History Tobacco Use Smoking status: Never Smoker Smokeless tobacco: Never Used Vaping Use Vaping Use: Never used Substance Use Topics Alcohol use: Yes Comment: Occasionally Drug use: No ASSESSMENT/PLAN: 1. Urinary frequency - ICD9: 788.41, ICD10: R35.0 acute - Begin treatment with keflex for 7 days - UA DIP, URINE (POC) - URINE CULTURE - will call if antibiotic need changed. Prescription instructions reviewed with patient as applicable. Potential red flag symptoms discussed with the patient. Reviewed appropriate action plan to take if red flag symptoms occur. Patient agreeable to treatment plan. Abby Ramires APRN.ARNALDO documented in this encounter [facility] 09-16-2021 History of Present illness Narrative FOLLOW UP VISIT - ABSCESS NAME: Doug Eugene [facility] NO.: [id number] DATE OF SERVICE: 09/16/2021 : 1990 REFERRING PHYSICIAN: Angie Costello MD Doug is a patient I am following for a perirectal abscess. The patient noticed a perirectal abscess for approximately 3 weeks. She was seen in urgent care and given antibiotics but unfortunate was not able to be seen in my office until September 09. I performed an incision and drainage of the perirectal abscess. Site was actually partially drained and was just unroofed there was some granulation tissue which was debrided. The patient notes no complaints of fever since the procedure. Pain has been minimal. VITALS: Blood pressure 134/64, pulse (!) 129, temperature 36.3 C (97.3 F), height 162.6 cm (5' 4 ), weight 115.7 kg (255 lb), last menstrual period 05/21/2021, SpO2 99 %. On examination, the incision site is viable with no drainage noted. Assessment IMPRESSION: Status post incision and drainage of perirectal abscess PLAN: The patient is instructed to keep the wound dry for the next few days but may shower. If there are any problems or signs of worsening wound infection, the patient is to contact me immediately. Dressing should be changed once daily or more often if it becomes soaked. We discussed that with the perirectal abscess is about a one third chance that this could be a chronic fistula. If the patient notes that the site does not heal completely and there is intermittent drainage she should return for evaluation. Diagnoses: (K61.1) Perirectal abscess (primary encounter diagnosis) Return to Clinic: The patient is instructed to follow-up with me as needed. Rivera Boykin MD documented in this encounter [facility] 09-12-2021 History of Present illness Narrative HISTORY AND PHYSICAL Doug Eugene 1990 REFERRING PHYSICIAN: Self CHIEF COMPLAINT: Consult (boil left buttock) HPI: Doug is a 30 year old female with a complaint of a perirectal abscess. she has noticed this abscess for the past 3 weeks. He was seen in urgent care and was given antibiotics. She initially noted more pain but then the site spontaneously drained and she is now noted purulent discharge from the abscess. she denies a history of diabetes. The patient was seen by her primary care physician and was started on oral antibiotics. SIGNIFICANT MEDICAL PROBLEMS: PAST MEDICAL HISTORY Diagnosis Date Anxiety Bipolar II disorder (HCC) 03/25/2019 Chronic post-traumatic stress disorder (PTSD) 03/25/2019 [facility] Depression Diabetes (HCC) Fatty liver Gout Hypertension Menarche age 13 NEGATIVE HISTORY OF 03/12/10 Normal color vision PCOS (polycystic ovarian syndrome) Varicella without mention of complication age 7 years per family OPERATIONS: PAST SURGICAL HISTORY Procedure Laterality Date LIVER BIOPSY 11/2014 PARTIAL MASTECTOMY Right 06/24/2019 Desmoid Fibromatosis US BREAST NEEDLE CORE BIOPSY RT Right 05/2019 CURRENT MEDICATIONS: Current Outpatient Medications Medication Sig Dispense Refill metFORMIN ER (GLUCOPHAGE XR) 500 mg 24 hr tablet Take 2 tablets by mouth once daily. [address] (PROTONIX) 20 mg tablet Take 1 tablet by mouth once daily. 90 tablet 3 NIFEdipine ER (PROCARDIA XL) 30 mg 24 hr tablet Take 30 mg by mouth once daily. lamoTRIgine (LAMICTAL) 25 mg tablet Take 50 mg by mouth once daily. aspirin 81 mg cap Take by mouth. vits62/FA/om3/dha/epa ( GUMMY ORAL) Take by mouth. HUMULIN N NPH INSULIN KWIKPEN 100 unit/mL (3 mL) injection pen 30 Units daily at bedtime. ARIPiprazole (ABILIFY) 5 mg tablet Take 20 mg by mouth once daily. 0 No current facility-administered medications for this visit. ALLERGIES: Patient has no known allergies. PERSONAL HISTORY: Social History Tobacco Use Smoking status: Never Smoker Smokeless tobacco: Never Used Vaping Use Vaping Use: Never used Substance Use Topics Alcohol use: Yes Comment: Occasionally Drug use: No FAMILY HISTORY: FAMILY HISTORY Problem Relation Age of Onset Stroke Mother Blood Disease Mother other (Factor V Leiden mutaton) Mother Hypertension Father Diabetes Father Allergies Father other (MS) Brother Cancer Maternal Grandmother Brain, lung Colon Cancer Maternal Grandfather other (Eye Disease) Maternal Grandfather Heart Paternal Grandmother 71 x2 Hypertension Paternal Grandfather Diabetes Paternal Grandfather Cervical Cancer Paternal Aunt Breast Cancer Paternal Aunt Maternal side of family Breast Cancer Maternal great-grandmother REVIEW OF SYMPTOMS: The review of systems data was entered by the nurse and reviewed by fl Nursing Notes: Brittany Roland RN 09/09/2021 2:47 PM Signed REVIEW OF SYSTEMS: General: The patient NOTES fatigue, NOTES weight loss, denies weight gain, denies feeling hot, and denies feelings of cold. Eyes: The patient denies glaucoma, denies eye injury/surgery, wears glasses or contacts. Ear/Nose/Throat: The patient denies allergies, denies hayfever, denies ear infections, and denies bloody noses. Cardiovascular: The patient denies chest pain, denies heart disease, NOTES high blood pressure,denies cardiac stent, denies prior heart attack, denies irregular heart beat, denies high cholesterol, denies poor circulation, denies heart failure, other cardiac issues, denies claudication, denies cold feet, denies peripheral arterial stent. Respiratory: The patient denies tuberculosis, denies pneumonia, denies frequent cough, denies pulmonary embolism, denies shortness of breath, and denies coughing up blood. Gastrointestinal: The patient denies difficulty swallowing, NOTES acid reflux, denies ulcers, denies vomiting, denies jaundice/hepatitis, denies gallbladder problems, denies black or tarry stools, NOTES hemorrhoids, denies bleeding from rectum, denies diverticulitis, NOTES constipation, denies diarrhea, denies loss of stool control, and denies hernias. Kidney/Bladder: The patient denies kidney stones, denies urine infections, and denies bloody urine. Skin: The patient denies a history of skin cancer, denies bleeding/changing moles, and denies a history of skin rash. Neurologic: The patient denies a history of epilepsy/convulsions, denies headaches, denies head/spinal injuries, and denies stroke/TIA. Psychiatric: The patient NOTES psychiatric medications, NOTES depression, and denies voices, denies substance abuse. Endocrine: The patient denies thyroid disorders, NOTES diabetes, and NOTES hormonal problems. Hematologic: The patient denies a history of bruising, denies bleeding, and denies anemia, denies blood clots. Infections: The patient denies a history of measles and mumps, denies rheumatic fever, and NOTES sexually transmitted diseases. Musculoskeletal: The patient denies back pain/injury, denies back problems, denies sciatica, denies knee/foot trouble, denies arthritis, or NOTES gout. When was patient's last Mammogram screening? 2020 Last Colonoscopy: Brittany Roland RN PHYSICAL EXAMINATION: General: The patient is 30 year old female, well nourished, well hydrated in no acute distress. The patient is oriented to time, place, and person. VITALS: Blood pressure 122/72, pulse 106, temperature 37.1 C (98.7 F), height 162.6 cm (5' 4 ), weight 114.4 kg (252 lb 3.2 oz), last menstrual period 05/21/2021, SpO2 93 %. Body mass index is 43.29 kg/m . HEENT: Normal cephalic, atraumatic, pupils are equally round, sclera are anicteric, mucous membranes are moist, oropharynx is clear. Neck has no masses, asymmetry or lymphadenopathy. Thyroid is unremarkable. Respiratory: Clear to auscultation and percussion. Normal respiratory excursion and pattern. Cardiac: Examination is regular rate and rhythm. Abdominal exam: Soft, nontender, with no palpable masses. No hepatosplenomegaly. No palpable hernias. Rectal exam: Normal external anatomy, no significant hemorrhoids or masses. Digital rectal exam - normal tone, no masses or other abnormalities, stool in vault, hemoccult negative. Extremities: no clubbing, cyanosis or edema. No adenopathy. Other: Right perirectal abscess - a 2cm x 2cm area of fluctuance with a 3cm x 3cm area of surrounding erythema. The skin overlying the point of maximal fluctance is not viable and there is currently some drainage. LABORATORY VALUES: As Noted RADIOLOGIC STUDIES: As Noted PROCEDURE: INCISION AND DRAINAGE OF RIGHT PERIRECTAL ABSCESS After consent was obtained and the site, person, and procedure verified, the patient`s skin was prepped and draped in the usual fashion. A combination of Lidocaine and Marcaine was injected into the skin. A linear incision was made over the point of maximal fluctuance. A small amount of purulent materal was drained. The abscess was then unroofed. There was granulation tissue within the site. The cavity was packed with iodoform gauze. The patient tolerated the procedure well. Assessment IMPRESSION: STATUS POST INCISION AND DRAINAGE OF PERIRECTAL ABSCESS PLAN: Doug is instructed to remove the packing in 1 days. If the dressing becomes soaked or had significant drainage, the dressing should be changed. If there is minor bleeding from this skin edge, the patient should hold pressure on the incision. If there is continued bleeding, the patient should contact our office immediately. The patient should wash the wound with gentle soap and water. she may shower. The wound should not be immersed in a pool, bathtub, or even hot tub. My findings have been communicated to Dr. Angie Costello MD via shared medical record. This note will be forwarded to Dr. Angie Costello MD. Diagnoses: (K61.1) Perirectal abscess (primary encounter diagnosis) (L02.92) Boil Return to Clinic: The patient is instructed to follow-up with me as needed. Rivera Boykin MD UNIVERSAL PROTOCOL / SAFETY CHECKLIST Procedure to be Performed:Incision and drainage of perirectal abscess Sign In: A Moment of CARE was completed. Personnel directly involved with the procedure wore the appropriate PPE (Personal Protective Equipment). Patient/Surrogate Stated/Verified: PATIENT VERIFIED(optional for EMERGENT procedures): Patient name, Date of , Relevant allergies and The intended procedure Time Out Communication: Intended patient and procedure match the source documents. Consent documented and matches the intended procedure. Sign Out: SIGN OUT (optional for EMERGENT procedures): No specimen collected. Krista Fu LPN documented in this encounter [facility] 09-09-2021 Instructions Krista Fu LPN - 09/09/2021 4:11 PM EDT The following instructions are important for you related to your office visit today with the [facility] General Surgeons. Instructions After PERIRECTAL ABSCESS DRAINAGE There may be some bleeding as the packing is removed. This may be controlled with direct pressure. The redness and swelling and discomfort should decrease after drainage of your abscess. If the redness, swelling, or discomfort increase or you start having high fevers, contact our office immediately. Once the packing has been removed, you should start performing sitz baths. For sitz baths-draw for five inches of lukewarm bath water and soak for approximately 10 minutes. Don't add epsom salts or other agents to the water. Stool softeners and dibucaine ointment or other over the counter anal pain medications will help with the discomfort of bowel movements. I do not recommend anal preparations with steroids (most ointments with HC in the name) after abscess drainage. If you note any additional difficulties, questions, or concerns, you should contact our office immediately @ [phone] and ask to be transferred to the General Surgery department. documented in this encounter [facility] 09-09-2021 Nurse Note REVIEW OF SYSTEMS: General: The patient NOTES fatigue, NOTES weight loss, denies weight gain, denies feeling hot, and denies feelings of cold. Eyes: The patient denies glaucoma, denies eye injury/surgery, wears glasses or contacts. Ear/Nose/Throat: The patient denies allergies, denies hayfever, denies ear infections, and denies bloody noses. Cardiovascular: The patient denies chest pain, denies heart disease, NOTES high blood pressure,denies cardiac stent, denies prior heart attack, denies irregular heart beat, denies high cholesterol, denies poor circulation, denies heart failure, other cardiac issues, denies claudication, denies cold feet, denies peripheral arterial stent. Respiratory: The patient denies tuberculosis, denies pneumonia, denies frequent cough, denies pulmonary embolism, denies shortness of breath, and denies coughing up blood. Gastrointestinal: The patient denies difficulty swallowing, NOTES acid reflux, denies ulcers, denies vomiting, denies jaundice/hepatitis, denies gallbladder problems, denies black or tarry stools, NOTES hemorrhoids, denies bleeding from rectum, denies diverticulitis, NOTES constipation, denies diarrhea, denies loss of stool control, and denies hernias. Kidney/Bladder: The patient denies kidney stones, denies urine infections, and denies bloody urine. Skin: The patient denies a history of skin cancer, denies bleeding/changing moles, and denies a history of skin rash. Neurologic: The patient denies a history of epilepsy/convulsions, denies headaches, denies head/spinal injuries, and denies stroke/TIA. Psychiatric: The patient NOTES psychiatric medications, NOTES depression, and denies voices, denies substance abuse. Endocrine: The patient denies thyroid disorders, NOTES diabetes, and NOTES hormonal problems. Hematologic: The patient denies a history of bruising, denies bleeding, and denies anemia, denies blood clots. Infections: The patient denies a history of measles and mumps, denies rheumatic fever, and NOTES sexually transmitted diseases. Musculoskeletal: The patient denies back pain/injury, denies back problems, denies sciatica, denies knee/foot trouble, denies arthritis, or NOTES gout. When was patient's last Mammogram screening? 2020 Last Colonoscopy: Brittany Roland RN documented in this encounter [facility] documented as of this encounter (statuses as of 09/16/2021) [facility] History of Past illness Narrative* Problem Noted Date Resolved Date Streptococcal sore throat 02/13/20062007 documented as of this encounter (statuses as of 09/16/2021) [facility] History of Past illness Narrative* Problem Noted Date Resolved Date Streptococcal sore throat 02/13/20062007 documented as of this encounter (statuses as of 10/07/2021) [facility] History of Past illness Narrative* Problem Noted Date Resolved Date Streptococcal sore throat 02/13/20062007 documented as of this encounter (statuses as of 10/21/2021) [address]2006 History of Past illness Narrative* Problem Noted Date Resolved Date Streptococcal sore throat 02/13/20062007 documented as of this encounter (statuses as of 11/24/2021) [address] History of Past illness Narrative* Problem Noted Date Resolved Date Streptococcal sore throat 02/13/20062007 documented as of this encounter (statuses as of 12/21/2021) [address] History of Past illness Narrative* Problem Noted Date Resolved Date Streptococcal sore throat 02/13/20062007 documented as of this encounter (statuses as of 12/31/2021) [address] History of Past illness Narrative* Problem Noted Date Resolved Date Streptococcal sore throat 02/13/20062007 documented as of this encounter (statuses as of 12/31/2021) [address] History of Past illness Narrative* Problem Noted Date Resolved Date Streptococcal sore throat 02/13/20062007 documented as of this encounter (statuses as of 02/26/2022) [address] History of Past illness Narrative* Problem Noted Date Resolved Date Streptococcal sore throat 02/13/20062007 documented as of this encounter (statuses as of 03/01/2022) [address] History of Past illness Narrative* Problem Noted Date Resolved Date Streptococcal sore throat 02/13/20062007 documented as of this encounter (statuses as of 03/14/2022) [address]2006 History of Past illness Narrative* Problem Noted Date Resolved Date Streptococcal sore throat 02/13/20062007 documented as of this encounter (statuses as of 03/17/2022) [address] History of Past illness Narrative* Problem Noted Date Resolved Date Streptococcal sore throat 02/13/20062007 documented as of this encounter (statuses as of 03/17/2022) [address] History of Past illness Narrative* Problem Noted Date Resolved Date Streptococcal sore throat 02/13/20062007 documented as of this encounter (statuses as of 03/18/2022) [address]2006 History of Past illness Narrative* Problem Noted Date Resolved Date Streptococcal sore throat 02/13/20062007 documented as of this encounter (statuses as of 03/24/2022) [address]2006 History of Past illness Narrative* Problem Noted Date Resolved Date Streptococcal sore throat 02/13/20062007 documented as of this encounter (statuses as of 03/29/2022) [address]2006 History of Past illness Narrative* Problem Noted Date Resolved Date Streptococcal sore throat 02/13/20062007 documented as of this encounter (statuses as of 06/30/2022) [address]2006 History of Past illness Narrative* Problem Noted Date Resolved Date Streptococcal sore throat 02/13/20062007 documented as of this encounter (statuses as of 07/08/2022) [address] History of Past illness Narrative* Problem Noted Date Resolved Date Streptococcal sore throat 02/13/20062007 documented as of this encounter (statuses as of 07/11/2022) [address]2006 History of Past illness Narrative* Problem Noted Date Resolved Date Streptococcal sore throat 02/13/20062007 documented as of this encounter (statuses as of 07/25/2022) [address]2006 History of Past illness Narrative* Problem Noted Date Resolved Date Streptococcal sore throat 02/13/20062007 documented as of this encounter (statuses as of 07/27/2022) [address]2006 History of Past illness Narrative* Problem Noted Date Resolved Date Streptococcal sore throat 02/13/20062007 documented as of this encounter (statuses as of 07/28/2022) [address]2006 History of Past illness Narrative* Problem Noted Date Resolved Date Streptococcal sore throat 02/13/20062007 documented as of this encounter (statuses as of 08/02/2022) [place] [id number] History of Past illness Narrative* Problem Noted Date Resolved Date Streptococcal sore throat 02/13/20062007 documented as of this encounter (statuses as of 08/12/2022) [address]2006 History of Past illness Narrative* Problem Noted Date Resolved Date Streptococcal sore throat 02/13/20062007 documented as of this encounter (statuses as of 08/25/2022) [address]2006 History of Past illness Narrative* Problem Noted Date Diagnosed Date Resolved Date Streptococcal sore throat 02/13/2006 documented as of this encounter (statuses as of 08/08/2023) [address] History of Past illness Narrative* Problem Noted Date Diagnosed Date Resolved Date Streptococcal sore throat 02/13/2006 documented as of this encounter (statuses as of 08/16/2023) [facility] Diagnosis Perirectal abscess- Primary Abscess of anal and rectal regions Boil Carbuncle and furuncle of unspecified site [facility] Diagnosis Perirectal abscess- Primary Abscess of anal and rectal regions [facility] Diagnosis Urinary frequency- Primary [facility] Diagnosis Mass of lower inner quadrant of right breast- Primary [facility] Diagnosis Viral illness- Primary Unspecified viral infection, in conditions classified elsewhere and of unspecified site [facility] Diagnosis Diabetes mellitus, stable (HCC)- Primary Type II or unspecified type diabetes mellitus without mention of complication, not stated as uncontrolled Third trimester state, incidental Essential hypertension Unspecified essential hypertension Exercise-induced asthma Exercise induced bronchospasm Type 2 diabetes mellitus without complication, without long-term current use of insulin ([facility]) Anxiety and depression Dysthymic disorder Iron deficiency Iron deficiency anemia, unspecified [facility] Diagnosis Controlled type 2 diabetes mellitus without complication, without long-term current use of insulin ([facility]) [facility] Diagnosis Treatment not available- Primary Procedure not carried out for other reasons Left upper arm pain Pain in limb [facility] S/P section- Primary Other postprocedural status Leg swelling Swelling of limb Uncontrolled hypertension Unspecified essential hypertension Tendinitis of hand Other tenosynovitis of hand and wrist [facility] Leg swelling- Primary Swelling of limb [facility] Diagnosis Controlled type 2 diabetes mellitus without complication, without long-term current use of insulin (HCC) Gastroesophageal reflux disease without esophagitis Esophageal reflux [facility] Diagnosis Pedal edema Edema Elevated d-dimer Abnormal coagulation profile Encounter for other preprocedural examination [facility] Diagnosis Adverse effect of treatment, subsequent encounter Elevated d-dimer Abnormal coagulation profile [facility] Diagnosis Uncontrolled hypertension Unspecified essential hypertension Pedal edema Edema Elevated d-dimer Abnormal coagulation profile Primary pulmonary hypertension (HCC) Primary pulmonary hypertension Chest pain, unspecified type [facility] Diagnosis Abnormal finding on imaging- Primary Other nonspecific (abnormal) findings on radiological and other examinations of body structure Fibroadenosis of right breast Fibroadenosis of breast [facility] Diagnosis Mass of lower inner quadrant of right breast- Primary Abnormal finding on imaging Other nonspecific (abnormal) findings on radiological and other examinations of body structure Fibroadenosis of right breast Fibroadenosis of breast [facility] Diagnosis Controlled type 2 diabetes mellitus without complication, without long-term current use of insulin (HCC) Abnormal finding on imaging Other nonspecific (abnormal) findings on radiological and other examinations of body structure Fibroadenosis of right breast Fibroadenosis of breast [facility] Diagnosis Cellulitis of right lower extremity- Primary Cellulitis and abscess of leg, except foot Gastroesophageal reflux disease without esophagitis Esophageal reflux Controlled type 2 diabetes mellitus without complication, without long-term current use of insulin (HCC) Abnormal finding on imaging Other nonspecific (abnormal) findings on radiological and other examinations of body structure Fibroadenosis of right breast Fibroadenosis of breast [facility] Diagnosis ETD (Eustachian tube dysfunction), left- Primary Heart rate fast Tachycardia, unspecified [facility] Diagnosis Tubular adenoma of female breast, right- Primary [facility] Diagnosis Uncontrolled hypertension- Primary Unspecified essential hypertension documented in this encounter [facility]* Diagnosis Vomiting and diarrhea- Primary Vomiting alone Fever, unspecified fever cause Type 2 diabetes mellitus without complication, without long-term current use of insulin (HCC) documented in this encounter [facility] note* Diagnosis Type 2 diabetes mellitus without complication, without long-term current use of insulin (HCC) documented in this encounter [facility] note* Diagnosis Essential hypertension, benign- Primary Gastroesophageal reflux disease without esophagitis Esophageal reflux documented in this encounter [facility] note* Diagnosis Headache, unspecified headache type- Primary documented in this encounter [facility] note* Diagnosis LRTI (lower respiratory tract infection)- Primary Other diseases of respiratory system, not elsewhere classified 22 weeks gestation of state, incidental documented in this encounter [facility] for referral (narrative)* Diagnostic Procedure Only (Routine) - Pending Review Specialty Diagnoses / Procedures Referred By Boom ahuja Referred To Contact [facility] Diagnoses Mass of lower inner quadrant of right breast Procedures US BREAST LTD RT US BREAST UNI [place] [address] [place] [address] [facility] [address] [place] [address] Referral ID Status Reason Start Date Expiration Date Visits Requested Visits Authorized [id number] Pending Review Auto-Generat ed Referral 10/14/2021 11/13/2022 1 1 [facility] for referral (narrative)* Outpatient Procedure (Urgent) - Closed Specialty Diagnoses / Procedures Referred By Boom ahuja [facility] Diagnoses Leg swelling Procedures US LEG VEIN DVT CAROL VAS LAB DUP-SCAN XTR VEINS COMPLETE BILATERAL STUDY Angie Costello MD [facility] [place] [address] [facility] [place] [address] [place] [address] Referral ID Status Reason Start Date Expiration Date V isits Requested Visits Authorized [id number] Closed Auto-Generate d Referral 02/28/2022 02/28/2023 1 1 [facility] for referral (narrative)* Diagnostic Procedure Only (Routine) - Pending Review Specialty Diagnoses / Procedures Referred By Contac t Referred To Contact [facility] Diagnoses Abnormal finding on imaging Fibroadenosis of right breast Procedures SACHA NDL LOC W SACHA GD RT PERQ DEVICE PLACEMENT BREAST LOC 1ST LES W/GDNCE Isabelle Diamond PA-C [address] [id number] [facility] [address] [place] [address] Referral ID Status Reason Start Date Expiration Date Visits Requested Visits Authorized [id number] Pending Review Auto-Generat ed Referral 03/24/2022 04/23/2023 1 1 * Transition of Care (Routine) - Ref Not Required Specialty Diagnoses / Procedures Referred By Contac t Referred To Contact Diagnoses Abnormal finding on imaging Fibroadenosis of right breast Procedures IN PERSON CONSULT TO PACC Isabelle Diamond PA-C [address] [place] [address] Referral ID Status Reason Start Date Expiration Date Visits Requested Visits Authorized [id number] Ref Not Required PCP Requested Referral 03/24/2022 06/22/2022 1 1 * Diagnostic Procedure Only (Routine) - Pending Review Specialty Diagnoses / Procedures Referred By Contac t Referred To Contact [facility] Diagnoses Abnormal finding on imaging Fibroadenosis of right breast Procedures SACHA SURGICAL BREAST SPECIMEN RT RADIOLOGICAL EXAMINATION SURGICAL SPECIMEN Isabelle Diamond PA-C [address] [place] [address] [facility] [address] [place] [address] Referral ID Status Reason Start Date Expiration Date Visits Requested Visits Authorized [id number] Pending Review Auto-Generat ed Referral 03/24/2022 04/23/2023 1 1 [facility] Summary Purpose Family History No Family History Records FoundNo Family History Records FoundNo Family History Records FoundNo Family History Records FoundNo Family History Records Found Advance Directives Documents on File Type Date Recorded 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 Advance Directive(s) 06/01/2021 10:02 AM Advance Directive(s) 06/24/2019 7:05 AM Advance Directive(s) 06/24/2019 9:16 AM Advance Directive(s) 06/11/2019 12:01 PM Documents on File Type Date Recorded 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 Advance Directive(s) 06/01/2021 10:02 AM Advance Directive(s) 06/24/2019 7:05 AM Advance Directive(s) 06/24/2019 9:16 AM Advance Directive(s) 06/11/2019 12:01 PM Documents on File Type Date Recorded 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 Advance Directive(s) 06/24/2019 9:16 AM Documents on File Type Date Recorded 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 Advance Directive(s) 06/24/2019 9:16 AM Reason for Referral Specialty Diagnoses / Procedures Referred By Contmeme t Referred To Contact CT IMAGING Diagnoses Uncontrolled hypertension Pedal edema Elevated d-dimer Primary pulmonary hypertension (HCC) Chest pain, unspecified type Procedures CT CHEST W IVCON PE DIAGNOSTIC COMPUTED TOMOGRAPHY THORAX W/CONTRAST Angie Costello MD [address] [place] [address] Ct Imaging Referral ID Status Reason Start Date Expiration Date Visits Requested Visits Authorized [id number] Pending Review Auto-Genera marlene Referral Patient Cleared - Admin/Chair man/Directo r advise to proceed 03/16/2022 04/15/2023 1 1 Additional Source Comments INFORMATION SOURCE (unrecogn ized section and content) DATE CREATED AUTHOR AUTHOR'S ORGANIZ ATION 12/05/2021 [facility] DATE CREATED AUTHOR AUTHOR'S ORGANIZ ATION 01/15/2022 [facility] DATE CREATED AUTHOR AUTHOR'S ORGANIZ ATION 08/03/2022 [facility] DATE CREATED AUTHOR AUTHOR'S ORGANIZ ATION 08/09/2023 [facility] Source Comments (unrecognize d section and content) In the event this informatio n is protected by the Federal Confidentiality of Alcohol and Drug Abuse Patient Records regulations: The Federal rules restrict any use of the information to criminally investigate or prosecute any alcohol or drug abuse patient.[facility] the event this information is protected by the Federal Confidentiality of Alcohol and Drug Abuse Patient Records regulations: The Federal rules restrict any use of the information to criminally investigate or prosecute any alcohol or drug abuse patient.[facility] the event this information is protected by the Federal Confidentiality of Alcohol and Drug Abuse Patient Records regulations: The Federal rules restrict any use of the information to criminally investigate or prosecute any alcohol or drug abuse patient.[facility] the event this information is protected by the Federal Confidentiality of Alcohol and Drug Abuse Patient Records regulations: The Federal rules restrict any use of the information to criminally investigate or prosecute any alcohol or drug abuse patient.[facility] the event this information is protected by the Federal Confidentiality of Alcohol and Drug Abuse Patient Records regulations: The Federal rules restrict any use of the information to criminally investigate or prosecute any alcohol or drug abuse patient.[facility] the event this information is protected by the Federal Confidentiality of Alcohol and Drug Abuse Patient Records regulations: The Federal rules restrict any use of the information to criminally investigate or prosecute any alcohol or drug abuse patient.[facility] the event this information is protected by the Federal Confidentiality of Alcohol and Drug Abuse Patient Records regulations: The Federal rules restrict any use of the information to criminally investigate or prosecute any alcohol or drug abuse patient.[facility] the event this information is protected by the Federal Confidentiality of Alcohol and Drug Abuse Patient Records regulations: The Federal rules restrict any use of the information to criminally investigate or prosecute any alcohol or drug abuse patient.[facility] the event this information is protected by the Federal Confidentiality of Alcohol and Drug Abuse Patient Records regulations: The Federal rules restrict any use of the information to criminally investigate or prosecute any alcohol or drug abuse patient.[facility] the event this information is protected by the Federal Confidentiality of Alcohol and Drug Abuse Patient Records regulations: The Federal rules restrict any use of the information to criminally investigate or prosecute any alcohol or drug abuse patient.[facility] the event this information is protected by the Federal Confidentiality of Alcohol and Drug Abuse Patient Records regulations: The Federal rules restrict any use of the information to criminally investigate or prosecute any alcohol or drug abuse patient.[facility] the event this information is protected by the Federal Confidentiality of Alcohol and Drug Abuse Patient Records regulations: The Federal rules restrict any use of the information to criminally investigate or prosecute any alcohol or drug abuse patient.[facility] the event this information is protected by the Federal Confidentiality of Alcohol and Drug Abuse Patient Records regulations: The Federal rules restrict any use of the information to criminally investigate or prosecute any alcohol or drug abuse patient.[facility] the event this information is protected by the Federal Confidentiality of Alcohol and Drug Abuse Patient Records regulations: The Federal rules restrict any use of the information to criminally investigate or prosecute any alcohol or drug abuse patient.[facility] the event this information is protected by the Federal Confidentiality of Alcohol and Drug Abuse Patient Records regulations: The Federal rules restrict any use of the information to criminally investigate or prosecute any alcohol or drug abuse patient.[facility] the event this information is protected by the Federal Confidentiality of Alcohol and Drug Abuse Patient Records regulations: The Federal rules restrict any use of the information to criminally investigate or prosecute any alcohol or drug abuse patient.[facility] the event this information is protected by the Federal Confidentiality of Alcohol and Drug Abuse Patient Records regulations: The Federal rules restrict any use of the information to criminally investigate or prosecute any alcohol or drug abuse patient.[facility] the event this information is protected by the Federal Confidentiality of Alcohol and Drug Abuse Patient Records regulations: The Federal rules restrict any use of the information to criminally investigate or prosecute any alcohol or drug abuse patient.[facility] the event this information is protected by the Federal Confidentiality of Alcohol and Drug Abuse Patient Records regulations: The Federal rules restrict any use of the information to criminally investigate or prosecute any alcohol or drug abuse patient.[facility] the event this information is protected by the Federal Confidentiality of Alcohol and Drug Abuse Patient Records regulations: The Federal rules restrict any use of the information to criminally investigate or prosecute any alcohol or drug abuse patient.[facility] the event this information is protected by the Federal Confidentiality of Alcohol and Drug Abuse Patient Records regulations: The Federal rules restrict any use of the information to criminally investigate or prosecute any alcohol or drug abuse patient.[facility] the event this information is protected by the Federal Confidentiality of Alcohol and Drug Abuse Patient Records regulations: The Federal rules restrict any use of the information to criminally investigate or prosecute any alcohol or drug abuse patient.[facility] Hospital[facility] the event this information is protected by the Federal Confidentiality of Alcohol and Drug Abuse Patient Records regulations: The Federal rules restrict any use of the information to criminally investigate or prosecute any alcohol or drug abuse patient.[facility] the event this information is protected by the Federal Confidentiality of Alcohol and Drug Abuse Patient Records regulations: The Federal rules restrict any use of the information to criminally investigate or prosecute any alcohol or drug abuse patient.[facility] the event this information is protected by the Federal Confidentiality of Alcohol and Drug Abuse Patient Records regulations: The Federal rules restrict any use of the information to criminally investigate or prosecute any alcohol or drug abuse patient.[facility] Hospital[facility] the event this information is protected by the Federal Confidentiality of Alcohol and Drug Abuse Patient Records regulations: The Federal rules restrict any use of the information to criminally investigate or prosecute any alcohol or drug abuse patient.[facility] the event this information is protected by the Federal Confidentiality of Alcohol and Drug Abuse Patient Records regulations: The Federal rules restrict any use of the information to criminally investigate or prosecute any alcohol or drug abuse patient.[facility] Reason for Visit (unrecogniz ed section and content) Specialty Diagnoses / Procedures Referred By Boom ahuja Referred To Contact General Surgery Diagnoses Boil Procedures CONSULT TO GENERAL SURGERY OFFICE/OUTPATIENT [facility] 60-74 MINUTES Abby Ramires APRN.CNP [address] [place] [address] Referral ID Status Reason Start Date Expiration Date V isits Requested Visits Authorized [id number] Closed PCP Requested Referral 08/27/2021 08/27/2022 1 1 Reason Comments Follow Up simón anal wound chec k Reason Comments Urinary Frequency frequency and burnin g x 2 days Rash rash on feet x 2 wee ks Reason Comments Established Patient Reason Comments Cough cough x 1 day Reason Comments Established Patient 3 month follow up Reason Onset Date Comments Refill Request 12/31/2021 Reason Comments F/U Diabetes 3 Month Reason Comments Results d dimer Reason Comments patient needs 90 day rx for medications going to [facility] Specialty Diagnoses / Procedures Referred By Boom ahuja Referred To Contact CT IMAGING Diagnoses Pedal edema Elevated d-dimer Encounter for other preprocedural examination Procedures CTA ABD/PEL W IVCON CT ANGIO ABD&PLVIS CNTRST MTRL W/WO CNTRST Angie St MD [address] [place] [address] Ct Imaging Referral ID Status Reason Start Date Expiration Date Visits Requested Visits Authorized [id number] Authorized Auto-Generat ed Referral 03/14/2022 04/29/2022 2 2 Specialty Diagnoses / Procedures Referred By Boom ahuja Referred To Contact CT IMAGING Diagnoses Adverse effect of treatment, subsequent encounter Elevated d-dimer Procedures CTA CHEST (NONGATED) W IVCON CT ANGIOGRAPHY CHEST W/CONTRAST/NONCONTRAST Angie Costello MD [address] [place] [address] Ct Imaging Referral ID Status Reason Start Date Expiration Date Visits Requested Visits Authorized [id number] Authorized Auto-Generat ed Referral 03/14/2022 04/29/2022 [address] Specialty Diagnoses / Procedures Referred By Boom ahuja Referred To Contact CT IMAGING Diagnoses Uncontrolled hypertension Pedal edema Elevated d-dimer Primary pulmonary hypertension (HCC) Chest pain, unspecified type Procedures CT CHEST W IVCON PE DIAGNOSTIC COMPUTED TOMOGRAPHY THORAX W/CONTRAST Angie Costello MD [address] [place] [address] Ct Imaging Referral ID Status Reason Start Date Expiration Date Visits Requested Visits Authorized [id number] Pending Review Auto-Genera marlene Referral Patient Cleared - Admin/Chair man/Directo r advise to proceed 03/16/2022 04/15/2023 1 1 Reason Comments Established Patient Follow up Reason Comments Refill Request Reason Comments Same Day Appointment right foot abrasion possible infection Reason Comments Opened In Error Reason Comments Ear Pain left, headache x 2 d ays Reason Comments Post Op Reason Comments Same Day Appointment h/a's, elevated Blo od pressure,fatigue,weak, ear pain x 1 week after surgery Reason Comments Diarrhea Vomiting, fever, OSMAN, chills, weakness x 1 day Reason Comments Recheck BP follow up Reason Comments Follow Up meds and c/o cough Care Teams (unrecognized sec tion and content) Lead Sales Consultant Relationship Specialty Start Date End Date Angie Costello MD [address] [place] [address] PCP - General Internal Medicine 12/11/14 Lead Sales Consultant Relationship Specialty Start Date End Date Angie Costello MD [address] [place] [address] PCP - General Internal Medicine 12/11/14 Lead Sales Consultant Relationship Specialty Start Date End Date Angie Costello MD [address] [place] [address] PCP - General Internal Medicine 12/11/14 Lead Sales Consultant Relationship Specialty Start Date End Date Angie Costello MD [address] [place] [address] PCP - General Internal Medicine 12/11/14 Lead Sales Consultant Relationship Specialty Start Date End Date Angie Costello MD [address] [place] [address] PCP - General Internal Medicine 12/11/14 Lead Sales Consultant Relationship Specialty Start Date End Date Angie Costello MD [address] [facility] [place] [address] PCP - General Internal Medicine 12/11/14 Lead Sales Consultant Relationship Specialty Start Date End Date Angie Costello MD [address] [place] [address] PCP - General Internal Medicine 12/11/14 Lead Sales Consultant Relationship Specialty Start Date End Date Angie Costello MD [address] [place] [address] PCP - General Internal Medicine 12/11/14 Lead Sales Consultant Relationship Specialty Start Date End Date Angie Costello MD [address] [place] [address] PCP - General Internal Medicine 12/11/14 Lead Sales Consultant Relationship Specialty Start Date End Date Angie Costello MD [address] [place] [address] PCP - General Internal Medicine 12/11/14 Lead Sales Consultant Relationship Specialty Start Date End Date Angie Costello MD [address] [place] [address] PCP - General Internal Medicine 12/11/14 Lead Sales Consultant Relationship Specialty Start Date End Date Angie Costello MD [address] [facility] [place] [address] PCP - General Internal Medicine 12/11/14 Lead Sales Consultant Relationship Specialty Start Date End Date Angie Costello MD [address] [place] [address] PCP - General Internal Medicine 12/11/14 Lead Sales Consultant Relationship Specialty Start Date End Date Angie Costello MD [address] [place] [address] PCP - General Internal Medicine 12/11/14 Lead Sales Consultant Relationship Specialty Start Date End Date Angie Costello MD [address] [place] [address] PCP - General Internal Medicine 12/11/14 Lead Sales Consultant Relationship Specialty Start Date End Date Angie Costello MD [address] [place] [address] PCP - General Internal Medicine 12/11/14 Lead Sales Consultant Relationship Specialty Start Date End Date Angie Costello MD [address] [place] [address] PCP - General Internal Medicine 12/11/14 Lead Sales Consultant Relationship Specialty Start Date End Date Angie Costello MD [address] [place] [address] PCP - General Internal Medicine 12/11/14 Lead Sales Consultant Relationship Specialty Start Date End Date Angie Costello MD [address] [place] [address] PCP - General Internal Medicine 12/11/14 Lead Sales Consultant Relationship Specialty Start Date End Date Angie Costello MD [address] [place] [address] PCP - General Internal Medicine 12/11/14 Lead Sales Consultant Relationship Specialty Start Date End Date Angie Costello MD [address] [place] [address] PCP - General Internal Medicine 12/11/14 FOR RECORDS PERTAINING TO PATIENTS WHO ARE OR HAVE BEEN ENROLLED IN A CHEMICAL DEPENDENCY/SUBSTANCEABUSE PROGRAM, SOME INFORMATION MAY BE OMITTED. This clinical summary was aggregated from multiple sources. Caution should be exercised in using it in the provision of clinical care. This summary normalizes information from multiple sources, and as a consequence, information in this document may materially change the coding, format and clinical context of patient data. In addition, data may be omitted in some cases. CLINICAL DECISIONS SHOULD BE BASED ON THE PRIMARY CLINICAL RECORDS. [facility] [employer] [facility]. provides no warranty or guarantee of the accuracy or completeness of information in this document.
== END | disposition home or self-care (01) ==
LOC: LABSPEC 16:06
PROVIDERS: PCP Nurse Practitioner; Visit Provider Obstetrics & Gynecology
DX: O16.9 Unspecified maternal hypertension, unspecified trimester (principal); Z3A.00 Weeks of gestation of pregnancy not specified
CPT/HCPCS: 82570; 84156; 87086; 87088

== ENCOUNTER → 2023-08-18 | Outpatient (CLI) | payer MEDICAID, SELFPAY ==
--- NOTE | 2023-08-18 15:20 | US_ITS ---
STUDY: SECOND AND THIRD TRIMESTER OBSTETRICAL ULTRASOUND REASON FOR EXAM: Female, 32 years old follow up to anatomy tl LMP: TECHNIQUE: Transabdominal TECHNICAL QUALITY: Adequate. PRIOR ULTRASOUND: August 04, 2023 FINDINGS: There is a single intrauterine fetus. The fetus is in a cephalic presentation. There is demonstrated cardiac activity with a heart rate of 155 bpm. There is a normal amniotic fluid volume. The largest amniotic fluid pocket measures 3.47 cm.. The placenta is anterior There are Grade 1 placental changes. BIOMETRY: Not performed ANATOMY: Cranium: Normal lateral ventricles. Normal choroid plexus. Normal cerebellum. Normal cisterna magna. Normal face, nose and lips. Chest: Normal 4-chamber heart. Abdomen/Pelvis: Normal diaphragm. Normal stomach. Normal abdominal wall. Normal cord insertion. Normal 3 vessel cord. Normal kidneys. Normal bladder. Spine: Not well visualized again due to position unchanged since previous study . Extremities: Normal bilateral upper extremities. Normal bilateral lower extremities. US/OB Limited (No Biometrics) IMPRESSION: Viable intrauterine gestation. Nonvisualization of the spine otherwise normal anatomy Electronically Signed: Barber Ortega MD at 20:38 EST ,
[2023-08-18 16:20] LABS: Hemoglobin 10.4 g/dL (12.0-15.0); Mean Corp Hgb Conc 31.5 g/dL (32-36); Mean Corpuscular Hgb 25.8 pg (27.0-32.0); Mean Corpuscular Volume 81.9 fL (81-99); Mean Platelet Vol. 11.4 fl (6.2-12.0); POSITIVE COUNT YES; POSITIVE MORPHOLOGY YES; Platelet Count 319 K/mm3 (150-450); RBC Distribution Width CV 15.1 % (11.6-14.6); RBC Distribution Width SD 45.2 fl (35.1-43.9); Red Blood Count 4.03 M/mm3 (4.2-5.4); White Blood Count 9.6 K/mm3 (4.4-11.0)
[2023-08-18 16:33] LABS: Differential Indicated MANUAL DIFF
[2023-08-18 16:50] LABS: ALB/GLOB Ratio 0.7 RATIO (0.9-2.4); AST(SGOT) 7 U/L (15-37); Alanine Aminotransfer ALT/SGPT 13 U/L (13-56); Albumin, Serum 2.7 g/dL (3.2-5.0); Alkaline Phosphatase 67 U/L (45-117); Anion Gap 4 (5-15); BUN 4 mg/dL (7-18); BUN/Creat Ratio 7.1 RATIO (10-20); Calcium,Total 8.1 mg/dL (8.5-10.1); Chloride 109 mmol/L (98-107); Creatinine, Serum 0.56 mg/dL (0.55-1.02); EST Glomerular Filtration Rate 134 mL/min (>60); Est Glom Filt Rate - Afr Amer 162 mL/min (>60); Globulin 3.8 g/dL (2.2-4.2); Glucose 111 mg/dL (74-106); Potassium 3.6 mmol/L (3.5-5.1); Protein, Total 6.5 g/dL (6.4-8.2); Sodium Level 137 mmol/L (136-145)
[2023-08-18 17:03] LABS: Hemoglobin A1c 5.8 % (3.8-5.6)
[2023-08-18 17:14] LABS: Eosinophil 2 % (0-5); Lymphocyte 20 % (19-41); Monocyte 2 % (0-10); Myelocyte 1 % (0-0); Neutrophil-Band 1 % (0-5); Neutrophil-Segmented 74 % (47-70); Total Cells Counted 100 (MANUAL DIFF)
[2023-08-18 17:16] LABS: Absolute Lymphocyte Count 1.92 X10^3/uL (0.83-4.51); Absolute Neutrophil Count 7.2 X10^3/uL (2.0-7.7)
[2023-08-18 17:18] LABS: Anisocytosis RARE; Microcytosis RARE; Platelet Estimate ADEQUATE (ADEQ); Red Cell Morphology N CHROM NORMAL (NORM C&C)
[2023-08-18 19:28] LABS: HIV - WCH Non-Reactive (Nonreactive); Hepatitis B Surface Antigen Non-Reactive (Nonreactive); Hepatitis C Antibody Non-Reactive (Nonreactive); Rubella IgG Reactive (Nonreactive); Syphilis Antibodies Non-reactive
[2023-08-21 14:25] LABS: Pathologist Review Reviewed
== END | disposition home or self-care (01) ==
PROVIDERS: PCP Nurse Practitioner; Referring Provider Obstetrics & Gynecology; Visit Provider Obstetrics & Gynecology
DX: O24.319 Unspecified pre-existing diabetes mellitus in pregnancy, unspecified trimester (principal); Z3A.00 Weeks of gestation of pregnancy not specified
CPT/HCPCS: 36415; 76815; 80053; 83036; 85025; 86703; 86762; 86780; 86803; 86850; 86900; 86901; 87340

== ENCOUNTER 2023-09-10 13:20 | Outpatient (CLI) | payer MEDICAID, SELFPAY ==
--- OUTSIDE RECORDS SUMMARY | 2023-09-10 13:27 | XMS RPT_ITS | CCD ---
Author Name Unknown Address [address] [place] [address] Organization [facility] Care Team Providers Care Scale Agent Name Role Phone Angie Costello MD Primary Care Provider [phone] ANGIE COSTELLO Primary Care Unavailable MOIRA LOZANO Attending UnavailAngie Jimenez MD Primary Care Provider SELF Referring Unavailable ANGIE COSTELLO Primary Care Unavailable MARGOTH BEDOYA Attending Unavailable MARGOTH BEDOYA Attending Unavailable ANGIE COSTELLO Primary Care Unavailable ANGIE COSTELLO Primary Care Unavailable Medications [...] Drug Class(es) Dates Sig (Normalized) Sig (Original) [id number] 200 actuat albuterol 0.09 mg/actuat metered dose [...] [Other enthesopathies, not elsewhere classified] Episodic Other connective tissue disease (1 source) 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; Translations: [Other symptoms and signs involving the musculoskeletal system] 08-25-2023 Episodic Other endocrine disorders (20 sources) Polycystic [...] acute lower respiratory infection] 08-16-2023 Episodic Other nervous system disorders (1 source) Bilateral carpal tunnel syndrome; Translations: [Carpal tunnel syndrome, bilateral upper limbs] 08-25-2023 Chronic Other nutritional; endocrine; and metabolic disorders (20 [...] Onset: 06-14-2021 06-14-2021 Episodic Superficial injury; contusion (10 sources) Abrasion, right foot, initial encounter; Translations: [Abrasion or friction burn of foot and toe(s), without mention of infection] Onset: 07-11-2022 07-11-2022 Episodic Results Test Name Value Interpretation Reference Range Facil ity Vital Signs Date Time Vital Sign Value Performing Clinician Ramírez patel 08-25-2023 12:53-0500 Body weight 119.75 kg Margoth Denbow PA-C Work Phone: [facility] 08-25-2023 12:53-0500 Diastolic blood pressure 70 mm[Hg] Margoth Denbow PA-C Work Phone: [facility] 08-25-2023 12:53-0500 Heart rate 88 /min Margoth Denbow PA-C Work Phone: [facility] 08-25-2023 12:53-0500 Respiratory rate 16 /min Margoth Denbow PA-C Work Phone: [facility] 08-25-2023 12:53-0500 Systolic blood pressure 130 mm[Hg] Margoth Denbow PA-C Work Phone: [facility] 08-16-2023 08:41-0500 Body height 162.6 cm Margoth Denbow PA-C Work Phone: [facility] 08-16-2023 08:41-0500 Body temperature 97.3 [degF] Margoth Denbow PA-C Work Phone: [facility] 08-16-2023 08:41-0500 Body weight 117.48 kg Margoth Denbow PA-C Work Phone: [facility] 08-16-2023 08:41-0500 Diastolic blood pressure 62 mm[Hg] Margoth Denbow PA-C Work Phone: [facility] 08-16-2023 08:41-0500 Heart rate 93 /min Margoth Denbow PA-C Work Phone: [facility] 08-16-2023 08:41-0500 Respiratory rate 16 /min Margoth Denbow PA-C Work Phone: [facility] 08-16-2023 08:41-0500 SaO2% (BldA) [Mass fraction] 98 % Margoth Bedoya PA-C Work Phone: [facility] 08-16-2023 08:41-0500 Systolic blood pressure 130 mm[Hg] Margoth Bedoya PA-C Work Phone: [facility] 08-25-2022 09:47-0500 Body temperature 97.3 [degF] Claudine Older ROUNDING AND BACKING MACHINE OPERATOR.SQL SERVER BI DEVELOPER Work Phone: [facility] 08-25-2022 09:47-0500 Body weight 119.75 kg Claudine Older ROUNDING AND BACKING MACHINE OPERATOR.SQL SERVER BI DEVELOPER Work Phone: [facility] 08-25-2022 09:47-0500 Diastolic blood pressure 84 mm[Hg] Claudine Older ROUNDING AND BACKING MACHINE OPERATOR.SQL SERVER BI DEVELOPER Work Phone: [facility] 08-25-2022 09:47-0500 Heart rate 96 /min Claudine Older ROUNDING AND BACKING MACHINE OPERATOR.SQL SERVER BI DEVELOPER Work Phone: [facility] 08-25-2022 09:47-0500 Respiratory rate 16 /min Claudine Older ROUNDING AND BACKING MACHINE OPERATOR.SQL SERVER BI DEVELOPER Work Phone: [facility] 08-25-2022 09:47-0500 SaO2% (BldA) [Mass fraction] 97 % Claudine Older ROUNDING AND BACKING MACHINE OPERATOR.SQL SERVER BI DEVELOPER Work Phone: [facility] 08-25-2022 09:47-0500 Systolic blood pressure 132 mm[Hg] Claudine Older ROUNDING AND BACKING MACHINE OPERATOR.SQL SERVER BI DEVELOPER Work Phone: [facility] 08-01-2022 15:05-0500 Body temperature 102.2 [degF] Krislyn Aberegg PA Work Phone: [facility] 08-01-2022 15:05-0500 Body weight 120.66 kg Krislyn Aberegg PA Work Phone: [facility] 08-01-2022 15:05-0500 Diastolic blood pressure 68 mm[Hg] Krislyn Aberegg PA Work Phone: [facility] 08-01-2022 15:05-0500 Heart rate 160 /min Krislyn Aberegg PA Work Phone: [facility] 08-01-2022 15:05-0500 Respiratory rate 21 /min Krislyn Aberegg PA Work Phone: [facility] 08-01-2022 15:05-0500 SaO2% (BldA) [Mass fraction] 98 % Krislyn Aberegg PA Work Phone: [facility] 08-01-2022 15:05-0500 Systolic blood pressure 120 mm[Hg] Krislyn Aberegg PA Work Phone: [facility] 07-27-2022 17:23-0500 Diastolic blood pressure 70 mm[Hg] Angie Costello MD Work Phone: [facility] 07-27-2022 17:23-0500 Systolic blood pressure 136 mm[Hg] Angie Costello MD Work Phone: [facility] 07-27-2022 16:42-0500 Body height 162.6 cm Angie Costello MD Work Phone: [facility] 07-27-2022 16:42-0500 Body temperature 98.49 [degF] Angie Costello MD Work Phone: [facility] 07-27-2022 16:42-0500 Body weight 121.11 kg Angie Costello MD Work Phone: [facility] 07-27-2022 16:42-0500 Heart rate 94 /min Angie Costello MD Work Phone: [facility] 07-27-2022 16:42-0500 Respiratory rate 14 /min Angie Costello MD Work Phone: [facility] 07-27-2022 16:42-0500 SaO2% (BldA) [Mass fraction] 97 % Angie Costello MD Work Phone: [facility] 07-25-2022 09:28-0500 Body temperature 98.2 [degF] Percy Jesus ROUNDING AND BACKING MACHINE OPERATOR.SQL SERVER BI DEVELOPER Work Phone: [facility] 07-25-2022 09:28-0500 Body weight 120.66 kg Percy Lee ROUNDING AND BACKING MACHINE OPERATOR.SQL SERVER BI DEVELOPER Work Phone: [facility] 07-25-2022 09:28-0500 Diastolic blood pressure 68 mm[Hg] Percy Lee ROUNDING AND BACKING MACHINE OPERATOR.SQL SERVER BI DEVELOPER Work Phone: [facility] 07-25-2022 09:28-0500 Heart rate 112 /min Percy Lee ROUNDING AND BACKING MACHINE OPERATOR.SQL SERVER BI DEVELOPER Work Phone: [facility] 07-25-2022 09:28-0500 Respiratory rate 16 /min Percy Lee ROUNDING AND BACKING MACHINE OPERATOR.SQL SERVER BI DEVELOPER Work Phone: [facility] 07-25-2022 09:28-0500 SaO2% (BldA) [Mass fraction] 98 % Percy Lee ROUNDING AND BACKING MACHINE OPERATOR.SQL SERVER BI DEVELOPER Work Phone: [facility] 07-25-2022 09:28-0500 Systolic blood pressure 120 mm[Hg] Percy Lee ROUNDING AND BACKING MACHINE OPERATOR.SQL SERVER BI DEVELOPER Work Phone: [facility] 07-08-2022 15:26-0500 Body height 162.6 cm Angie Costello MD Work Phone: [facility] 07-08-2022 15:26-0500 Body temperature 97.9 [degF] Angie Costello MD Work Phone: [facility] 07-08-2022 15:26-0500 Body weight 118.39 kg Angie Costello MD Work Phone: [facility] 07-08-2022 15:26-0500 Diastolic blood pressure 70 mm[Hg] Angie Costello MD Work Phone: [facility] 07-08-2022 15:26-0500 Heart rate 93 /min Angie Costello MD Work Phone: [facility] 07-08-2022 15:26-0500 Respiratory rate 14 /min Angei Costello MD Work Phone: [facility] 07-08-2022 15:26-0500 SaO2% (BldA) [Mass fraction] 100 % Angie Costello MD Work Phone: [facility] 07-08-2022 15:26-0500 Systolic blood pressure 134 mm[Hg] Angie Costello MD Work Phone: [facility] 02-26-2022 10:24-0400 Body height 162.6 cm Angie Costello MD Work Phone: [facility] 02-26-2022 10:24-0400 Body temperature 97.7 [degF] Angie Costello MD Work Phone: [facility] 02-26-2022 10:24-0400 Body weight 113.4 kg Angie Costello MD Work Phone: [facility] 02-26-2022 10:24-0400 Diastolic blood pressure 62 mm[Hg] Angie Costello MD Work Phone: [facility] 02-26-2022 10:24-0400 Heart rate 96 /min Angie Costello MD Work Phone: [facility] 02-26-2022 10:24-0400 Respiratory rate 14 /min Angie Costello MD Work Phone: [facility] 02-26-2022 10:24-0400 SaO2% (BldA) [Mass fraction] 98 % Angie Costello MD Work Phone: [facility] 02-26-2022 10:24-0400 Systolic blood pressure 128 mm[Hg] Angie Costello MD Work Phone: [facility] 12-21-2021 09:11-0400 Body height 162.6 cm Angie Costello MD Work Phone: [facility] 12-21-2021 09:11-0400 Body temperature 97.2 [degF] Angie Costello MD Work Phone: [facility] 12-21-2021 09:11-0400 Body weight 116.12 kg Angie Costello MD Work Phone: [facility] 12-21-2021 09:11-0400 Diastolic blood pressure 60 mm[Hg] Angie Costello MD Work Phone: [facility] 12-21-2021 09:11-0400 Heart rate 102 /min Angie Costello MD Work Phone: [facility] 12-21-2021 09:11-0400 Respiratory rate 16 /min Angie Costello MD Work Phone: [facility] 12-21-2021 09:11-0400 SaO2% (BldA) [Mass fraction] 99 % Angie Costello MD Work Phone: [facility] 12-21-2021 09:11-0400 Systolic blood pressure 124 mm[Hg] Angie Costello MD Work Phone: [facility] 11-24-2021 15:58-0400 Body temperature 99.1 [degF] [facility] ROUNDING AND BACKING MACHINE OPERATOR.SQL SERVER BI DEVELOPER Work Phone: [facility] 11-24-2021 15:58-0400 Body weight 115.03 kg [facility] ROUNDING AND BACKING MACHINE OPERATOR.SQL SERVER BI DEVELOPER Work Phone: [facility] 11-24-2021 15:58-0400 Diastolic blood pressure 72 mm[Hg] Todd Pendlebury ROUNDING AND BACKING MACHINE OPERATOR.SQL SERVER BI DEVELOPER Work Phone: [facility] 11-24-2021 15:58-0400 Heart rate 112 /min Todd Pendlebury ROUNDING AND BACKING MACHINE OPERATOR.SQL SERVER BI DEVELOPER Work Phone: [facility] 11-24-2021 15:58-0400 Respiratory rate 18 /min Todd Pendlebury ROUNDING AND BACKING MACHINE OPERATOR.SQL SERVER BI DEVELOPER Work Phone: [facility] 11-24-2021 15:58-0400 SaO2% (BldA) [Mass fraction] 98 % Todd Pendlebury ROUNDING AND BACKING MACHINE OPERATOR.SQL SERVER BI DEVELOPER Work Phone: [facility] 11-24-2021 15:58-0400 Systolic blood pressure 132 mm[Hg] Todd Pendlebury ROUNDING AND BACKING MACHINE OPERATOR.SQL SERVER BI DEVELOPER Work Phone: [facility] 10-07-2021 14:08-0400 Body temperature 98.4 [degF] Abby Ramires MIMI.SQL SERVER BI DEVELOPER Work Phone: [facility] 10-07-2021 14:08-0400 Body weight 113.22 kg Abby Ramires MIMI.SQL SERVER BI DEVELOPER Work Phone: [facility] 10-07-2021 14:08-0400 Diastolic blood pressure 72 mm[Hg] Abby Ramires ROUNDING AND BACKING MACHINE OPERATOR.SQL SERVER BI DEVELOPER Work Phone: [facility] 10-07-2021 14:08-0400 Heart rate 88 /min Abby Ike LE.SQL SERVER BI DEVELOPER Work Phone: [facility] 10-07-2021 14:08-0400 Respiratory rate 18 /min Abby James MIMI.SQL SERVER BI DEVELOPER Work Phone: [facility] 10-07-2021 14:08-0400 SaO2% (BldA) [Mass fraction] 99 % Abby James MIMI.SQL SERVER BI DEVELOPER Work Phone: [facility] 10-07-2021 14:08-0400 Systolic blood pressure 110 mm[Hg] Abby Ramires MIMI.SQL SERVER BI DEVELOPER Work Phone: [facility] 09-16-2021 09:52-0400 Body height 162.6 cm Rivera Boykin MD Work Phone: [facility] 09-16-2021 09:52-0400 Body temperature 97.3 [degF] Rivera Boykin MD Work Phone: [facility] 09-16-2021 09:52-0400 Body weight 115.67 kg Rivera Boykin MD Work Phone: [facility] 09-16-2021 09:52-0400 Diastolic blood pressure 64 mm[Hg] Rivera Boykin MD Work Phone: [facility] 09-16-2021 09:52-0400 Heart rate 129 /min Rivera Boykin MD Work Phone: [facility] 09-16-2021 09:52-0400 SaO2% (BldA) [Mass fraction] 99 % Rivera Boykin MD Work Phone: [facility] 09-16-2021 09:52-0400 Systolic blood pressure 134 mm[Hg] Rivera Boykin MD Work Phone: [facility] 09-09-2021 14:40-0400 Body height 162.6 cm Rivera Boykin MD Work Phone: [facility] 09-09-2021 14:40-0400 Body temperature 98.71 [degF] Rivera Boykin MD Work Phone: [facility] 09-09-2021 14:40-0400 Body weight 114.4 kg Rivera Boykin MD Work Phone: [facility] 09-09-2021 14:40-0400 Diastolic blood pressure 72 mm[Hg] Rivera Boykin MD Work Phone: [facility] 09-09-2021 14:40-0400 Heart rate 106 /min Rivera Boykin MD Work Phone: [facility] 09-09-2021 14:40-0400 SaO2% (BldA) [Mass fraction] 93 % Rivera Boykin MD Work Phone: [facility] 09-09-2021 14:40-0400 Systolic blood pressure 122 mm[Hg] Rivera Boykin MD Work Phone: [facility] Encounters Encounter Date Encounter Type Care Provider Facility Start: 08-25-2023 End: 08-25-2023 ambulatory SELF Facility:[facility] Start: 08-25-2023 End: 08-25-2023 Patient encounter procedure Margoth Bedoya PA-C Work Phone: [facility] [place] Procedures Date Procedure Procedure Detail Performing Clinician Start: 08-01-2022 INFLUENZA A&B MOLECU LAR (POC) Amena ELIZONDO Work Phone: Start: 03-17-2022 Ct thorax w/contrast material Angie Costello MD Work Phone: Start: 02-26-2022 Hemoglobin A1c/Hemoglobin.total in Blood Angie Costello MD Work Phone: Start: 10-07-2021 Urnls dip stick/tabl et rgnt auto w/o microscopy Moira Anderson ROUNDING AND BACKING MACHINE OPERATOR.SQL SERVER BI DEVELOPER Work Phone: H/O: section S/P sectio n Angie Costello MD Work Phone: Plan of Treatment Date Care Activity Detail Author Start: 12-17-2031 Urine microalbumin profile DTa P,Tdap,Td Vaccine (9 - Td or Tdap) [facility] Start: 03-23-2030 Urine microalbumin profile DTA P,TDAP,TD (8 - Td or Tdap) [facility] Start: 07-19-2026 Screening for malign ant neoplasm of cervix Pap Testing [facility] Start: 08-24-2024 Annual PCP Team Computer Security Manager hugh Disease Visit Annual PCP Team Chronic Disease Visit [facility] Start: 08-16-2024 Annual PCP Team Computer Security Manager hugh Disease Visit Annual PCP Team Chronic Disease Visit [facility] Start: 07-19-2024 PAP TESTING PAP TESTING [facility] Start: 08-26-2023 ANNUAL PCP TEAM COLLISION WORKER HUGH DISEASE VISIT ANNUAL PCP TEAM CHRONIC DISEASE VISIT [facility] Start: 08-23-2023 Hepatitis B screening URINE AL BUMIN:CREATININE RATIO [facility] Start: 08-23-2023 Hepatitis B surface antibody level LDL CHOLESTEROL [facility] Start: 08-01-2023 BP CONTROLLED (<130/80) BP CONTROLLE D (<130/80) [facility] Start: 07-27-2023 ANNUAL PCP TEAM COLLISION WORKER HUGH DISEASE VISIT ANNUAL PCP TEAM CHRONIC DISEASE VISIT [facility] Start: 07-25-2023 BP CONTROLLED (<130/80) BP CONTROLLE D (<130/80) [facility] Start: 07-08-2023 3 comp foot exam completed DIABETIC FOOT EXAM [facility] Start: 07-08-2023 ANNUAL PCP TEAM COLLISION WORKER HUGH DISEASE VISIT ANNUAL PCP TEAM CHRONIC DISEASE VISIT [facility] Start: 07-08-2023 COVID-19 VACCINE (4 - Booster for Pfizer series) COVID-19 VACCINE (4 - Booster for Pfizer series) [facility] Immunizations Immunization Date Immunization Notes Care Provider Fa cility 04-03-2021 COVID-19 vaccine, ag e 12+ yr ([employer] - PURPLE TOP) Rivera Boykin MD Work Phone: [facility] 03-29-2021 influenza, injectabl e, quadrivalent, contains preservative Rivera Boykin MD Work Phone: [facility] Work Phone: 03-29-2021 influenza virus vaccine, unspecified formulation [facility] Work Phone: [facility] 03-23-2020 tetanus toxoid, reduced diphtheria toxoid, and acellular pertussis vaccine, adsorbed Rivera Boykin MD Work Phone: [facility] 12-03-2010 human papilloma viru s vaccine, quadrivalent Rivera Boykin MD Work Phone: [facility] Work Phone: 11-30-2009 human papilloma viru s vaccine, quadrivalent Rivera Boykin MD Work Phone: [facility] Work Phone: 02-13-2006 Meningococcal, MCV4, unspecified conjugate formulation(groups A, C, Y and W-135) Rivera Boykin MD Work Phone: [facility] Work Phone: 02-13-2006 tetanus toxoid, reduced diphtheria toxoid, and acellular pertussis vaccine, adsorbed Rivera Boykin MD Work Phone: [facility] Work Phone: 05-17-1999 measles, mumps and rubella virus vaccine Rivera Boykin MD Work Phone: [facility] Work Phone: 01-13-1998 diphtheria, tetanus toxoids and pertussis vaccine Rivera Boykin MD Work Phone: [facility] Work Phone: 01-13-1998 trivalent poliovirus vaccine, live, oral Rivera Boykin MD Work Phone: [facility] Work Phone: 10-10-1994 diphtheria, tetanus toxoids and pertussis vaccine Rivera Boykin MD Work Phone: [facility] Work Phone: 10-10-1994 trivalent poliovirus vaccine, live, oral Rivera Boykin MD Work Phone: [facility] Work Phone: 03-04-1994 haemophilus influenz ae type b vaccine, HbOC conjugate Rivera Boykin MD Work Phone: [facility] Work Phone: 03-04-1994 measles, mumps and rubella virus vaccine Rivera Boykin MD Work Phone: [facility] Work Phone: 10-14-1993 hepatitis B vaccine, pediatric or pediatric/adolescent dosage Rivera Boykin MD Work Phone: [facility] Work Phone: 08-09-1993 diphtheria, tetanus toxoids and pertussis vaccine Rivera Boykin MD Work Phone: [facility] Work Phone: 08-09-1993 haemophilus influenz ae type b vaccine, HbOC conjugate Rivera Boykin MD Work Phone: [facility] Work Phone: 04-15-1993 diphtheria, tetanus toxoids and pertussis vaccine Rivera Boykin MD Work Phone: [facility] Work Phone: 04-15-1993 haemophilus influenz ae type b vaccine, HbOC conjugate Rivera Boykin MD Work Phone: [facility] Work Phone: 04-15-1993 hepatitis B vaccine, pediatric or pediatric/adolescent dosage Rivera Boykin MD Work Phone: [facility] Work Phone: 04-15-1993 trivalent poliovirus vaccine, live, oral Rivera Boykin MD Work Phone: [facility] Work Phone: 02-11-1993 diphtheria, tetanus toxoids and pertussis vaccine Rivera Boykin MD Work Phone: [facility] Work Phone: 02-11-1993 haemophilus influenz ae type b vaccine, HbOC conjugate Rivera Boykin MD Work Phone: [facility] Work Phone: 02-11-1993 hepatitis B vaccine, pediatric or pediatric/adolescent dosage Rivera Boykin MD Work Phone: [facility] Work Phone: 02-11-1993 trivalent poliovirus vaccine, live, oral Rivera Boykin MD Work Phone: [facility] Work Phone: Payers Date Payer Category Payer Medicaid [id number] 2022 Medicaid [id number] 2018 Medicaid [facility] MEDICAID FORMERLY [facility]1983 PLAN MEDICAID [id number] 2018-Present [phone] [address] [place] [address] Medicaid [id number] 2018 Medicaid [id number] Social History Date Type Detail Facility Start: 12-16-2014 End: 02-26-2022 Tobacco smoking status NHIS Never smoked tobacco [facility] Start: 12-16-2014 End: 02-26-2022 Tobacco use and exposure Smokeless tobacco non-user [facility] Start: 09-12-2021 End: 08-16-2023 Alcohol intake Current drinker of alcohol (finding) [facility] Start: 01-15-2014 History SDOH Alcohol Comment Occasionally [facility] Start: 1990 Sex Assigned At Not on file C [facility] Start: 09-06-2021 End: 02-26-2022 Exposure to SARS-CoV-2 (event) Not sure [facility] Start: 03-06-2022 End: 03-16-2022 Exposure to SARS-CoV-2 (event) Unable to assess [facility] Start: 08-01-2022 End: 08-16-2023 History of Social function [facility] Start: 08-01-2022 End: 08-16-2023 Tobacco use panel [facility] Adult Depression Screening Assessment 1 [facility] Start: 03-28-2023 [facility] Clinical Notes 02-13-2006 to 08-25-2023 Patient InstructionsMargoth Bedoya PA-C - 08/25/2023 1:09 PM ESTPatient InstructionsMargoth Bedoya PA-C - 08/16/2023 8:51 AM AMBERBurnAury brock LPN - 08/16/2023 8:40 AM ESTPatient Instructions Note Date & Type Note Facility 08-25-2023 Note HNO ID: [id number] Author: MARGOTH BEDOYA PA-C Service: ? Author Type: Physician Architectural Designer Type: Progress Notes Filed: 08/25/2023 13:52 Note Text: CC: Patient presents with: Follow Up HPI Doug Baptiste is a 32 year old female who presents today for progressively worsening carpal tunnel syndrome (R>L). C/o pain in wrist and fingers, as well aStates that it has gotten so much worse x3-4 years, but I just keep putting it off. But states it's so much more prominent now that she's . Unable to make a fist with her right hand, and cannot perform thumb adduction with 3rd or 4th digits. Had tried bracing with night splints and didn't feel they did anything at all. REVIEW OF SYSTEMS See HPI All other [...] (3 mL) Inject subcutaneously daily at bedtime. labetalol (TRANDATE) 200 mg tablet Take 1 tablet by mouth two times a day. NIFEdipine ER (PROCARDIA XL) 90 mg 24 hr tablet Take 1 tablet by mouth once daily. pantoprazole DR (PROTONIX) 20 mg tablet Take 1 tablet by mouth once daily. albuterol HFA (VENTOLIN HFA) 90 mcg/actuation inhaler Inhale 2 Puffs as instructed every 4 hours as needed for wheezing/shortness of breath. lamoTRIgine (LAMICTAL) 200 mg tablet Take 200 mg by mouth once daily. FAMILY HISTORY [...] Occasionally Drug use: No PHYSICAL EXAM BP 130/70 Pulse 88 Resp 16 Wt 119.7 kg (264 lb) LMP 07/30/2022 (Exact Date) BMI 45.32 kg/m? Physical Exam Musculoskeletal: Right wrist: Tenderness and bony tenderness (In area as outlined) present. Decreased range of motion (Difficulty noted with finger abduction of fourth and fifth digits to thumb, as well as wrist flexion (difficulty secondary to tension/swelling)). Hands: Comments: Negative Tinel's, positive Phalen's bilateral hands/wrists ASSESSMENT/PLAN: 1. Bilateral carpal tunnel syndrome - ICD9: 354.0, ICD10: G56.03 (primary diagnosis) Suspected CTS. Will place referral to hand specialist to further evaluate and manage. XR ordered as advised per order set, but pt opting not to pursue at this time given that she is . - XR HAND GENERAL 3V PA/LAT/OBL BILATERAL - CONSULT PANEL TO ORTHOPAEDICS 2. Decreased office manager strength - ICD9: 729.89, ICD10: R29.898 See above - XR HAND GENERAL 3V PA/LAT/OBL BILATERAL - CONSULT PANEL TO ORTHOPAEDICS Prescription instructions reviewed with patient as applicable. Potential red flag symptoms discussed with the patient. Reviewed appropriate action plan to take if red flag symptoms occur. Patient agreeable to treatment plan. Margoth Bedoya PA-C [facility] 08-25-2023 Instructions Margoth Bedoya PA-C - 08/25/2023 1:[address] Marlee Vyas [facility] documented in this encounter [facility] 08-25-2023 History of Present illness Narrative Images from the original note were not included. CC: Patient presents with: Follow Up HPI Doug Baptiste is a 32 year old female who presents today for progressively worsening carpal tunnel syndrome (R>L). C/o pain in wrist and fingers, as well aStates that it has gotten so much worse x3-4 years, but I just keep putting it off. But states it's so much more prominent now that she's . Unable to make a fist with her right hand, and cannot perform thumb adduction with 3rd or 4th digits. Had tried bracing with night splints and didn't feel they did anything at all. REVIEW OF SYSTEMS See HPI All other [...] (3 mL) Inject subcutaneously daily at bedtime. labetalol (TRANDATE) 200 mg tablet Take 1 tablet by mouth two times a day. NIFEdipine ER (PROCARDIA XL) 90 mg 24 hr tablet Take 1 tablet by mouth once daily. pantoprazole DR (PROTONIX) 20 mg tablet Take 1 tablet by mouth once daily. albuterol HFA (VENTOLIN HFA) 90 mcg/actuation inhaler Inhale 2 Puffs as instructed every 4 hours as needed for wheezing/shortness of breath. lamoTRIgine (LAMICTAL) 200 mg tablet Take 200 mg by mouth once daily. FAMILY HISTORY [...] Occasionally Drug use: No PHYSICAL EXAM BP 130/70 Pulse 88 Resp 16 Wt 119.7 kg (264 lb) LMP 07/30/2022 (Exact Date) BMI 45.32 kg/m Physical Exam Musculoskeletal: Right wrist: Tenderness and bony tenderness (In area as outlined) present. Decreased range of motion (Difficulty noted with finger abduction of fourth and fifth digits to thumb, as well as wrist flexion (difficulty secondary to tension/swelling)). Hands: Comments: Negative Tinel's, positive Phalen's bilateral hands/wrists ASSESSMENT/PLAN: 1. Bilateral carpal tunnel syndrome - ICD9: 354.0, ICD10: G56.03 (primary diagnosis) Suspected CTS. Will place referral to hand specialist to further evaluate and manage. XR ordered as advised per order set, but pt opting not to pursue at this time given that she is . - XR HAND GENERAL 3V PA/LAT/OBL BILATERAL - CONSULT PANEL TO ORTHOPAEDICS 2. Decreased office manager strength - ICD9: 729.89, ICD10: R29.898 See above - XR HAND GENERAL 3V PA/LAT/OBL BILATERAL - CONSULT PANEL TO ORTHOPAEDICS Prescription instructions reviewed with patient as applicable. Potential red flag symptoms discussed with the patient. Reviewed appropriate action plan to take if red flag symptoms occur. Patient agreeable to treatment plan. Margoth Bedoya PA-C documented in this encounter [facility] 08-16-2023 Note HNO ID: [id number] Author: MARGOTH BEDOYA PA-C Service: ? Author Type: Physician Architectural Designer Type: Progress Notes Filed: 08/16/2023 09:25 Note Text: sinusCC: Patient presents with: Follow Up: meds and c/o cough HPI Doug Baptiste is a 32 year old female who [...] most part, but her visa (her is Samoan). Will be seeing [facility] tomorrow for initial consult regarding . Was [...] known allergies. MEDICATIONS flash glucose scanning reader ([employer] SANJUANA 2 READER) ferrous sulfate 325 mg [...] Size: Large Adult) Pulse 93 Temp 36.3 ?C (97.3 ?F) Resp 16 Ht 162.6 cm (5' 4 ) Wt 117.5 kg (259 lb) LMP 07/30/2022 (Exact Date) SpO2 98% BMI 44.46 kg/m? General Appearance: well appearing, in no acute [...] AMOXICILLIN 875 MG-POTASSIUM CLAVULANATE 125 MG TABLET (more content not included)... [facility] 08-16-2023 Instructions Margoth Bedoya PA-C - 08/16/2023 9:12 AM EST COLDS [...] please feel free to call L&D at [phone] ext [phone]. documented in this encounter [facility] 08-16-2023 History of Present illness Narrative sinusCC: Patient presents with: Follow Up: meds and c/o cough HPI Doug Baptiste is a 32 year old female who [...] most part, but her visa (her is Samoan). Will be seeing [facility] tomorrow for initial consult regarding . Was [...] V22.2, ICD10: Z3A.22 Follow-up with OB through [facility] tomorrow, to review medications more in depth and decide what is appropriate and was not. F/u PRN/INB (as patient may return to [place]) Prescription instructions reviewed with patient as applicable. Potential red flag symptoms discussed with the patient. Reviewed appropriate action plan to take if red flag symptoms occur. Patient agreeable to treatment plan. Margoth Bedoya PA-C documented in this encounter [facility] 08-16-2023 Nurse Note Patient takes insulin in a pen ordered in [place]: Novorapid documented in this encounter [facility] 08-07-2023 Note HNO ID: [id number] Author: TODD LOREDO APRN.SQL SERVER BI DEVELOPER Service: ? Author Type: Nurse Practitioner Type: [...] further evaluation care. Will be seen at [facility] where her FILM RECORDIST is affiliated with. Patient verbalized understand agrees plan of care. Todd Loredo APRN.CNP [facility] 08-07-2023 History of Present illness Narrative Nontoxic-appearing [...] further evaluation care. Will be seen at [facility] where her FILM RECORDIST is affiliated with. Patient verbalized understand agrees plan of care. Todd Loredo APRN.ARNALDO documented in this encounter [facility] 08-25-2022 History of Present illness Narrative CC Patient presents with: Recheck: BP follow up HPI Doug Baptiste is a 31 year old female who presents to the office for blood pressure. Her visit today is for re-evaluation. Patient was last seen for this approximately 1 month ago. Is moving to [place] in a few days for unknown length [...] with daily a few months ago. Sees [facility] for hypertension that intensified with [...] PCP in [place] or if still in [facility] follow up in office in 2-4 weeks [...] Claudine Cedeño APRN.CNP documented in this encounter [facility] 08-01-2022 History of Present illness Narrative This note was created using [employer] Novobi[employer]. Subjective Doug Baptiste is a 31 year old female. HPI [...] herself. CARO Can documented in this encounter [facility] 07-27-2022 History of Present illness Narrative Reason for Visit Patient presents with: Same Day Appointment: h/a's, elevated Blood pressure,fatigue,weak, ear pain x 1 week after surgery Doug Baptiste is a 31 year old female who [...] Angie Costello MD documented in this encounter [facility] 07-27-2022 Nurse Note Post op Last [...] Drug use: No documented in this encounter [facility] 07-27-2022 History of Present illness Narrative REASON FOR TODAY'S VISIT: Patient presents with: Post Op HISTORY of PRESENT ILLNESS: Doug Baptiste is a 31 year old female who is s/p a RIGHT breast roxy poultry offal icer localized mass excision performe by Dr. Awad [...] in consultation with Dr. Jiménez, of the [facility] breast pathology department, who concurs. BREAST [...] supraclavicular, infraclavicular or cervical lymphadenopathy. IMPRESSION: Doug Baptiste is a 31 year old female who is s/p a a RIGHT breast roxy poultry offal icer localized mass excision performe by Dr. Awad [...] Specialist, but states she is moving to [facility] and will find a caregiver at that time. Ms. Baptiste will follow-up with us on an as needed basis.. She is encouraged to follow-up with her primary care physician, Angie Costello MD. She has our names and numbers to stay in touch if she has any questions, concerns or problems in the interim. Isabelle Diamond PA-C cc: Angie Costello [address] [place] [address] documented in this encounter [facility] 07-25-2022 History of Present illness Narrative Subjective HPI HPI Doug Baptiste is a 31 year old female who [...] of breath go to ER Percy Lee APRN.SQL SERVER BI DEVELOPER documented in this encounter [facility] 07-08-2022 History of Present illness Narrative Reason for Visit Patient presents with: Same Day Appointment: right foot abrasion possible infection Doug Baptiste is a 31 year old female who [...] - tolerating well. Planning on moving to [facility] in early august. No problem-specific Assessment & [...] Angie Costello MD documented in this encounter [facility] 03-24-2022 Nurse Note Follow up Did [...] Drug use: No documented in this encounter [facility] 03-24-2022 History of Present illness Narrative REASON FOR TODAY'S VISIT: Patient presents with: Established Patient: Follow up HISTORY of PRESENT ILLNESS: Doug Baptiste is a 31 year old female who [...] due to unexpected . Had a roxy poultry offal icer placed. HISTORY: Patient was last seen for [...] area removed and will be returning from [facility] in Jun 2022. She underwent diagnostic mammogram [...] 2019, and there is an associated ROXY poultry offal icer within the mass. Surgical excision was recommended [...] supraclavicular, infraclavicular or cervical lymphadenopathy. IMPRESSION: Doug Baptiste is a 31 year old female who [...] Consent was signed for: RIGHT breast roxy poultry offal icer localized mass excision A tentative surgical date for 07/18/22 was given at [facility] Patient back in town from [facility] 07/04/22 and can do pre-op then She has our names and numbers to stay in touch if she has any questions, concerns or problems in the interim. Rachelle Awad DO Breast Surgeon cc: Angie Costello [address] [place] [address] documented in this encounter [facility] 03-17-2022 History of Present illness Narrative [...] Study SIGNATURE: RT [place](R) PATIENT NAME: Doug Baptiste DATE: March 17, 2022 TIME: 1:35 PM documented in this encounter [facility] 03-14-2022 Miscellaneous Notes The following approved [...] APRN.ARNALDO Patient calling she is going to [place] for 3 months, her flight leaves on 04/09. Patient is asking for 90 day rx for medications. She takes Labetalol 200 mg one tablet three times daily and Procardia XL 60 mg one tablet daily from her LOCAL FL[facility]ED DRIVER. Not listed on her medication list. Her Metformin she takes one pill in morning and 2 pills in the evening, Pantoprazole also, she uses [facility] for her pharmacy. Pending rx needs completed. Please advise documented in this encounter [facility] 03-01-2022 Miscellaneous Notes Patient notified and appt made for today at 12:30 in [place]. Patient verbalized understanding. Aury Brooks LPN Please call doug And tell her that her d dimer was very high so she needs to have her dvts done debra for b/l legs. Tests are ordered documented in this encounter [facility] 02-26-2022 History of Present illness Narrative Reason for Visit Patient presents with: F/U Diabetes 3 Month Doug Baptiste is a 31 year old female who [...] Angie Costello MD documented in this encounter [facility] 12-31-2021 History of Present illness Narrative [...] time of presentation. ER Passport sent to [facility] documented in this encounter [facility] 12-31-2021 Miscellaneous Notes The following approved [...] Irina Reece RN documented in this encounter [facility] 12-21-2021 History of Present illness Narrative Reason for Visit Patient presents with: Established Patient: 3 month follow up Doug Baptiste is a 31 year old female who [...] much. Bf is egg and wheat toast, iraqi carney. Lunch may miss sometimes, mainly she eats [...] capillary refill. ASSESSMENT/PLAN: 1. Diabetes mellitus, stable ([facility]) - ICD9: 250.00, ICD10: E11.9 (primary diagnosis) [...] Angie Costello MD documented in this encounter [facility] 11-24-2021 History of Present illness Narrative [...] OTC medications that has been approved by FILM RECORDIST. Patient was educated on supportive therapies. Patient [...] of care. This note was generated using [employer] software. It may contain errors in wording, punctuation, or spelling. Todd Loredo APRN.ARNALDO documented in this encounter [facility] 11-02-2021 Note Doug Baptiste is a new patient who's primary care provider is Angie Costello MD here for evaluation of heart. Chief Complaint Patient presents with ECHO History of Presenting Problem HPI Thank you for consulting us regarding Doug Baptiste. She is referred to the cardiology clinic at [facility] for evaluation of the heart. I saw [...] was a large patent foramen ovale with [id number] shunt. Tricuspid valve: There was normal tricuspid [...] to see in cardiology clinic here at [facility] (more content not included)... [facility] 10-14-2021 History of Present illness Narrative REASON FOR TODAY'S VISIT: Patient presents with: Established Patient HISTORY of PRESENT ILLNESS: Doug Baptiste is a 30 year old female with a RIGHT breast mass @ 12:00 retroareolar (bx FA 2018) increased in size to 1.4 cm was [...] daughter Lena) and her fiance lives in [facility] but plans to come in January 22 for her delivery and say 90 days. She is high risk due to gestational diabetes and HTN - so planning elective delivery at 39 weeks (end of January) States she does not plan to breastfeed and would like the mass excised prior to her fiance needing to return to [facility] and while she is on [facility]. She [...] localization - [facility], 03/31/2021 mammogram - [facility], 03/31/2021 ultrasound - [facility], and 05/22/2019 ultrasound biopsy - [facility]. Real-time ultrasound of the right breast 12 [...] 2019, and there is an associated ROXY poultry offal icer within the mass. Surgical excision was recommended [...] supraclavicular, infraclavicular or cervical lymphadenopathy. IMPRESSION: Doug Baptiste is a 30 year old female who [...] DO Breast Surgeon documented in this encounter [facility] 10-14-2021 Nurse Note Follow up Did patient bring outside records to appt today? : No Last mammogram on: right breast ultrasound only 10/14/2021 Results: see report Is the patient active on [employer] Yes Electronically Signed By: Alexandra Flynn LPN [...] Drug use: No documented in this encounter [facility] 10-07-2021 Instructions Abby Ramires APRN.SQL SERVER BI DEVELOPER - 10/07/2021 2:34 PM EDT BLADDER INFECTION [...] have an infection. documented in this encounter [facility] 10-07-2021 History of Present illness Narrative CC: Patient presents with: Urinary Frequency: frequency and burning x 2 days Rash: rash on feet x 2 weeks HPI Doug Baptiste is a 30 year old female who [...] Abby Ramires APRN.ARNALDO documented in this encounter [facility] 09-16-2021 History of Present illness Narrative FOLLOW UP VISIT - ABSCESS NAME: Doug Baptiste [facility] NO.: [id number] DATE OF SERVICE: 09/16/2021 : 1990 REFERRING [...] Rivera Boykin MD documented in this encounter [facility] 09-12-2021 History of Present illness Narrative HISTORY AND PHYSICAL Doug Baptiste 1990 REFERRING PHYSICIAN: Self CHIEF COMPLAINT: Consult [...] entered by the nurse and reviewed by me Nursing Notes: Brittany Roland RN 09/09/2021 2:47 [...] Krista Fu LPN documented in this encounter [facility] 09-09-2021 Instructions Krista Fu LPN - 09/09/2021 4:11 PM EDT The following instructions are important for you related to your office visit today with the [facility] General Surgeons. Instructions After PERIRECTAL ABSCESS DRAINAGE [...] you should contact our office immediately @ [phone] and ask to be transferred to the General Surgery department. documented in this encounter [facility] 09-09-2021 Nurse Note REVIEW OF SYSTEMS: [...] Brittany Roland RN documented in this encounter [facility] documented as of this encounter (statuses as of 09/16/2021) [facility] History of Past illness Narrative* Problem Noted Date Resolved Date Streptococcal sore throat 02/13/20062007 documented as of this encounter (statuses as of 09/16/2021) [address]21-2006 History of Past illness Narrative* Problem Noted Date Resolved Date Streptococcal sore throat 02/13/20062007 documented as of this encounter (statuses as of 10/07/2021) [facility] History of Past illness Narrative* Problem Noted Date Resolved Date Streptococcal sore throat 02/13/20062007 documented as of this encounter (statuses as of 10/21/2021) [facility] History of Past illness Narrative* Problem Noted Date Resolved Date Streptococcal sore throat 02/13/20062007 documented as of this encounter (statuses as of 11/24/2021) [address]-2006 History of Past illness Narrative* Problem Noted Date Resolved Date Streptococcal sore throat 02/13/20062007 documented as of this encounter (statuses as of 12/21/2021) [address]-2006 History of Past illness Narrative* Problem Noted Date Resolved Date Streptococcal sore throat 02/13/20062007 documented as of this encounter (statuses as of 12/31/2021) [address]-2006 History of Past illness Narrative* Problem Noted Date Resolved Date Streptococcal sore throat 02/13/20062007 documented as of this encounter (statuses as of 12/31/2021) [address] History of Past illness Narrative* Problem Noted Date Resolved Date Streptococcal sore throat 02/13/20062007 documented as of this encounter (statuses as of 02/26/2022) [address]-2006 History of Past illness Narrative* Problem Noted Date Resolved Date Streptococcal sore throat 02/13/20062007 documented as of this encounter (statuses as of 03/01/2022) [address] History of Past illness Narrative* Problem Noted Date Resolved Date Streptococcal sore throat 02/13/20062007 documented as of this encounter (statuses as of 03/14/2022) [address] History of Past illness Narrative* Problem Noted Date Resolved Date Streptococcal sore throat 02/13/20062007 documented as of this encounter (statuses as of 03/17/2022) [address] History of Past illness Narrative* Problem Noted Date Resolved Date Streptococcal sore throat 02/13/20062007 documented as of this encounter (statuses as of 03/17/2022) [address]-2006 History of Past illness Narrative* Problem Noted Date Resolved Date Streptococcal sore throat 02/13/20062007 documented as of this encounter (statuses as of 03/18/2022) [address] History of Past illness Narrative* Problem Noted Date Resolved Date Streptococcal sore throat 02/13/20062007 documented as of this encounter (statuses as of 03/24/2022) [address] History of Past illness Narrative* Problem Noted Date Resolved Date Streptococcal sore throat 02/13/20062007 documented as of this encounter (statuses as of 03/29/2022) [address] History of Past illness Narrative* Problem Noted Date Resolved Date Streptococcal sore throat 02/13/20062007 documented as of this encounter (statuses as of 06/30/2022) [address] History of Past illness Narrative* Problem Noted Date Resolved Date Streptococcal sore throat 02/13/20062007 documented as of this encounter (statuses as of 07/08/2022) [address] History of Past illness Narrative* Problem Noted Date Resolved Date Streptococcal sore throat 02/13/20062007 documented as of this encounter (statuses as of 07/11/2022) [address] History of Past illness Narrative* Problem Noted Date Resolved Date Streptococcal sore throat 02/13/20062007 documented as of this encounter (statuses as of 07/25/2022) [address] History of Past illness Narrative* Problem Noted Date Resolved Date Streptococcal sore throat 02/13/20062007 documented as of this encounter (statuses as of 07/27/2022) [address] History of Past illness Narrative* Problem Noted Date Resolved Date Streptococcal sore throat 02/13/20062007 documented as of this encounter (statuses as of 07/28/2022) [address] History of Past illness Narrative* Problem Noted Date Resolved Date Streptococcal sore throat 02/13/20062007 documented as of this encounter (statuses as of 08/02/2022) [address] History of Past illness Narrative* Problem Noted Date Resolved Date Streptococcal sore throat 02/13/20062007 documented as of this encounter (statuses as of 08/12/2022) [address] History of Past illness Narrative* Problem Noted Date Resolved Date Streptococcal sore throat 02/13/20062007 documented as of this encounter (statuses as of 08/25/2022) [address] History of Past illness Narrative* Problem Noted Date Diagnosed Date Resolved Date Streptococcal sore throat 02/13/2006 documented as of this encounter (statuses as of 08/08/2023) [address] History of Past illness Narrative* Problem Noted Date Diagnosed Date Resolved Date Streptococcal sore throat 02/13/2006 documented as of this encounter (statuses as of 08/16/2023) [facility] History of Past illness Narrative* Problem Noted Date Diagnosed Date Resolved Date Streptococcal sore throat 02/13/2006 documented as of this encounter (statuses as of 08/25/2023) [facility] note* Diagnosis Perirectal abscess- Primary Abscess of anal and rectal regions Boil Carbuncle and furuncle of unspecified site [facility] Diagnosis Perirectal abscess- Primary Abscess of anal and rectal regions documented in this encounter [facility] note* Diagnosis Urinary frequency- Primary documented in this encounter [facility] note* Diagnosis Mass of lower inner quadrant of right breast- Primary [facility] Diagnosis Viral illness- Primary Unspecified viral infection, in conditions classified elsewhere and of unspecified site documented in this encounter [facility] note* Diagnosis Diabetes mellitus, stable (HCC)- Primary Type II or unspecified type diabetes mellitus without mention of complication, not stated as uncontrolled Third trimester state, incidental Essential hypertension Unspecified essential hypertension Exercise-induced asthma Exercise induced bronchospasm Type 2 diabetes mellitus without complication, without long-term current use of insulin ([facility]) Anxiety and depression Dysthymic disorder Iron deficiency Iron deficiency anemia, unspecified [facility] Diagnosis Controlled type 2 diabetes mellitus without complication, without long-term current use of insulin ([facility]) documented in this encounter [facility] note* Diagnosis Treatment not available- Primary Procedure not carried out for other reasons Left upper arm pain Pain in limb [facility] Diagnosis S/P section- Primary Other postprocedural status Leg swelling Swelling of limb Uncontrolled hypertension Unspecified essential hypertension Tendinitis of hand Other tenosynovitis of hand and wrist [facility] Diagnosis Leg swelling- Primary Swelling of limb [facility] Diagnosis Controlled type 2 diabetes mellitus without complication, without long-term current use of insulin ([facility]) Gastroesophageal reflux disease without esophagitis Esophageal reflux documented in this encounter [facility] note* Diagnosis Pedal edema Edema Elevated d-dimer Abnormal coagulation profile Encounter for other preprocedural examination documented in this encounter [facility] note* Diagnosis Adverse effect of treatment, subsequent encounter Elevated d-dimer Abnormal coagulation profile [facility] Diagnosis Uncontrolled hypertension Unspecified essential hypertension Pedal edema Edema Elevated d-dimer Abnormal coagulation profile Primary pulmonary hypertension (HCC) Primary pulmonary hypertension Chest pain, unspecified type [facility] Diagnosis Abnormal finding on imaging- Primary Other nonspecific (abnormal) findings on radiological and other examinations of body structure Fibroadenosis of right breast Fibroadenosis of breast [facility] Diagnosis Mass of lower inner quadrant of right breast- Primary Abnormal finding on imaging Other nonspecific (abnormal) findings on radiological and other examinations of body structure Fibroadenosis of right breast Fibroadenosis of breast [facility] Diagnosis Controlled type 2 diabetes mellitus without complication, without long-term current use of insulin (HCC) Abnormal finding on imaging Other nonspecific (abnormal) findings on radiological and other examinations of body structure Fibroadenosis of right breast Fibroadenosis of breast [facility] Diagnosis Cellulitis of right lower extremity- Primary Cellulitis and abscess of leg, except foot Gastroesophageal reflux disease without esophagitis Esophageal reflux Controlled type 2 diabetes mellitus without complication, without long-term current use of insulin (HCC) Abnormal finding on imaging Other nonspecific (abnormal) findings on radiological and other examinations of body structure Fibroadenosis of right breast Fibroadenosis of breast [facility] Diagnosis ETD (Eustachian tube dysfunction), left- Primary Heart rate fast Tachycardia, unspecified [facility] Diagnosis Tubular adenoma of female breast, right- Primary [facility] Diagnosis Uncontrolled hypertension- Primary Unspecified essential hypertension [facility] Diagnosis Vomiting and diarrhea- Primary Vomiting alone Fever, unspecified fever cause Type 2 diabetes mellitus without complication, without long-term current use of insulin (HCC) [facility] Diagnosis Type 2 diabetes mellitus without complication, without long-term current use of insulin (HCC) [facility] Diagnosis Essential hypertension, benign- Primary Gastroesophageal reflux disease without esophagitis Esophageal reflux [facility]* Diagnosis Headache, unspecified headache type- Primary [facility] Diagnosis LRTI (lower respiratory tract infection)- Primary Other diseases of respiratory system, not elsewhere classified 22 weeks gestation of state, incidental [facility] Diagnosis Bilateral carpal tunnel syndrome- Primary Carpal tunnel syndrome Decreased office manager strength Other musculoskeletal symptoms referable to limbs documented in this encounter [facility] for referral (narrative)* Diagnostic Procedure Only (Routine) - Pending Review Specialty Diagnoses / Procedures Referred By Contac t Referred To Contact [facility] Diagnoses Mass of lower inner quadrant of right breast Procedures US BREAST LTD RT US BREAST UNI REAL [place] [address] [place] [address] [facility] [address] [place] [address] Referral ID Status Reason Start Date Expiration Date Visits Requested Visits Authorized [id number] Pending Review Auto-Generat ed Referral 10/14/2021 11/13/[address] [facility] for referral (narrative)* Outpatient Procedure (Urgent) - Closed Specialty Diagnoses / Procedures Referred By Contac t Referred To [facility] Diagnoses Leg swelling Procedures US LEG VEIN DVT CAROL VAS LAB DUP-SCAN XTR VEINS COMPLETE BILATERAL STUDY Angie Costello MD [address] [place] [address] [facility] [address] [place] [address] Referral ID Status Reason Start Date Expiration Date V isits Requested Visits Authorized [id number] Closed Auto-Generate d Referral 02/28/2022 02/28/[address] [facility] for referral (narrative)* Diagnostic Procedure Only (Routine) - Pending Review Specialty Diagnoses / Procedures Referred By Contac t Referred To Contact BR IMAG[facility] Diagnoses Abnormal finding on imaging Fibroadenosis of right breast Procedures SACHA NDL LOC W SACHA GD RT PERQ DEVICE PLACEMENT BREAST LOC 1ST LES W/GDNCE LoboIsabelle PA-C [address] [place] [address] [facility] [address] [place] [address] Referral ID Status Reason Start Date Expiration Date Visits Requested Visits Authorized [id number] Pending Review Auto-Generat ed Referral 03/24/2022 04/23/2023 1 1 * Transition of Care (Routine) - Ref Not Required Specialty Diagnoses / Procedures Referred By Contac t Referred To Contact Diagnoses Abnormal finding on imaging Fibroadenosis of right breast Procedures IN PERSON CONSULT TO PACC Isabelle Diamond PA-C [address] [place] [id number] Referral ID Status Reason Start Date Expiration Date Visits Requested Visits Authorized [id number] Ref Not Required PCP Requested Referral 03/24/2022 06/22/2022 1 1 * Diagnostic Procedure Only (Routine) - Pending Review Specialty Diagnoses / Procedures Referred By Boom t Referred To Contact BR IM[facility] Diagnoses Abnormal finding on imaging Fibroadenosis of right breast Procedures SACHA SURGICAL BREAST SPECIMEN RT RADIOLOGICAL EXAMINATION SURGICAL SPECIMEN Isabelle Diamond PA-C [address] [place] [address] [facility] [address] [place] [address] Referral ID Status Reason Start Date Expiration Date Visits Requested Visits Authorized [id number] Pending Review Auto-Generat ed Referral 03/24/2022 04/23/2023 1 1 [facility] Summary Purpose Family History No Family History Records FoundNo Family History Records FoundNo Family History Records FoundNo Family History Records FoundNo Family History Records Found Advance Directives No Advanced Directives Records FoundDocuments on File Type Date Recorded Patient Transport Conductor Expl anation Advance Directive(s) 06/01/2021 10:02 AM Advance Directive(s) 06/24/2019 7:05 AM Advance Directive(s) 06/24/2019 9:16 AM Advance Directive(s) 06/11/2019 12:01 PM Documents on File Type Date Recorded Patient Transport Conductor Expl anation Advance Directive(s) 06/01/2021 10:02 AM Advance Directive(s) 06/24/2019 7:05 AM Advance Directive(s) 06/24/2019 9:16 AM Advance Directive(s) 06/11/2019 12:01 PM Documents on File Type Date Recorded Patient Transport Conductor Expl anation Advance Directive(s) 06/24/2019 9:16 AM Documents on File Type Date Recorded Patient Transport Conductor Expl anation Advance Directive(s) 06/24/2019 9:16 AM Reason for Referral Specialty Diagnoses / Procedures Referred By Boom t Referred To Contact CT IMAGING Diagnoses Uncontrolled hypertension Pedal edema Elevated d-dimer Primary pulmonary hypertension (HCC) Chest pain, unspecified type Procedures CT CHEST W IVCON PE DIAGNOSTIC COMPUTED TOMOGRAPHY THORAX W/CONTRAST Angie Costello MD [address] [place] [address] Ct Imaging Referral ID Status Reason Start Date Expiration Date Visits Requested Visits Authorized [id number] Pending Review Auto-Genera marlene Referral Patient Cleared - Admin/Chair man/Directo r advise to proceed 03/16/2022 04/15/2023 1 1 Specialty Diagnoses / Procedures Referred By Boom ahuja Referred To Contact Orthopedics Diagnoses Bilateral carpal tunnel syndrome Decreased office manager strength Procedures CONSULT PANEL TO ORTHOPAEDICS OFFICE/OUTPATIENT NEW HIGH MDM 60 MINUTES Margoth Bedoya PA-C [address] [place] [address] Referral ID Status Reason Start Date Expiration Date Visits Requested Visits Authorized [id number] Authorized PCP Requested Referral 08/25/2023 08/24/2024 1 1 Specialty Diagnoses / Procedures Referred By Boom ahuja Referred To Contact XR IMAGING Diagnoses Bilateral carpal tunnel syndrome Decreased office manager strength Procedures XR HAND GENERAL 3V PA/LAT/OBL BILATERAL RADEX HAND MINIMUM 3 VIEWS Margoth Bedoya PA-C [address] [place] [address] [place] [address] Referral ID Status Reason Start Date Expiration Date Visits Requested Visits Authorized [id number] Pending Review Auto-Generat ed Referral 08/25/2023 09/23/2024 1 1 Additional Source Comments INFORMATION SOURCE (unrecogn ized section and content) DATE CREATED AUTHOR AUTHOR'S ORGANIZ ATION 12/05/2021 [facility] DATE CREATED AUTHOR AUTHOR'S ORGANIZ ATION 01/15/2022 [facility] DATE CREATED AUTHOR AUTHOR'S ORGANIZ ATION 08/03/2022 [facility] DATE CREATED AUTHOR AUTHOR'S ORGANIZ ATION 08/27/2023 [facility] Source Comments (unrecognize d section and content) In the event this informatio n is protected by the Federal Confidentiality of Alcohol and Drug Abuse Patient Records regulations: The Federal rules restrict any use of the information to criminally investigate or prosecute any alcohol or drug abuse patient.[facility] event this information is protected by the Federal Confidentiality of Alcohol and Drug Abuse Patient Records regulations: The Federal rules restrict any use of the information to criminally investigate or prosecute any alcohol or drug abuse patient.[facility] the event this information is protected by the Federal Confidentiality of Alcohol and Drug Abuse Patient Records regulations: The Federal rules restrict any use of the information to criminally investigate or prosecute any alcohol or drug abuse patient.[facility] the event this information is protected by the Federal Confidentiality of Alcohol and Drug Abuse Patient Records regulations: The Federal rules restrict any use of the information to criminally investigate or prosecute any alcohol or drug abuse patient.[facility] the event this information is protected by the Federal Confidentiality of Alcohol and Drug Abuse Patient Records regulations: The Federal rules restrict any use of the information to criminally investigate or prosecute any alcohol or drug abuse patient.[facility] the event this information is protected by the Federal Confidentiality of Alcohol and Drug Abuse Patient Records regulations: The Federal rules restrict any use of the information to criminally investigate or prosecute any alcohol or drug abuse patient.[facility] the event this information is protected by the Federal Confidentiality of Alcohol and Drug Abuse Patient Records regulations: The Federal rules restrict any use of the information to criminally investigate or prosecute any alcohol or drug abuse patient.[facility] the event this information is protected by the Federal Confidentiality of Alcohol and Drug Abuse Patient Records regulations: The Federal rules restrict any use of the information to criminally investigate or prosecute any alcohol or drug abuse patient.[facility] the event this information is protected by the Federal Confidentiality of Alcohol and Drug Abuse Patient Records regulations: The Federal rules restrict any use of the information to criminally investigate or prosecute any alcohol or drug abuse patient.[facility] the event this information is protected by the Federal Confidentiality of Alcohol and Drug Abuse Patient Records regulations: The Federal rules restrict any use of the information to criminally investigate or prosecute any alcohol or drug abuse patient.[facility] the event this information is protected by the Federal Confidentiality of Alcohol and Drug Abuse Patient Records regulations: The Federal rules restrict any use of the information to criminally investigate or prosecute any alcohol or drug abuse patient.[facility] the event this information is protected by the Federal Confidentiality of Alcohol and Drug Abuse Patient Records regulations: The Federal rules restrict any use of the information to criminally investigate or prosecute any alcohol or drug abuse patient.[facility] the event this information is protected by the Federal Confidentiality of Alcohol and Drug Abuse Patient Records regulations: The Federal rules restrict any use of the information to criminally investigate or prosecute any alcohol or drug abuse patient.[facility] the event this information is protected by the Federal Confidentiality of Alcohol and Drug Abuse Patient Records regulations: The Federal rules restrict any use of the information to criminally investigate or prosecute any alcohol or drug abuse patient.[facility] the event this information is protected by the Federal Confidentiality of Alcohol and Drug Abuse Patient Records regulations: The Federal rules restrict any use of the information to criminally investigate or prosecute any alcohol or drug abuse patient.[facility] the event this information is protected by the Federal Confidentiality of Alcohol and Drug Abuse Patient Records regulations: The Federal rules restrict any use of the information to criminally investigate or prosecute any alcohol or drug abuse patient.[facility] the event this information is protected by the Federal Confidentiality of Alcohol and Drug Abuse Patient Records regulations: The Federal rules restrict any use of the information to criminally investigate or prosecute any alcohol or drug abuse patient.[facility] the event this information is protected by the Federal Confidentiality of Alcohol and Drug Abuse Patient Records regulations: The Federal rules restrict any use of the information to criminally investigate or prosecute any alcohol or drug abuse patient.[facility] the event this information is protected by the Federal Confidentiality of Alcohol and Drug Abuse Patient Records regulations: The Federal rules restrict any use of the information to criminally investigate or prosecute any alcohol or drug abuse patient.[facility] the event this information is protected by the Federal Confidentiality of Alcohol and Drug Abuse Patient Records regulations: The Federal rules restrict any use of the information to criminally investigate or prosecute any alcohol or drug abuse patient.[facility] the event this information is protected by the Federal Confidentiality of Alcohol and Drug Abuse Patient Records regulations: The Federal rules restrict any use of the information to criminally investigate or prosecute any alcohol or drug abuse patient.[facility] the event this information is protected by the Federal Confidentiality of Alcohol and Drug Abuse Patient Records regulations: The Federal rules restrict any use of the information to criminally investigate or prosecute any alcohol or drug abuse patient.[facility] the event this information is protected by the Federal Confidentiality of Alcohol and Drug Abuse Patient Records regulations: The Federal rules restrict any use of the information to criminally investigate or prosecute any alcohol or drug abuse patient.[facility] the event this information is protected by the Federal Confidentiality of Alcohol and Drug Abuse Patient Records regulations: The Federal rules restrict any use of the information to criminally investigate or prosecute any alcohol or drug abuse patient.[facility] the event this information is protected by the Federal Confidentiality of Alcohol and Drug Abuse Patient Records regulations: The Federal rules restrict any use of the information to criminally investigate or prosecute any alcohol or drug abuse patient.[facility] the event this information is protected by the Federal Confidentiality of Alcohol and Drug Abuse Patient Records regulations: The Federal rules restrict any use of the information to criminally investigate or prosecute any alcohol or drug abuse patient.[facility] the event this information is protected by the Federal Confidentiality of Alcohol and Drug Abuse Patient Records regulations: The Federal rules restrict any use of the information to criminally investigate or prosecute any alcohol or drug abuse patient.[facility] the event this information is protected by the Federal Confidentiality of Alcohol and Drug Abuse Patient Records regulations: The Federal rules restrict any use of the information to criminally investigate or prosecute any alcohol or drug abuse patient.[facility] Reason for Visit (unrecogniz ed section and content) Specialty Diagnoses / Procedures Referred By Boom ahuja Referred To Contact General Surgery Diagnoses Boil Procedures CONSULT TO GENERAL SURGERY OFFICE/OUTPATIENT [facility] MDM 60-74 MINUTES Abby Ramires APRN.SQL SERVER BI DEVELOPER [address] [place] [address] Referral ID Status Reason Start Date Expiration Date V isits Requested Visits Authorized [id number] Closed PCP Requested Referral 08/27/2021 08/27/2022 1 [...] 90 day rx for medications going to [facility] Specialty Diagnoses / Procedures Referred By Contac t Referred To Contact CT IMAGING Diagnoses Pedal edema Elevated d-dimer Encounter for other preprocedural examination Procedures CTA ABD/PEL W IVCON CT ANGIO ABD&PLVIS CNTRST MTRL W/WO CNTRST Angie St MD [address] [place] [address] Ct Imaging Referral ID Status Reason Start Date Expiration Date Visits Requested Visits Authorized [id number] Authorized Auto-Generat ed Referral 03/14/2022 04/29/2022 2 2 Specialty Diagnoses / Procedures Referred By Contac t Referred To Contact CT IMAGING Diagnoses Adverse effect of treatment, subsequent encounter Elevated d-dimer Procedures CTA CHEST (NONGATED) W IVCON CT ANGIOGRAPHY CHEST W/CONTRAST/NONCONTRAST Angie Costello MD [address] [place] [address] Ct Imaging Referral ID Status Reason Start Date Expiration Date Visits Requested Visits Authorized [id number] Authorized Auto-Generat ed Referral 03/14/2022 04/29/2022 2 [address] Specialty Diagnoses / Procedures Referred By Contac t Referred To Contact CT IMAGING Diagnoses Uncontrolled hypertension Pedal edema Elevated d-dimer Primary pulmonary hypertension (HCC) Chest pain, unspecified type Procedures CT CHEST W IVCON PE DIAGNOSTIC COMPUTED TOMOGRAPHY THORAX W/CONTRAST Angie Costello MD [address] [place] [address] Ct Imaging Referral ID Status Reason Start Date Expiration Date Visits Requested Visits Authorized [id number] Pending Review Auto-Genera marlene Referral Patient Cleared [...] Comments Follow Up meds and c/o cough Reason Comments Follow Up Care Teams (unrecognized sec tion and content) Scale Agent Relationship Specialty Start Date End Date Angie Costello MD [address] [place] [address] PCP - General Internal Medicine 12/11/14 Scale Agent Relationship Specialty Start Date End Date Angie Costello MD [address] [place] [address] PCP - General Internal Medicine 12/11/14 Scale Agent Relationship Specialty Start Date End Date Angie Costello MD [address] [place] [address] PCP - General Internal Medicine 12/11/14 Scale Agent Relationship Specialty Start Date End Date Angie Costello MD [address] [place] [address] PCP - General Internal Medicine 12/11/14 Scale Agent Relationship Specialty Start Date End Date Angie Costello MD [address] [place] [address] PCP - General Internal Medicine 12/11/14 Scale Agent Relationship Specialty Start Date End Date Angie Costello MD [address] [place] [address] PCP - General Internal Medicine 12/11/14 Scale Agent Relationship Specialty Start Date End Date Angie Costello MD [address] [place] [address] PCP - General Internal Medicine 12/11/14 Scale Agent Relationship Specialty Start Date End Date Angie Costello MD [address] [place] [address] PCP - General Internal Medicine 12/11/14 Scale Agent Relationship Specialty Start Date End Date Angie Costello MD [address] [place] [address] PCP - General Internal Medicine 12/11/14 Scale Agent Relationship Specialty Start Date End Date Angie Costello MD [address] [place] [address] PCP - General Internal Medicine 12/11/14 Scale Agent Relationship Specialty Start Date End Date Angie Costello MD [address] [place] [address] PCP - General Internal Medicine 12/11/14 Scale Agent Relationship Specialty Start Date End Date Angie Costello MD [address] [place] [address] PCP - General Internal Medicine 12/11/14 Scale Agent Relationship Specialty Start Date End Date Angie Costello MD [address] [place] [address] PCP - General Internal Medicine 12/11/14 Scale Agent Relationship Specialty Start Date End Date Angie Costello MD [address] [place] [address] PCP - General Internal Medicine 12/11/14 Scale Agent Relationship Specialty Start Date End Date Angie Costello MD [address] [place] [address] PCP - General Internal Medicine 12/11/14 Scale Agent Relationship Specialty Start Date End Date Angie Costello MD [address] [place] [address] PCP - General Internal Medicine 12/11/14 Scale Agent Relationship Specialty Start Date End Date Angie Costello MD [address] [place] [address] PCP - General Internal Medicine 12/11/14 Scale Agent Relationship Specialty Start Date End Date Angie Costello MD [address] [place] [address] PCP - General Internal Medicine 12/11/14 Scale Agent Relationship Specialty Start Date End Date Angie Costello MD [address] [place], [place] [address] PCP - General Internal Medicine 12/11/14 Scale Agent Relationship Specialty Start Date End Date Angie Costello MD [address] [place], [place] [address] PCP - General Internal Medicine 12/11/14 Scale Agent Relationship Specialty Start Date End Date Angie Costello MD [address] [place], [place] [id number] PCP - General Internal Medicine 12/11/14 Scale Agent Relationship Specialty Start Date End Date Angie Costello MD [address] [place], [place] [address] PCP - General Internal Medicine 12/11/14 FOR [...] BE BASED ON THE PRIMARY CLINICAL RECORDS. [employer] [facility]. provides no warranty or guarantee of the accuracy or completeness of information in this document.
[2023-09-10 13:36] VITALS: BMI 44.4
[2023-09-10 13:53] VITALS: BP 126/63; PULSE 96; RESP 16; TEMP 36.6
[2023-09-10 14:16] LABS: Bedside Glucose 99 mg/dL (74-106)
--- NOTE | 2023-09-10 14:19 | OB.TRI.HP_ITS ---
HPI - General General Date of Admission: 09/10/23 HPI Narrative TASHIA BAPTISTE, is a 32 y/o @ 25weeks 5 days who presents to L&D for decreased movement. The nure is unable to find heart tones and bedside scan was performed showing heart tones and movement. 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 Her glucose level was 250's when she got home early today. currently it is in the 's Maternal Data Information ALEN Calculator Estimated Delivery Date Method Current WG Current Estimate 12/19/23 LMP (Certain) 25w 5d PFSH PFSH Medical History Aphthous ulcer Asthma Bipolar disorder delivery delivered Depression Desmoid tumor Essential hypertension Exercise induced bronchospasm Fatty liver disease, nonalcoholic Gout History of chlamydia infection History of HPV infection History of PCOS Near syncope Obesity PCOS (polycystic ovarian syndrome) Type 2 diabetes mellitus Home Medications insulin glargine 100 unit/mL (3 mL) subcutaneous pen (Basaglar KwikPen U-100 Insulin) See Rx Instructions subcut DIRECTED 08/16/23 [History Last Taken Unknown] albuterol sulfate 90 mcg/actuation aerosol inhaler 2 puff inhalation Q4H PRN shortness of breath or wheezing #8.5 grams 08/17/23 [Rx Last Taken Unknown] aspirin 81 mg tablet,delayed release (Adult Aspirin Regimen) 81 mg PO DAILY #90 tabs 08/17/23 [Rx Last Taken Unknown] ferrous sulfate 325 mg (65 mg iron) tablet 325 mg PO DAILY #90 tabs 08/17/23 [Rx Last Taken Unknown] flash glucose scanning reader (FreeStyle Gomez 2 [place]) #1 ea 08/17/23 [Rx Last Taken Unknown] insulin aspart U-100 100 unit/mL (3 mL) subcutaneous pen 1 sliding scale dose subcut USEASDIRECTD #15 mL 08/17/23 [Rx Last Taken Unknown] labetalol 200 mg tablet 200 mg PO BID #60 tabs 08/17/23 [Rx Last Taken Unknown] lamotrigine 100 mg tablet (Lamictal) 300 mg (3 x 100 mg) PO DAILY bipolar #90 tabs 08/17/23 [Rx Last Taken Unknown] nifedipine 90 mg tablet,extended release 24 hr 90 mg PO DAILY HTn #90 tabs 08/17/23 [Rx Last Taken Unknown] pantoprazole 20 mg tablet,delayed release (Protonix) 20 mg PO DAILY heartburn #90 tabs 08/17/23 [Rx Last Taken Unknown] vits no.126-ferrous fum 28 mg iron-folic acid 800 mcg tablet (Classic ) 1 tab PO DAILY #90 tabs 08/17/23 [Rx Last Taken Unknown] ferrous sulfate 325 mg (65 mg iron) tablet 325 mg PO DAILY #90 tabs 08/21/23 [Rx Last Taken Unknown] flash glucose sensor (FreeStyle Gomez 2 Sensor kit) #1 ea 08/23/23 [Rx Last Taken Unknown] insulin aspart U-100 100 unit/mL (3 mL) subcutaneous pen (Novolog FlexPen U-100 Insulin aspart) 40 unit (0.4 mL) subcut TID #36 mL 08/23/23 [Rx Last Taken Unknown] pen needle, diabetic 32 gauge x 5/32 (BD Ultra-Fine Effie Pen Needle) #100 ea 08/23/23 [Rx Last Taken Unknown] Allergy/AdvReac Type Severity Reaction Status Date / Time No Known Allergies Allergy Verified 09/10/23 13:36 Family History Mother CVA (cerebral vascular accident) Father Diabetes Hypertension Surgical History History of breast biopsy History of liver biopsy History of lumpectomy Social History adopted: No household members: spouse, children and other details: parents number of children: 1 current occupational status: unemployed pets and animals: No history of recent travel: Yes (Pt lives in [place], [place] last summer) out of state: Yes out of country: Yes sexually active: Yes Smoking Status: Never smoker second hand exposure: No alcohol intake: never substance use type: does not use diet: diabetic well-balanced diet: daily or most days caffeine: No eating out: rarely or never during the past year weight has: remained stable what type of physical activity do you participate in: walking frequency: 5-6 times per week duration: 45-60 minutes/day red/tenriism: None seatbelt use: always do you feel safe at home: Yes additional social history: - 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 Date Name GA/Weeks Outcome Route Bth Weight Infant Gen Labor Lgth Anesthesia Del Locatn Provider FOB 02/04/22 Lena 37 live - full term Female s nitza [facility] Dr. Rizo Delivery Date: 02/04/22 Last Updated by: Carolin Ibrahim Chtn, uncontrolled diabetes, Breech ROS Constitutional Constitutional: Reports systems reviewed and no addt'l complaints, except as d ocumented Gastrointestinal Gastrointestinal: Denies bloating, constipation, cramping, diarrhea, nausea or vomiting Genitourinary Genitourinary: Reports other Details: Denies vaginal odor, vaginal bleeding, or vaginal discharge ; Denies difficulty urinating or flank pain Physical Exam HEENT normocephalic Resp normal respiratory effort and normal air movement no CVA tenderness Narrative: Bedside ultrasound shows DVP of 5.6 cm, gross body movement, flexion/extension of the head and limps, and breathing. The heart rate is 142 bpm. Extremity normal to inspection General Extremity: edema bilateral (trace ) Assessment & Plan (1) Decreased movement affecting management of mother, antepartum: (2) Type 2 diabetes mellitus affecting , antepartum: (3) Chronic hypertension affecting : COMMENT: on labetalol and procardia. plan delivery at 38 weeks, twice weekly testing at 32 weeks growths q month. mfm consult pending. (4) Previous section: COMMENT: plan rpt section no later than 12/05/23 (5) Varicose veins of both lower extremities: COMMENT: above the knee (6) Hx of depression, currently : (7) Anxiety: (8) Pregestational diabetes mellitus, modified White class B: COMMENT: insulin (9) Supervision of high-risk : COMMENT: , ALEN 12/19/23, ALEXANDREA Lena, Laith (10) : QUALIFIERS: Weeks of gestation: 22 weeks Qualified Code(s): Z3A.22 - 22 weeks gestation of COMMENT: Pt living in [facility] and having PNC there. Will be state side in July 2023 and will need anatomy US while here. LMP 03/14/23. (11) Essential hypertension: (12) Bipolar disorder: COMMENT: stopped her abilify. [facility] (13) Type 2 diabetes mellitus: COMMENT: insulin dependent PLAN: Plan patient reassured of movement and incidental bpp of 8/8 unable to keep baby on monitor due to anterior placenta and maternal obesity. ok to dc to home. Charges/Coding Multi Select Codes Visit Charges Office Visit/Consults: 92474 OV L3 Est 20min Urinary/Genital Urinary/Genital CPT Codes: 21770-57 non-stress test Interp
== END 2023-09-10 14:30 | disposition home or self-care (01) ==
LOC: WPOUT 13:25 → WP 13:25
PROVIDERS: PCP Nurse Practitioner; Referring Provider Obstetrics & Gynecology; Visit Provider Obstetrics & Gynecology
DX: O36.8120 Decreased fetal movements, second trimester, not applicable or unspecified (principal); F31.81 Bipolar II disorder; Z79.4 Long term (current) use of insulin; O24.112 Pre-existing type 2 diabetes mellitus, in pregnancy, second trimester; O22.02 Varicose veins of lower extremity in pregnancy, second trimester; O99.342 Other mental disorders complicating pregnancy, second trimester; O10.912 Unspecified pre-existing hypertension complicating pregnancy, second trimester; F41.9 Anxiety disorder, unspecified; O09.892 Supervision of other high risk pregnancies, second trimester; O34.219 Maternal care for unspecified type scar from previous cesarean delivery; Z3A.25 25 weeks gestation of pregnancy; Z79.899 Other long term (current) drug therapy
CPT/HCPCS: 59025; 59050; 76815; 82962; 99221; G0378

== ENCOUNTER → 2023-09-11 | Outpatient (CLI) | payer MEDICAID, SELFPAY ==
--- NOTE | 2023-09-11 14:32 | US_ITS ---
STUDY: SECOND AND THIRD TRIMESTER OBSTETRICAL ULTRASOUND - LIMITED REASON FOR EXAM: Female, 32 years old Spinal views, 3rd try LMP: March 14, 2023. PRIOR ULTRASOUND: Comparison is made with prior examination dated August 18, 2023. TECHNIQUE: Transabdominal TECHNICAL QUALITY: Adequate. FINDINGS: There is a single intrauterine fetus. The fetus is in an transverse lie with the head on the maternal left side. There is demonstrated cardiac activity with a heart rate of 148 bpm. There is a normal amniotic fluid volume. The largest amniotic fluid pocket measures 5.4 cm. The amniotic fluid index (KALIN) is within normal limits. The placenta is anterior in location and is not low lying. There are Grade 1 placental changes. The cervix measures 4.9 cm cm in length. BIOMETRY: Age by LMP: 25 weeks, 6 days. ALEN by LMP: December 19, 2023. age by prior US: 25 weeks, 4 days. ALEN by prior US: December 21, 2023. Imaging of the cervical, thoracic and lumbar sacral spine was obtained. No abnormality is seen. US/OB Limited (No Biometrics) IMPRESSION: Unremarkable imaging of the spine. Electronically Signed: Alexey Enriquez MD at 10:36 EDT ,
== END | disposition home or self-care (01) ==
LOC: OPUS 14:32
PROVIDERS: PCP Nurse Practitioner; Referring Provider Obstetrics & Gynecology; Visit Provider Obstetrics & Gynecology
DX: O09.90 Supervision of high risk pregnancy, unspecified, unspecified trimester (principal); Z3A.00 Weeks of gestation of pregnancy not specified
CPT/HCPCS: 76815

== ENCOUNTER → 2023-09-13 | Outpatient (CLI) | payer MEDICAID, SELFPAY | END | disposition home or self-care (01) | PROVIDERS: PCP Nurse Practitioner; Referring Provider Obstetrics & Gynecology; Visit Provider Obstetrics & Gynecology | DX: O09.90 Supervision of high risk pregnancy, unspecified, unspecified trimester (principal); Z3A.00 Weeks of gestation of pregnancy not specified | CPT/HCPCS: 87491; 87591 ==

== ENCOUNTER → 2023-09-28 | Outpatient (CLI) | payer MEDICAID, SELFPAY ==
--- NOTE | 2023-09-28 08:04 | US_ITS ---
STUDY: OBSTETRICAL ULTRASOUND - BIOPHYSICAL PROFILE REASON FOR EXAM: Female, 32 years old well being LMP: March 14, 2023. PRIOR ULTRASOUND: Comparison is made with prior study dated September 11, 2023. TECHNIQUE: Transabdominal TECHNICAL QUALITY: Adequate. FINDINGS: There is a single intrauterine fetus. The fetus is in a transverse lie with the head on the maternal right side. There is demonstrated cardiac activity with a heart rate of 141 bpm. There is a normal amniotic fluid volume. The largest amniotic fluid pocket measures 3.5 cm. The amniotic fluid index (KALIN) is 11.2 cm. The placenta is anterior in location and is not low lying. There are Grade 1 placental changes. Age by LMP: 28 weeks, 2 days. ALEN by LMP: December 19, 2023. BIOPHYSICAL PROFILE: Breathing Movements (FBM): 0 Gross Body Movements (GBM): 2 Tone (FT): 2 Amniotic Fluid Volume (AFV): 2 TOTAL SCORE: 6 / 8 US/Biophysical Prof W/O Non Stres IMPRESSION: Biophysical profile of 6/8. Electronically Signed: Alexey Enriquez MD at 15:09 EDT ,
== END | disposition home or self-care (01) ==
PROVIDERS: PCP Nurse Practitioner; Referring Provider Obstetrics & Gynecology; Visit Provider Obstetrics & Gynecology
DX: O10.913 Unspecified pre-existing hypertension complicating pregnancy, third trimester (principal); Z3A.32 32 weeks gestation of pregnancy
CPT/HCPCS: 76819

== ENCOUNTER 2023-10-02 13:47 | Outpatient (CLI) | payer MEDICAID, SELFPAY ==
[2023-10-02 13:55] VITALS: BP 142/71; PULSE 93
[2023-10-02 14:35] VITALS: PULSE 98; O2SAT 100
[2023-10-02 14:43] VITALS: PULSE 90; O2SAT 100
--- NOTE | 2023-10-02 16:45 | OB.TRI.HP_ITS ---
HPI - General HPI Narrative TASHIA BAPTISTE, is a 32 F who presents to L&D for an NST due to a 6/8 bpp today. Maternal Data Information ALEN Calculator Estimated Delivery Date Method Current WG Current Estimate 12/19/23 LMP (Certain) 28w 6d PFSH PFSH Medical History Aphthous ulcer Asthma Bipolar disorder delivery delivered Depression Desmoid tumor Essential hypertension Exercise induced bronchospasm Fatty liver disease, nonalcoholic Gout History of chlamydia infection History of HPV infection History of PCOS Near syncope Obesity PCOS (polycystic ovarian syndrome) Type 2 diabetes mellitus Home Medications insulin glargine 100 unit/mL (3 mL) subcutaneous pen ([employer]comaglar KwikPen U-100 Insulin) See Rx Instructions subcut DIRECTED 08/16/23 [History Last Taken Unknown] albuterol sulfate 90 mcg/actuation aerosol inhaler 2 puff inhalation Q4H PRN shortness of breath or wheezing #8.5 grams 08/17/23 [Rx Last Taken Unknown] aspirin 81 mg tablet,delayed release (Adult Aspirin Regimen) 81 mg PO DAILY #90 tabs 08/17/23 [Rx Last Taken Unknown] ferrous sulfate 325 mg (65 mg iron) tablet 325 mg PO DAILY #90 tabs 08/17/23 [Rx Last Taken Unknown] flash glucose scanning reader ([employer] Gomez 2 [place]) #1 ea 08/17/23 [Rx Last Taken Unknown] insulin aspart U-100 100 unit/mL (3 mL) subcutaneous pen 1 sliding scale dose subcut USEASDIRECTD #15 mL 08/17/23 [Rx Last Taken Unknown] labetalol 200 mg tablet 200 mg PO BID #60 tabs 08/17/23 [Rx Last Taken Unknown] lamotrigine 100 mg tablet (Lamictal) 300 mg (3 x 100 mg) PO DAILY bipolar #90 tabs 08/17/23 [Rx Last Taken Unknown] nifedipine 90 mg tablet,extended release 24 hr 90 mg PO DAILY HTn #90 tabs 08/17/23 [Rx Last Taken Unknown] pantoprazole 20 mg tablet,delayed release (Protonix) 20 mg PO DAILY heartburn #90 tabs 08/17/23 [Rx Last Taken Unknown] vits no.126-ferrous fum 28 mg iron-folic acid 800 mcg tablet (Classic ) 1 tab PO DAILY #90 tabs 08/17/23 [Rx Last Taken Unknown] ferrous sulfate 325 mg (65 mg iron) tablet 325 mg PO DAILY #90 tabs 08/21/23 [Rx Last Taken Unknown] flash glucose sensor (FreeStyle Gomez 2 Sensor kit) #1 ea 08/23/23 [Rx Last Taken Unknown] insulin aspart U-100 100 unit/mL (3 mL) subcutaneous pen (Novolog FlexPen U-100 Insulin aspart) 40 unit (0.4 mL) subcut TID #36 mL 08/23/23 [Rx Last Taken Unknown] pen needle, diabetic 32 gauge x 5/32 (BD Ultra-Fine Effie Pen Needle) #100 ea 08/23/23 [Rx Last Taken Unknown] FreeStyle Gomez 3 Sensor (blood-glucose sensor) #6 ea 09/12/23 [Rx Last Taken Unknown] Allergy/AdvReac Type Severity Reaction Status Date / Time No Known Allergies Allergy Verified 10/02/23 10:18 Family History Mother CVA (cerebral vascular accident) Father Diabetes Hypertension Surgical History History of breast biopsy History of liver biopsy History of lumpectomy Social History adopted: No household members: spouse, children and other details: parents number of children: 1 current occupational status: unemployed pets and animals: No history of recent travel: Yes (Pt lives in [place], [place] last summer) out of state: Yes out of country: Yes sexually active: Yes Smoking Status: Never smoker second hand exposure: No alcohol intake: never substance use type: does not use diet: diabetic well-balanced diet: daily or most days caffeine: No eating out: rarely or never during the past year weight has: remained stable what type of physical activity do you participate in: walking frequency: 5-6 times per week duration: 45-60 minutes/day red/episcopalian: None seatbelt use: always do you feel safe at home: Yes additional social history: - 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) History 2 Elective abortions Hx Para 1 Spontaneous abortions Hx # Term Pregnancies Ectopic pregnancies Hx # Pregnancies Multiple births # of living children 1 Past Pregnancies Del. Date Name GA/Weeks Outcome Route Bth Weight Infant Gen Labor Lgth Anesthesia Del Melissa Provider FOB 02/04/22 Lena 37 live - full term Female s nitza [facility] Dr. Rizo Delivery Date: 02/04/22 Last Updated by: Carolin Ibrahim Chtn, uncontrolled diabetes, Breech Visit Details Expected Delivery Route/Plan Labor Preferences- CB/BF classes: no labor support person: Laith labor intervention preferences: [] pain management options preferred: c section cut cord/dad catch: [] : bottle PP control planned: discussed discussed possible routes of delivery and associated risks: [] special requests: [] Plans Covid status: [] Flu vaccine: [] Tdap vaccine: [] Rhogam: na LARC form signed: yes Problem list reviewed and updated with the most current plan of care details and appropriate orders placed. Relevant counseling for the gestational age provided. Continue routine care and follow up unless otherwise noted in visit notes/problem list details OB Flowsheet Initial Weight: Not Recorded Date -?-?-?-?-?-?-?-?-?-?-?-?- EGA Weight BP Urine Prot -?-?-?-?-?-?-?-?-?-?-?-?- Glucose FHR FuHt Pres Dilation -?-?-?-?-?-?-?-?-?-?-?-?- Effaced St Visit Note 09/13/23 -?-?-?-?-?-?-?-?-?-?-?-?- 26w 1d 266 lb 6 oz 123/77 Nega tive -?-?-?-?-?-?-?-?-?-?-?-?- Negative 160 -?-?-?-?-?-?-?-?-?-?-?-?- JV- pt had anato my scan and follow up growth. growth is in 58th%. They are recommending echo and patient declines this. They recommend monthly growth scans and twice weekly testing starting 32 weeks. plan to do bpp's due to large maternal body habitus . 09/26/23 -?-?-?-?-?-?-?-?-?-?-?-?- 28w 0d 271 lb 2 oz 118/68 Nega tive -?-?-?-?-?-?-?-?-?-?-?-?- Negative 153 -?-?-?-?-?-?-?-?-?-?-?-?- MH-No VB,LOF. D ec FM. Ant placenta. Br US per JV to confirm FHT. Large panus. Will get BPP this week and start twice a wk BPPs at 29 wk. Glucose stable. Growth US scheduled. Larc 10/02/23 -?-?-?-?-?-?-?-?-?-?-?-?- 28w 6d 270 lb 6 oz 122/77 -?-?-?-?-?-?-?-?-?-?-?-?- 160 -?-?-?-?-?-?-?-?-?-?-?-?- JV- bpp last wee k was 12/01 and radiology did not call to inform. Pt was brought in today for attempted NST however due to her large pannus size and small baby the NST was inconclusive. Sending down for another bpp now. NST FHR Rate Baby A Baseline: 150 Variability:: Moderate Accelerations:: 15 x 15 and 10 x 10 Decelerations:: None NST Reactive:: Yes FHR Category:: Category I Assessment & Plan (1) Abnormal test: (2) Type 2 diabetes mellitus affecting , antepartum: COMMENT: insulin:twice wkly BPPs(due to pt size) twice a week at 29wk and growth US Q4W@32w (3) Chronic hypertension affecting : COMMENT: on labetalol and procardia. plan delivery at 38 weeks, twice weekly testing at 32 weeks growths q month. mfm consult pending. (4) Previous section: COMMENT: plan rpt section no later than 12/05/23 Doc only (5) Varicose veins of both lower extremities: QUALIFIERS: Varicose vein complication: unspecified Qualified Code(s): I83.93 - Asymptomatic varicose veins of bilateral lower extremities COMMENT: above the knee (6) Hx of depression, currently : COMMENT: stable (7) Anxiety: COMMENT: stable (8) Supervision of high-risk : QUALIFIERS: Trimester: second trimester Qualified Code(s): O09.92 - Supervision of high risk , unspecified, second trimester COMMENT: PRR, , ALEN 12/19/23, PC Lena, Laith (9) : QUALIFIERS: Weeks of gestation: 28 weeks Qualified Code(s): Z3A.28 - 28 weeks gestation of COMMENT: Pt living in [facility] and having PNC there. Will be state side in July 2023 and will need anatomy US while here. LMP 03/14/23. 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 [facility] PLAN: Plan NST is reactive for 28 weeks. keep next bpp on Thrusday Charges/Coding Multi Select Codes Urinary/Genital Urinary/Genital CPT Codes: 61041-52 non-stress test Interp
== END 2023-10-02 16:10 | disposition home or self-care (01) ==
LOC: WPOUT 13:48 → WP 13:48
PROVIDERS: PCP Nurse Practitioner; Referring Provider Obstetrics & Gynecology; Visit Provider Obstetrics & Gynecology
DX: O10.913 Unspecified pre-existing hypertension complicating pregnancy, third trimester (principal); E11.69 Type 2 diabetes mellitus with other specified complication; Z79.4 Long term (current) use of insulin; J45.909 Unspecified asthma, uncomplicated; Z79.899 Other long term (current) drug therapy; E66.09 Other obesity due to excess calories; O99.513 Diseases of the respiratory system complicating pregnancy, third trimester; O24.113 Pre-existing type 2 diabetes mellitus, in pregnancy, third trimester; O99.213 Obesity complicating pregnancy, third trimester; Z3A.31 31 weeks gestation of pregnancy; O99.283 Endocrine, nutritional and metabolic diseases complicating pregnancy, third trimester
CPT/HCPCS: 59050; 76819; 99221; G0378

== ENCOUNTER → 2023-10-02 | Outpatient (CLI) | payer MEDICAID, SELFPAY ==
--- NOTE | 2023-10-02 13:06 | US_ITS ---
STUDY: OBSTETRICAL ULTRASOUND - BIOPHYSICAL PROFILE REASON FOR EXAM: Female, 32 years old maternal hypertension LMP: 03/14/2023 PRIOR ULTRASOUND: 09/28/2023 TECHNIQUE: Transabdominal TECHNICAL QUALITY: Adequate. FINDINGS: There is a single intrauterine fetus. The fetus is in a cephalic presentation. There is demonstrated cardiac activity with a heart rate of 147 bpm. There is a normal amniotic fluid volume. The largest amniotic fluid pocket measures 5.4 cm. The amniotic fluid index (KALIN) is 16.6 cm. The placenta is anterior in location and is not low lying. There are Grade 1 placental changes. Age by LMP: 28 weeks, 6 days. ALEN by LMP: 12/19/2023. BIOPHYSICAL PROFILE: Breathing Movements (FBM): 0 Gross Body Movements (GBM): 2 Tone (FT): 2 Amniotic Fluid Volume (AFV): 2 TOTAL SCORE: US/Biophysical Prof W/O Non Stres IMPRESSION: biophysical profile of 12/01. Electronically Signed: Billy England MD at 14:13 EDT ,
== END | disposition home or self-care (01) ==
LOC: US 13:04
PROVIDERS: PCP Nurse Practitioner; Referring Provider Nurse Practitioner Women's Health; Visit Provider Nurse Practitioner Women's Health
DX: O10.913 Unspecified pre-existing hypertension complicating pregnancy, third trimester (principal); Z3A.31 31 weeks gestation of pregnancy
CPT/HCPCS: 76819

== ENCOUNTER → 2023-10-06 | Outpatient (CLI) | payer MEDICAID, SELFPAY ==
--- NOTE | 2023-10-06 10:05 | US_ITS ---
STUDY: OBSTETRICAL ULTRASOUND - BIOPHYSICAL PROFILE REASON FOR EXAM: Female, 32 years old well being -- 32 weeks LMP: March 14, 2023. PRIOR ULTRASOUND: Comparison is made with prior study dated October 02, 2023. TECHNIQUE: Transabdominal TECHNICAL QUALITY: Adequate. FINDINGS: There is a single intrauterine fetus. The fetus is in a transverse lie with the head on the maternal right side. There is demonstrated cardiac activity with a heart rate of 155 bpm. There is a normal amniotic fluid volume. The largest amniotic fluid pocket measures 5.25 cm. The amniotic fluid index (KALIN) is 17.35 cm. The placenta is anterior in location and is not low lying. There are Grade 1 placental changes. Age by LMP: 29 weeks, 3 days. ALEN by LMP: December 19, 2023. BIOPHYSICAL PROFILE: Breathing Movements (FBM): 2 Gross Body Movements (GBM): 2 Tone (FT): 2 Amniotic Fluid Volume (AFV): 2 TOTAL SCORE: 8 / 8 US/Biophysical Prof W/O Non Stres IMPRESSION: Normal biophysical profile of 8/8. Electronically Signed: Alexey Enriquez MD at 9:48 EDT ,
== END | disposition home or self-care (01) ==
PROVIDERS: PCP Nurse Practitioner; Referring Provider Obstetrics & Gynecology; Visit Provider Obstetrics & Gynecology
DX: O10.913 Unspecified pre-existing hypertension complicating pregnancy, third trimester (principal); Z3A.32 32 weeks gestation of pregnancy
CPT/HCPCS: 76819

== ENCOUNTER 2023-10-10 16:55 | Outpatient (CLI) | payer MEDICAID, SELFPAY ==
[2023-10-10 17:08] VITALS: RESP 16; TEMP 36.7
[2023-10-10 17:09] VITALS: BP 144/76; PULSE 96
[2023-10-10 17:44] VITALS: BMI 46.7
--- NOTE | 2023-10-10 18:23 | OB.TRI.PN_ITS ---
Progress Notes Date of Service: 10/10/23 Progress Note: Patient presents for triage evaluation secondary to BPP 12/01. NST needed. FHT: 130 Moderate variability reactive no decelerations category I tracing [place]: no Contractions Assessment and plan: Reactive NST, reassuring maternal and status patient discharged to home to follow-up in office. See problem list details for additional plan information. Charges/Coding Multi Select Codes Urinary/Genital Urinary/Genital CPT Codes: 22706-74 non-stress test Interp Assessment & Plan (1) Abnormal test: (2) Type 2 diabetes mellitus affecting , antepartum: COMMENT: insulin:twice wkly BPPs(due to pt size) twice a week at 29wk and growth US Q4W@32w
== END 2023-10-10 18:30 | disposition home or self-care (01) ==
LOC: WPOUT 16:56 → WP 16:57
PROVIDERS: PCP Nurse Practitioner; Referring Provider Advanced Practice Midwife; Visit Provider Advanced Practice Midwife
DX: O10.013 Pre-existing essential hypertension complicating pregnancy, third trimester (principal); O24.913 Unspecified diabetes mellitus in pregnancy, third trimester; Z3A.30 30 weeks gestation of pregnancy
CPT/HCPCS: 59025; 59050; 76819; 99221; G0378

== ENCOUNTER → 2023-10-10 | Outpatient (CLI) | payer MEDICAID, SELFPAY ==
--- NOTE | 2023-10-10 16:06 | US_ITS ---
INDICATION: Chronic hypertension -- 30 Weeks EXAMINATION: Ultrasound US Biophysical Profile W/O Nonst TECHNIQUE: Transabdominal pelvic ultrasound was performed. COMPARISON: 10/06/2023 Provided EGA: 30 weeks, 0 days FINDINGS: INTRAUTERINE GESTATION(s): Single. HEART MOTION is 162 bpm. AMNIOTIC FLUID INDEX (KALIN): 18.5 BIOPHYSICAL PROFILE (BPP): 01/31 -- Breathin/2 -- Movement: 2/2. -- Tone: 2/2. --KALIN: 2/2. PRESENTATION: Cephalic PLACENTA: Anterior. There is no placenta previa or abruption. Abnormal prominent placental dow within the inferior placenta. US/Biophysical Prof W/O Non Stres IMPRESSION: Biophysical profile score 6 out of 8. Electronically Signed: Rudolph Leon MD at 5:50 EDT ,
== END | disposition home or self-care (01) ==
LOC: US 16:03
PROVIDERS: PCP Nurse Practitioner; Referring Provider Nurse Practitioner Women's Health; Visit Provider Nurse Practitioner Women's Health
DX: O10.919 Unspecified pre-existing hypertension complicating pregnancy, unspecified trimester (principal)
CPT/HCPCS: 76819

== ENCOUNTER → 2023-10-12 | Outpatient (CLI) | payer MEDICAID, SELFPAY ==
--- NOTE | 2023-10-12 15:23 | US_ITS ---
STUDY: OBSTETRICAL ULTRASOUND - BIOPHYSICAL PROFILE REASON FOR EXAM: Female, 32 years old Chronic hypertension -- 29 weeks LMP: 03/14/2023 PRIOR ULTRASOUND: 10/10/2023 TECHNIQUE: Transabdominal TECHNICAL QUALITY: Adequate. FINDINGS: There is a single intrauterine fetus. The fetus is in an transverse lie with the head on the maternal left side. There is demonstrated cardiac activity with a heart rate of 150 bpm. There is a normal amniotic fluid volume. The largest amniotic fluid pocket measures 6.3 cm. The amniotic fluid index (KALIN) is 17.4 cm. The placenta is anterior in location and is not low lying. There are Grade 2 placental changes. Age by LMP: 30 weeks, 2 days. ALEN by LMP: 12/19/2023. BIOPHYSICAL PROFILE: Breathing Movements (FBM): 2 Gross Body Movements (GBM): 2 Tone (FT): 2 Amniotic Fluid Volume (AFV): 2 TOTAL SCORE: 8 / 8 US/Biophysical Prof W/O Non Stres IMPRESSION: Normal biophysical profile of 8/8. Electronically Signed: Rivera Rodriguez MD at 23:56 EDT ,
== END | disposition home or self-care (01) ==
LOC: US 15:20
PROVIDERS: PCP Nurse Practitioner; Referring Provider Nurse Practitioner Women's Health; Visit Provider Nurse Practitioner Women's Health
DX: O10.919 Unspecified pre-existing hypertension complicating pregnancy, unspecified trimester (principal)
CPT/HCPCS: 76819

== ENCOUNTER → 2023-10-16 | Outpatient (CLI) | payer MEDICAID, SELFPAY ==
--- NOTE | 2023-10-16 15:31 | US_ITS ---
STUDY: OBSTETRICAL ULTRASOUND - BIOPHYSICAL PROFILE REASON FOR EXAM: Female, 32 years old well being -- 33 weeks LMP: March 14, 2023. PRIOR ULTRASOUND: Comparison is made with prior study dated October 12, 2023. TECHNIQUE: Transabdominal TECHNICAL QUALITY: Adequate. FINDINGS: There is a single intrauterine fetus. The fetus is in an transverse lie with the head on the maternal left side. There is demonstrated cardiac activity with a heart rate of 143 bpm. There is a normal amniotic fluid volume. The largest amniotic fluid pocket measures 6.3 cm. The amniotic fluid index (KALIN) is 17.4 cm. The placenta is anterior in location and is not low lying. There are Grade 2 placental changes. Age by LMP: 30 weeks, 6 days. ALEN by LMP: December 19, 2023. age by prior US: 30 weeks, 4 days. ALEN by prior US: December 21, 2023. BIOPHYSICAL PROFILE: Breathing Movements (FBM): 2 Gross Body Movements (GBM): 2 Tone (FT): 2 Amniotic Fluid Volume (AFV): 2 TOTAL SCORE: 8 / 8 US/Biophysical Prof W/O Non Stres IMPRESSION: Normal biophysical profile of 01/31. Electronically Signed: Alexey Enriquez MD at 11:02 EDT ,
== END | disposition home or self-care (01) ==
LOC: US 15:30
PROVIDERS: PCP Nurse Practitioner; Referring Provider Nurse Practitioner Women's Health; Visit Provider Nurse Practitioner Women's Health
DX: O10.919 Unspecified pre-existing hypertension complicating pregnancy, unspecified trimester (principal)
CPT/HCPCS: 76819

== ENCOUNTER 2023-10-19 15:17 | Outpatient (CLI) | payer MEDICAID, SELFPAY ==
--- NOTE | 2023-10-19 15:19 | US_ITS ---
STUDY: OBSTETRICAL ULTRASOUND - BIOPHYSICAL PROFILE REASON FOR EXAM: Female, 32 years old Chronic hypertension -- 31 Weeks LMP: 03/14/2023 PRIOR ULTRASOUND: 10/16/2023. TECHNIQUE: Transabdominal TECHNICAL QUALITY: Adequate. FINDINGS: There is a single intrauterine fetus. The fetus is in an transverse lie with the head on the maternal left side. There is demonstrated cardiac activity with a heart rate of 134 bpm. There is a normal amniotic fluid volume. The largest amniotic fluid pocket measures 4.5 cm. The amniotic fluid index (KALIN) is 12.5 cm. The placenta is anterior in location and is not low lying. There are Grade 2 placental changes. Age by LMP: 31 weeks, 2 days. ALEN by LMP: 12/19/2023. BIOPHYSICAL PROFILE: Breathing Movements (FBM): 0 Gross Body Movements (GBM): 2 Tone (FT): 2 Amniotic Fluid Volume (AFV): 2 TOTAL SCORE: 6 / 8 US/Biophysical Prof W/O Non Stres IMPRESSION: Abnormal biophysical profile of 6 /8, score of 0 for absent breathing movements.. Electronically Signed: Dima Mas MD at 19:39 EDT ,
[2023-10-19 16:48] VITALS: BMI 46.9
[2023-10-19 17:39] VITALS: BP 134/83; PULSE 85; RESP 16; TEMP 36.6
--- NOTE | 2023-10-19 18:13 | OB.TRI.HP_ITS ---
HPI - General HPI Narrative TASHIA BAPTISTE, is a 32 F who presents to L&D for NST due to bpp of 12/01. Maternal Data Information ALEN Calculator Estimated Delivery Date Method Current WG Current Estimate 12/19/23 LMP (Certain) 31w 2d PFSH PFSH Medical History (Updated 10/13/23 @ 10:[address] Radha Rizo MD) Aphthous ulcer Asthma Bipolar disorder delivery delivered Depression Desmoid tumor Essential hypertension Exercise induced bronchospasm Fatty liver disease, nonalcoholic Gout History of chlamydia infection History of HPV infection History of PCOS Near syncope Obesity PCOS (polycystic ovarian syndrome) Type 2 diabetes mellitus Home Medications albuterol sulfate 90 mcg/actuation aerosol inhaler 2 puff inhalation Q4H PRN shortness of breath or wheezing #8.5 grams 08/17/23 [Rx Last Taken Unknown] aspirin 81 mg tablet,delayed release (Adult Aspirin Regimen) 81 mg PO DAILY #90 tabs 08/17/23 [Rx Last Taken 10/19/23 08:00 81 mg] ferrous sulfate 325 mg (65 mg iron) tablet 325 mg PO DAILY #90 tabs 08/17/23 [Rx Last Taken 10/19/23 08:00 325 mg] flash glucose scanning reader ([employer] Gomez 2 [place]) #1 ea 08/17/23 [Rx Last Taken Unknown] insulin aspart U-100 100 unit/mL (3 mL) subcutaneous pen 1 sliding scale dose subcut USEASDIRECTD #15 mL 08/17/23 [Rx Last Taken Unknown] labetalol 200 mg tablet 200 mg PO BID #60 tabs 08/17/23 [Rx Last Taken Unknown] lamotrigine 100 mg tablet (Lamictal) 300 mg (3 x 100 mg) PO DAILY bipolar #90 tabs 08/17/23 [Rx Last Taken Unknown] nifedipine 90 mg tablet,extended release 24 hr 90 mg PO DAILY HTn #90 tabs 08/17/23 [Rx Last Taken Unknown] pantoprazole 20 mg tablet,delayed release (Protonix) 20 mg PO DAILY heartburn #90 tabs 08/17/23 [Rx Last Taken Unknown] vits no.126-ferrous fum 28 mg iron-folic acid 800 mcg tablet (Classic ) 1 tab PO DAILY #90 tabs 08/17/23 [Rx Last Taken Unknown] flash glucose sensor ([employer] Gomez 2 Sensor kit) #1 ea 08/23/23 [Rx Last Taken Unknown] pen needle, diabetic 32 gauge x 5/32 (BD Ultra-Fine Effie Pen Needle) #100 ea 08/23/23 [Rx Last Taken Unknown] FreeStyle Gomez 3 Sensor (blood-glucose sensor) #6 ea 09/12/23 [Rx Last Taken Unknown] insulin aspart U-100 100 unit/mL (3 mL) subcutaneous pen (Novolog FlexPen U-100 Insulin aspart) 50 unit (0.5 mL) subcut TID #135 mL 10/16/23 [Rx Last Taken Unknown] insulin glargine U-300 conc 300 unit/mL (3 mL) subcutaneous pen (Toujeo Max U- 300 SoloStar) 50 unit (0.1667 mL) subcut DAILY #15 mL 10/17/23 [Rx Last Taken Unknown] Allergy/AdvReac Type Severity Reaction Status Date / Time No Known Allergies Allergy Verified 10/19/23 16:50 Family History Mother CVA (cerebral vascular accident) Father Diabetes Hypertension Surgical History History of breast biopsy History of liver biopsy History of lumpectomy Social History adopted: No household members: spouse, children and other details: parents number of children: 1 current occupational status: unemployed pets and animals: No history of recent travel: Yes (Pt lives in [place], [place] last summer) out of state: Yes out of country: Yes sexually active: Yes Smoking Status: Never smoker second hand exposure: No alcohol intake: never substance use type: does not use diet: diabetic well-balanced diet: daily or most days caffeine: No eating out: rarely or never during the past year weight has: remained stable what type of physical activity do you participate in: walking frequency: 5-6 times per week duration: 45-60 minutes/day red/cheondoism: None seatbelt use: always do you feel safe at home: Yes additional social history: - 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 Date Name GA/Weeks Outcome Route Bth Weight Infant Gen Labor Lgth Anesthesia Del Luisatn Provider FOB 02/04/22 Lena 37 live - full term Female benny goddard [facility] Dr. Tom mclean Delivery Date: 02/04/22 Last Updated by: Carolin Ibrahim Chtn, uncontrolled diabetes, Breech Visit Details Expected Delivery Route/Plan Labor Preferences- CB/BF classes: no labor support person: Laith labor intervention preferences: [] pain management options preferred: c section cut cord/dad catch: [] : bottle PP control planned: discussed discussed possible routes of delivery and associated risks: [] special requests: [] Plans Covid status: [] Flu vaccine: [] Tdap vaccine: given Rhogam: na LARC form signed: yes movement and labor precautions reviewed. Problem list reviewed and updated with the most current plan of care details and appropriate orders placed. Relevant counseling for the gestational age provided. Continue routine care and follow up unless otherwise noted in visit notes/problem list details OB Flowsheet Initial Weight: Not Recorded Date -?-?-?-?-?-?-?-?-?-?-?-?- EGA Weight BP Urine Prot -?-?-?-?-?-?-?-?-?-?-?-?- Glucose FHR FuHt Pres Dilation -?-?-?-?-?-?-?-?-?-?-?-?- Effaced St Visit Note 09/13/23 -?-?-?-?-?-?-?-?-?-?-?-?- 26w 1d 266 lb 6 oz 123/77 Nega tive -?-?-?-?-?-?-?-?-?-?-?-?- Negative 160 -?-?-?-?-?-?-?-?-?-?-?-?- JV- pt had anato my scan and follow up growth. growth is in 58th%. They are recommending echo and patient declines this. They recommend monthly growth scans and twice weekly testing starting 32 weeks. plan to do bpp's due to large maternal body habitus . 09/26/23 -?-?-?-?-?-?-?-?-?-?-?-?- 28w 0d 271 lb 2 oz 118/68 Nega tive -?-?-?-?-?-?-?-?-?-?-?-?- Negative 153 -?-?-?-?-?-?-?-?-?-?-?-?- MH-No VB,LOF. D ec FM. Ant placenta. Br US per JV to confirm FHT. Large panus. Will get BPP this week and start twice a wk BPPs at 29 wk. Glucose stable. Growth US scheduled. Larc 10/02/23 -?-?-?-?-?-?-?-?-?-?-?-?- 28w 6d 270 lb 6 oz 122/77 -?-?-?-?-?-?-?-?-?-?-?-?- 160 -?-?-?-?-?-?-?-?-?-?-?-?- JV- bpp last wee k was 12/01 and radiology did not call to inform. Pt was brought in today for attempted NST however due to her large pannus size and small baby the NST was inconclusive. Sending down for another bpp now. 10/13/23 -?-?-?-?-?-?-?-?-?-?-?-?- 30w 3d 273 lb 130/75 -?-?-?-?-?-?-?-?-?-?-?-?- 140 -?-?-?-?-?-?-?-?-?-?-?-?- SM- no vb lof go od fm no regular ctx ROS Constitutional Constitutional: Reports systems reviewed and no addt'l complaints, except as documented Gastrointestinal Gastrointestinal: Denies bloating, constipation, cramping, diarrhea, nausea or vomiting Genitourinary Genitourinary: Reports other Details: Denies vaginal odor, vaginal bleeding, or vaginal discharge ; Denies difficulty urinating or flank pain Physical Exam HEENT normocephalic Resp normal respiratory effort and normal air movement no CVA tenderness Extremity normal to inspection General Extremity: edema bilateral (trace ) NST FHR Rate Baby A Baseline: 140 Variability:: Moderate Accelerations:: 15 x 15 and 10 x 10 Decelerations:: None NST Reactive:: Yes FHR Category:: Category I Uterine Activity:: no contractions Assessment & Plan (1) Abnormal test: (2) Anemia: COMMENT: CBC in 4 weeks, 01/28 table hgb (3) Anxiety: COMMENT: stable (4) Aphthous ulcer: (5) Arm pain, left: (6) Asthma: COMMENT: well managed- more exercised induced (7) Bilateral lower extremity pain: (8) Breech presentation: COMMENT: 02/04 csection @ 12 with SM (9) delivery delivered: COMMENT: 37 cs sec poorly controlled diabetes and chtn girl Lena SM (10) DM2 (diabetes mellitus, type 2): QUALIFIERS: Diabetes mellitus group home insulin use: without group home use Diabetes mellitus complication status: without complication Qualified Code(s): E11.9 - Type 2 diabetes mellitus without complications (11) Essential hypertension: (12) Fatty liver disease, nonalcoholic: COMMENT: h/o liver biopsy (13) ventricular septal defect affecting antepartum care of mother: QUALIFIERS: Fetus number: single or unspecified fetus Qualified Code(s): O35.8XX0 - Maternal care for other (suspected) abnormality and damage, not applicable or unspecified COMMENT: echo 11/02/21 PLAN: Plan bpp is 12/01, + 2 points for reactive NST= 02/02 test ok for discharge Charges/Coding Multi Select Codes Visit Charges Office Visit/Consults: 66503 OV L3 Est 20min Urinary/Genital Urinary/Genital CPT Codes: 09230-33 non-stress test Interp
== END 2023-10-19 18:20 | disposition home or self-care (01) ==
LOC: US 15:18 → WPOUT 16:45 → WP 16:48
PROVIDERS: PCP Nurse Practitioner; Referring Provider Nurse Practitioner Women's Health; Visit Provider Advanced Practice Midwife
DX: O10.913 Unspecified pre-existing hypertension complicating pregnancy, third trimester (principal); Z79.4 Long term (current) use of insulin; O24.113 Pre-existing type 2 diabetes mellitus, in pregnancy, third trimester; O99.513 Diseases of the respiratory system complicating pregnancy, third trimester; J45.909 Unspecified asthma, uncomplicated; Z3A.30 30 weeks gestation of pregnancy; Z79.82 Long term (current) use of aspirin; Z79.899 Other long term (current) drug therapy; O99.013 Anemia complicating pregnancy, third trimester
CPT/HCPCS: 59025; 59050; 76819; 99221; G0378

== ENCOUNTER → 2023-10-24 | Outpatient (CLI) | payer MEDICAID, SELFPAY ==
--- NOTE | 2023-10-24 14:32 | US_ITS ---
STUDY: OBSTETRICAL ULTRASOUND - BIOPHYSICAL PROFILE REASON FOR EXAM: Female, 32 years old well being -- 33 weeks LMP: March 14, 2023 PRIOR ULTRASOUND: Comparison is made with prior study dated October 19, 2023. TECHNIQUE: Transabdominal TECHNICAL QUALITY: Adequate. FINDINGS: There is a single intrauterine fetus. The fetus is in an transverse lie with the head on the maternal left side. There is demonstrated cardiac activity with a heart rate of 148 bpm. There is a normal amniotic fluid volume. The largest amniotic fluid pocket measures 5.9 cm. The amniotic fluid index (KALIN) is 14.9 cm. The placenta is anterior in location and is not low lying. There are Grade 2 placental changes. Age by LMP: 32 weeks, 0 days. ALEN by LMP: December 19, 2023. Gender: Female BIOPHYSICAL PROFILE: Breathing Movements (FBM): 2 Gross Body Movements (GBM): 2 Tone (FT): 2 Amniotic Fluid Volume (AFV): 2 TOTAL SCORE: 8 / 8 US/Biophysical Prof W/O Non Stres IMPRESSION: Normal biophysical profile of 01/31. Electronically Signed: Alexey Enriquez MD at 8:53 EDT ,
[2023-10-24 16:09] LABS: Absolute Lymphocyte Count 1.91 X10^3/uL (0.83-4.51); Absolute Neutrophil Count 5.6 X10^3/uL (2.0-7.7); Basophil# 0.05 X10^3/uL; Basophil% 0.6 % (0-1); Eosinophil# 0.22 X10^3/uL; Eosinophils% 2.6 % (0-5); Hematocrit 34.8 % (37-47); Hemoglobin 11.1 g/dL (12.0-15.0); Lymphocyte # 1.91 X10^3/ul (0.83-4.51); Lymphocyte % 22.7 % (19-41); Mean Corp Hgb Conc 31.9 g/dL (32-36); Mean Corpuscular Hgb 26.8 pg (27.0-32.0); Mean Corpuscular Volume 84.1 fL (81-99); Mean Platelet Vol. 11.4 fl (6.2-12.0); Monocyte# 0.53 X10^3/uL; Monocyte% 6.3 % (0-10); NRBC Flagged by Analyzer 0 % (0-5); Neutrophil # 5.57 X10^3/uL (2.7-7.7); Platelet Count 251 K/mm3 (150-450); RBC Distribution Width CV 15.7 % (11.6-14.6); RBC Distribution Width SD 47.8 fl (35.1-43.9); Red Blood Count 4.14 M/mm3 (4.2-5.4); White Blood Count 8.4 K/mm3 (4.4-11.0)
[2023-10-24 16:44] LABS: ALB/GLOB Ratio 0.7 RATIO (0.9-2.4); AST(SGOT) 15 U/L (15-37); Alanine Aminotransfer ALT/SGPT 18 U/L (13-56); Albumin, Serum 2.8 g/dL (3.2-5.0); Alkaline Phosphatase 76 U/L (45-117); Anion Gap 6 (5-15); BUN 6 mg/dL (7-18); BUN/Creat Ratio 10.8 RATIO (10-20); Calcium,Total 8.9 mg/dL (8.5-10.1); Chloride 109 mmol/L (98-107); Creatinine, Serum 0.56 mg/dL (0.55-1.02); EST Glomerular Filtration Rate 135 mL/min (>60); Est Glom Filt Rate - Afr Amer 163 mL/min (>60); Glucose 89 mg/dL (74-106); Potassium 3.7 mmol/L (3.5-5.1); Protein, Total 6.8 g/dL (6.4-8.2); Sodium Level 138 mmol/L (136-145); Uric Acid 4.6 mg/dL (2.6-6.0)
== END | disposition home or self-care (01) ==
PROVIDERS: PCP Nurse Practitioner; Referring Provider Obstetrics & Gynecology; Visit Provider Obstetrics & Gynecology
DX: O10.913 Unspecified pre-existing hypertension complicating pregnancy, third trimester (principal); O09.93 Supervision of high risk pregnancy, unspecified, third trimester; R10.11 Right upper quadrant pain; Z3A.33 33 weeks gestation of pregnancy
CPT/HCPCS: 36415; 76819; 80053; 84550; 85025

== ENCOUNTER → 2023-10-27 | Outpatient (CLI) | payer MEDICAID, SELFPAY ==
--- NOTE | 2023-10-27 14:32 | US_ITS ---
HISTORY: well being -- 32 weeks. TECHNIQUE: Transabdominal pelvic ultrasound was performed. 26 images. COMPARISON: 10/24/2023. FINDINGS: INTRAUTERINE GESTATION(s): Single. PRESENTATION: Transverse with head to maternal left. PLACENTA: Anterior, grade 2. No placenta previa. HEART MOTION: 140 bpm. AMNIOTIC FLUID INDEX (KALIN): 19.3 cm. Largest fluid pocket 3.5 x 6.8 cm. BIOPHYSICAL PROFILE (BPP): 01/31 -- Breathin/2. -- Movement: 2/2. -- Tone: 2/2. --KALIN: 2/2. US/Biophysical Prof W/O Non Stres IMPRESSION: Single living intrauterine in transverse presentation with a normal biophysical profile score. Electronically Signed: Jennifer Chávez MD at 13:52 EDT ,
== END | disposition home or self-care (01) ==
LOC: OPUS 14:31
PROVIDERS: PCP Nurse Practitioner; Referring Provider Obstetrics & Gynecology; Visit Provider Obstetrics & Gynecology
DX: O10.913 Unspecified pre-existing hypertension complicating pregnancy, third trimester (principal); Z3A.37 37 weeks gestation of pregnancy
CPT/HCPCS: 76819

== ENCOUNTER → 2023-10-31 | Outpatient (CLI) | payer MEDICAID, SELFPAY ==
--- NOTE | 2023-10-31 14:39 | US_ITS ---
EXAM: US BIOPHYSICAL PROFILE WITHOUT NON-STRESS TESTING CLINICAL INDICATION: well being -- 34 weeks TECHNIQUE: Real-time ultrasound of the maternal pelvis for biophysical profile evaluation with image documentation. COMPARISON: 10/27/2023 FINDINGS: BREATHING MOVEMENTS: Present. Score 2/2. GROSS BODY MOVEMENTS: Present. Score 2/2. TONE: Present. Score 2/2. QUALITATIVE AMNIOTIC FLUID VOLUME: Amniotic fluid volume is 22.7 cm with maximal vertical pocket of 7.7 cm. HEART RATE: heart rate is 147 bpm. PRESENTATION: position is transverse/oblique right. PLACENTA: Anterior placenta. US/Biophysical Prof W/O Non Stres IMPRESSION: Single viable IUP with normal biophysical profile. Amniotic fluid volume total is 22.7 cm suggesting polyhydramnios. Electronically Signed: Beto Cueto DO at 22:41 EDT ,
== END | disposition home or self-care (01) ==
LOC: OPUS 14:38
PROVIDERS: PCP Nurse Practitioner; Referring Provider Obstetrics & Gynecology; Visit Provider Obstetrics & Gynecology
DX: O10.913 Unspecified pre-existing hypertension complicating pregnancy, third trimester (principal); Z3A.34 34 weeks gestation of pregnancy
CPT/HCPCS: 76819

== ENCOUNTER → 2023-11-03 | Outpatient (CLI) | payer MEDICAID, SELFPAY ==
--- NOTE | 2023-11-03 14:38 | US_ITS ---
EXAM: US BIOPHYSICAL PROFILE WITHOUT NON-STRESS TESTING CLINICAL INDICATION: well being -- 34 weeks TECHNIQUE: Real-time ultrasound of the maternal pelvis for biophysical profile evaluation with image documentation. COMPARISON: No relevant prior studies available. FINDINGS: BREATHING MOVEMENTS: Present. Score 2/2. GROSS BODY MOVEMENTS: Present. Score 2/2. TONE: Present. Score 2/2. QUALITATIVE AMNIOTIC FLUID VOLUME: KALIN is 16.6 cm. HEART RATE: heart rate is 147 bpm. PRESENTATION: There is an intrauterine fetus in the cephalic position. PLACENTA: Placenta is anterior. OTHER FINDINGS: Biophysical profile score is 8/8. US/Biophysical Prof W/O Non Stres IMPRESSION: Biophysical profile score 8/8. heart rate is 147 bpm. Electronically Signed: Anderson Jasmine MD at 0:04 EDT ,
== END | disposition home or self-care (01) ==
LOC: OPUS 14:37
PROVIDERS: PCP Nurse Practitioner; Visit Provider Obstetrics & Gynecology
DX: O10.913 Unspecified pre-existing hypertension complicating pregnancy, third trimester (principal); Z3A.34 34 weeks gestation of pregnancy
CPT/HCPCS: 76819

== ENCOUNTER → 2023-11-06 | Outpatient (CLI) | payer MEDICAID, SELFPAY ==
--- NOTE | 2023-11-06 12:34 | US_ITS ---
STUDY: Ultrasound OB Biophysical Profile REASON FOR EXAM: Female, 32 years old chronic hypertension TECHNIQUE: Transabdominal PRIOR ULTRASOUND: 11/03/2023 FINDINGS: There is a single intrauterine fetus. The fetus is in an transverse lie with the head on the maternal left side. There is demonstrated cardiac activity with a heart rate of 138 bpm. There is a normal amniotic fluid volume.. The amniotic fluid index (KALIN) is 16 cm. The placenta is anterior in location and is not low lying. There are Grade 2 placental changes. BIOPHYSICAL PROFILE (BPP): 01/31 -- Breathin/2. -- Movement: 2/2. -- Tone: 2/2. --KALIN: 2/2. US/Biophysical Prof W/O Non Stres IMPRESSION: Normal BPP. Electronically Signed: Tj Garrison MD at 16:39 EDT ,
== END | disposition home or self-care (01) ==
LOC: OPUS 12:33
PROVIDERS: PCP Nurse Practitioner; Referring Provider Obstetrics & Gynecology; Visit Provider Obstetrics & Gynecology
DX: O10.919 Unspecified pre-existing hypertension complicating pregnancy, unspecified trimester (principal); Z3A.00 Weeks of gestation of pregnancy not specified
CPT/HCPCS: 76819

== ENCOUNTER → 2023-11-09 | Outpatient (CLI) | payer MEDICAID, SELFPAY ==
--- NOTE | 2023-11-09 14:36 | US_ITS ---
STUDY: OBSTETRICAL ULTRASOUND - BIOPHYSICAL PROFILE REASON FOR EXAM: Female, 32 years old Chronic hypertension LMP: PRIOR ULTRASOUND: None. TECHNIQUE: Transabdominal TECHNICAL QUALITY: Adequate. FINDINGS: There is a single intrauterine fetus. The fetus is in a breech presentation. There is demonstrated cardiac activity with a heart rate of 138 bpm. There is a normal amniotic fluid volume. The largest amniotic fluid pocket measures 7.7 cm. The amniotic fluid index (KALIN) is 16.73 cm. The placenta is anterior and not low-lying There are Grade 2 placental changes. Age by LMP: 34 weeks, 2 days. ALEN by LMP: December 19, 2023. BIOPHYSICAL PROFILE: Breathing Movements (FBM): 2 Gross Body Movements (GBM): 2 Tone (FT): 2 Amniotic Fluid Volume (AFV): 2 TOTAL SCORE: 8 / 8 US/Biophysical Prof W/O Non Stres IMPRESSION: Normal biophysical profile of 01/31. Electronically Signed: Barber Ortega MD at 16:52 EDT Reading Location ID and State: [address] [place] [address] Tel , Service support ,
== END | disposition home or self-care (01) ==
LOC: OPUS 14:36
PROVIDERS: PCP Nurse Practitioner; Referring Provider Obstetrics & Gynecology; Visit Provider Obstetrics & Gynecology
DX: O10.913 Unspecified pre-existing hypertension complicating pregnancy, third trimester (principal); Z3A.30 30 weeks gestation of pregnancy
CPT/HCPCS: 76819

== ENCOUNTER → 2023-11-13 | Outpatient (CLI) | payer MEDICAID, SELFPAY ==
--- NOTE | 2023-11-13 12:57 | US_ITS ---
EXAM: US BIOPHYSICAL PROFILE WITHOUT NON-STRESS TESTING CLINICAL INDICATION: well being -- 35 weeks TECHNIQUE: Real-time ultrasound of the maternal pelvis for biophysical profile evaluation with image documentation. COMPARISON: No relevant prior studies available. FINDINGS: BREATHING MOVEMENTS: Present. Score 2/2. GROSS BODY MOVEMENTS: Present. Score 2/2. TONE: Present. Score 2/2. QUALITATIVE AMNIOTIC FLUID VOLUME: KALIN 16.7 cm. FETUS: There is an intrauterine gestation. HEART RATE: heart rate is 135 weeks per minute. PRESENTATION: The fetus is in the transverse left position. PLACENTA: Placenta is anterior. OTHER FINDINGS: Biophysical profile score is 8/8. US/Biophysical Prof W/O Non Stres IMPRESSION: Intrauterine gestation with heart rate 135 bpm and a biophysical profile score of 8/8. Electronically Signed: Anderson Jasmine MD at 23:56 EDT ,
== END | disposition home or self-care (01) ==
LOC: OPUS 12:57
PROVIDERS: PCP Nurse Practitioner; Referring Provider Obstetrics & Gynecology; Visit Provider Obstetrics & Gynecology
DX: O10.913 Unspecified pre-existing hypertension complicating pregnancy, third trimester (principal); Z3A.35 35 weeks gestation of pregnancy
CPT/HCPCS: 76819

== ENCOUNTER → 2023-11-16 | Outpatient (CLI) | payer MEDICAID, SELFPAY ==
--- NOTE | 2023-11-16 13:56 | US_ITS ---
EXAM: US BIOPHYSICAL PROFILE WITHOUT NON-STRESS TESTING CLINICAL INDICATION: well being -- 35 weeks TECHNIQUE: Real-time ultrasound of the maternal pelvis for biophysical profile evaluation with image documentation. COMPARISON: No relevant prior studies available. FINDINGS: BREATHING MOVEMENTS: Present. Score 2/2. GROSS BODY MOVEMENTS: Present. Score 2/2. TONE: Present. Score 2/2. QUALITATIVE AMNIOTIC FLUID VOLUME: KALIN is 16.1 cm. HEART RATE: heart rate is 150 bpm. PRESENTATION: There is an intrauterine gestation in the cephalic position. PLACENTA: Placenta is anterior. OTHER FINDINGS: Biophysical profile score is 8/8. US/Biophysical Prof W/O Non Stres IMPRESSION: Biophysical profile score 8/8. heart rate is 150 bpm. Electronically Signed: Anderson Jasmine MD at 19:36 EDT ,
== END | disposition home or self-care (01) ==
LOC: OPUS 13:55
PROVIDERS: PCP Nurse Practitioner; Visit Provider Obstetrics & Gynecology
DX: O10.913 Unspecified pre-existing hypertension complicating pregnancy, third trimester (principal); Z3A.35 35 weeks gestation of pregnancy
CPT/HCPCS: 76819

== ENCOUNTER → 2023-11-21 | Outpatient (CLI) | payer MEDICAID, SELFPAY ==
--- NOTE | 2023-11-21 12:47 | US_ITS ---
HISTORY: chronic HTN obesity BMI 48. TECHNIQUE: Transabdominal pelvic ultrasound was performed. 37 images. COMPARISON: 11/16/2023. FINDINGS: INTRAUTERINE GESTATION(s): Single. PRESENTATION: Cephalic. PLACENTA: Anterior grade 3. No placenta previa. HEART MOTION: 144 bpm. AMNIOTIC FLUID INDEX (KALIN): 10.7 cm. Largest fluid pocket 5.1 cm. BIOPHYSICAL PROFILE (BPP): 01/31 -- Breathin/2. -- Movement: 2/2. -- Tone: 2/2. --KALIN: 2/2. US/Biophysical Prof W/O Non Stres IMPRESSION: Single living intrauterine with a normal biophysical profile score. Electronically Signed: Jennifer Chávez MD at 14:20 EDT ,
== END | disposition home or self-care (01) ==
LOC: OPUS 12:46
PROVIDERS: PCP Nurse Practitioner; Visit Provider Obstetrics & Gynecology
DX: O10.919 Unspecified pre-existing hypertension complicating pregnancy, unspecified trimester (principal); Z3A.00 Weeks of gestation of pregnancy not specified
CPT/HCPCS: 76819

== ENCOUNTER → 2023-11-23 | Outpatient (CLI) | payer MEDICAID, SELFPAY ==
--- NOTE | 2023-11-23 13:54 | US_ITS ---
STUDY: OBSTETRICAL ULTRASOUND - BIOPHYSICAL PROFILE REASON FOR EXAM: Female, 32 years old well being -- 36 weeks LMP: 03/14/2023 PRIOR ULTRASOUND: 11/21/2023. TECHNIQUE: Transabdominal TECHNICAL QUALITY: Adequate. FINDINGS: There is a single intrauterine fetus. The fetus is in a cephalic presentation. There is demonstrated cardiac activity with a heart rate of 162 bpm. There is a normal amniotic fluid volume. The largest amniotic fluid pocket measures 6.7 cm. The amniotic fluid index (KALIN) is 15.7 cm. The placenta is anterior in location and is not low lying. There are Grade 3 placental changes. Age by LMP: 36 weeks, 2 days. ALEN by LMP: 12/19/2023. BIOPHYSICAL PROFILE: Breathing Movements (FBM): 2 Gross Body Movements (GBM): 2 Tone (FT): 2 Amniotic Fluid Volume (AFV): 2 TOTAL SCORE: / 8 US/Biophysical Prof W/O Non Stres IMPRESSION: Normal biophysical profile of 01/31. Electronically Signed: Dima Mas MD at 16:27 EDT ,
== END | disposition home or self-care (01) ==
PROVIDERS: PCP Nurse Practitioner; Referring Provider Obstetrics & Gynecology; Visit Provider Obstetrics & Gynecology
DX: O10.913 Unspecified pre-existing hypertension complicating pregnancy, third trimester (principal); Z3A.36 36 weeks gestation of pregnancy
CPT/HCPCS: 76819

== ENCOUNTER → 2023-11-27 | Outpatient (CLI) | payer MEDICAID, SELFPAY ==
--- NOTE | 2023-11-27 12:52 | US_ITS ---
STUDY: OBSTETRICAL ULTRASOUND - BIOPHYSICAL PROFILE REASON FOR EXAM: Female, 33 years old well being -- 37 weeks LMP: March 14, 2023. PRIOR ULTRASOUND: Comparison is made with prior study dated November 23, 2023. TECHNIQUE: Transabdominal TECHNICAL QUALITY: Adequate. FINDINGS: There is a single intrauterine fetus. The fetus is in a cephalic presentation. There is demonstrated cardiac activity with a heart rate of 156 bpm. There is a normal amniotic fluid volume. The largest amniotic fluid pocket measures 5.9 cm. The amniotic fluid index (KALIN) is 13.2 cm. The placenta is anterior in location and is not low lying. There are Grade 3 placental changes. Age by LMP: 36 weeks, 6 days. ALEN by LMP: December 19, 2023. BIOPHYSICAL PROFILE: Breathing Movements (FBM): 2 Gross Body Movements (GBM): 2 Tone (FT): 2 Amniotic Fluid Volume (AFV): 2 TOTAL SCORE: 8 / 8 US/Biophysical Prof W/O Non Stres IMPRESSION: Normal biophysical profile of 8/8. Electronically Signed: Alexey Enriquez MD at 14:13 EDT ,
== END | disposition home or self-care (01) ==
LOC: OPUS 12:52
PROVIDERS: PCP Nurse Practitioner; Referring Provider Obstetrics & Gynecology; Visit Provider Obstetrics & Gynecology
DX: O10.919 Unspecified pre-existing hypertension complicating pregnancy, unspecified trimester (principal); Z3A.00 Weeks of gestation of pregnancy not specified
CPT/HCPCS: 76819

== ENCOUNTER 2023-11-30 05:23 | Inpatient (IN) | payer MEDICAID, SELFPAY ==
[2023-11-30] VITALS (17 sets, daily range): BP systolic 102–151; BP diastolic 65–97; PULSE 78–127; RESP 16–18; TEMP 36.1–36.8; O2SAT 95–100; BMI 47.8
[2023-11-30] MEDS: Lactated Ringers 1,000 ML 999 ML IV (05:30)
[2023-11-30 05:46] LABS: Absolute Neutrophil Count 7.8 X10^3/uL (2.0-7.7); Basophil# 0.05 X10^3/uL; Basophil% 0.5 % (0-1); Eosinophil# 0.23 X10^3/uL; Eosinophils% 2.1 % (0-5); Hematocrit 36.3 % (37-47); Hemoglobin 11.8 g/dL (12.0-15.0); Lymphocyte % 17.7 % (19-41); Mean Corp Hgb Conc 32.5 g/dL (32-36); Mean Corpuscular Hgb 27.1 pg (27.0-32.0); Mean Corpuscular Volume 83.4 fL (81-99); Mean Platelet Vol. 12.1 fl (6.2-12.0); Monocyte# 0.59 X10^3/uL; Monocyte% 5.5 % (0-10); NRBC Flagged by Analyzer 0 % (0-5); Neutrophil % 72.9 % (47-70); Platelet Count 236 K/mm3 (150-450); RBC Distribution Width SD 45.7 fl (35.1-43.9); Red Blood Count 4.35 M/mm3 (4.2-5.4); White Blood Count 10.7 K/mm3 (4.4-11.0)
--- NOTE | 2023-11-30 05:50 | NURSING ---
Patient has own glucose monitoring system. Checked admission BGT using hospital glucometer for result of 90. Patient glucose monitoring system reading 107. Will discuss using patient's own monitor moving forward.
[2023-11-30 06:10] LABS: Bedside Glucose 90 mg/dL (74-106)
[2023-11-30] MEDS: Lactated Ringers 1,000 ML 150 ML IV (06:31)
[2023-11-30] MEDS: Acetaminophen 500 MG Tablet 1000 MG PO ×3 (06:31→20:41)
--- NOTE | 2023-11-30 08:26 | HP.PCM.OB_ITS ---
HPI - General General Date of Admission: 11/30/23 HPI Narrative TASHIA BAPTISTE, is a 33 @ 37 weeks 1 day who presents to L&D for a repeat . She has uncontrolled type 2 dm and hypertension Maternal Data Information ALEN Calculator Estimated Delivery Date Method Current WG Current Estimate 12/19/23 LMP (Certain) 37w 2d PFSH PFS Medical History Asthma Aphthous ulcer Obesity delivery delivered Essential hypertension Exercise induced bronchospasm Gout Desmoid tumor Fatty liver disease, nonalcoholic Near syncope History of chlamydia infection History of HPV infection PCOS (polycystic ovarian syndrome) History of PCOS Bipolar disorder Type 2 diabetes mellitus Depression Home Medications ?Medication ?Instructions ?Recorded ?Last Taken ?Type aspirin 81 mg tablet,delayed 81 mg PO DAILY #90 tabs 08/17/23 11/29/23 Rx release (Adult Aspirin Regimen) ferrous sulfate 325 mg (65 mg 325 mg PO DAILY ane #90 tabs 08/17/23 11/29/23 Rx iron) tablet flash glucose scanning reader #1 ea 08/17/23 Unknown Rx (FreeStyle Gomez 2 [place]) insulin aspart U-100 100 unit/mL 1 sliding scale dose subcut 08/17/23 11/29/23 Rx (3 mL) subcutaneous pen USEASDIRECTD GDM #15 mL labetalol 200 mg tablet 200 mg PO BID CHTN #60 tabs 08/17/23 11/30/23 04:30 Rx lamotrigine 100 mg tablet 300 mg (3 x 100 mg) PO DAILY 08/17/23 11/30/23 04:30 Rx (Lamictal) bipolar #90 tabs nifedipine 90 mg tablet,extended 90 mg PO DAILY HTn #90 tabs 08/17/23 11/30/23 04:30 Rx release 24 hr pantoprazole 20 mg tablet,delayed 20 mg PO DAILY heartburn #90 tabs 08/17/23 11/29/23 Rx release (Protonix) vits no.126-ferrous fum 1 tab PO DAILY #90 tabs 08/17/23 11/29/23 Rx 28 mg iron-folic acid 800 mcg tablet (Classic ) flash glucose sensor (FreeStyle #1 ea 08/23/23 Unknown Rx Gomez 2 Sensor kit) pen needle, diabetic 32 gauge x #100 ea 08/23/23 Unknown Rx (BD Ultra-Fine Effie Pen Needle) FreeStyle Gomez 3 Sensor #6 ea 09/12/23 Unknown Rx (blood-glucose sensor) insulin glargine U-300 conc 300 88 unit subcut QHS GDM 11/15/23 11/29/23 20:35 History unit/mL (3 mL) subcutaneous pen (Toujeo Max U-300 SoloStar) Allergy/AdvReac Type Severity Reaction Status Date / Time No Known Allergies Allergy Verified 11/30/23 05:28 Family History Mother CVA (cerebral vascular accident) Father Diabetes Hypertension Surgical History History of breast biopsy History of liver biopsy History of lumpectomy Social History adopted: No household members: spouse, children and other details: parents number of children: 1 current occupational status: unemployed pets and animals: No history of recent travel: Yes (Pt lives in [place], [place] last summer) out of state: Yes out of country: Yes sexually active: Yes Smoking Status: Never smoker second hand exposure: No alcohol intake: never substance use type: does not use diet: diabetic well-balanced diet: daily or most days caffeine: No eating out: rarely or never during the past year weight has: remained stable what type of physical activity do you participate in: walking frequency: 5-6 times per week duration: 45-60 minutes/day red/bahai: None seatbelt use: always do you feel safe at home: Yes additional social history: - 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 Date Name GA/Weeks Outcome Route Bth Weight Infant Gen Labor Lgth Anesthesia Del Locatn Provider FOB 02/04/22 Lena 37 live - full term Female benny goddard [facility] Dr. Rizo Delivery Date: 02/04/22 Last Updated by: Carolin Ibrahim tcarlene, uncontrolled diabetes, Breech Visit Details Expected Delivery Route/Plan Labor Preferences- CB/BF classes: no labor support person: Laith labor intervention preferences: [] pain management options preferred: c section cut cord/dad catch: [] : bottle PP control planned: discussed discussed possible routes of delivery and associated risks: [] special requests: [] Plans Covid status: [] Flu vaccine: [] Tdap vaccine: given Rhogam: na LARC form signed: yes movement and labor precautions reviewed. Problem list reviewed and updated with the most current plan of care details and appropriate orders placed. Relevant counseling for the gestational age provided. Continue routine care and follow up unless otherwise noted in visit notes/problem list details OB Flowsheet Initial Weight: Not Recorded Date -?-?-?-?-?-?-?-?-?-?-?-?- EGA Weight BP Urine Prot -?-?-?-?-?-?-?-?-?-?-?-?- Glucose FHR FuHt Pres Dilation -?-?-?-?-?-?-?-?-?-?-?-?- Effaced St Visit Note 09/13/23 -?-?-?-?-?-?-?-?-?-?-?-?- 26w 1d 266 lb 6 oz 123/77 Nega tive -?-?-?-?-?-?-?-?-?-?-?-?- Negative 160 -?-?-?-?-?-?-?-?-?-?-?-?- JV- pt had anato my scan and follow up growth. growth is in 58th%. They are recommending echo and patient declines this. They recommend monthly growth scans and twice weekly testing starting 32 weeks. plan to do bpp's due to large maternal body habitus . 09/26/23 -?-?-?-?-?-?-?-?-?-?-?-?- 28w 0d 271 lb 2 oz 118/68 Nega tive -?-?-?-?-?-?-?-?-?-?-?-?- Negative 153 -?-?-?-?-?-?-?-?-?-?-?-?- MH-No VB,LOF. D ec FM. Ant placenta. Br US per JV to confirm FHT. Large panus. Will get BPP this week and start twice a wk BPPs at 29 wk. Glucose stable. Growth US scheduled. [facility] 10/02/23 -?-?-?-?-?-?-?-?-?-?-?-?- 28w 6d 270 lb 6 oz 122/77 -?-?-?-?-?-?-?-?-?-?-?-?- 160 -?-?-?-?-?-?-?-?-?-?-?-?- JV- bpp last wee k was 12/01 and radiology did not call to inform. Pt was brought in today for attempted NST however due to her large pannus size and small baby the NST was inconclusive. Sending down for another bpp now. 10/13/23 -?-?-?-?-?-?-?-?-?-?-?-?- 30w 3d 273 lb 130/75 -?-?-?-?-?-?-?-?-?-?-?-?- 140 -?-?-?-?-?-?-?-?-?-?-?-?- SM- no vb lof go od fm no regular ctx 10/26/23 -?-?-?-?-?-?-?-?-?-?-?-?- 32w 2d 278 lb 135/83 Negative -?-?-?-?-?-?-?-?-?-?-?-?- Negative 145 -?-?-?-?-?-?-?-?-?-?-?-?- SM- no vb lof go od fm no regular ctx BS managed bydr duffy 11/02/23 -?-?-?-?-?-?-?-?-?-?-?-?- 33w 2d 227 lb 277 lb 139/79 -?-?-?-?-?-?-?-?-?-?-?-?- 140 -?-?-?-?-?-?-?-?-?-?-?-?- Sm- no vb lof go od fm no regular ctx BS managed per , increasing insluin demands 11/08/23 -?-?-?-?-?-?-?-?-?-?-?-?- 34w 1d 279 lb 4 oz 132/81 Nega tive -?-?-?-?-?-?-?-?-?-?-?-?- Negative 138 -?-?-?-?-?-?-?-?-?-?-?-?- JV- no lof, vag bleeding, or dec fm. normal bp's. glucose levels still unsteady and has fastings as high as 103, never over 110. on 74 NPH HS, R: 50 with breakfast, 29, 40 dinner 11/15/23 -?-?--?-?-?-?-?-?-?-?-?-?- 35w 1d 280 lb 6 oz 118/78 Nega tive -?-?-?-?-?-?-?-?-?-?-?-?- Negative 141 -?-?-?-?-?-?-?-?-?-?-?-?- JV- bpp's have b een 01/31. she saw m yesterday for growth and ac is normal. glucose levels are better now that her is in the states and she is resting better and dealing with less stress. 11/23/23 -?-?-?-?-?-?-?-?-?-?-?-?- 36w 2d 278 lb 129/80 -?-?-?-?-?-?-?-?-?-?-?-?- 140 -?-?-?-?-?-?-?-?-?-?-?-?- SM- no vb lof go od fm n oreular ctx SM- no vb lof good fm n oreu lar ctx reviewed medications preioperative and sent a message to , consent signed ROS Constitutional Constitutional: Denies change in weight, fatigue, fever(s), headache(s), poor appetite or weakness Eyes Eyes: Denies blurry vision, change in vision, seeing flashes or spots in vision ENT HEENT: Denies dizziness, headache(s), loss taste/smell or sore throat Cardiovascular Cardiovascular: Denies chest pain, dizziness, dyspnea, irregular heart rhythm, leg edema, palpitations, rapid heart rate or vomiting Respiratory/Chest Respiratory/Chest: Denies chest tightness, cough, dyspnea or breast pain Gastrointestinal Gastrointestinal: Denies abdominal pain, anorexia, constipation, cramping, diarrhea, hemorrhoids, vomiting or weight changes Genitourinary Genitourinary: Denies dysuria, flank pain, genital lesions, genital pain, urinary frequency or urinary urgency Musculoskeletal Musculoskeletal: Denies back pain, difficulty walking, joint pain, limited range of motion, muscle cramps or numbness Integumentary Integumentary: Denies lesions or unusual bruising Neurologic Neurologic: Denies abnormal movements, abnormal speech, dizziness, numbness, seizure-like activity or syncope Psychiatric Psychiatric: Denies anxiety, behavioral changes, change in appetite, change in libido, cognitive impairment, confusion, depression, difficulty concentrating, hallucinations or suicidal thoughts Endocrine Endocrinology: Denies excessive sweating, polydipsia or polyuria Hematologic/Lymphatic Hematologic/Lymphatic: Denies easy bleeding, easy bruising or lymphadenopathy Allergic/Immunologic Allergic/Immunologic: Denies itchy eyes, lip swelling, seasonal rhinorrhea, rhinitis, throat swelling, tongue swelling, eczemia, wheezing or asthma Vital Signs Vital Signs Vital Signs: 11/30/23 05:42 11/30/23 05:42 11/30/23 05:44 Temperature Temperature Source Pulse Rate 92 Respiratory Rate Blood Pressure 141/87 H Blood Pressure Mean BP Systolic 141 BP Diastolic 87 Blood Pressure Source Blood Pressure Position Blood Pressure Location Pulse Ox 99 Oxygen Delivery Method 11/30/23 05:44 11/30/23 05:44 11/30/23 05:44 Temperature Temperature Source Temporal Pulse Rate 96 Respiratory Rate 18 Blood Pressure Blood Pressure Mean BP Systolic BP Diastolic Blood Pressure Source Blood Pressure Position Blood Pressure Location Pulse Ox Oxygen Delivery Method 11/30/23 05:44 11/30/23 05:48 Temperature 97.1 F L 97.1 F L Temperature Source Temporal Pulse Rate 127 H Respiratory Rate 18 Blood Pressure 141/87 H Blood Pressure Mean 105 BP Systolic BP Diastolic Blood Pressure Source Monitor Blood Pressure Position Semi-Fowlers Blood Pressure Location Left Arm Pulse Ox 99 Oxygen Delivery Method Room Air Weight Weight: 278 lb 10.629 oz Body Mass Index (BMI) 47.8 Physical Exam Const alert, oriented x3, no apparent distress and healthy appearing General Appearance: cooperative; Negative for anxious HEENT normocephalic Face and Sinus: normal facial exam Eyes EOMs intact bilaterally and no scleral icterus General Eye: normal appearance of both eyes Neck full ROM and supple Lymph Lymphatic: no lymphadenopathy noted Chest Chest: abnormal inspection of the chest Resp normal respiratory effort Effort and Inspection: able to speak in complete sentences Cardio regular rate GI soft to palpation and non-tender Inspection: gravid Palpation: soft; Negative for tender Back/Spine no CVA tenderness Extremity normal to inspection, full ROM and no clubbing, cyanosis or edema General Extremity: Negative for calf tenderness or edema Skin Lesions: no lesions Rashes: no rashes Psych mental status grossly normal Labs Labs Labs: Blood Type O POSITIVE Antibody Screen NEGATIVE Hct 36.3 % (37-47) L Hgb 11.8 g/dL (12.0-15.0) L Pap Smear Negative Obstetrics Ultrasound Syphilis Total Ab Non-reactive Rubella IgG Antibody Reactive (Nonreactive) Hep Bs Antigen Non-Reactive (Nonreactive) Hepatitis C Antibody Non-Reactive (Nonreactive) Chlamydia DNA (KIMO) Negative (Negative) N.gonorrhoeae DNA (KIMO) Negative (Negative) HIV 1&2 Antibody Non-Reactive (Nonreactive) Rhogam given: No Miscellaneous Test Assessment & Plan (1) Preop testing: COMMENT: patient refused gbs testing. (2) RUQ abdominal pain: COMMENT: RUQ Abdominal US (3) Type 2 diabetes mellitus affecting , antepartum: COMMENT: insulin:twice wkly BPPs(due to pt size) twice a week at 29wk and growth US Q4W@32w, nl growth 32 weeks (4) Chronic hypertension affecting : COMMENT: on labetalol and procardia. plan delivery at 38 weeks, twice weekly testing at 32 weeks growths q month. mfm consult pending. (5) Previous section: COMMENT: plan rpt section no later than 12/05/23 Doc only RLTCS scheduled for 11/29 @ 7:15 with JV (6) Hx of depression, currently : COMMENT: stable (7) Supervision of high-risk : QUALIFIERS: Trimester: second trimester Qualified Code(s): O09.92 - Supervision of high risk , unspecified, second trimester COMMENT: PRR, , ALEN 12/19/23, PC Lena, Laith (8) : QUALIFIERS: Weeks of gestation: 36 weeks Qualified Code(s): Z3A.36 - 36 weeks gestation of COMMENT: low risk nipt in [place]. declined carrier and ntd screen. nl anatomy. (9) Obesity: QUALIFIERS: Obesity type: due to excess calories Obesity classification: unspecified obesity classification Serious obesity comorbidity presence: with serious comorbidity Qualified Code(s): E66.09 - Other obesity due to excess calories (10) Bipolar disorder: QUALIFIERS: Active/Remission status: in remission of unspecified degree Qualified Code(s): F31.70 - Bipolar disorder, currently in remission, most recent episode unspecified COMMENT: lamictal. stopped her abilify. [facility] PLAN: Plan After discussing the patient's diagnosis and treatment plan options, patient wishes to proceed with surgical management. I have discussed with the patient the risks, benefits, and alternatives of the procedure which include but are not limited to risks of anesthesia, bleeding, infection, possible damage to bowel, bladder, or surrounding vasculature which could lead to additional surgery to evaluate any complications. Patient agrees to procedure and wishes to proceed. ACOG/uptodate references given for additional information regarding procedure.
[2023-11-30] MEDS: Sodium Citrate/Citric Acid 30 ML UDC PO (08:33)
[2023-11-30] MEDS: Cefazolin 3 GM in 0.9% Normal Saline (100mL Bag) 100 ML IV (08:41)
[2023-11-30 09:16] LABS: Syphilis Antibodies Non-reactive
--- NOTE | 2023-11-30 09:58 | OP.PCM_ITS ---
Assessment & Plan (1) Preop testing: COMMENT: patient refused gbs testing. (2) RUQ abdominal pain: COMMENT: RUQ Abdominal US (3) Type 2 diabetes mellitus affecting , antepartum: COMMENT: insulin:twice wkly BPPs(due to pt size) twice a week at 29wk and growth US Q4W@32w, nl growth 32 weeks (4) Chronic hypertension affecting : COMMENT: on labetalol and procardia. plan delivery at 38 weeks, twice weekly testing at 32 weeks growths q month. mfm consult pending. (5) Previous section: COMMENT: plan rpt section no later than 12/05/23 Doc only RLTCS scheduled for 11/29 @ 7:15 with JV (6) Hx of depression, currently : COMMENT: stable (7) Supervision of high-risk : QUALIFIERS: Trimester: second trimester Qualified Code(s): O09.92 - Supervision of high risk , unspecified, second trimester COMMENT: PRR, , ALEN 12/19/23, ALEXANDREA Paredes, Laith (8) : QUALIFIERS: Weeks of gestation: 36 weeks Qualified Code(s): Z3A.36 - 36 weeks gestation of COMMENT: low risk nipt in [facility]. declined carrier and ntd screen. nl anatomy. (9) Obesity: QUALIFIERS: Obesity type: due to excess calories Obesity classification: unspecified obesity classification Serious obesity comorbidity presence: with serious comorbidity Qualified Code(s): E66.09 - Other obesity due to excess calories (10) Bipolar disorder: QUALIFIERS: Active/Remission status: in remission of unspecified degree Qualified Code(s): F31.70 - Bipolar disorder, currently in remission, most recent episode unspecified COMMENT: lamictal. stopped her abilify. [facility] Maternal Data Information ALEN Calculator Estimated Delivery Date Method Current WG Current Estimate 12/19/23 LMP (Certain) 37w 2d Details Operative Information Date of Procedure: 11/30/23 Pre-Operative Diagnosis: 37 weeks, type 2 DM, chronic hypertension, prior section, morbid obesity Post-Operative Diagnosis: 37 weeks, type 2 DM, chronic hypertension, prior section, morbid obesity Classification: Scheduled Procedure Type: low transverse leaf stamper #1: Ace Madrigal Type of Anesthesia: Spinal Anesthesiologist: Velasquez Acuna Antibiotic Given: Ancef 3 grams IV x1 Estimated Blood Loss: 700cc Procedure Start Time: :07 Procedure Stop Time: :51 Time of Delivery: 09:15 Findings Description of Procedure: The patient is a presented for repeat . Spinal anesthesia was placed without difficulty. Mcneal catheter was placed. The patient was placed in the dorsal supine position with leftward tilt. Patient was prepped and draped in the normal sterile fashion. Pfannenstiel skin incision was made with the scalpel and carried through to the underlying layer of fascia with the scalpel. Fascia was nicked in the midline and the incision extended laterally. The rectus bellies were dissected off superiorly and inferiorly with out complication both sharply and bluntly. The peritoneum was entered digitally. The incision was stretched and a low transverse uterine incision was made with the scalpel. The 's head was delivered atraumatically followed by the anterior and posterior shoulders without complication the rest of the delivered. The cord was clamped and cut and the was handed off to awaiting nurse. The placenta was delivered spontaneously immediately following and was noted to be intact and have a three-vessel cord. The uterus was exteriorized cleared of all clots and debris, and the incision was closed in a double layer closure using #1 Vicryl and #1 Monocryl. The ovaries and fallopian tubes were noted to be within normal limits. The uterus was returned to the maternal abdomen and gutters were cleared of all clots and debris. The peritoneum was closed with 3-0 Monocryl in a running fashion. Fascia was closed with 0 PDS in a running fashion. Hemoblast was applied to the subcutaneous tissue layer due to oozing. Subcutaneous tissue was copiously irrigated and the skin was closed with 3-0 Monocryl in a subcuticular fashion. Mepilex dressing was applied without complication. Patient was taken to recovery in stable condition. It was discussed with the patient that based on the clinical information obtained during this encounter, combined with her history, at this time I would recommend for future deliveries if further pregnancies are desired. Presentation: Positive for Vertex Amniotic Membrane Rupture Type: Spontaneous Amniotic Fluid Description: Clear Placental Delivery Description: Expressed Placenta Disposition: [facility] Cord Vessel Description: 3 Vessels Cord Entanglement: None Infant A Gender: Female (1 minute): 8 (5 minute): 9 Delayed Cord Clamping: Yes Complications Risks of Surgery Discussed w/Patient: Bleeding, Anesthesia Risks, Infection and Injury to surrounding structure(s) including bowel and bladder Multi Select Codes Urinary/Genital Urinary/Genital CPT Codes: 86510 delivery+ Care([facility])
--- NOTE | 2023-11-30 10:04 | PCM.DC ---
Discharge Instructions Diet Discharge Diet: No restrictions Activity Discharge Activity: May Not Drive (for 2 weeks or while taking narcotic pain medications.), May Shower and May Take a Tub Bath (in 7 days.) May resume sexual activity in: 4-6 weeks Weight Bearing Status: Full weight bearing Lifting Restrictions: 20 pounds Dressing / Incision Call your doctor if your incision/area has: Continuous Slow Oozing, Sudden Increased Bleeding, Increased Pain/ Swelling, Increased Redness and Foul Smelling Discharge Call your doctor if you observe: Fever of 101 or Higher and Using more than 1 pad per hour Suture Line Care: Avoid Pulling/Pushing and Avoid Pinching/Bending Cleanse incision/area with: Soap & Water and Keep Dressing Clean & Dry Follow Up Care Please Follow Up With: Alexandra Rivas DO When: Call [phone] to make an appointment for an incision check in 1-2 weeks. Test Results: Test results from this visit will be discussed in further detail at your follow-up appointment, if applicable. Discharge Plan Admission Admit Date/Time: 11/30/23 05:23 Primary Reason for Your Visit: section Attending Provider: Alexandra Rivas Primary Care Provider: FATOUMATA CEDEÑO Discharge Orders/Prescriptions Prescriptions: New oxycodone-acetaminophen [Percocet] 5-325 mg tablet 1 tab PO Q4H PRN (Reason: pain) 7 Days Qty: 30 0RF Rx Instructions: 1-2 tabs q 4 hrs as needed for pain naproxen 500 mg tablet 500 mg PO BID PRN (Reason: pain) Qty: 30 0RF Continued insulin aspart U-100 100 unit/mL (3 mL) insulin pen 1 sliding scale dose subcut USEASDIRECTD Qty: 15 3RF labetalol 200 mg tablet 200 mg PO BID Qty: 60 12RF nifedipine 90 mg tablet extended release 24hr 90 mg PO DAILY Qty: 90 3RF lamotrigine [Lamictal] 100 mg tablet 300 mg PO DAILY Qty: 90 4RF pantoprazole [Protonix] 20 mg tablet,delayed release (DR/EC) 20 mg PO DAILY Qty: 90 4RF ferrous sulfate 325 mg (65 mg iron) tablet 325 mg PO DAILY Qty: 90 4RF Classic 28 mg iron- 800 mcg tablet 1 tab PO DAILY Qty: 90 3RF (DME) FreeStyle Gomez 2 [place] Misc See Rx Instructions .Route Qty: 1 0RF Rx Instructions: As directed (DME) FreeStyle Gomez 2 Sensor Kit See Rx Instructions .Route Qty: 1 0RF Rx Instructions: 1 sensor q 14 days (DME) pen needle, diabetic [BD Ultra-Fine Effie Pen Needle] 32 gauge x 5/32 needle See Rx Instructions .Route Qty: 100 5RF Rx Instructions: 4x/day insulin glargine U-300 conc [Toujeo Max U-300 SoloStar] 300 unit/mL (3 mL) insulin pen 88 unit subcut QHS (DME) FreeStyle Gomez 3 Sensor Device See Rx Instructions .Route Qty: 6 3RF Rx Instructions: As directed Discontinued aspirin [Adult Aspirin Regimen] 81 mg tablet,delayed release (DR/EC) 81 mg PO DAILY Qty: 90 3RF Referrals / Follow Up: FATOUMATA CEDEÑO, [employer] BOTTOM ATTACHING MACHINE OPERATOR-C [Primary Care Provider] - Disposition Disposition (needs filled in before D/C Order can be placed): Home, Self Care
[2023-11-30] MEDS: Oxytocin 15 Units/NS 250ml 15 UNITS/250 ML IV.SOLN 83 UNITS IV (10:17)
[2023-11-30] MEDS: HYDROmorphone 1 MG/ML Syringe IV (10:38)
[2023-11-30] MEDS: Ketorolac 30 MG/ML Syringe IV ×3 (10:39→22:07)
--- NOTE | 2023-11-30 10:45 | NURSING ---
Blood Glucose 89 via Patient monitor, okay to use for glucose values per Dr. Barr
[2023-11-30] MEDS: Insulin Glargine-YFGN 100 UNIT/ML Pen 88 UNIT SC ×2 (12:51→22:06)
[2023-11-30] MEDS: Insulin Lispro 100 UNIT/ML INSULN.PEN SC (13:00)
[2023-11-30] MEDS: Lactated Ringers 1,000 ML 100 ML IV (13:24)
[2023-11-30] MEDS: 0.9% Saline Lock 10 ML Syringe IV ×2 (16:36→22:07)
[2023-11-30] MEDS: Enoxaparin 40 MG/0.4 ML Syringe SC (20:40)
[2023-11-30] MEDS: Labetalol 200 MG Tablet PO (22:07)
[2023-12-01 00:40] VITALS: BP 123/67; PULSE 77; RESP 16; TEMP 36.6; O2SAT 97
[2023-12-01] MEDS: Acetaminophen 500 MG Tablet 1000 MG PO ×2 (02:37→09:26)
[2023-12-01 03:24] LABS: Bedside Glucose 90 mg/dL (74-106)
[2023-12-01 03:24] LABS: Bedside Glucose 53 mg/dL (74-106)
[2023-12-01 03:53] VITALS: BP 137/76; PULSE 80; RESP 16; TEMP 36.3; O2SAT 98
[2023-12-01] MEDS: Ketorolac 30 MG/ML Syringe IV (04:05)
[2023-12-01] MEDS: 0.9% Saline Lock 10 ML Syringe IV (04:05)
--- NOTE | 2023-12-01 04:12 | NURSING ---
0400 1 hour recheck of blood sugar was 99 on glucometer but 107 via patients phone of her continuous blood sugar monitor.
--- NOTE | 2023-12-01 04:13 | NURSING ---
at 0228, pt called this RN for feeling sweaty/clammy and blood sugar phone reading was 60. Glucometer check was 53 and patient took 6 oz of apple juice and a pack and a half of fermín crackers with peanut butter by 0245. Rechecked at 0300 and came up to 90 and patient symptoms started to subside and she stated she was feeling better.
[2023-12-01 04:29] LABS: Bedside Glucose 99 mg/dL (74-106)
--- NOTE | 2023-12-01 06:46 | NURSING ---
0500 blood sugar checked on patients own monitor was 80 and at 0630 was 91.
[2023-12-01 06:49] LABS: Hematocrit 31.5 % (37-47); Hemoglobin 10.1 g/dL (12.0-15.0); Mean Corp Hgb Conc 32.1 g/dL (32-36); Mean Corpuscular Volume 84.2 fL (81-99); Mean Platelet Vol. 11.9 fl (6.2-12.0); Platelet Count 205 K/mm3 (150-450); RBC Distribution Width CV 14.9 % (11.6-14.6); RBC Distribution Width SD 45.7 fl (35.1-43.9); Red Blood Count 3.74 M/mm3 (4.2-5.4); White Blood Count 10.8 K/mm3 (4.4-11.0)
--- NOTE | 2023-12-01 08:37 | PN.OBGYN_ITS ---
Subjective Subjective Patient doing well without complaints. Tolerating PO, had shaky event with diaphoresis. Ambulating and voiding without difficulty. Feeding well. Denies chest pain, shortness of breath, calf pain/swelling, fevers, chills, lightheadedness. Objective Data Objective Data Vital Signs: Vital Signs Temp Pulse Resp BP Pulse Ox O2 Del Method 97.4 F L 80 16 137/76 H 98 Room Air 12/01/23 03:53 12/01/23 03:53 12/01/23 03:53 12/01/23 03:53 12/01/23 03:53 12/01/23 03:53 Oxygen Delivery Method Room Air Weight: 278 lb 10.629 oz Body Mass Index (BMI) 47.8 Intake & Output: Intake and Output for Last 24 Hours 11/29/23 11/30/23 12/01/23 23:59 23:59 23:59 Intake Total 2250 / 2250 Output Total 900 / 900 700 / 700 Balance 1350 / 1350 -700 / -700 Lab / Micro Data 12/01/23 06:35 Labs: Laboratory Results - last 24 hr 11/30/23 05:30: Syphilis Total Ab Non-reactive 12/01/23 02:33: POC Glucose 53 L 12/01/23 03:04: POC Glucose 90 12/01/23 04:06: POC Glucose 99 12/01/23 06:35: WBC 10.8, RBC 3.74 L, Hgb 10.1 L, Hct 31.5 L, MCV 84.2, MCH 27.0, MCHC 32.1, RDW Std Deviation 45.7 H, RDW Coeff of Ranjeet 14.9 H, Plt Count 205, MPV 11.9 Physical Exam Const alert and oriented x3 Neck full ROM Lymph Lymphatic: no lymphadenopathy noted Chest inspection of chest normal Resp normal respiratory effort and normal air movement Effort and Inspection: able to speak in complete sentences Auscultation: clear to auscultation bilaterally Cardio regular rate and regular rhythm GI normal to inspection, nondistended, normoactive bowel sounds Uterus Palpation: uterus fundus firm Extremity normal to inspection, no calf tenderness and no pedal edema Skin no rashes or lesions noted Skin Narrative: dressing intact, marked drainage without increased margins. Neuro oriented x3 Psych mental status grossly normal Assessment & Plan (1) Status post delivery: (2) Type 2 diabetes mellitus affecting , antepartum: COMMENT: insulin:twice wkly BPPs(due to pt size) twice a week at 29wk and growth US Q4W@32w, nl growth 32 weeks -on CGM with Dr. Lee following - prepregancy metformin 500mg AM and 1000mg PM , plan to resume today along with 30u lantus at at night per Dr. lee. 11/30 (3) Chronic hypertension affecting : COMMENT: on labetalol and procardia. plan delivery at 38 weeks, twice weekly testing at 32 weeks growths q month. mfm consult pending. pp BP stable. (4) Previous section: COMMENT: plan rpt section no later than 12/05/23 Doc only RLTCS scheduled for 11/29 @ 7:15 with JV (5) Bipolar disorder: QUALIFIERS: Active/Remission status: in remission of unspecified degree Qualified Code(s): F31.70 - Bipolar disorder, currently in remission, most recent episode unspecified COMMENT: lamictal. stopped her abilify. [facility] (6) Hx of depression, currently : COMMENT: stable PLAN: Plan s/p LTCS PPD # 1 1. routine post care 2. breast feeding- support given 3. rh positive 4. rubella immune 5. plan d/c home tomorrow
[2023-12-01 09:00] VITALS: BP 132/79; PULSE 93; RESP 18; TEMP 36.8; O2SAT 99
[2023-12-01] MEDS: Enoxaparin 40 MG/0.4 ML Syringe SC (09:12)
[2023-12-01] MEDS: Ferrous Sulfate 325 MG Tablet PO (09:12)
[2023-12-01] MEDS: Senna/Docusate Sodium 1 Tablet PO (09:13)
[2023-12-01] MEDS: NIFEdipine 90 MG Tablet PO (09:13)
[2023-12-01] MEDS: Labetalol 200 MG Tablet PO (09:13)
[2023-12-01] MEDS: Pantoprazole Sodium 20 MG Tablet PO (09:25)
[2023-12-01] MEDS: lamoTRIgine 150 MG Tablet 300 MG PO (09:26)
[2023-12-01] MEDS: Ibuprofen 600 MG Tablet PO (11:25)
--- NOTE | 2023-12-01 11:49 | PCM.DC ---
Discharge Instructions Diet Discharge Diet: No restrictions Activity May resume sexual activity in: 4-6 weeks Weight Bearing Status: Full weight bearing Dressing / Incision Call your doctor if your incision/area has: Continuous Slow Oozing, Sudden Increased Bleeding, Increased Pain/ Swelling, Increased Redness and Foul Smelling Discharge Call your doctor if you observe: Fever of 101 or Higher and Using more than 1 pad per hour Suture Line Care: Avoid Pulling/Pushing and Avoid Pinching/Bending Cleanse incision/area with: Soap & Water and Keep Dressing Clean & Dry Follow Up Care Please Follow Up With: Alexandra Rivas DO Test Results: Test results from this visit will be discussed in further detail at your follow-up appointment, if applicable. Discharge Plan Admission Admit Date/Time: 11/30/23 05:23 Primary Reason for Your Visit: section Attending Provider: Alexandra Rivas Primary Care Provider: FATOUMATA CEDEÑO Discharge Orders/Prescriptions Prescriptions: New oxycodone-acetaminophen [Percocet] 5-325 mg tablet 1 tab PO Q4H PRN (Reason: pain) 7 Days Qty: 30 0RF Rx Instructions: 1-2 tabs q 4 hrs as needed for pain naproxen 500 mg tablet 500 mg PO BID PRN (Reason: pain) Qty: 30 0RF Continued insulin aspart U-100 100 unit/mL (3 mL) insulin pen 1 sliding scale dose subcut USEASDIRECTD Qty: 15 3RF labetalol 200 mg tablet 200 mg PO BID Qty: 60 12RF nifedipine 90 mg tablet extended release 24hr 90 mg PO DAILY Qty: 90 3RF lamotrigine [Lamictal] 100 mg tablet 300 mg PO DAILY Qty: 90 4RF pantoprazole [Protonix] 20 mg tablet,delayed release (DR/EC) 20 mg PO DAILY Qty: 90 4RF ferrous sulfate 325 mg (65 mg iron) tablet 325 mg PO DAILY Qty: 90 4RF Classic 28 mg iron- 800 mcg tablet 1 tab PO DAILY Qty: 90 3RF (DME) FreeStyle Gomez 2 [place] Misc See Rx Instructions .Route Qty: 1 0RF Rx Instructions: As directed (DME) FreeStyle Gomez 2 Sensor Kit See Rx Instructions .Route Qty: 1 0RF Rx Instructions: 1 sensor q 14 days (DME) pen needle, diabetic [BD Ultra-Fine Effie Pen Needle] 32 gauge x 5/32 needle See Rx Instructions .Route Qty: 100 5RF Rx Instructions: 4x/day insulin glargine U-300 conc [Toujeo Max U-300 SoloStar] 300 unit/mL (3 mL) insulin pen 88 unit subcut QHS (DME) FreeStyle Gomez 3 Sensor Device See Rx Instructions .Route Qty: 6 3RF Rx Instructions: As directed Discontinued aspirin [Adult Aspirin Regimen] 81 mg tablet,delayed release (DR/EC) 81 mg PO DAILY Qty: 90 3RF Referrals / Follow Up: FATOUMATA CEDEÑO, ACCREDITATION MANAGER-C [Primary Care Provider] - Disposition Disposition (needs filled in before D/C Order can be placed): Home, Self Care
== END 2023-12-01 14:30 | disposition home or self-care (01) | DRG 540 ==
PROVIDERS: Admitting Provider Obstetrics & Gynecology; PCP Nurse Practitioner; Referring Provider Obstetrics & Gynecology; Visit Provider Obstetrics & Gynecology
PROC: 10D00Z1 Extraction of Products of Conception, Low, Open Approach (ICD-10-PCS; CPT 59514; principal; 2023-11-30 07:00)
DX: O24.12 Pre-existing type 2 diabetes mellitus, in childbirth (principal); O10.02 Pre-existing essential hypertension complicating childbirth; E66.01 Morbid (severe) obesity due to excess calories; F31.70 Bipolar disorder, currently in remission, most recent episode unspecified; Z37.0 Single live birth; O99.344 Other mental disorders complicating childbirth; Z79.82 Long term (current) use of aspirin; Z3A.37 37 weeks gestation of pregnancy; O34.219 Maternal care for unspecified type scar from previous cesarean delivery; O99.214 Obesity complicating childbirth; Z86.59 Personal history of other mental and behavioral disorders
CPT/HCPCS: 59025; 59050; 76819; 82962; 85025; 85027; 86780; 86850; 86900; 86901; 99221; J7120; A4216; G0378; J2405

== ENCOUNTER → 2023-12-11 | Outpatient (CLI) | payer MEDICAID, SELFPAY | END | disposition home or self-care (01) | LOC: LABSPEC 15:37 | PROVIDERS: PCP Nurse Practitioner; Visit Provider Advanced Practice Midwife | DX: T81.30XA Disruption of wound, unspecified, initial encounter (principal) | CPT/HCPCS: 87070; 87077; 87186; 87205 ==